=== PATIENT | male | born 1980 | race Caucasian/White ===

== ENCOUNTER 2021-02-04 10:00 | Outpatient (RCR) | payer MEDICAID, SELFPAY | END 2021-02-22 12:21 | disposition home or self-care (01) | LOC: HO.PT 10:00 | PROVIDERS: PCP Family Medicine; Visit Provider Internal Medicine | DX: M54.9 Dorsalgia, unspecified (principal) | CPT/HCPCS: 97110; 97112; 97150; 97162 ==

== ENCOUNTER → 2021-05-16 08:58 | Outpatient (BNVA) | payer MEDICAID, SELFPAY | PROVIDERS: PCP Family Medicine; Visit Provider Anesthesiology | DX: M47.816 Spondylosis without myelopathy or radiculopathy, lumbar region (principal); M46.1 Sacroiliitis, not elsewhere classified; F11.21 Opioid dependence, in remission; G89.4 Chronic pain syndrome | CPT/HCPCS: 99202 ==

== ENCOUNTER 2021-06-18 06:06 | Outpatient (REF) | payer MEDICAID, SELFPAY ==
--- NOTE | ~2021-06-18 | FL_ITS ---
EXAMINATION: XR FLUOROSCOPY WITH IMAGES CLINICAL INFORMATION: M46.1 - Sacroiliitis, not elsewhere classified COMPARISON: Radiographs lumbar spine 10/11/2018 TECHNIQUE: Fluoroscopy performed by Dr. Vince Trammell. Fluoroscopy time: 0.3 minutes DAP: 0.213 mGycm2 Images: 2 FINDINGS: Spinal needles overlie the bilateral lower SI joints. There is contrast in the periarticular soft tissues with probable early intra-articular contrast. No vasculature communication appreciated. FL/FL guidance in treatment room IMPRESSION: Fluoroscopy for pain management procedure.
== END 2021-06-18 06:07 | disposition home or self-care (01) ==
LOC: HO.RADIR 06:06
PROVIDERS: Visit Provider Anesthesiology
DX: M47.816 Spondylosis without myelopathy or radiculopathy, lumbar region (principal); M46.1 Sacroiliitis, not elsewhere classified; F11.21 Opioid dependence, in remission; G89.4 Chronic pain syndrome
CPT/HCPCS: 27096; J3300; Q9967

== ENCOUNTER → 2021-06-19 09:02 | Outpatient (BNVA) | payer MEDICAID, SELFPAY | PROVIDERS: PCP Internal Medicine; Referring Provider Internal Medicine; Visit Provider Physician Assistant | DX: K59.09 Other constipation (principal); G89.4 Chronic pain syndrome; Z79.891 Long term (current) use of opiate analgesic | CPT/HCPCS: 99202 ==

== ENCOUNTER → 2021-08-01 10:35 | Outpatient (BNVA) | payer MEDICAID, SELFPAY | PROVIDERS: PCP Internal Medicine; Referring Provider Internal Medicine; Visit Provider Physician Assistant | DX: K59.09 Other constipation (principal) | CPT/HCPCS: 99212 ==

== ENCOUNTER → 2021-08-26 08:54 | Outpatient (BNVA) | payer MEDICAID, SELFPAY | PROVIDERS: PCP Internal Medicine; Visit Provider Anesthesiology | DX: M47.816 Spondylosis without myelopathy or radiculopathy, lumbar region (principal); M46.1 Sacroiliitis, not elsewhere classified; G89.4 Chronic pain syndrome; Z79.891 Long term (current) use of opiate analgesic | CPT/HCPCS: 99212 ==

== ENCOUNTER 2021-09-17 05:55 | Outpatient (REF) | payer MEDICAID, SELFPAY ==
--- NOTE | ~2021-09-17 | FL_ITS ---
EXAMINATION: XR FLUOROSCOPY WITH IMAGES CLINICAL INFORMATION: M46.1 - Sacroiliitis, not elsewhere classified COMPARISON: Lumbar spine 10/11/2018 TECHNIQUE: Fluoroscopy performed by Dr. Vince Trammell. Fluoroscopy time: 0.3 minutes. DAP: 4.90 Gycm2. Images: 2. FINDINGS: There are spinal needles overlying the bilateral mid SI joints. There is contrast in the periarticular soft tissues with probable early intra-articular contrast. No vasculature communication appreciated. FL/FL guidance in treatment room IMPRESSION: Fluoroscopy for pain management procedures.
== END 2021-09-17 05:56 | disposition home or self-care (01) ==
LOC: HO.RADIR 05:55
PROVIDERS: Visit Provider Anesthesiology
DX: M46.1 Sacroiliitis, not elsewhere classified (principal); M47.816 Spondylosis without myelopathy or radiculopathy, lumbar region; G89.4 Chronic pain syndrome; F11.21 Opioid dependence, in remission
CPT/HCPCS: 27096; J2795

== ENCOUNTER 2021-11-21 09:07 | Day surgery (SDC) | payer MEDICAID, SELFPAY ==
[2021-11-15 13:03] VITALS: BMI 42.2
--- NOTE | 2021-11-20 09:14 | HO.ANESPROP2 ---
Documented by User: Evelin Willis NP 11/20/21 09:16 HPI - Anesthesia Eval Consult details Narrative: 41yo M for Right S.I. Joint Fusion Suboxone daily PMFSH Active Problems Active Problems: All Active Problems (Updated 08/01/21 @ 11:12 by Harmony Nieves PA-C) Chronic constipation (Acute) Chronic pain syndrome (Acute) Sacroiliitis (Acute) Opioid dependence, in remission (Acute) Spondylosis of lumbar spine (Acute) Past Medical History Medical History Chronic back pain Chronic pain syndrome Mood disorder Opioid dependence, in remission Sacroiliitis Spondylosis of lumbar spine Family History Family History Father HTN (hypertension) Mother Lung cancer Brother Heart disease Surgical History Surgical History History of neck surgery Social History Social History Household Members: Family Alcohol intake: never Patient Tobacco Use Status: Former Tobacco user Substance Use Type: Heroin Advance Directives: No Advance Directives Information Provided: Yes Meds Allergies Allergy/AdvReac Type Severity Reaction Status Date / Time No Known Allergies Allergy Verified 09/19/21 08:39 Home Medications Medication Instructions Recorded Confirmed Last Taken Type buprenorphine 12 mg-naloxone 3 mg 1 film buccal Q24H 05/16/21 Unknown History sublingual film (Suboxone) bupropion HCl 150 mg 24 hr tablet, 150 mg PO QAM 05/16/21 Unknown History extended release olanzapine 2.5 mg tablet 2.5 mg PO BEDTIME 05/16/21 Unknown History polyethylene glycol 3350 17 17 g PO DAILY 06/19/21 06/19/21 Unknown History gram/dose oral powder (Miralax) Exam Exam Date and Time: November 20, 202114 Height,Weight and Vital Signs: Height 5 ft 2 in Weight 104.78 kg Assessment and Plan Assessment Anesthesia Assessment: Chart Reviewed Documented by User: Price Horan MD 11/21/21 10:26 [facility] Past Medical History Medical History Chronic back pain Chronic pain syndrome Mood disorder Opioid dependence, in remission Sacroiliitis Spondylosis of lumbar spine Family History Family History Father HTN (hypertension) Mother Lung cancer Brother Heart disease Family history of problems with anesthesia: No Surgical History Surgical History History of neck surgery History of Problems with Anesthesia: No Social History Social History Household Members: Family Alcohol intake: never Patient Tobacco Use Status: Former Tobacco user Substance Use Type: Heroin Advance Directives: No Advance Directives Information Provided: Yes Meds Allergies Allergy/AdvReac Type Severity Reaction Status Date / Time No Known Allergies Allergy Verified 09/19/21 08:39 Home Medications Medication Instructions Recorded Confirmed Last Taken Type buprenorphine 12 mg-naloxone 3 mg 1 film buccal Q24H 05/16/21 Unknown History sublingual film (Suboxone) bupropion HCl 150 mg 24 hr tablet, 150 mg PO QAM 05/16/21 Unknown History extended release olanzapine 2.5 mg tablet 2.5 mg PO BEDTIME 05/16/21 Unknown History polyethylene glycol 3350 17 17 g PO DAILY 06/19/21 06/19/21 Unknown History gram/dose oral powder (Miralax) Exam Airway Mallampati Class: III TM Dist: >3cm Neck ROM: Full Loose/Missing/Broken Teeth: No Assessment and Plan Assessment Anesthesia Assessment: Anesthesia Plan Discussed Final Anesthetic Review Family History of Problems with Anesthesia: No History of Problems with Anesthesia: No NPO: Yes ASA Class: III Final Preanesthetic Review: No Changes in Pt Med Stat, Meds/Allgs Chart Reviewed, Consent Obtained/Reviewed and Anes Risks/Benef Reviewed Patient Risk: Intermediate Procedure Risk: Low Anesthetic Plan Anesthetic Plan: GA Disposition: Standard PACU
[2021-11-21] VITALS (7 sets, daily range): BP systolic 115–125; BP diastolic 69–84; PULSE 87–97; RESP 14–16; TEMP 36.6–37.1; O2SAT 94–99
--- NOTE | ~2021-11-21 | FL_ITS ---
EXAMINATION: XR FLUOROSCOPY WITH IMAGES CLINICAL INFORMATION: SI pain. Fluoroscopy for pain management procedure/joint fusion. COMPARISON: Fluoroscopic spot views 09/17/2021 TECHNIQUE: Fluoroscopy performed by Dr. Vince Trammell. Fluoroscopy time: 0.6 minutes. Cumulative Dose: 17.1 mGy. DAP: 4.53 Gy-cm2. Images: 8. FINDINGS: Fluoroscopic spot views initially show needle directed into the mid left SI joint. Subsequent images show metallic ring overlying the mid left SI joint joint and finally thin device in this area. No visible fracture or diastases. FL/FL guidance in OR IMPRESSION: Fluoroscopy for pain management procedure.
[2021-11-21] MEDS: Lactated Ringers 1,000 ML 100 ML IVCONT (09:55)
[2021-11-21 09:57] LABS: Amphetamine Screen Urine Not Detected (Not Detect); Barbiturates, Urine Not Detected (Not Detect); Benzodiazepines Screen Urine Not Detected (Not Detect); Cannabinoid Screen Urine Not Detected (Not Detect); Cocaine Screen Urine Not Detected (Not Detect); Fentanyl, urine Not Detected (Not Detect); Opiate Screen Urine Not Detected (Not Detect); Phencyclidine Screen Urine Not Detected (Not Detect)
--- NOTE | 2021-11-21 12:00 | P.HPSUR_ITS ---
Pre-Procedural Eval Section A Date of Service: 11/21/21 The patient is an INPATIENT: No Changes since office visit: Yes Patient answered all questions The History & Physical has been completed within 30 days and I have reviewed it.: No Section B Chief Complaint: Sacroiliitis, Details of Present Illness: as above Relevant Family History (Specify if Yes): No Relevant Social History: None Present Medications: see Short Stay Collaborative assessment Medical History: No relevant PMH History of Previous Operations: No relevant previous surgery Allergies: Allergies Allergy/AdvReac Type Severity Reaction Status Date / Time No Known Allergies Allergy Verified 09/19/21 08:39 Review of Systems Sugical H&P ROS: Negative: Constitution, Cardiovascular, Respiratory, N eurological, Psychiatric, Hem-Onc, Allergic/Immunologic, Gastrointestinal, Genitourinary, Musculoskeletal, Integumentary, Endocrine and Eyes/Ears/Nose/Throat Exam Surgical H&P Exam: Normal: HEENT, Normal: Heart, Normal: Lungs, Normal: Extremities, Normal: Abdomen, Normal: Skin and Normal: Neurological Plan Diagnosis/Plan: Unchanged I have reviewed the history and physical and performed a pertinent physical examination on my patient. No changes have occurred unless specified.
--- NOTE | 2021-11-21 13:29 | PM.OP ---
Brief Operative Note Date of Service: 11/21/21 Pre-op diagnosis: Sacroiliac joint pain, sacroiliitis Post-op diagnosis: same Procedure: right sacroiliac joint stabilization Implants: cadaver bone wedge with biological activator. Surgeon: Vince Trammell MD Anesthesia: GETA Was an Yarn Preparation Supervisor used for this Procedure?: No Estimated blood loss (mL): 16 Pathology: none sent Condition: stable Disposition: PACU
--- NOTE | 2021-11-21 13:38 | W.PM.OPN ---
Operative Note Operative Note Date of Service: 11/21/21 Narrative: Sacroiliac joint stabilisation procedure. posterior sacroiliac joint fusion on the right? using [employer] SI joint stabilization system with C-arm fluoroscopy for guidance.? Hal is a oleasant 41 y.o male who is suffering from the right?sacroiliitis.??He failed conservative management of sacroiliitis.?He came today to receive the procedures as above.??The risks and benefits including bleeding, infection, peripheral nerve damage, failure to reduce the pain were explained to the patient.?The patient came to the operating room, he was positioned on the stretcher supine, [employer] monitors were applied and patient was administered with general endotracheal anesthesia.??After that the patient was transferred on operating table and positioned prone with all pressure points protected. The patient was administered 2 grams cefazolin IV approximately 25 minutes before the start of the procedure.? Time-out was performed delineating correct site, side, and nature of the procedure, name and date of of the patient, risk of fire, need for DVT prophylaxis, need for antibiotics.? The patient was transferred?on?radiolucent table. All pressure points were protected again. Lower back and bilateral buttocks were prepped with ChloraPrep and draped with full body drape. 3. 5 cm posterior midline incision over the projection of the right? S1 foramina was performed.? Soft tissue dissection done to sacroiliac joint and thorough blind dissection was made in the direction of the?sacroiliac joint.? K-wire pin was inserted into the sacroiliac joint and guiding instrument was inserted into the joint using the pin as a guide and advanced into the joint on the intermittent anterior posterior and lateral views.??? After that pin was removed and rasping device was inserted to broach and rasp sacroiliac joint.? Once joint was prepared and inserted the structural allograft implant was hammered into the joint . It was packed with ortho biologics in and around the implant to provide better opportunity? for bones fusion.? The position of the allograft was confirmed radiographically.? The wound was irrigated, hemostasis was achieved,? wound was closed in 2 layers.? Surgery was concluded by performing standard suture closing technique:? 0 Polysorb suture was used to close the wound and polisorb 2-0? were used to approximate the level of the skin and jimmie were applied.? ? ? Sterile?dressing was applied with bacitracin ointment .? The patient tolerated procedure well he was awaken, extubated? and taken outside of the operating room to PACU where he recovered uneventfully. He went home without immediate complications. she will be wearing an SI joint fixation belt for the 10? weeks after the procedure.
== END 2021-11-21 15:05 ==
LOC: HO.SSS 09:07
PROVIDERS: Nurse Practitioner; PCP Internal Medicine; Visit Provider Anesthesiology
PROC: (CPT 27279; principal; 2021-11-21 11:30)
DX: M46.1 Sacroiliitis, not elsewhere classified (principal); M47.816 Spondylosis without myelopathy or radiculopathy, lumbar region; G89.4 Chronic pain syndrome; F11.21 Opioid dependence, in remission; F39 Unspecified mood [affective] disorder; Z79.899 Other long term (current) drug therapy; Z87.891 Personal history of nicotine dependence
CPT/HCPCS: 27279; 80307; C1713; J0131; J0690; J1100; J2370; J2405; J2795; J3010; J3370

== ENCOUNTER → 2021-11-27 10:54 | Outpatient (BNVA) | payer MEDICAID, SELFPAY | PROVIDERS: PCP Internal Medicine; Visit Provider Anesthesiology | DX: M47.816 Spondylosis without myelopathy or radiculopathy, lumbar region (principal); M46.1 Sacroiliitis, not elsewhere classified; G89.4 Chronic pain syndrome; F11.21 Opioid dependence, in remission | CPT/HCPCS: 99212 ==

== ENCOUNTER → 2021-12-04 10:29 | Outpatient (BNVA) | payer MEDICAID, SELFPAY | PROVIDERS: PCP Internal Medicine; Visit Provider Anesthesiology | DX: G89.4 Chronic pain syndrome (principal); M47.816 Spondylosis without myelopathy or radiculopathy, lumbar region; M46.1 Sacroiliitis, not elsewhere classified; F11.20 Opioid dependence, uncomplicated | CPT/HCPCS: 99212 ==

== ENCOUNTER 2022-09-17 11:07 | Outpatient (AMB) | payer MEDICAID, SELFPAY ==
--- NOTE | 2022-09-17 11:36 | MHC.OFFVIS ---
Intake Vital Signs 09/17/22 11:40 Height 5 ft 2 in Weight 217 lb BMI 39.7 BP 126/78 Blood Pressure Location Rt brachial Position Sitting Respiration 18 Pulse 94 Pulse Source Pulse Oximeter Pulse Oximetry (%) 97 Oxygen Delivery Method Room Air Intake Visit Reasons: Increasing Low Back Pain Intake Note: patient comes in for increasing low back pain. Allergies No Known Allergies Allergy (Verified 09/17/22 11:39) HPI HPI Comments History of Present Illness Details Harris is very pleasant 42 years old gentleman with under my observation since 2021. She was diagnosed with sacroiliitis and he had right sacroiliac joint fusion with [employer] technology in November of 2021. Today he presented in my office with complains on pain returned in the projection of the right sacroiliac joint. The area of the scar is very tender on palpation, however there is no redness, there is no swelling and no pathological discharge. The patient was sent for evaluation by x-ray department and the image of the fusion element was obtained. It appears to be that the fusion element is slightly dis dislodged from its original position but only may be 5-7 mm. It appears to be still in the sacroiliac joint. The patient was smoking cigarettes before the procedure however he claims that he stop smoking 3 months before the onset of the surgery. Maybe this is explanation why fusion did not occur. The fact that the element is still in sacroiliac joint is encouraging however the fact that it was dislodged demonstrates no bone bridge formation. He is scheduled for an appointment in 1 week, currently I can offer him: 1. Revision of the fusion. If he restarted smoking this is a poor option. 2. Psychological evaluation and a trial of SI joint innervation stimulation. 3. Conservative measures including NSAIDs, muscle relaxants, starting over with SI joint belt 247 for next 8-10 weeks. In a week I will discuss all this options with the patient. [facility] Medical History Chronic back pain Chronic pain syndrome Mood disorder Opioid dependence, in remission Sacroiliitis Spondylosis of lumbar spine Surgical History History of neck surgery Family History Father HTN (hypertension) Mother Lung cancer Brother Heart disease Social History Household Members: Family Alcohol intake: never Patient Tobacco Use Status: Former Tobacco user Substance Use Type: Heroin Review of Systems Const All systems reviewed & are unremarkable except as noted in HPI and below ENT Reports Normal hearing present Neuro Reports Normal hearing present, Denies Abnormal speech present and Denies Sensory deficit (Neuro) Physical Exam Vital Signs: Last Vital Signs Pulse 94 09/17/22 11:40 Resp 18 09/17/22 11:40 BP 126/78 09/17/22 11:40 Pulse Ox 97 09/17/22 11:40 Oxygen Delivery Method Room Air 09/17/22 11:40 BMI result Body Mass Index 39.7 Const General: no acute distress and well developed Nutritional Appearance: obese Orientation/consciousness: patient oriented x3 Chest Chest palpation & inspection: normal inspection of the chest Resp Effort & Inspection: normal respiratory effort, able to speak in complete sentences, abnormal respiratory pattern, no audible wheezes and no cough Cardio Jugular venous distension: no JVD Back/Spine/Pelvis Other: Bilateral positive Stinchfield test, Romeo test, Gaenslen test. Tenderness on palpation in bilateral sacroiliac joints. Neuro General: patient oriented x3 Cranial nerves: Yes Normal hearing present Speech: No Abnormal speech present Sensory Exam: No Sensory deficit (Neuro) Assessment & Plan Assessment & Plan (1) Sacroiliitis: Code(s): M46.1 - Sacroiliitis, not elsewhere classified (2) Chronic pain syndrome: Code(s): G89.4 - Chronic pain syndrome (3) Spondylosis of lumbar spine: Code(s): M47.816 - Spondylosis without myelopathy or radiculopathy, lumbar region (4) Opioid dependence, in remission: Code(s): F11.21 - Opioid dependence, in remission Plan Diagnostic sacroiliac joint injection resulted in: 38 hours of pain relief. I had offered this patient option between the fusion of sacroiliac joint tried 1st and left 2nd and sacroiliac joint innervation stimulation. This is young gentleman 41 years old and he was smoking few cigarettes a day before that. He stop smoking and I performed right sacroiliac joint fusion. He presented today with a renewed pain in the projection of the sacroiliac joint, x-ray demonstrated 5-7 mm dislodgement of the element. It is still in the joint however obviously no formation of the bony bridge occurred. The treatment options are: 1. Revision of the fusion. If he restarted smoking this is a poor option. 2. Psychological evaluation and a trial of SI joint innervation stimulation. 3. Conservative measures including NSAIDs, muscle relaxants, starting over with SI joint belt 29/09 for next 8-10 weeks. He is on Suboxone to prevent addictive behavior. He is a poor candidate for opioid therapy. Orders: Orders XR pelvis min 3V 09/17/22 G89.4 - Chronic pain syndrome, M46.1 - Sacroiliitis, not elsewhere classified Coding Level of Care Code Est Pt Level 4 (16964) Diagnoses Sacroiliitis M46.1 Chronic pain syndrome G89.4 Spondylosis of lumbar spine M47.816 Opioid dependence, in remission F11.21
[2022-09-17 11:40] VITALS: BP 126/78; PULSE 94; RESP 18; O2SAT 97; BMI 39.7
== END 2022-09-17 12:13 | disposition home or self-care (01) ==
PROVIDERS: PCP Internal Medicine; Visit Provider Anesthesiology
DX: G89.4 Chronic pain syndrome (principal); M46.1 Sacroiliitis, not elsewhere classified; M47.816 Spondylosis without myelopathy or radiculopathy, lumbar region; Z79.891 Long term (current) use of opiate analgesic
CPT/HCPCS: 99214

== ENCOUNTER 2022-09-17 11:07 | Outpatient (REF) | payer MEDICAID, SELFPAY ==
--- NOTE | ~2022-09-17 | XR_ITS ---
EXAMINATION: XR PELVIS CLINICAL INFORMATION: Sacroiliitis COMPARISON: 10/11/2018 TECHNIQUE: 3 views of the pelvis FINDINGS: Limited imaging but there is subtle sacroiliitis which appears relatively asymmetric right greater than left with slight widening of the sacroiliac joints inferior half as well as subchondral sclerosis. In retrospect, some processes was likely present on the baseline study. XR/XR pelvis min 3V IMPRESSION: Subtle sacroiliitis right greater than left.
== END 2022-09-17 11:08 | disposition home or self-care (01) ==
LOC: HO.XRAY 11:07
PROVIDERS: PCP Internal Medicine; Visit Provider Anesthesiology
DX: M46.1 Sacroiliitis, not elsewhere classified (principal); G89.4 Chronic pain syndrome; M47.816 Spondylosis without myelopathy or radiculopathy, lumbar region; F11.21 Opioid dependence, in remission
CPT/HCPCS: 72190; 99212

== ENCOUNTER 2022-09-24 10:10 | Outpatient (AMB) | payer MEDICAID, SELFPAY ==
--- NOTE | 2022-09-24 10:41 | MHC.OFFVIS ---
Intake Vital Signs 09/24/22 10:48 Height 5 ft 2 in Weight 214 lb 2 oz BMI 39.2 BP 132/89 Blood Pressure Location Rt brachial Position Sitting Pulse 87 Pulse Source Pulse Oximeter Pulse Oximetry (%) 99 Oxygen Delivery Method Room Air Intake Visit Reasons: 1 WEEK FOLLOW UP Intake Note: pt here f/u xray of SIJ fusion Allergies No Known Allergies Allergy (Verified 09/24/22 10:47) Medication List - Last Reconciled 09/24/22 by Zunilda Shin RN buprenorphine-naloxone 12-3 mg (Suboxone) 1 film buccal Q24H bupropion HCl 150 mg PO QAM docusate sodium (Colace) 200 mg (2 x 100 mg) PO BEDTIME gabapentin 600 mg PO TID PRN 30 days metformin 1,000 mg PO DAILY methylcellulose (laxative) (Citrucel) 500 mg PO TID olanzapine 2.5 mg PO BEDTIME polyethylene glycol 3350 (Miralax) 17 grams PO DAILY tizanidine 4 mg PO Q8H PRN 30 days HPI HPI Comments History of Present Illness Details Harris is very pleasant 42 years old gentleman with under my observation since 2021. She was diagnosed with sacroiliitis and he had right sacroiliac joint fusion with [employer] technology in November of 2021. One week ago he presented in my office with complains on pain returned in the projection of the right sacroiliac joint. The area of the scar is very tender on palpation, however there were no redness, - no swelling and no pathological discharge. The patient was sent for evaluation by x-ray department and the image of the fusion element was obtained. It appears to be that the fusion element is slightly -dislodged from its original position but only may be 5-7 mm. It appears to be still in the sacroiliac joint. The patient was smoking cigarettes before the procedure however he claims that he stop smoking 3 months before the onset of the surgery. Maybe this is explanation why fusion did not occur. The fact that the element is still in sacroiliac joint is encouraging however the fact that it was dislodged demonstrates no bone bridge formation. I recommended him to continue to wear the SI joint belt again. His options at this time are: 1. Revision of the fusion. If he restarted smoking this is a poor option. 2. Psychological evaluation and a trial of SI joint innervation stimulation. He reported that his psychologist might be able to prepare for us psychological evaluation instead of [employer]. It might be also quicker. 3. Conservative measures and sacroiliac joint belt smoking avoidance. [facility] Medical History Chronic back pain Chronic pain syndrome Mood disorder Opioid dependence, in remission Sacroiliitis Spondylosis of lumbar spine Surgical History History of neck surgery Family History Father HTN (hypertension) Mother Lung cancer Brother Heart disease Social History Household Members: Family Alcohol intake: never Patient Tobacco Use Status: Former Tobacco user Substance Use Type: Heroin Review of Systems Const All systems reviewed & are unremarkable except as noted in HPI and below ENT Reports Normal hearing present Neuro Reports Normal hearing present, Denies Abnormal speech present and Denies Sensory deficit (Neuro) Physical Exam Vital Signs: Last Vital Signs Pulse 87 09/24/22 10:48 BP 132/89 09/24/22 10:48 Pulse Ox 99 09/24/22 10:48 Oxygen Delivery Method Room Air 09/24/22 10:48 BMI result Body Mass Index 39.2 Const General: no acute distress and well developed Nutritional Appearance: obese Orientation/consciousness: patient oriented x3 Chest Chest palpation & inspection: normal inspection of the chest Resp Effort & Inspection: normal respiratory effort, able to speak in complete sentences, abnormal respiratory pattern, no audible wheezes and no cough Cardio Jugular venous distension: no JVD Back/Spine/Pelvis Other: Bilateral positive Stinchfield test, Romeo test, Gaenslen test. Tenderness on palpation in bilateral sacroiliac joints. Neuro General: patient oriented x3 Cranial nerves: Yes Normal hearing present Speech: No Abnormal speech present Sensory Exam: No Sensory deficit (Neuro) Assessment & Plan Assessment & Plan (1) Sacroiliitis: Code(s): M46.1 - Sacroiliitis, not elsewhere classified (2) Chronic pain syndrome: Code(s): G89.4 - Chronic pain syndrome (3) Spondylosis of lumbar spine: Code(s): M47.816 - Spondylosis without myelopathy or radiculopathy, lumbar region (4) Opioid dependence, in remission: Code(s): F11.21 - Opioid dependence, in remission Plan Diagnostic sacroiliac joint injection resulted in: 38 hours of pain relief. I had offered this patient option between the fusion of sacroiliac joint tried 1st and left 2nd and sacroiliac joint innervation stimulation. This is young gentleman 41 years old and he was smoking few cigarettes a day before that. He stop smoking and I performed right sacroiliac joint fusion. He presented today with a renewed pain in the projection of the sacroiliac joint, x-ray demonstrated 5-7 mm dislodgement of the element. It is still in the joint however obviously no formation of the bony bridge occurred. The treatment options are: 1. Revision of the fusion. If he restarted smoking this is a poor option. 2. Psychological evaluation and a trial of SI joint innervation stimulation. 3. Conservative measures including NSAIDs, muscle relaxants, starting over with SI joint belt 29/09 for next 8-10 weeks. He is on Suboxone to prevent addictive behavior. He is a poor candidate for opioid therapy. Coding Level of Care Code Est Pt Level 4 (55148) Diagnoses Sacroiliitis M46.1 Chronic pain syndrome G89.4 Spondylosis of lumbar spine M47.816 Opioid dependence, in remission F11.21
[2022-09-24 10:48] VITALS: BP 132/89; PULSE 87; O2SAT 99; BMI 39.2
== END 2022-09-24 11:17 | disposition home or self-care (01) ==
PROVIDERS: PCP Internal Medicine; Visit Provider Anesthesiology
DX: M46.1 Sacroiliitis, not elsewhere classified (principal); G89.4 Chronic pain syndrome; M47.816 Spondylosis without myelopathy or radiculopathy, lumbar region; Z79.891 Long term (current) use of opiate analgesic
CPT/HCPCS: 99214

== ENCOUNTER → 2022-09-24 10:10 | Outpatient (BNVA) | payer MEDICAID, SELFPAY | PROVIDERS: PCP Internal Medicine; Visit Provider Anesthesiology | DX: M46.1 Sacroiliitis, not elsewhere classified (principal); S33.2XXA Dislocation of sacroiliac and sacrococcygeal joint, initial encounter; X58.XXXA Exposure to other specified factors, initial encounter; Y93.9 Activity, unspecified; Y92.9 Unspecified place or not applicable; Y99.8 Other external cause status; M47.816 Spondylosis without myelopathy or radiculopathy, lumbar region; G89.4 Chronic pain syndrome; F11.21 Opioid dependence, in remission; F17.210 Nicotine dependence, cigarettes, uncomplicated | CPT/HCPCS: 99212 ==

== ENCOUNTER 2022-11-20 13:34 | Outpatient (REF) | payer MEDICAID, SELFPAY ==
[2022-11-20 14:17] LABS: MANUAL DIFF FLAG NO
[2022-11-20 14:22] LABS: Basophils Percent Auto 0.4 % (0-2); Eosinophils Absolute Auto 0.4 X10*3/uL (0.0-0.4); Hematocrit 44.6 % (42.0-52.0); Hemoglobin 14.6 g/dl (14.0-18.0); Imm Gran Abs Auto 0.02 X10*3/uL (0.00-0.03); Imm Gran Pct Auto 0.2 % (0.0-0.4); Lymphocytes Absolute Auto 2.4 X10*3/uL (1.2-4.9); Lymphocytes Percent Auto 26.4 % (20-40); Mean Corpuscular HGB Conc 32.7 g/dl (31.0-36.0); Mean Corpuscular Hemoglobin 30.7 pg (27.0-33.0); Mean Corpuscular Volume 93.7 fL (80.0-98.0); Mean Platelet Volume 12.3 fL (9.4-12.4); Monocytes Absolute Auto 0.6 X10*3/uL (0.1-1.2); Monocytes Percent Auto 6.8 % (2-11); Neutrophils Absolute Auto 5.6 x10*3/uL (2.0-8.3); Neutrophils Percent Auto 62.2 % (45-73); Platelet Count 176 X10*3/uL (160-400); Red Blood Count 4.76 X10*6/uL (4.60-5.80); Red Cell Distribution Width 12.5 % (11.0-16.0); White Blood Count 9.1 X10*3/uL (4.8-10.8)
[2022-11-20 15:16] LABS: Alanine Aminotransferase 14 U/L (0-40); Albumin Level 4.4 g/dL (3.5-5.0); Alkaline Phosphatase 70 U/L (39-117); Anion Gap 11 (12-20); Aspartate Amino Transferase 17 U/L (5-37); Bilirubin Total 0.3 mg/dL (0.0-1.0); Blood Urea Nitrogen 11 mg/dL (9-16); Calcium 9.6 mg/dL (8.4-10.2); Carbon Dioxide 30 mmol/L (22-29); Chloride 106 mmol/L (96-108); Cholesterol 132 mg/dL (<200); Estimated Glomerular Filt Rate > 60; Glucose Fasting 123 mg/dL (60-99); HDL Cholesterol 45 mg/dL (>40); LDL Cholesterol Calculated 67 mg/dL (<100); Potassium 4.3 mmol/L (3.3-5.1); Sodium 143 mmol/L (135-145); Total Protein 7.7 g/dL (6.5-8.0); Triglycerides 100 mg/dL (<150)
[2022-11-20 15:32] LABS: TSH reflex Free T4 1.98 uIU/mL (0.32-4.0)
[2022-11-20 18:22] LABS: Creatinine Urine 147.85 mg/dL; Microalbum/Creatinine Ratio Ur 6.7 ug/mg cr (<30)
== END 2022-11-20 13:35 | disposition home or self-care (01) ==
LOC: HO.CHCLDS 13:34
PROVIDERS: Visit Provider Internal Medicine
DX: E11.9 Type 2 diabetes mellitus without complications (principal)
CPT/HCPCS: 36415; 80053; 80061; 82043; 82570; 84443; 85025

== ENCOUNTER 2023-01-28 01:22 | Emergency (ER) | payer MEDICAID, SELFPAY ==
--- NOTE | ~2023-01-28 | US_ITS ---
EXAMINATION: US SCROTUM CLINICAL INFORMATION: Left testicular pain. COMPARISON: None available. TECHNIQUE: A sonogram of the scrotum was performed assessing moses-scale appearance and color Doppler flow. Spectral Doppler analysis of the arterial and venous flow were performed in the testes bilaterally. FINDINGS: RIGHT: Right testicle measures 3.9 x 1.7 x 2.2 cm, volume 7.7 mL. There is a 0.2 cm hyperechoic focus in the mid lateral right testicle. Spectral Doppler analysis of the arterial and venous flow is normal in the right testis. Right epididymal head is normal in size. Right epididymal head cyst measures 0.3 cm. Trace right hydrocele. No right varicocele is seen. Right epididymal Doppler flow is normal. LEFT: Left testicle measures 3.6 x 2.0 x 2.5 cm, volume 19.2 mL. No focal testicular parenchymal lesions are visualized. Spectral Doppler analysis of the arterial and venous flow is normal in the left testis. Left epididymal head is normal in size. Left epididymal head cyst measures 0.3 cm. No left hydrocele or varicocele is seen. Left epididymal Doppler flow is increased at the tail. US/US scrotum IMPRESSION: 1. Increased flow at the left epididymal tail, raising the possibility of epididymitis. 2. Hyperechoic 0.2 cm focus in the mid lateral right testicle, suggestive of an intratesticular lipoma. Sonographic follow-up in 6 months is advised to assess stability. 3. Trace right hydrocele. 4. Tiny bilateral epididymal head cysts.
--- NOTE | ~2023-01-28 | CT_ITS ---
EXAMINATION: CT ABDOMEN AND PELVIS WITHOUT CONTRAST CLINICAL INFORMATION: Left lower quadrant pain radiating to flank/testis COMPARISON: 08/19/2021 TECHNIQUE: Multidetector volumetric imaging was performed from the superior aspect of the liver through the pubic symphysis. Sagittal and coronal reformatted images were obtained on the technologist's workstation. This CT examination was performed using dose optimization techniques as appropriate, variously including the following: *Automated exposure control *Adjustment of mA and/or kV according to patient size (this includes techniques or standardized protocols for targeted exams where dose is matched to indication/reason for exam; i.e. extremities or head) *Use of iterative reconstruction technique DLP: 754 mGy-cm FINDINGS: LUNG BASES: The visualized lung bases are unremarkable. LIVER, GALLBLADDER, AND BILIARY TREE: The liver is normal in size, shape, and attenuation. No focal hepatic lesion or biliary ductal dilatation is identified on this noncontrast exam. The gallbladder is unremarkable with no evidence of radiopaque gallstones, gallbladder wall thickening, or obvious pericholecystic inflammatory changes. PANCREAS: Unremarkable. SPLEEN: Unremarkable. ADRENAL GLANDS: Unremarkable. KIDNEYS AND URETERS: There is a 7 mm calculus in the proximal left ureter near the ureteropelvic junction with mild hydronephrosis. Multiple scattered bilateral renal calculi are present measuring up to approximately 5 mm. No right hydronephrosis or ureteral calculus. BLADDER: Unremarkable. GASTROINTESTINAL TRACT: No evidence of bowel obstruction or significant wall thickening. The appendix is unremarkable. No free fluid or free air is seen. ABDOMINAL WALL: Small fat-containing umbilical hernia. LYMPH NODES: Normal. VASCULAR: Unremarkable. PELVIC VISCERA: Unremarkable. OSSEOUS STRUCTURES: Scattered degenerative changes in the spine. CT/CT abdomen pelvis wo IV con IMPRESSION: 1. Proximal left ureteral calculus measuring 7 mm with mild hydronephrosis. 2. Multiple scattered bilateral renal calculi.
--- NOTE | ~2023-01-28 | US_ITS ---
EXAMINATION: US SCROTUM CLINICAL INFORMATION: Left testicular pain. COMPARISON: None available. TECHNIQUE: A sonogram of the scrotum was performed assessing moses-scale appearance and color Doppler flow. Spectral Doppler analysis of the arterial and venous flow were performed in the testes bilaterally. FINDINGS: RIGHT: Right testicle measures 3.9 x 1.7 x 2.2 cm, volume 7.7 mL. There is a 0.2 cm hyperechoic focus in the mid lateral right testicle. Spectral Doppler analysis of the arterial and venous flow is normal in the right testis. Right epididymal head is normal in size. Right epididymal head cyst measures 0.3 cm. Trace right hydrocele. No right varicocele is seen. Right epididymal Doppler flow is normal. LEFT: Left testicle measures 3.6 x 2.0 x 2.5 cm, volume 19.2 mL. No focal testicular parenchymal lesions are visualized. Spectral Doppler analysis of the arterial and venous flow is normal in the left testis. Left epididymal head is normal in size. Left epididymal head cyst measures 0.3 cm. No left hydrocele or varicocele is seen. Left epididymal Doppler flow is increased at the tail. US/US scrotum doppler IMPRESSION: 1. Increased flow at the left epididymal tail, raising the possibility of epididymitis. 2. Hyperechoic 0.2 cm focus in the mid lateral right testicle, suggestive of an intratesticular lipoma. Sonographic follow-up in 6 months is advised to assess stability. 3. Trace right hydrocele. 4. Tiny bilateral epididymal head cysts.
[2023-01-28 01:37] VITALS: BP 157/95; PULSE 86; RESP 18; TEMP 37; O2SAT 99; BMI 35.4
[2023-01-28 01:54] LABS: MANUAL DIFF FLAG NO
[2023-01-28 01:55] LABS: Basophils Absolute Auto 0.1 X10*3/uL (0.0-0.2); Basophils Percent Auto 0.5 % (0-2); Eosinophils Absolute Auto 0.3 X10*3/uL (0.0-0.4); Eosinophils Percent Auto 2.6 % (0-4); Hematocrit 43.7 % (42.0-52.0); Hemoglobin 14.6 g/dl (14.0-18.0); Imm Gran Abs Auto 0.04 X10*3/uL (0.00-0.03); Imm Gran Pct Auto 0.3 % (0.0-0.4); Lymphocytes Percent Auto 16.7 % (20-40); Mean Corpuscular HGB Conc 33.4 g/dl (31.0-36.0); Mean Corpuscular Hemoglobin 30.5 pg (27.0-33.0); Mean Corpuscular Volume 91.4 fL (80.0-98.0); Mean Platelet Volume 12.3 fL (9.4-12.4); Monocytes Absolute Auto 0.6 X10*3/uL (0.1-1.2); Monocytes Percent Auto 5.1 % (2-11); Neutrophils Absolute Auto 8.9 x10*3/uL (2.0-8.3); Neutrophils Percent Auto 74.8 % (45-73); Platelet Count 171 X10*3/uL (160-400); Red Blood Count 4.78 X10*6/uL (4.60-5.80); Red Cell Distribution Width 12.5 % (11.0-16.0); White Blood Count 11.9 X10*3/uL (4.8-10.8)
--- NOTE | 2023-01-28 01:58 | PC.NURSE ---
pt brought to back to [facility], labs collected and sent, Iv placed, Notified Dr. Echeverria, of patient increase abd pain and testicular swelling.
--- NOTE | 2023-01-28 02:00 | ED_ITS ---
HPI - Abdominal Pain General Chief Complaint: Abdominal Pain Stated Complaint: Hernia pain Time Seen by Provider: 01/28/23 01:51 History of Present Illness HPI narrative: Patient is 42-year-old male with a history of opiate dependence. Presents today with having left testicular pain that is very a sudden abrupt in onset radiating to the left flank area. Never had a kidney stone before. No fever no chills. No chest pain or diaphoresis. Symptoms not made worse with movement. Related Data Home Medications Medication Instructions Recorded Confirmed buprenorphine 12 mg-naloxone 3 mg 1 film buccal Q24H 05/16/21 09/24/22 sublingual film (Suboxone) bupropion HCl 150 mg 24 hr tablet, 150 mg PO QAM 05/16/21 09/24/22 extended release olanzapine 2.5 mg tablet 2.5 mg PO BEDTIME 05/16/21 09/24/22 polyethylene glycol 3350 17 17 g PO DAILY 06/19/21 09/24/22 gram/dose oral powder (Miralax) metformin 1,000 mg tablet 1,000 mg PO DAILY 09/24/22 09/24/22 Previous Rx's Medication Instructions Recorded docusate sodium 100 mg capsule 200 mg (2 x 100 mg) PO BEDTIME #60 06/19/21 (Colace) caps methylcellulose (laxative) 500 mg 500 mg PO TID #90 tabs 06/19/21 tablet (Citrucel) gabapentin 600 mg tablet 600 mg PO TID PRN postoperative 11/21/21 pain 30 days #90 tabs tizanidine 4 mg capsule 4 mg PO Q8H PRN muscle spasticity 11/21/21 30 days #90 caps ibuprofen 400 mg tablet 400 mg PO Q6H PRN pain #20 tabs 01/28/23 levofloxacin 500 mg tablet 500 mg PO DAILY 10 days #10 tabs 01/28/23 ondansetron 4 mg disintegrating 4 mg PO Q6-8H PRN nausea #10 tabs 01/28/23 tablet oxycodone 5 mg tablet 5 mg PO Q8H PRN pain #7 tabs 01/28/23 tamsulosin 0.4 mg capsule (Flomax) 0.4 mg PO DAILY #7 caps 01/28/23 Allergies Allergy/AdvReac Type Severity Reaction Status Date / Time No Known Allergies Allergy Verified 09/24/22 10:47 Review of Systems Review of Systems Positive pain to the left flank area Yes all other systems are reviewed and are negative [facility] Past Medical History Attestation statement: The following information was validated with the patient. Medical History Chronic pain syndrome Sacroiliitis Spondylosis of lumbar spine Opioid dependence, in remission Chronic back pain Mood disorder Surgical History History of neck surgery Family History Family History Father HTN (hypertension) Mother Lung cancer Brother Heart disease Social History Household Members: Family Alcohol intake: never Patient Tobacco Use Status: Former Tobacco user Smoked in Last 30 Days: No Substance Use Type: Former Substance User Advance Directives: No Advance Directives Information Provided: No Physical Exam ED Vital Signs: Vital Signs - 24 hr 01/28/23 01:37 01/28/23 02:58 01/28/23 04:00 Temperature 98.6 F 97.8 F Pulse Rate 86 94 85 Respiratory Rate 18 18 18 Blood Pressure 157/95 H 119/76 124/76 Pulse Oximetry 99 98 98 Oxygen Delivery Method Room Air Room Air Room Air BMI result Body Mass Index 35.4 Appearance: Alert. Oriented X3. No acute distress. Eyes: Pupils equal, round and reactive to light. ENT: Pharynx normal. Neck: Normal inspection. Neck supple. No lymph nodes noted. No crepitus CVS: Normal heart rate and rhythm. Pulses normal. Normal S1 and S2 Respiratory: No respiratory distress. Breath sounds normal. No Wheezing. No rales Abdomen: Soft and nontender. No rigidity. No distention. good BS x4 Skin: Skin warm and dry. Normal skin color. Normal skin turgor. Extremities: No lower extremity edema. Neurovascular intact to all extremities. No Lacerations. No Rash Neuro: Oriented X 3. No motor deficit. No sensory deficit. Moving all extermities. No slurred speech Medical Decision Making Medical Decision Making MDM Narrative: Patient presented today with testicular pain also pain in the flank area radiating down to the testicle. CT scan of the abdomen pelvis showed a proximal 7 mm ureteral stone. Patient's urine showed no gross evidence of infection. However patient has takes singular pain. An ultrasound of the testicle was done. A review patient's radiology reading of this ultrasound. Showed possible epididymitis. Patient's GC and chlamydia actually came back negative. Question epididymitis caused by E coli. Will start patient on antibiotics. Patient to receive Motrin, Flomax, Zofran, narcotics for the treatment of the kidney stone. Follow-up with urology on an outpatient basis. No fever no chills pain is controlled. Patient to be discharged home. Differential Diagnosis Differential Diagnoses: The differential diagnosis associated with the presentation includes Hernia, epididymitis, urinary tract infection, pyelonephritis, gonorrhea chlamydia, diverticulitis Admission/Observation Consideration of admission/observation: Escalation of care including admission/observation considered Not necessary as patient's pain is now controlled Lab Data MDM Lab Attestation statement: I reviewed the patient's lab results. 01/28/23 01:50 01/28/23 01:51 Labs: Lab Results 01/28/23 01/28/23 01/28/23 Range/Units 01:50 01:51 03:05 WBC 11.9 H (4.8-10.8) X10*3/uL RBC 4.78 (4.60-5.80) X10*6/uL Hgb 14.6 (14.0-18.0) g/dl Hct 43.7 (42.0-52.0) % MCV 91.4 (80.0-98.0) fL MCH 30.5 (27.0-33.0) pg MCHC 33.4 (31.0-36.0) g/dl RDW 12.5 (11.0-16.0) % Plt Count 171 (160-400) X10*3/uL MPV 12.3 (9.4-12.4) fL Immature Gran % (Auto) 0.3 (0.0-0.4) % Neut % (Auto) 74.8 H (45-73) % Lymph % (Auto) 16.7 L (20-40) % [place] % (Auto) 5.1 (2-11) % Eos % (Auto) 2.6 (0-4) % Baso % (Auto) 0.5 (0-2) % Lymph # (Auto) 2.0 (1.2-4.9) X10*3/uL [place] # (Auto) 0.6 (0.1-1.2) X10*3/uL Eos # (Auto) 0.3 (0.0-0.4) X10*3/uL Baso # (Auto) 0.1 (0.0-0.2) X10*3/uL Abs Immat Gran (auto) 0.04 H (0.00-0.03) X10*3/uL Absolute Neuts (auto) 8.9 H (2.0-8.3) x10*3/uL Absolute Nucleated RBC 0.000 (0.0-0.012) X10*3/uL Nucleated RBC % (auto) 0.0 (0.0-0.2) /100WBC Sodium 141 (135-145) mmol/L Potassium 3.9 (3.3-5.1) mmol/L Chloride 105 (96-108) mmol/L Carbon Dioxide 29 (22-29) mmol/L Anion Gap 11 L (12-20) BUN 13 (9-16) mg/dL Creatinine 0.97 (0.5-1.4) mg/dL Estim Creat Clear Calc 107.0 Estimated GFR > 60 Random Glucose 156 H (60-115) mg/dL Calcium 9.7 (8.4-10.2) mg/dL Total Bilirubin 0.4 (0.0-1.0) mg/dL AST 16 (5-37) U/L ALT 12 (0-40) U/L Alkaline Phosphatase 65 (39-117) U/L Total Protein 7.7 (6.5-8.0) g/dL Albumin 4.4 (3.5-5.0) g/dL Lipase 14 (8-78) U/L Urine Color Urine Appearance Urine pH (5.0-9.0) Ur Specific [place] (1.005-1.025) Urine Protein (Neg-Trace) mg/dL Urine Glucose (UA) (Negative) mg/dL Urine Ketones (Negative) mg/dL Urine Blood (Negative) Urine Nitrite (Negative) Ur Leukocyte Esterase (Negative) Urine RBC (0-2) /HPF Urine WBC (0-5) /HPF Ur Squamous Epith Cells (0-2) /HPF Urine Bacteria (None Seen) Hyaline Casts (0-2) /LPF Chlam trachomat DNA PCR NOT DETECTED (Not Detect.) N.gonorrhoeae DNA (PCR) NOT DETECTED (Not Detect.) 01/28/23 Range/Units 04:53 WBC (4.8-10.8) X10*3/uL RBC (4.60-5.80) X10*6/uL Hgb (14.0-18.0) g/dl Hct (42.0-52.0) % MCV (80.0-98.0) fL MCH (27.0-33.0) pg MCHC (31.0-36.0) g/dl RDW (11.0-16.0) % Plt Count (160-400) X10*3/uL MPV (9.4-12.4) fL Immature Gran % (Auto) (0.0-0.4) % Neut % (Auto) (45-73) % Lymph % (Auto) (20-40) % [place] % (Auto) (2-11) % Eos % (Auto) (0-4) % Baso % (Auto) (0-2) % Lymph # (Auto) (1.2-4.9) X10*3/uL [place] # (Auto) (0.1-1.2) X10*3/uL Eos # (Auto) (0.0-0.4) X10*3/uL Baso # (Auto) (0.0-0.2) X10*3/uL Abs Immat Gran (auto) (0.00-0.03) X10*3/uL Absolute Neuts (auto) (2.0-8.3) x10*3/uL Absolute Nucleated RBC (0.0-0.012) X10*3/uL Nucleated RBC % (auto) (0.0-0.2) /100WBC Sodium (135-145) mmol/L Potassium (3.3-5.1) mmol/L Chloride (96-108) mmol/L Carbon Dioxide (22-29) mmol/L Anion Gap (12-20) BUN (9-16) mg/dL Creatinine (0.5-1.4) mg/dL Estim Creat Clear Calc Estimated GFR Random Glucose (60-115) mg/dL Calcium (8.4-10.2) mg/dL Total Bilirubin (0.0-1.0) mg/dL AST (5-37) U/L ALT (0-40) U/L Alkaline Phosphatase (39-117) U/L Total Protein (6.5-8.0) g/dL Albumin (3.5-5.0) g/dL Lipase (8-78) U/L Urine Color Yellow Urine Appearance Clear Urine pH 8.0 (5.0-9.0) Ur Specific [place] 1.015 (1.005-1.025) Urine Protein Negative (Neg-Trace) mg/dL Urine Glucose (UA) Negative (Negative) mg/dL Urine Ketones Negative (Negative) mg/dL Urine Blood Trace H (Negative) Urine Nitrite Negative (Negative) Ur Leukocyte Esterase Negative (Negative) Urine RBC 6-10 H (0-2) /HPF Urine WBC 0-5 (0-5) /HPF Ur Squamous Epith Cells 0-2 (0-2) /HPF Urine Bacteria None Seen (None Seen) Hyaline Casts 0-2 (0-2) /LPF Chlam trachomat DNA PCR (Not Detect.) N.gonorrhoeae DNA (PCR) (Not Detect.) Independent Interpretation I performed an independent interpretation of an: CT Scan (Positive 7 mm proximal ureteral stone) Radiology Impression Discussion of test interpretation with radiology: I have reviewed the radiologist's reading. Radiologist Impression: Ultrasound showed possible epididymitis. CT scan showed 7 mm proximal ureteral stone Independent Historian Clinical information obtained from an independent historian. History obtained from or confirmed by: Spouse External Record Review External record reviewed: Office record Previous GI report reviewed Medications Administered Generic Name Dose Route Start Last Admin Trade Name Freq PRN Reason Stop Dose Admin Sodium Chloride 1,000 mls @ 999 mls/hr 01/28/23 04:45 01/28/23 04:46 Ns IV 01/28/23 05:45 999 mls/hr .Q1H1M GISELLE Administration Discontinued Medications Generic Name Dose Route Start Last Admin Trade Name Freq PRN Reason Stop Dose Admin Hydromorphone HCl 0.5 mg 01/28/23 04:32 01/28/23 04:47 Hydromorphone Hcl 0.5 Mg/0.5 Ml Syringe IVPUSH 01/28/23 04:33 0.5 mg ONCE ONE Administration Protocol Sodium Chloride 1,000 mls @ 999 mls/hr 01/28/23 02:00 01/28/23 02:39 Ns IV 01/28/23 03:00 999 mls/hr .Q1H1M GISELLE Administration Ketorolac Tromethamine 30 mg 01/28/23 01:58 01/28/23 02:37 Ketorolac Tromethamine 30 Mg/Ml Vial IVPUSH 01/28/23 01:59 30 mg ONCE ONE Administration Ondansetron HCl 4 mg 01/28/23 01:58 01/28/23 02:37 Ondansetron Hcl 4 Mg/2 Ml Vial IVPUSH 01/28/23 01:59 4 mg ONCE ONE Administration Discharge Plan Discharge Clinical Impression: Renal colic, Epididymitis Patient Disposition: Home, Self-Care Instructions: Epididymitis (ED), Renal Colic (ED) Prescriptions: New tamsulosin [Flomax] 0.4 mg capsule 0.4 mg PO DAILY Qty: 7 0RF ibuprofen 400 mg tablet 400 mg PO Q6H PRN (Reason: pain) Qty: 20 0RF oxycodone 5 mg tablet 5 mg PO Q8H PRN (Reason: pain) Qty: 7 0RF Rx Instructions: Partial Fill upon patient request. levofloxacin 500 mg tablet 500 mg PO DAILY 10 Days Qty: 10 0RF ondansetron 4 mg tablet,disintegrating 4 mg PO Q6-8H PRN (Reason: nausea) Qty: 10 0RF No Action tizanidine 4 mg capsule 4 mg PO Q8H PRN (Reason: muscle spasticity) 30 Days Qty: 90 8RF gabapentin 600 mg tablet 600 mg PO TID PRN (Reason: postoperative pain) 30 Days Qty: 90 0RF polyethylene glycol 3350 [Miralax] 17 gram/dose powder 17 g PO DAILY docusate sodium [Colace] 100 mg capsule 200 mg PO BEDTIME Qty: 60 5RF Citrucel 500 mg tablet 500 mg PO TID Qty: 90 5RF olanzapine 2.5 mg tablet 2.5 mg PO BEDTIME bupropion HCl 150 mg tablet extended release 24 hr 150 mg PO QAM buprenorphine-naloxone [Suboxone] 12-3 mg film 1 film buccal Q24H metformin 1,000 mg tablet 1,000 mg PO DAILY Referrals: Silvano Hinojosa MD [Primary Care Provider] - Jose D Gee MD [Physician] - 01/30/23
[2023-01-28 02:07] LABS: Alanine Aminotransferase 12 U/L (0-40); Albumin Level 4.4 g/dL (3.5-5.0); Alkaline Phosphatase 65 U/L (39-117); Anion Gap 11 (12-20); Aspartate Amino Transferase 16 U/L (5-37); Bilirubin Total 0.4 mg/dL (0.0-1.0); Blood Urea Nitrogen 13 mg/dL (9-16); Calcium 9.7 mg/dL (8.4-10.2); Carbon Dioxide 29 mmol/L (22-29); Chloride 105 mmol/L (96-108); Estimated Glomerular Filt Rate > 60; Glucose Random 156 mg/dL (60-115); Lipase 14 U/L (8-78); Potassium 3.9 mmol/L (3.3-5.1); Sodium 141 mmol/L (135-145); Total Protein 7.7 g/dL (6.5-8.0)
--- OUTSIDE RECORDS SUMMARY | 2023-01-28 02:10 | XMS_ITS | Continuity of Care Document ---
Author Name Unknown Organization [facility] Address [address], [address] Floor, [address] [place] [address]- Care Team Providers Care Health And Wellness Director Name Role Phone Haydee Dhaliwal MD Primary Care Physician [place] [facility] [place](s): 02/09/19 - 02/19/19 [facility] [address], [address]rd Floor, [address] [place] [address]- [facility] Attending Physician: Admgarrett, Oxana Admitting Physician: Admtr, Ar8 Referring Physician: Admtr, Ar8 Allergies, Adverse Reactions, Alerts Substance Reaction Severity Status NKA Active Medications ibuprofen 600 mg oral tablet 1 tablet = 600 mg, By Mouth, 4 times a day, PRN Pain, # 30 tablet, 0 Refills Start Date: 10/26/08 Stop Date: 11/09/08 Status: Ordered Vicodin 5/500 Tablet 1, tablet, By Mouth, Every 4 hours, 12, tablet, 0, 0, 01/21/07 1:26:37, Print ANN-MARIE Number, ADS OPPTHS, 51, Constant Indicator Start Date: 01/21/07 Status: Ordered
--- OUTSIDE RECORDS SUMMARY | 2023-01-28 02:10 | XMS_ITS | Continuity of Care Document ---
Author Name Unknown Organization [facility] Address [address] [place] [id number]- Care Team Providers Care Brick Veneer Maker Name Role Phone Madhuri MAYNARD, Haydee Portillo Primary Care Physician Encounter [facility] Date(s): 02/14/19 - 04/20/[address] [address] [facility] Attending Physician: Delia Hernández MD Admitting Physician: Delia Hernández MD Referring Physician: Delia Hernández MD Allergies, Adverse Reactions, Alerts Substance Reaction Severity [...]
--- OUTSIDE RECORDS SUMMARY | 2023-01-28 02:11 | XMS_ITS | Continuity of Care Document ---
Author Name Unknown Organization [facility] Address [address] [place] [address]- Care Team Providers Care Collar Setter Overlock Name Role Phone Philip Jmaes MD, Silvano [facility] [id number] Date(s): 12/07/20 - 03/09/[address] [address]- Attending Physician: Waldemar Fiore MD Admitting Physician: Waldemar Fiore MD Allergies, Adverse Reactions, Alerts Substance Reaction Severity Status NKA Active Medications buPROPion 150 mg/24 hours (XL) oral tablet, extended release 1 tablet = 150 mg, By Mouth, Every 24 hours, # 30 tablet, 0 Refills, Maintenance, 12/04/20 9:28:00 EDT, ER Tablet, Partial fill upon patient request if the prescription is for a schedule II opioid drug. Start Date: 12/04/20 Status: Ordered doxepin 10 mg oral capsule 1 capsule = 10 mg, By Mouth, 3 times a day, # 90 capsule, 0 Refills, Maintenance, 12/04/20 9:28:00 EDT, Capsule, Partial fill upon patient request if the prescription is for a schedule II opioid drug. Start Date: 12/04/20 Status: Ordered hydrOXYzine hydrochloride 50 mg oral tablet 1 tablet = 50 mg, By Mouth, 4 times a day, PRN for anxiety, # 40 tablet, 0 Refills, Maintenance, 12/04/20 9:28:00 EDT, Tablet, Partial fill upon patient request if the prescription is for a schedule II opioid drug. Start Date: 12/04/20 Status: Ordered ibuprofen 600 mg oral tablet 1 tablet = 600 mg, By Mouth, 4 times a day, PRN Pain, # 30 tablet, 0 Refills Start Date: 10/26/08 Stop Date: 11/09/08 Status: Ordered PARoxetine 40 mg oral tablet 40 mg, 1, tablet, By Mouth, Daily, # 30 tablet, Refills 0, Maintenance, 12/04/20 9:28:00 EDT, Partial fill upon patient request if the prescription is for a schedule II opioid drug. Start Date: 12/04/20 Status: Ordered Suboxone 8 mg-2 mg Sublingual Film 2 film, Sublingual, Daily, dissolve under the tongue, 0 Refills, Maintenance, 12/04/20 9:26:00 EDT,Film, Partial fill upon patient request if the prescription is for a schedule II opioid drug. Start Date: 12/04/20 Status: Ordered Vicodin 5/500 Tablet 1, tablet, By Mouth, Every 4 hours, 12, tablet, 0, 0, 01/21/07 1:26:37, Print ANN-MARIE Number, ADS OPPTHS, 51, Constant Indicator Start Date: 01/21/07 Status: Ordered Social History Social History Type Response Smoking Status 5-9 cigarettes (betw een 1/4 to 1/2 pack)/day in last 30 days; Other: patient states 1 pack per week; entered on: 12/04/20 Sex
--- OUTSIDE RECORDS SUMMARY | 2023-01-28 02:11 | XMS_ITS | Continuity of Care Document ---
Author Name Unknown Organization [facility] Address [address] [facility], [address] Floor, [address] [place] [address]- Care Team Providers Care Electrophonic Engineer Name Role Phone Madhuri MAYNARD, Haydee Portillo Primary Care Physician Encounter [facility] [place] Date(s): 05/26/19 - 06/05/19 [facility] [address] [facility], [address] Floor, [address] [place] [address]- [facility] Attending Physician: Oxana Gomes Admitting Physician: AdmOxana tucker Referring Physician: AdmtrOxana Allergies, Adverse Reactions, Alerts Substance Reaction Severity [...]
--- OUTSIDE RECORDS SUMMARY | 2023-01-28 02:11 | XMS_ITS | Continuity of Care Document ---
Author Name Unknown Organization [facility] Address [address] [place] [address] [address] [place] [address]- Care Team Providers Care Unclaimed Property Officer Name Role Phone Philip James MD, Silvano Primary Care Phys ician En[facility] [place] [facility] Date(s): 02/19/21 - 03/21/21 [facility] [address] [place] [address]- Attending Physician: Oxana Gomes Admitting Physician: Admtr, Oxana Referring Physician: Admtr, Ar8 Allergies, Adverse Reactions, Alerts No Known Allergies Medications buPROPion 150 mg/24 hours (XL) oral [...]
--- OUTSIDE RECORDS SUMMARY | 2023-01-28 02:11 | XMS_ITS | Continuity of Care Document ---
Author Name Unknown Organization [facility] Address [address] [place] [address] [address] [place] [address]- Care Team Providers Care Still Pump Operator Name Role Phone Silvano Hinojosa MD Primary Care Phys ician [place] [facility] [place] 12[place]23/20 [facility] [address] [place] [address] Drive [address] [place], [place] [address] Attending Physician: Waldemar Fiore MD Referring Physician: Silvano Hinojosa MD Allergies, Adverse Reactions, Alerts Substance Reaction [...]
--- OUTSIDE RECORDS SUMMARY | 2023-01-28 02:11 | XMS_ITS | Continuity of Care Document ---
Author Name Unknown Organization [facility] Address [address] [place] [address] [address] [place] [address]- Care Team Providers Care Underwriting Clerk Name Role Phone Philip James MD, Silvano Primary Care Phys ician Encounter [facility] [place] Date(s): 12/04/20 - 12/11/20 [facility] [address] [place], [place] [address] Attending Physician: Waldemar Fiore MD Referring Physician: Not on Staff, Referring MD Allergies, Adverse Reactions, Alerts Substance Reaction [...] Constant Indicator Start Date: 01/21/07 Status: Ordered Vital Signs Most recent to oldest [Reference Range]: 1 Height 163 cm (12/04/20 9:23 AM) Weight 108 kg (12/04/20 9:23 AM) Pulse Rate [55-90 bpm] 90 bpm (12/04/20 9:23 AM) Body Mass Index [18.5-24.99] 40.65 *>HHI* (12/04/20 9:23 AM) Blood Pressure [90-138/55-84 mm Hg] 132/ 78mm Hg (12/04/20 9:23 AM) Temperature [96.8-100.4 DegF] 96.9 DegF (12/04/20 9:23 AM) Blood pressure sites Arm, left (12/04/20 9:23 AM) Temperature Route Temporal (12/04/20 9:23 AM) Dry Weight 108 kg (12/04/20 9:23 AM) Dry Weight Obtained Via Patient/family s tated (12/04/20 9:23 AM) Social History Social History Type Response Smoking Status 5-9 cigarettes (betw een 1/4 to 1/2 pack)/day in last 30 days; Other: patient states 1 pack per week; entered on: 12/04/20 Sex
--- OUTSIDE RECORDS SUMMARY | 2023-01-28 02:11 | XMS_ITS | Continuity of Care Document ---
Author Name Unknown Organization [facility] Address [address] [place] [address]- Care Team Providers Care Otr Flatbed Driver Name Role Phone Philip James MD, Silvano Primary Care Phys ician Encounter [facility] [place] Date(s): 02/14/20 - 03/15/20 [facility] [address] [address] Attending Physician: Oxana Gomes Admitting Physician: AdmtrOxana Referring Physician: Admtr, Ar8 Allergies, Adverse Reactions, [...]
--- OUTSIDE RECORDS SUMMARY | 2023-01-28 02:11 | XMS_ITS | Continuity of Care Document ---
Author Name Unknown Organization [facility] Address [address] [place] [address] [address] [place] [address]- Care Team Providers Care Monogram Operator Name Role Phone Silvano Hinojosa MD Primary Care Phys ician [place] [facility] [place]): 12[place]11/20 - 03/21/21 [facility] [address] [place] [address] Drive [address] [place] [address]- Attending Physician: Vane GUERRERO, Shalonda Casas Referring Physician: Silvano Hinojosa MD Allergies, Adverse Reactions, Alerts No Known Allergies [...]
--- OUTSIDE RECORDS SUMMARY | 2023-01-28 02:11 | XMS_ITS | Continuity of Care Document ---
Author Name Unknown Organization [facility] Address [address] [facility], [address] Floor, [address] [place] [address]- Care Team Providers Care Wastewater Supervisor Name Role Phone Haydee Dhaliwal MD Primary Care Physician Encounter [facility] [place] Date(s): 02/09/19 - 02/16/19 [facility] [address] [facility], 3rd Floor, [address] [place] [address]- [facility] Attending Physician: Delia Hernández MD Allergies, Adverse Reactions, [...]
[2023-01-28] MEDS: Ketorolac Tromethamine 30 MG/ML VIAL IVPUSH (02:37)
[2023-01-28] MEDS: ondansetron HCL 4 MG/2 ML VIAL IVPUSH (02:37)
[2023-01-28] MEDS: 0.9 % Sodium Chloride 1,000 ML 999 ML IV ×2 (02:39→04:46)
--- NOTE | 2023-01-28 02:43 | PC.NURSE ---
pt taken to imaging, medicated per Mar. Pt resting in bed at this time.
[2023-01-28 02:58] VITALS: BP 119/76; PULSE 94; RESP 18; TEMP 36.6; O2SAT 98
[2023-01-28 04:00] VITALS: BP 124/76; PULSE 85; RESP 18; O2SAT 98
[2023-01-28 04:38] LABS: CT PCR NOT DETECTED (Not Detect.); NG PCR NOT DETECTED (Not Detect.)
[2023-01-28] MEDS: HYDROmorphone HCl 0.5 MG/0.5 ML SYRINGE IVPUSH (04:47)
--- NOTE | 2023-01-28 04:49 | PC.NURSE ---
pt medicated per May. pt resting with at the bedside.
[2023-01-28 05:00] LABS: Appearance Urine Clear; Color Urine Yellow; Glucose Urine UA Negative (Negative); Leukocyte Esterase Urine Negative (Negative); Nitrite Urine Negative (Negative); Specific Gravity - Urine 1.015 (1.005-1.025); UMIC TRIGGER UACC YES; Urine Blood Trace (Negative); Urine Ketones Negative (Negative); Urine Protein Negative (Neg-Trace)
[2023-01-28 05:04] LABS: Bacteria Urine None Seen (None Seen); Hyaline Casts Urine 0-2 /LPF (0-2); Squamous Epithelial Cell Urine 0-2 /HPF (0-2); WBC Urine 0-5 /HPF (0-5)
== END 2023-01-28 05:48 | disposition home or self-care (01) ==
PROVIDERS: Emergency Provider Emergency Medicine Emergency Medical Services; PCP Internal Medicine
DX: N50.812 Left testicular pain (principal); N45.1 Epididymitis; N23 Unspecified renal colic; Z72.89 Other problems related to lifestyle
CPT/HCPCS: 0353U; 36415; 74176; 76870; 80053; 81001; 83690; 85025; 93975; 96374; 96375; 99284; 99285; J1170; J1885; J2405

== ENCOUNTER 2023-01-31 09:58 | Emergency (ER) | payer MEDICAID, SELFPAY ==
--- NOTE | ~2023-01-31 | US_ITS ---
EXAMINATION: US SCROTUM CLINICAL INFORMATION: Left scrotal pain. Epididymitis.. COMPARISON: None available. TECHNIQUE: A sonogram of the scrotum was performed assessing moses-scale appearance and color Doppler flow. Spectral Doppler analysis of the arterial and venous flow were performed in the testes bilaterally. FINDINGS: RIGHT: Right testicle measures 4.0 x 1.7 x 2.1 cm, volume 7.3 mL. There is a hyperechoic area in the lower testes measuring 0.3 x 0.2 x 0.3 cm. Spectral Doppler analysis of the arterial and venous flow is normal in the right testis. Right epididymal head is normal in size. The small right epididymal cyst measuring 0.5-0 0.3 x 0.4 cm. Small right hydrocele is noted as well. There is no varicocele. Right epididymal Doppler flow is increased. LEFT: Left testicle measures 3.8 x 1.7 x 2.5 cm, volume 8.6 mL. No focal testicular parenchymal lesions are visualized. Spectral Doppler analysis of the arterial and venous flow is normal in the left testis. Left epididymal head is normal in size. There is a small epidural head cyst. There is a small left hydrocele. No varicocele is seen. Left epididymal Doppler flow is increased. US/US scrotum doppler IMPRESSION: 1. Bilateral small hydroceles. 2. Small bilateral epididymal cyst. 3. Small hyperechoic area in the right testes, question calcification. 4. Normal vascular flow seen to both testes and increased flow to bilateral epididymides.
--- NOTE | ~2023-01-31 | US_ITS ---
EXAMINATION: US RETROPERITONEAL LIMITED (RENAL ONLY) CLINICAL INFORMATION: Left flank pain. 7 mm proximal ureteral stone. COMPARISON: CT 01/28/2023. TECHNIQUE: Retroperitoneal imaging of the kidneys was performed. FINDINGS: RIGHT KIDNEY: 11.5 x 5.7 x 5.8 cm (SAG x AP x TRV). The kidney is normal in size, contour, and echogenicity. Renal cortical thickness is normal. There is an echogenic stone lower pole measuring 0.3 x 0.2 x 0.3 cm. There is no caliectasis or hydronephrosis. Several radiopaque calculi were seen in upper mid and lower pole left kidney on recent CT abdomen exam. LEFT KIDNEY: 12.2 x 6.8 x 5.4 cm (SAG x AP x TRV). The kidney is normal in size, contour, and echogenicity. Renal cortical thickness is normal. There is an echogenic stone lower pole measuring 0.4 x 0.3 x 0.3 cm. There is an echogenic stone in left proximal ureter measuring 0.5 x 0.4 cm. There is mild hydronephrosis. BLADDER: Bilateral ureteral jets are not seen. US/US renal BI IMPRESSION: Bilateral echogenic calculi with mild hydronephrosis left kidney.
--- NOTE | ~2023-01-31 | US_ITS ---
EXAMINATION: US SCROTUM CLINICAL INFORMATION: Left scrotal pain. Epididymitis.. COMPARISON: None available. TECHNIQUE: A sonogram of the scrotum was performed assessing moses-scale appearance and color Doppler flow. Spectral Doppler analysis of the arterial and venous flow were performed in the testes bilaterally. FINDINGS: RIGHT: Right testicle measures 4.0 x 1.7 x 2.1 cm, volume 7.3 mL. There is a hyperechoic area in the lower testes measuring 0.3 x 0.2 x 0.3 cm. Spectral Doppler analysis of the arterial and venous flow is normal in the right testis. Right epididymal head is normal in size. The small right epididymal cyst measuring 0.5-0 0.3 x 0.4 cm. Small right hydrocele is noted as well. There is no varicocele. Right epididymal Doppler flow is increased. LEFT: Left testicle measures 3.8 x 1.7 x 2.5 cm, volume 8.6 mL. No focal testicular parenchymal lesions are visualized. Spectral Doppler analysis of the arterial and venous flow is normal in the left testis. Left epididymal head is normal in size. There is a small epidural head cyst. There is a small left hydrocele. No varicocele is seen. Left epididymal Doppler flow is increased. US/US scrotum IMPRESSION: 1. Bilateral small hydroceles. 2. Small bilateral epididymal cyst. 3. Small hyperechoic area in the right testes, question calcification. 4. Normal vascular flow seen to both testes and increased flow to bilateral epididymides.
[2023-01-31 10:01] VITALS: BP 126/87; PULSE 123; RESP 16; TEMP 37; O2SAT 99; BMI 36.1
--- NOTE | 2023-01-31 10:14 | ED.MALEGU ---
HPI - Male Genitourinary General Chief complaint: Urogenital-Male Stated complaint: testicle pain Time Seen by Provider: 01/31/23 10:11 Source: patient, RN notes reviewed and old records reviewed Mode of arrival: ambulatory History of Present Illness HPI Narrative: 42-year-old male with a past medical history of opiate dependence, recently seen and treated in our ED on 01/28/23 diagnosed with 7mm proximal ureter stone and epididymitis discharged on Levaquin, Flomax and Oxycodone presenting to the ED complaining continued/worsening left lower quadrant pain radiating to left testicle. Reports associated nausea. Admits to compliance with prescribed medications. Denies fever/chills, vomiting, difficulty or inability to urinate, dysuria, hematuria, penile discharge or lesions. Denies currently being sexually active or new sexual partners/concern for STI Related Data Home Medications Medication Instructions Recorded Confirmed buprenorphine 12 mg-naloxone 3 mg 1 film buccal Q24H 05/16/21 09/24/22 sublingual film (Suboxone) bupropion HCl 150 mg 24 hr tablet, 150 mg PO QAM 05/16/21 09/24/22 extended release olanzapine 2.5 mg tablet 2.5 mg PO BEDTIME 05/16/21 09/24/22 polyethylene glycol 3350 17 17 g PO DAILY 06/19/21 09/24/22 gram/dose oral powder (Miralax) metformin 1,000 mg tablet 1,000 mg PO DAILY 09/24/22 09/24/22 Previous Rx's Medication Instructions Recorded docusate sodium 100 mg capsule 200 mg (2 x 100 mg) PO BEDTIME #60 06/19/21 (Colace) caps methylcellulose (laxative) 500 mg 500 mg PO TID #90 tabs 06/19/21 tablet (Citrucel) gabapentin 600 mg tablet 600 mg PO TID PRN postoperative 11/21/21 pain 30 days #90 tabs tizanidine 4 mg capsule 4 mg PO Q8H PRN muscle spasticity 11/21/21 30 days #90 caps ibuprofen 400 mg tablet 400 mg PO Q6H PRN pain #20 tabs 01/28/23 levofloxacin 500 mg tablet 500 mg PO DAILY 10 days #10 tabs 01/28/23 ondansetron 4 mg disintegrating 4 mg PO Q6-8H PRN nausea #10 tabs 01/28/23 tablet oxycodone 5 mg tablet 5 mg PO Q8H PRN pain #7 tabs 01/28/23 tamsulosin 0.4 mg capsule (Flomax) 0.4 mg PO DAILY #7 caps 01/28/23 hydrocodone 5 mg-acetaminophen 325 1 tab PO Q8H PRN pain, severe 3 01/31/23 mg tablet days #7 tabs Allergies Allergy/AdvReac Type Severity Reaction Status Date / Time No Known Allergies Allergy Verified 09/24/22 10:47 Review of Systems Review of Systems: Constitutional: No Fever, No Chills, No Fatigue, No Malaise ENT/Mouth: No Hearing loss, No Ear Pain, No Nasal Congestion, No sore throat, No Rhinorrhea, No Swallowing Difficulty Eyes: No Eye Pain, No Swelling, No Redness Cardiovascular: No Chest Pain, No SOB, No Edema, No Palpitations Respiratory: No Cough, No Sputum, No Dyspnea Gastrointestinal: + Nausea, No Vomiting, No Diarrhea, No Constipation, + Abdominal pain Genitourinary: +scrotal pain, No irregular bleeding, No Dysuria, No Urinary Frequency, No Hematuria, No Urinary Incontinence/retention, No Flank Pain Musculoskeletal: No joint pain, No Myalgias, No Joint Swelling Skin: No Skin Lesions, No rash Neuro: No Weakness, No Headache Yes all other systems are reviewed and are negative Constitutional: Constitutional: Reports as per [facility] Past Medical History Attestation statement: The following information was validated with the patient. Source: old records reviewed Medical History Chronic pain syndrome Sacroiliitis Spondylosis of lumbar spine Opioid dependence, in remission Chronic back pain Mood disorder Surgical History History of neck surgery Family History Family History Father HTN (hypertension) Mother Lung cancer Brother Heart disease Social History Household Members: Family Alcohol intake: never Patient Tobacco Use Status: Former Tobacco user Substance Use Type: Former Substance User Advance Directives: No Advance Directives Information Provided: No Physical Exam Vital Signs: Vital Signs: Last Vital Signs Temp 98.4 F 11/25/23 12:13 Pulse 110 H 01/31/23 12:13 Resp 16 01/31/23 12:13 BP 125/86 01/31/23 12:13 Pulse Ox 99 01/31/23 12:13 O2 Del Method Room Air 01/31/23 12:13 BMI result Body Mass Index 36.1 Const: General: cooperative, healthy appearing and no acute distress Orientation/consciousness: patient oriented x3 Limitations: no limitations HEENT: Head: Yes normal to inspection and Yes atraumatic Ears: hearing grossly normal bilaterally General nose exam: Normal external nose present Face and sinus: Yes normal facial exam Eyes: General: appearance normal, both eyes and all related structures EOM: EOMs intact bilaterally Neck: Neck: Yes normal visual inspection and Yes no meningeal signs Resp: Effort & Inspection: normal respiratory effort and no respiratory distress Cardio: Rate: regular rate GI: Inspection: Yes normal to inspection Palpation (GI): Soft to palpation, Tenderness to palpation present (GI) in the LLQ; with no rebound tenderness, no guarding and not rigid : General: Yes CVA tenderness on the left Penis: normal penis and uncircumcised Scrotum: no ecchymosis and no ulcerations Testes: epididymal tenderness on the left, no testicular swelling and testicular tenderness on the left Back/Spine/Pelvis: Back: CVA tenderness Skin: Rashes: no rashes Wounds: no wounds Neuro: General: patient oriented x3, tone normal and no meningeal signs Cranial nerves: Yes CN's II-XII intact bilaterally Gait exam (Neuro): Normal gait present Extrem: General: Yes normal to inspection Course Course Course Narrative: -1207--WBC 13.1 (up from 11.9). SUZIE with creatinine of 1.65 also increased from 01/28/2023. UA with blood and rbc's, not infected US scrotum dopplerIMPRESSION: 1. Bilateral small hydroceles. 2. Small bilateral epididymal cyst. 3. Small hyperechoic area in the right testes, question calcification. 4. Normal vascular flow seen to both testes and increased flow to bilateral epididymides. US renal BI IMPRESSION: Bilateral echogenic calculi with mild hydronephrosis left kidney. > will consult Urology, Dr. Jacobsen > who recommended rehydration, pain control. Patient will need procedure at some point, if pain controlled can be outpatient -1519--repeat creatinine improved to 1.4 after 2 L IVF. Patient reports mild symptomatic improvement. Recommended continuation of previously prescribed medications and close Urology follow-up. Patient states he finished previously prescribed prescription for oxycodone. Will send Isidro to the pharmacy Results discussed with patient including worrisome signs and symptoms and strict return precautions, and when to return to the emergency department. They verbalized understanding and feel safe for discharge at this time. Medications Administered Discontinued Medications Generic Name Dose Route Start Last Admin Trade Name Freq PRN Reason Stop Dose Admin Levofloxacin 500 mg in 100 mls @ 100 mls/hr 01/31/23 11:02 01/31/23 13:47 Levaquin IV 01/31/23 12:01 Infused ONCE ONE Infusion Sodium Chloride 1,000 mls @ 999 mls/hr 01/31/23 11:15 01/31/23 13:47 Ns IV 01/31/23 12:15 Infused .Q1H1M GISELLE Infusion Sodium Chloride 1,000 mls @ 999 mls/hr 01/31/23 12:15 01/31/23 15:02 Ns IV 01/31/23 13:15 Infused .Q1H1M GISELLE Infusion Ketorolac Tromethamine 15 mg 01/31/23 11:03 01/31/23 11:29 Ketorolac Tromethamine 15 Mg/Ml Vial IVPUSH 01/31/23 11:04 15 mg ONCE ONE Administration Morphine Sulfate 2 mg 01/31/23 12:09 01/31/23 13:47 Morphine Sulfate 2 Mg/Ml Cartridge IVPUSH 01/31/23 12:10 2 mg ONCE ONE Administration Protocol Medical Decision Making Medical Decision Making MDM Narrative: 42-year-old male with a past medical history of opiate dependence, recently seen and treated in our ED on 01/28/23 diagnosed with 7mm proximal ureter stone and epididymitis discharged on Levaquin, Flomax and Oxycodone presenting to the ED complaining continued/worsening left lower quadrant pain radiating to left testicle. On exam tachycardic likely from pain, NAD, nontoxic appearing, abdomen soft with LLQ ttp & +L CVAT, + left scrotal tenderness to palpation. No swelling/erythema. Concern for persistent ureter stone/obstruction vs epididymitis/orchitis vs testicular torsion. Rule out SUZIE. Rule out UTI. Low suspicion for severe sepsis at this time. Plan: Labs, UA, CT NG, renal and scrotal ultrasound Please refer to course for remaining clinical decision making, interpretation of labs/imaging results, and discussions with consultants and/or family members. Differential Diagnosis Differential Diagnoses: The differential diagnosis associated with the presentation includes As above Admission/Observation Consideration of admission/observation: Escalation of care including admission/observation considered Consult Healthcare Provider Management of the patient was discussed with: Process Development Chemist Lab Data MDM Lab Attestation statement: I reviewed the patient's lab results. 01/31/23 10:37 01/31/23 14:46 Labs: Lab Results 01/31/23 01/31/23 01/31/23 Range/Units 10:37 10:40 11:29 WBC 13.1 H (4.8-10.8) X10*3/uL RBC 4.90 (4.60-5.80) X10*6/uL Hgb 15.0 (14.0-18.0) g/dl Hct 44.9 (42.0-52.0) % MCV 91.6 (80.0-98.0) fL MCH 30.6 (27.0-33.0) pg MCHC 33.4 (31.0-36.0) g/dl RDW 12.7 (11.0-16.0) % Plt Count 173 (160-400) X10*3/uL MPV 12.4 (9.4-12.4) fL Immature Gran % (Auto) 0.4 (0.0-0.4) % Neut % (Auto) 75.8 H (45-73) % Lymph % (Auto) 15.0 L (20-40) % [place] % (Auto) 7.5 (2-11) % Eos % (Auto) 0.9 (0-4) % Baso % (Auto) 0.4 (0-2) % Lymph # (Auto) 2.0 (1.2-4.9) X10*3/uL [place] # (Auto) 1.0 (0.1-1.2) X10*3/uL Eos # (Auto) 0.1 (0.0-0.4) X10*3/uL Baso # (Auto) 0.1 (0.0-0.2) X10*3/uL Abs Immat Gran (auto) 0.05 H (0.00-0.03) X10*3/uL Absolute Neuts (auto) 9.9 H (2.0-8.3) x10*3/uL Absolute Nucleated RBC 0.000 (0.0-0.012) X10*3/uL Nucleated RBC % (auto) 0.0 (0.0-0.2) /100WBC Sodium 140 (135-145) mmol/L Potassium 4.6 (3.3-5.1) mmol/L Chloride 104 (96-108) mmol/L Carbon Dioxide 27 (22-29) mmol/L Anion Gap 14 (12-20) BUN 14 (9-16) mg/dL Creatinine 1.65 H (0.5-1.4) mg/dL Estim Creat Clear Calc 61.3 Estimated GFR 46 Random Glucose 148 H (60-115) mg/dL Lactic Acid 1.1 (0.5-2.0) mmol/L Calcium 10.1 (8.4-10.2) mg/dL Total Bilirubin 0.8 (0.0-1.0) mg/dL Direct Bilirubin 0.3 (0.0-0.5) mg/dL AST 13 (5-37) U/L ALT 10 (0-40) U/L Alkaline Phosphatase 71 (39-117) U/L Total Protein 8.4 H (6.5-8.0) g/dL Albumin 4.5 (3.5-5.0) g/dL Lipase 8 (8-78) U/L Urine Color Yellow Urine Appearance Clear Urine pH 5.5 (5.0-9.0) Ur Specific [place] 1.025 (1.005-1.025) Urine Protein Trace (Neg-Trace) mg/dL Urine Glucose (UA) Negative (Negative) mg/dL Urine Ketones Trace (Negative) mg/dL Urine Blood Moderate (2+) H (Negative) Urine Nitrite Negative (Negative) Ur Leukocyte Esterase Negative (Negative) Urine RBC 3-5 H (0-2) /HPF Urine WBC 0-5 (0-5) /HPF Ur Squamous Epith Cells 0-2 (0-2) /HPF Urine Bacteria None Seen (None Seen) Hyaline Casts 0-2 (0-2) /LPF Chlam trachomat DNA PCR NOT DETECTED (Not Detect.) N.gonorrhoeae DNA (PCR) NOT DETECTED (Not Detect.) 01/31/23 Range/Units 14:46 WBC (4.8-10.8) X10*3/uL RBC (4.60-5.80) X10*6/uL Hgb (14.0-18.0) g/dl Hct (42.0-52.0) % MCV (80.0-98.0) fL MCH (27.0-33.0) pg MCHC (31.0-36.0) g/dl RDW (11.0-16.0) % Plt Count (160-400) X10*3/uL MPV (9.4-12.4) fL Immature Gran % (Auto) (0.0-0.4) % Neut % (Auto) (45-73) % Lymph % (Auto) (20-40) % [place] % (Auto) (2-11) % Eos % (Auto) (0-4) % Baso % (Auto) (0-2) % Lymph # (Auto) (1.2-4.9) X10*3/uL [place] # (Auto) (0.1-1.2) X10*3/uL Eos # (Auto) (0.0-0.4) X10*3/uL Baso # (Auto) (0.0-0.2) X10*3/uL Abs Immat Gran (auto) (0.00-0.03) X10*3/uL Absolute Neuts (auto) (2.0-8.3) x10*3/uL Absolute Nucleated RBC (0.0-0.012) X10*3/uL Nucleated RBC % (auto) (0.0-0.2) /100WBC Sodium 141 (135-145) mmol/L Potassium 3.9 (3.3-5.1) mmol/L Chloride 109 H (96-108) mmol/L Carbon Dioxide 25 (22-29) mmol/L Anion Gap 11 L (12-20) BUN 12 (9-16) mg/dL Creatinine 1.40 (0.5-1.4) mg/dL Estim Creat Clear Calc 72.3 Estimated GFR 56 Random Glucose 107 (60-115) mg/dL Lactic Acid (0.5-2.0) mmol/L Calcium 8.5 D (8.4-10.2) mg/dL Total Bilirubin (0.0-1.0) mg/dL Direct Bilirubin (0.0-0.5) mg/dL AST (5-37) U/L ALT (0-40) U/L Alkaline Phosphatase (39-117) U/L Total Protein (6.5-8.0) g/dL Albumin (3.5-5.0) g/dL Lipase (8-78) U/L Urine Color Urine Appearance Urine pH (5.0-9.0) Ur Specific [place] (1.005-1.025) Urine Protein (Neg-Trace) mg/dL Urine Glucose (UA) (Negative) mg/dL Urine Ketones (Negative) mg/dL Urine Blood (Negative) Urine Nitrite (Negative) Ur Leukocyte Esterase (Negative) Urine RBC (0-2) /HPF Urine WBC (0-5) /HPF Ur Squamous Epith Cells (0-2) /HPF Urine Bacteria (None Seen) Hyaline Casts (0-2) /LPF Chlam trachomat DNA PCR (Not Detect.) N.gonorrhoeae DNA (PCR) (Not Detect.) Radiology Impression Discussion of test interpretation with radiology: I have reviewed the radiologist's reading. External Record Review External record reviewed: Inpatient record, Office record, Outpatient record, Prior outpatient labs, Prior outpatient radiology, Primary care record and Outside ED record Tests considered The following testing was considered but not selected: As above Prescription Management I considered prescription management with: Pain Medication Discharge Plan Discharge Clinical Impression: Left ureteral stone, Hydronephrosis Patient Disposition: Home, Self-Care Instructions: Hydronephrosis (ED), Ureteral Stones (ED) Additional Instructions: Please continue taking previously prescribed medications including Zofran, Levaquin, ibuprofen, Flomax, and oxycodone. [place] is an opiate pain medication, take only when pain is severe for the next [address], drink alcohol or operate machinery while taking You need to call Urology for close follow-up. Call 1st thing Thursday morning If symptoms persist or worsen, pain is unbearable, your persistent nausea/vomiting, fever, your unable to urinate return to the ED Prescriptions: New hydrocodone-acetaminophen 5-325 mg tablet 1 tab PO Q8H PRN (Reason: pain, severe) 3 Days Qty: 7 0RF Rx Instructions: Partial Fill upon patient request. No Action tizanidine 4 mg capsule 4 mg PO Q8H PRN (Reason: muscle spasticity) 30 Days Qty: 90 8RF gabapentin 600 mg tablet 600 mg PO TID PRN (Reason: postoperative pain) 30 Days Qty: 90 0RF tamsulosin [Flomax] 0.4 mg capsule 0.4 mg PO DAILY Qty: 7 0RF ibuprofen 400 mg tablet 400 mg PO Q6H PRN (Reason: pain) Qty: 20 0RF oxycodone 5 mg tablet 5 mg PO Q8H PRN (Reason: pain) Qty: 7 0RF Rx Instructions: Partial Fill upon patient request. levofloxacin 500 mg tablet 500 mg PO DAILY 10 Days Qty: 10 0RF ondansetron 4 mg tablet,disintegrating 4 mg PO Q6-8H PRN (Reason: nausea) Qty: 10 0RF polyethylene glycol 3350 [Miralax] 17 gram/dose powder 17 g PO DAILY docusate sodium [Colace] 100 mg capsule 200 mg PO BEDTIME Qty: 60 5RF Citrucel 500 mg tablet 500 mg PO TID Qty: 90 5RF olanzapine 2.5 mg tablet 2.5 mg PO BEDTIME bupropion HCl 150 mg tablet extended release 24 hr 150 mg PO QAM buprenorphine-naloxone [Suboxone] 12-3 mg film 1 film buccal Q24H metformin 1,000 mg tablet 1,000 mg PO DAILY Referrals: [facility] [Provider Group] - 2 days
[2023-01-31 10:47] LABS: MANUAL DIFF FLAG NO
[2023-01-31 10:49] LABS: Basophils Absolute Auto 0.1 X10*3/uL (0.0-0.2); Basophils Percent Auto 0.4 % (0-2); Eosinophils Absolute Auto 0.1 X10*3/uL (0.0-0.4); Eosinophils Percent Auto 0.9 % (0-4); Hematocrit 44.9 % (42.0-52.0); Imm Gran Abs Auto 0.05 X10*3/uL (0.00-0.03); Imm Gran Pct Auto 0.4 % (0.0-0.4); Mean Corpuscular HGB Conc 33.4 g/dl (31.0-36.0); Mean Corpuscular Hemoglobin 30.6 pg (27.0-33.0); Mean Corpuscular Volume 91.6 fL (80.0-98.0); Mean Platelet Volume 12.4 fL (9.4-12.4); Monocytes Percent Auto 7.5 % (2-11); Neutrophils Absolute Auto 9.9 x10*3/uL (2.0-8.3); Neutrophils Percent Auto 75.8 % (45-73); Platelet Count 173 X10*3/uL (160-400); Red Cell Distribution Width 12.7 % (11.0-16.0); White Blood Count 13.1 X10*3/uL (4.8-10.8)
--- NOTE | 2023-01-31 10:51 | PC.NURSE ---
labs/ct-ng obtained. aware he needs to provide a clean catch sample. ultrasound at bedside
[2023-01-31 11:09] LABS: Alanine Aminotransferase 10 U/L (0-40); Albumin Level 4.5 g/dL (3.5-5.0); Alkaline Phosphatase 71 U/L (39-117); Anion Gap 14 (12-20); Aspartate Amino Transferase 13 U/L (5-37); Bilirubin Direct 0.3 mg/dL (0.0-0.5); Bilirubin Total 0.8 mg/dL (0.0-1.0); Blood Urea Nitrogen 14 mg/dL (9-16); Calcium 10.1 mg/dL (8.4-10.2); Carbon Dioxide 27 mmol/L (22-29); Chloride 104 mmol/L (96-108); Creatinine Clr Calc Pharmacy 61.3; Estimated Glomerular Filt Rate 46; Glucose Random 148 mg/dL (60-115); Lipase 8 U/L (8-78); Potassium 4.6 mmol/L (3.3-5.1); Sodium 140 mmol/L (135-145); Total Protein 8.4 g/dL (6.5-8.0)
[2023-01-31] MEDS: Ketorolac Tromethamine 15 MG/ML VIAL IVPUSH (11:29)
--- NOTE | 2023-01-31 11:36 | PC.NURSE ---
IV established, first set of cultures and lactic acid obtained and sent.
[2023-01-31 11:39] LABS: Appearance Urine Clear; Color Urine Yellow; Glucose Urine UA Negative (Negative); Leukocyte Esterase Urine Negative (Negative); Nitrite Urine Negative (Negative); PH 5.5 (5.0-9.0); Specific Gravity - Urine 1.025 (1.005-1.025); UMIC TRIGGER UACC YES; Urine Blood Moderate (2+) (Negative); Urine Ketones Trace mg/dL (Negative); Urine Protein Trace mg/dL (Neg-Trace)
[2023-01-31 11:47] LABS: Lactic Acid 1.1 mmol/L (0.5-2.0)
[2023-01-31 11:48] LABS: Bacteria Urine None Seen (None Seen); Hyaline Casts Urine 0-2 /LPF (0-2); Squamous Epithelial Cell Urine 0-2 /HPF (0-2); WBC Urine 0-5 /HPF (0-5)
[2023-01-31] MEDS: levoFLOXacin/D5W 500 MG/100 ML PIGGYBACK 100 MG IV (12:07)
[2023-01-31] MEDS: 0.9 % Sodium Chloride 1,000 ML 999 ML IV ×2 (12:08→13:47)
[2023-01-31 12:13] VITALS: BP 125/86; PULSE 110; RESP 16; TEMP 36.9; O2SAT 99
[2023-01-31 12:35] LABS: CT PCR NOT DETECTED (Not Detect.); NG PCR NOT DETECTED (Not Detect.)
[2023-01-31] MEDS: Morphine Sulfate 2 MG/ML CARTRIDGE IVPUSH (13:47)
--- NOTE | 2023-01-31 13:50 | PC.NURSE ---
medicated per the MAR with second liter of fluids infusing. plan for repeat labs after second liter has infused
[2023-01-31 15:08] LABS: Anion Gap 11 (12-20); Blood Urea Nitrogen 12 mg/dL (9-16); Calcium 8.5 mg/dL (8.4-10.2); Carbon Dioxide 25 mmol/L (22-29); Chloride 109 mmol/L (96-108); Creatinine Clr Calc Pharmacy 72.3; Estimated Glomerular Filt Rate 56; Glucose Random 107 mg/dL (60-115); Potassium 3.9 mmol/L (3.3-5.1); Sodium 141 mmol/L (135-145)
[2023-01-31 15:43] VITALS: BP 142/93; PULSE 95; RESP 16; O2SAT 98
== END 2023-01-31 15:46 | disposition home or self-care (01) ==
PROVIDERS: Physician Assistant; Emergency Provider Emergency Medicine; PCP Internal Medicine
DX: N13.2 Hydronephrosis with renal and ureteral calculous obstruction (principal); N43.3 Hydrocele, unspecified; N50.3 Cyst of epididymis; R00.0 Tachycardia, unspecified; E11.9 Type 2 diabetes mellitus without complications; G89.4 Chronic pain syndrome; F11.21 Opioid dependence, in remission; Z87.891 Personal history of nicotine dependence; Z79.84 Long term (current) use of oral hypoglycemic drugs; Z79.899 Other long term (current) drug therapy
CPT/HCPCS: 0353U; 36415; 76775; 76870; 80048; 80076; 81001; 83605; 83690; 85025; 87040; 93975; 96361; 96365; 96375; 99284; 99285; J1885; J1956; J2270

== ENCOUNTER 2023-02-02 06:34 | Day surgery (SDC) | payer MEDICAID, SELFPAY ==
[2023-02-02] VITALS (9 sets, daily range): BP systolic 124–158; BP diastolic 77–95; PULSE 83–105; RESP 14–20; TEMP 36.5–37.2; O2SAT 96–100; BMI 36.0
--- NOTE | ~2023-02-02 | CT_ITS ---
EXAMINATION: CT ABDOMEN AND PELVIS WITHOUT CONTRAST CLINICAL INFORMATION: Left flank pain COMPARISON: Previous renal ultrasound and CT of the abdomen and pelvis from earlier this month TECHNIQUE: Multidetector volumetric imaging was performed from the superior aspect of the liver through the pubic symphysis. Sagittal and coronal reformatted images were obtained on the technologist's workstation. This CT examination was performed using dose optimization techniques as appropriate, variously including the following: *Automated exposure control *Adjustment of mA and/or kV according to patient size (this includes techniques or standardized protocols for targeted exams where dose is matched to indication/reason for exam; i.e. extremities or head) *Use of iterative reconstruction technique DLP: 723 mGy-cm FINDINGS: LUNG BASES: The visualized lung bases are unremarkable. LIVER, GALLBLADDER, AND BILIARY TREE: The liver is normal in size, shape, and attenuation. No focal hepatic lesion or biliary ductal dilatation is present. The gallbladder is unremarkable with no evidence of radiopaque gallstones, gallbladder wall thickening, or obvious pericholecystic inflammatory changes. PANCREAS: Unremarkable. SPLEEN: Unremarkable. ADRENAL GLANDS: Unremarkable. KIDNEYS AND URETERS: There is mild to moderate left hydronephrosis from a 4 x 5 mm left proximal ureteral or UPJ stone. Stone is similar in position to 01/28/2023 exam and left hydronephrosis is slightly increased.. There are multiple small bilateral renal stones. Largest measures 3 x 4 mm in the upper pole of the right kidney. BLADDER: Bladder is empty. GASTROINTESTINAL TRACT: The small and large bowel are unremarkable. The appendix is unremarkable. ABDOMINAL WALL: Small umbilical hernia containing fat. LYMPH NODES: Normal. VASCULAR: Unremarkable. PELVIC VISCERA: Unremarkable. OSSEOUS STRUCTURES: Mild degenerative changes of the spine. CT/CT abdomen pelvis wo IV con IMPRESSION: Mild to moderate left hydronephrosis from a 4 x 5 mm left proximal ureteral or UPJ stone. Hydronephrosis is slightly increased from exam from earlier this month and stone does not appear appreciably changed in location. Small bilateral renal stones. Fleischner guidelines were followed.
--- NOTE | ~2023-02-02 | FL_ITS ---
EXAMINATION: XR FLUOROSCOPY WITH IMAGES CLINICAL INFORMATION: Cystoscopy and stent placement, left. COMPARISON: None available. TECHNIQUE: Fluoroscopy Supervised By: Dr. Minh Jacobsen. Fluoroscopy Time: 42.3 seconds. Cumulative Dose: 17.99 mGy. DAP: Not available on C-arm Images: 1. FINDINGS: Single image demonstrates proximal end of a left internal stent. There is contrast seen in the left renal collecting system which is minimally dilated. There is question of contrast extravasation medial to the left kidney. There is a stone adjacent to the stent in the left proximal ureter. FL/FL guidance in OR IMPRESSION: Fluoroscopy guidance for left retrograde exam and stent placement.
--- NOTE | 2023-02-02 06:46 | ED_ITS ---
HPI - General Adult General Chief complaint: Back Pain/Injury Stated complaint: KIDNEY STONES Time Seen by Provider: 02/02/23 06:46 Source: patient Mode of arrival: ambulatory Limitations: no limitations History of Present Illness HPI narrative: Patient is a 42 year old assigned male at with a history of chronic pain and opioid dependence presenting to the emergency department today with left sided flank pain. Patient states that he has been seen here on 01/28/2023 and 01/31/2023 for this left sided flank pain. Patient states that he was told he had a kidney stone and was sent home with medication but the pain is significantly worse and the medication is not helping. Patient denies any dizziness, lightheadedness, nausea, vomiting, fever, chills, blurry vision, double vision, loss of vision, chest pain, difficulty breathing, shortness of breath, back pain, night sweats, pain with urination, increased urinary frequency, increased urinary urgency, blood in his urine or stool, syncope or a near syncopal episode, recent trauma or falls, bowel incontinence, bladder incontinence, bowel retention, bladder retention, or any other complaints at this time. Onset (ago): day(s) (5) Location: left (flank) Severity: moderate Severity scale (1-10): 6 Quality: aching and dull Pain Consistency: constant Relieving factors: none Exacerbating factors: none Associated symptoms: denies other symptoms Related Data Home Medications Medication Instructions Recorded Confirmed buprenorphine 12 mg-naloxone 3 mg 1 film buccal Q24H 05/16/21 09/24/22 sublingual film (Suboxone) bupropion HCl 150 mg 24 hr tablet, 150 mg PO QAM 05/16/21 09/24/22 extended release olanzapine 2.5 mg tablet 2.5 mg PO BEDTIME 05/16/21 09/24/22 polyethylene glycol 3350 17 17 g PO DAILY 06/19/21 09/24/22 gram/dose oral powder (Miralax) metformin 1,000 mg tablet 1,000 mg PO DAILY 09/24/22 09/24/22 Previous Rx's Medication Instructions Recorded docusate sodium 100 mg capsule 200 mg (2 x 100 mg) PO BEDTIME #60 06/19/21 (Colace) caps methylcellulose (laxative) 500 mg 500 mg PO TID #90 tabs 06/19/21 tablet (Citrucel) gabapentin 600 mg tablet 600 mg PO TID PRN postoperative 11/21/21 pain 30 days #90 tabs tizanidine 4 mg capsule 4 mg PO Q8H PRN muscle spasticity 11/21/21 30 days #90 caps ibuprofen 400 mg tablet 400 mg PO Q6H PRN pain #20 tabs 01/28/23 levofloxacin 500 mg tablet 500 mg PO DAILY 10 days #10 tabs 01/28/23 ondansetron 4 mg disintegrating 4 mg PO Q6-8H PRN nausea #10 tabs 01/28/23 tablet oxycodone 5 mg tablet 5 mg PO Q8H PRN pain #7 tabs 01/28/23 tamsulosin 0.4 mg capsule (Flomax) 0.4 mg PO DAILY #7 caps 01/28/23 hydrocodone 5 mg-acetaminophen 325 1 tab PO Q8H PRN pain, severe 3 01/31/23 mg tablet days #7 tabs Allergies Allergy/AdvReac Type Severity Reaction Status Date / Time No Known Allergies Allergy Verified 02/02/23 06:47 Review of Systems 2 Constitutional: Constitutional: Reports no additional constitutional complaints, Denies chills, Denies fever(s) and Denies night sweats Eyes: Eyes: Reports no additional eye complaints, Denies blurry vision, Denies change in vision, Denies diplopia, Denies eye discharge, Denies loss of vision and Denies eye pain ENT: Denies dizziness Cardiovascular: Cardiovascular: Reports no additional cardiovascular complaints, Denies chest pain, Denies lightheadedness, Denies Loss of Consciousness and Denies dyspnea Respiratory: Respiratory: Reports no additional respiratory complaints and Denies dyspnea Gastrointestinal: Gastrointestinal: Reports no additional gastrointestinal complaints, Denies abdominal pain, Denies melena, Denies hematochezia, Denies change in bowel habits and Denies change in stool character Genitourinary: Genitourinary: Reports no additional male genitourinary complaints, Denies hematuria, Denies oliguria, Denies difficulty urinating, Denies dysuria, Reports flank pain (left), Denies urinary frequency, Denies urinary hesitancy, Denies urinary incontinence and Denies urinary urgency Musculoskeletal: Musculoskeletal: Reports no additional musculoskeletal complaints, Denies numbness and Denies tingling Neurologic: Denies dizziness, Denies loss of vision, Denies numbness and Denies tingling Psychiatric: Psychiatric: Reports no additional psychiatric complaints Endocrine: Endocrine: Reports no additional endocrine complaints Hematologic/Lymphatic: Hematologic/Lymphatic: Reports no additional hematologic/lymphatic complaints Allergic/Immunologic: Allergic/Immunologic: Reports no additional allergic/immunologic complaints PMFSH Past Medical History Attestation statement: The following information was validated with the patient. Source: old records reviewed and nursing notes reviewed Medical History Chronic pain syndrome Sacroiliitis Spondylosis of lumbar spine Opioid dependence, in remission Chronic back pain Mood disorder Surgical History History of neck surgery Family History Family History Father HTN (hypertension) Mother Lung cancer Brother Heart disease Social History Household Members: Family Alcohol intake: never Patient Tobacco Use Status: Former Tobacco user Substance Use Type: Former Substance User Physical Exam ED Vital Signs: Vital Signs - 24 hr 02/02/23 06:44 02/02/23 09:03 Temperature 98.8 F 98.1 F Pulse Rate 105 H 91 Respiratory Rate 20 16 Blood Pressure 158/93 H 124/77 Pulse Oximetry 96 97 Oxygen Delivery Method Room Air Room Air BMI result Body Mass Index 36.0 Const General: cooperative, no acute distress, alert and awake Nutritional Appearance: well nourished Orientation/consciousness: patient oriented x3 Limitations: no limitations [facility] Head: Yes normal to inspection and Yes atraumatic Ears: hearing grossly normal bilaterally and external ears normal General nose exam: Normal external nose present, no nasal discharge noted and no epistaxis Face and sinus: Yes normal facial exam, No abrasion and No laceration Mouth: Normal oral and palatal mucosa present, no drooling and no muffled voice Eyes General: appearance normal, both eyes and all related structures Periorbital: periorbital findings normal Eyelids: Yes eyelids normal Conjunctivae: conjunctivae normal Pupils: Equal, round and reactive pupils present EOM: EOMs intact bilaterally Neck Neck: Yes normal visual inspection, Yes full ROM and Yes no lymphadenopathy Chest Chest palpation & inspection: normal inspection of the chest Resp Effort & Inspection: normal respiratory effort and able to speak in complete sentences GI Inspection: Yes normal to inspection Palpation (GI): Soft to palpation, not firm, nontender, no guarding and not rigid General: Yes CVA tenderness on the left Back/Spine/Pelvis Back: CVA tenderness Neuro General: patient oriented x3 and moves all extremities Cranial nerves: Yes Equal, round and reactive pupils present Cognition (Neuro): normal cognition Motor exam (neuro): 5/5 motor strength present throughout Sensory Exam: Normal double simultaneous stimulation for sensation Coordination: [id number] test normal Extrem General: Yes normal to inspection, Yes full ROM and Yes capillary refill normal Psych Appearance: grossly normal Mental Status: mental status grossly normal Affect: normal affect Attitude: cooperative Thought process: Normal thought process present Thought content: Normal thought content present Insight: Good insight present (Psych) Medications Administered Discontinued Medications Generic Name Dose Route Start Last Admin Trade Name Margarette PRN Reason Stop Dose Admin Hydromorphone HCl 1 mg 02/02/23 06:50 02/02/23 07:17 Hydromorphone Hcl 1 Mg/Ml Syringe IVPUSH 02/02/23 06:51 1 mg ONCE ONE Administration Protocol Sodium Chloride 1,000 mls @ 999 mls/hr 02/02/23 07:00 02/02/23 08:25 Ns IV 02/02/23 08:00 Infused .Q1H1M GISELLE Infusion Ketorolac Tromethamine 15 mg 02/02/23 06:50 02/02/23 07:15 Ketorolac Tromethamine 15 Mg/Ml Vial IVPUSH 02/02/23 06:51 15 mg ONCE ONE Administration Medical Decision Making Medical Decision Making [facility] Narrative: Patient is a 42 year old assigned male at with a history of chronic pain syndrome, opioid dependence, and a left sided kidney stone presenting to the emergency department today with worsening left sided flank pain. Patient's physical exam was as noted in the physical exam portion of this note. Patient's blood work was unremarkable. Patient's urine showed no acute process. Patient's abdomen/pelvis CT showed worsening left sided hydronephrosis with a 4x5mm stone that has not moved from previous exam. I spoke with Dr. Jacobsen who recommended the patient be kept NPO and will be added on to his procedure schedule this afternoon. I explained my physical exam findings as well as all test results to the patient. I answered all questions asked by the patient. Patient verbalized agreement and understanding with this treatment plan and a procedure performed by Dr. Jacobsen later this afternoon. Differential Diagnosis Differential Diagnoses: The differential diagnosis associated with the presentation includes Hydronephrosis Kidney obstruction secondary to calculi Flank pain Admission/Observation Consideration of admission/observation: Escalation of care including admission/observation considered Patient will not be admitted but will going to the OR with Dr. Jacobsen for a procedure. Consult Healthcare Provider Management of the patient was discussed with: Stone Engraver (spoke with the urologist as noted in the MDM Rationale portion of this note.) Lab Data [facility] Lab Attestation statement: I reviewed the patient's lab results. My interpretation of these studies and their corresponding values is that they are grossly normal. 02/02/23 07:06 02/02/23 07:06 Labs: Lab Results 02/02/23 02/02/23 Range/Units 07:06 07:44 WBC 11.1 H (4.8-10.8) X10*3/uL RBC 4.59 L (4.60-5.80) X10*6/uL Hgb 14.4 (14.0-18.0) g/dl Hct 42.6 (42.0-52.0) % MCV 92.8 (80.0-98.0) fL MCH 31.4 (27.0-33.0) pg MCHC 33.8 (31.0-36.0) g/dl RDW 12.8 (11.0-16.0) % Plt Count 169 (160-400) X10*3/uL MPV 12.2 (9.4-12.4) fL Immature Gran % (Auto) 0.3 (0.0-0.4) % Neut % (Auto) 75.9 H (45-73) % Lymph % (Auto) 14.9 L (20-40) % Petroleum % (Auto) 5.8 (2-11) % Eos % (Auto) 2.6 (0-4) % Baso % (Auto) 0.5 (0-2) % Lymph # (Auto) 1.7 (1.2-4.9) X10*3/uL Petroleum # (Auto) 0.6 (0.1-1.2) X10*3/uL Eos # (Auto) 0.3 (0.0-0.4) X10*3/uL Baso # (Auto) 0.1 (0.0-0.2) X10*3/uL Abs Immat Gran (auto) 0.03 (0.00-0.03) X10*3/uL Absolute Neuts (auto) 8.5 H (2.0-8.3) x10*3/uL Absolute Nucleated RBC 0.000 (0.0-0.012) X10*3/uL Nucleated RBC % (auto) 0.0 (0.0-0.2) /100WBC Sodium 138 (135-145) mmol/L Potassium 3.8 (3.3-5.1) mmol/L Chloride 104 (96-108) mmol/L Carbon Dioxide 24 (22-29) mmol/L Anion Gap 14 (12-20) BUN 14 (9-16) mg/dL Creatinine 1.43 H (0.5-1.4) mg/dL Estim Creat Clear Calc 70.7 Estimated GFR 54 Random Glucose 153 H (60-115) mg/dL Lactic Acid 1.6 (0.5-2.0) mmol/L Calcium 9.9 D (8.4-10.2) mg/dL Total Bilirubin 0.8 (0.0-1.0) mg/dL Direct Bilirubin 0.3 (0.0-0.5) mg/dL AST 13 (5-37) U/L ALT 11 (0-40) U/L Alkaline Phosphatase 67 (39-117) U/L Total Protein 7.9 (6.5-8.0) g/dL Albumin 4.3 (3.5-5.0) g/dL Lipase 8 (8-78) U/L Urine Color Yellow Urine Appearance Clear Urine pH 7.5 (5.0-9.0) Ur Specific [place] 1.020 (1.005-1.025) Urine Protein Negative (Neg-Trace) mg/dL Urine Glucose (UA) Negative (Negative) mg/dL Urine Ketones Negative (Negative) mg/dL Urine Blood Negative (Negative) Urine Nitrite Negative (Negative) Ur Leukocyte Esterase Negative (Negative) Independent Interpretation I performed an independent interpretation of an: CT Scan Interpretation: My interpretation is in agreement with the radiologist's impression of this imaging study. - EXAMINATION: CT ABDOMEN AND PELVIS WITHOUT CONTRAST CLINICAL INFORMATION: Left flank pain COMPARISON: Previous renal ultrasound and CT of the abdomen and pelvis from earlier this month TECHNIQUE: Multidetector volumetric imaging was performed from the superior aspect of the liver through the pubic symphysis. Sagittal and coronal reformatted images were obtained on the technologist's workstation. This CT examination was performed using dose optimization techniques as appropriate, variously including the following: *Automated exposure control *Adjustment of mA and/or kV according to patient size (this includes techniques or standardized protocols for targeted exams where dose is matched to indication/reason for exam; i.e. extremities or head) *Use of iterative reconstruction technique DLP: 723 mGy-cm FINDINGS: LUNG BASES: The visualized lung bases are unremarkable. LIVER, GALLBLADDER, AND BILIARY TREE: The liver is normal in size, shape, and attenuation. No focal hepatic lesion or biliary ductal dilatation is present. The gallbladder is unremarkable with no evidence of radiopaque gallstones, gallbladder wall thickening, or obvious pericholecystic inflammatory changes. PANCREAS: Unremarkable. SPLEEN: Unremarkable. ADRENAL GLANDS: Unremarkable. KIDNEYS AND URETERS: There is mild to moderate left hydronephrosis from a 4 x 5 mm left proximal ureteral or UPJ stone. Stone is similar in position to 01/28/2023 exam and left hydronephrosis is slightly increased.. There are multiple small bilateral renal stones. Largest measures 3 x 4 mm in the upper pole of the right kidney. BLADDER: Bladder is empty. GASTROINTESTINAL TRACT: The small and large bowel are unremarkable. The appendix is unremarkable. ABDOMINAL WALL: Small umbilical hernia containing fat. LYMPH NODES: Normal. VASCULAR: Unremarkable. PELVIC VISCERA: Unremarkable. OSSEOUS STRUCTURES: Mild degenerative changes of the spine. CT/CT abdomen pelvis wo IV con IMPRESSION: Mild to moderate left hydronephrosis from a 4 x 5 mm left proximal ureteral or UPJ stone. Hydronephrosis is slightly increased from exam from earlier this month and stone does not appear appreciably changed in location. Small bilateral renal stones. Fleischner guidelines were followed. Dictated By: Zunilda Elam MD Signed By: Electronically signed by Zunilda Elam MD 02/02/23 3402 Radiology Impression Discussion of test interpretation with radiology: I have reviewed the radiologist's reading. Critical Care Time Critical Care Time Critical Care Time: Yes Total Critical Care Time: 45 Attestation: I spent 45 minutes of Critical Care Time with this patient. This does not include time spent on separately reported billable procedures. Discharge Plan Discharge Clinical Impression: Hydronephrosis with renal calculous obstruction Patient Disposition: Xfer Other Transfer Details: To OR with Dr. Jacobsen Prescriptions: No Action tizanidine 4 mg capsule 4 mg PO Q8H PRN (Reason: muscle spasticity) 30 Days Qty: 90 8RF gabapentin 600 mg tablet 600 mg PO TID PRN (Reason: postoperative pain) 30 Days Qty: 90 0RF tamsulosin [Flomax] 0.4 mg capsule 0.4 mg PO DAILY Qty: 7 0RF ibuprofen 400 mg tablet 400 mg PO Q6H PRN (Reason: pain) Qty: 20 0RF oxycodone 5 mg tablet 5 mg PO Q8H PRN (Reason: pain) Qty: 7 0RF Rx Instructions: Partial Fill upon patient request. levofloxacin 500 mg tablet 500 mg PO DAILY 10 Days Qty: 10 0RF ondansetron 4 mg tablet,disintegrating 4 mg PO Q6-8H PRN (Reason: nausea) Qty: 10 0RF hydrocodone-acetaminophen 5-325 mg tablet 1 tab PO Q8H PRN (Reason: pain, severe) 3 Days Qty: 7 0RF Rx Instructions: Partial Fill upon patient request. polyethylene glycol 3350 [Miralax] 17 gram/dose powder 17 g PO DAILY docusate sodium [Colace] 100 mg capsule 200 mg PO BEDTIME Qty: 60 5RF Citrucel 500 mg tablet 500 mg PO TID Qty: 90 5RF olanzapine 2.5 mg tablet 2.5 mg PO BEDTIME bupropion HCl 150 mg tablet extended release 24 hr 150 mg PO QAM buprenorphine-naloxone [Suboxone] 12-3 mg film 1 film buccal Q24H metformin 1,000 mg tablet 1,000 mg PO DAILY
[2023-02-02 07:11] LABS: MANUAL DIFF FLAG NO
[2023-02-02] MEDS: Ketorolac Tromethamine 15 MG/ML VIAL IVPUSH ×2 (07:15→14:15)
[2023-02-02] MEDS: HYDROmorphone HCl 1 MG/ML SYRINGE IVPUSH ×2 (07:17→14:15)
[2023-02-02 07:22] LABS: Lactic Acid 1.6 mmol/L (0.5-2.0)
[2023-02-02] MEDS: 0.9 % Sodium Chloride 1,000 ML 999 ML IV (07:22)
[2023-02-02 07:25] LABS: Basophils Absolute Auto 0.1 X10*3/uL (0.0-0.2); Basophils Percent Auto 0.5 % (0-2); Eosinophils Absolute Auto 0.3 X10*3/uL (0.0-0.4); Eosinophils Percent Auto 2.6 % (0-4); Hematocrit 42.6 % (42.0-52.0); Hemoglobin 14.4 g/dl (14.0-18.0); Imm Gran Abs Auto 0.03 X10*3/uL (0.00-0.03); Imm Gran Pct Auto 0.3 % (0.0-0.4); Lymphocytes Absolute Auto 1.7 X10*3/uL (1.2-4.9); Lymphocytes Percent Auto 14.9 % (20-40); Mean Corpuscular HGB Conc 33.8 g/dl (31.0-36.0); Mean Corpuscular Hemoglobin 31.4 pg (27.0-33.0); Mean Corpuscular Volume 92.8 fL (80.0-98.0); Mean Platelet Volume 12.2 fL (9.4-12.4); Monocytes Absolute Auto 0.6 X10*3/uL (0.1-1.2); Monocytes Percent Auto 5.8 % (2-11); Neutrophils Absolute Auto 8.5 x10*3/uL (2.0-8.3); Neutrophils Percent Auto 75.9 % (45-73); Platelet Count 169 X10*3/uL (160-400); Red Blood Count 4.59 X10*6/uL (4.60-5.80); Red Cell Distribution Width 12.8 % (11.0-16.0); White Blood Count 11.1 X10*3/uL (4.8-10.8)
[2023-02-02 07:27] LABS: Alanine Aminotransferase 11 U/L (0-40); Albumin Level 4.3 g/dL (3.5-5.0); Alkaline Phosphatase 67 U/L (39-117); Anion Gap 14 (12-20); Aspartate Amino Transferase 13 U/L (5-37); Bilirubin Direct 0.3 mg/dL (0.0-0.5); Bilirubin Total 0.8 mg/dL (0.0-1.0); Blood Urea Nitrogen 14 mg/dL (9-16); Calcium 9.9 mg/dL (8.4-10.2); Carbon Dioxide 24 mmol/L (22-29); Chloride 104 mmol/L (96-108); Creatinine Clr Calc Pharmacy 70.7; Estimated Glomerular Filt Rate 54; Glucose Random 153 mg/dL (60-115); Lipase 8 U/L (8-78); Potassium 3.8 mmol/L (3.3-5.1); Sodium 138 mmol/L (135-145); Total Protein 7.9 g/dL (6.5-8.0)
--- NOTE | 2023-02-02 07:29 | PC.NURSE ---
assumed care of pt at 0700. pt a&o x4, moaning and visibly in pain to the left flank. pt was here yesterday for kidney stone, but left due to not wanting to leave his alone at home. stated he wanted to get through it on his own without hospitalization. 20G IV placed to the RAC. labs drawn and sent. pt medicated per mar with almost immediate pain relief. pt appears much more comfortable ottoniel. at bedside. awaiting UA. rr even/unlabored. call skaggs within reach. plan of care ongoing.
[2023-02-02 07:52] LABS: Appearance Urine Clear; Color Urine Yellow; Glucose Urine UA Negative (Negative); Leukocyte Esterase Urine Negative (Negative); Nitrite Urine Negative (Negative); PH 7.5 (5.0-9.0); Urine Blood Negative (Negative); Urine Ketones Negative (Negative); Urine Protein Negative (Neg-Trace)
--- NOTE | 2023-02-02 08:01 | PC.NURSE ---
pt ambulated to bathroom on own. slow steady gait. ua obtained and sent to lab.
--- NOTE | 2023-02-02 10:04 | PC.NURSE ---
pt resting quietly on stretcher. comfortable from pain medication. rating 3/10 pain. rr even/unlabored. at bedside. plan of care ongoing.
--- NOTE | 2023-02-02 14:20 | PC.NURSE ---
pt reporting 10/10 flank pain. medicated per mar. at bedside. rr even/unlabored. waiting to go to surgery.
--- NOTE | 2023-02-02 16:55 | PC.NURSE ---
report given to [facility] nurse. pt ready to be transferred to OR.
--- NOTE | 2023-02-02 17:09 | P.CNUR_ITS ---
History of Present Illness Consult details Consult date: 02/02/23 Narrative: CC: Left ureteric stone 42-year-old male 3rd presentation to emergency room Left flank pain Max 10/10, associated with nausea, minimal vomiting Suppressed appetite Known stone from prior imaging Has had intermittent pain that will resolve and then reoccurred us approximately 12-18 hours later Denies prior history of renal stones Creatinine 1.4, WBC 11.1 Imaging - CT - There is mild to moderate left hydronephrosis from a 4 x 5 mm left proximal ureteral or UPJ stone. Stone is similar in position to 01/28/2023 exam and left hydronephrosis is slightly increased.. There are multiple small bilateral renal stones. Largest measures 3 x 4 mm in the upper pole of the right kidney. Plan cystoscopy, left retrograde, stent placement Review of Systems 2 Constitutional: Constitutional: Reports as per HPI and Reports no additional constitutional complaints Cardiovascular: Cardiovascular: Reports as per HPI and Reports no additional cardiovascular complaints Respiratory: Respiratory: Reports as per HPI and Reports no additional respiratory complaints Gastrointestinal: Gastrointestinal: Reports as per HPI and Reports no additional gastrointestinal complaints Genitourinary: Genitourinary: Reports as per HPI Musculoskeletal: Musculoskeletal: Reports no additional musculoskeletal complaints and Reports as per HPI Neurologic: Reports system reviewed and no additional complaints, except as documented and Reports as per HPI [facility] Past Medical History Medical History Chronic pain syndrome Sacroiliitis Spondylosis of lumbar spine Opioid dependence, in remission Chronic back pain Mood disorder Family History Family History Father HTN (hypertension) Mother Lung cancer Brother Heart disease Surgical History Surgical History History of neck surgery Social History Household Members: Family Alcohol intake: never Patient Tobacco Use Status: Former Tobacco user Substance Use Type: Former Substance User Meds Allergies Allergy/AdvReac Type Severity Reaction Status Date / Time No Known Allergies Allergy Verified 02/02/23 06:47 Active Medications: Current Medications Levofloxacin (Levaquin) 500 mg in 100 mls @ 100 mls/hr IV PREOP ONE Stop: 02/02/23 17:58 Acetaminophen (Ofirmev) 1,000 mg in 100 mls @ 400 mls/hr IV PREOP ONE Stop: 02/02/23 17:14 Home Medications Medication Instructions Recorded Confirmed Last Taken Type buprenorphine 12 mg-naloxone 3 mg 1 film buccal Q24H 05/16/21 09/24/22 Unknown History sublingual film (Suboxone) bupropion HCl 150 mg 24 hr tablet, 150 mg PO QAM 05/16/21 09/24/22 Unknown History extended release olanzapine 2.5 mg tablet 2.5 mg PO BEDTIME 05/16/21 09/24/22 Unknown History polyethylene glycol 3350 17 17 g PO DAILY 06/19/21 09/24/22 Unknown History gram/dose oral powder (Miralax) metformin 1,000 mg tablet 1,000 mg PO DAILY 09/24/22 09/24/22 Unknown History Physical Exam 2 Vital Signs: Vital Signs: Last Vital Signs Temp 98.1 F 02/02/23 09:03 Pulse 91 02/02/23 09:03 Resp 14 02/02/23 16:00 BP 124/77 02/02/23 09:03 Pulse Ox 97 02/02/23 09:03 O2 Del Method Room Air 02/02/23 09:03 BMI result Body Mass Index 36.0 Const: General: cooperative, healthy appearing, comfortable and no acute distress Orientation/consciousness: patient oriented x3 HEENT: Face and sinus: Yes normal facial exam Mouth: moist mucous membranes Neck: Neck: Yes normal visual inspection, Yes full ROM and Yes trachea midline Chest: Chest palpation & inspection: normal inspection of the chest Resp: Effort & Inspection: normal respiratory effort, able to speak in complete sentences and no respiratory distress GI: Inspection: Yes normal to inspection Back/Spine/Pelvis: Cervical Spine: normal cervical lordosis Thoracic/Lumbar Spine: thoracic and lumbar spine normal to inspection Skin: General skin exam: no rashes or lesions noted Neuro: General: patient oriented x3, tone normal and moves all extremities Extrem: General: Yes normal to inspection and Yes capillary refill normal Results Labs 02/02/23 07:06 02/02/23 07:06 Labs: Abnormal lab results 02/02/23 Range/Units 07:06 WBC 11.1 H (4.8-10.8) X10*3/uL RBC 4.59 L (4.60-5.80) X10*6/uL Neut % (Auto) 75.9 H (45-73) % Lymph % (Auto) 14.9 L (20-40) % Absolute Neuts (auto) 8.5 H (2.0-8.3) x10*3/uL Creatinine 1.43 H (0.5-1.4) mg/dL Random Glucose 153 H (60-115) mg/dL Short CBC 02/02/23 Range/Units 07:06 WBC 11.1 H (4.8-10.8) X10*3/uL Hgb 14.4 (14.0-18.0) g/dl Hct 42.6 (42.0-52.0) % Plt Count 169 (160-400) X10*3/uL BMP 02/02/23 07:06 Sodium 138 Potassium 3.8 Chloride 104 Carbon Dioxide 24 BUN 14 Creatinine 1.43 H Calcium 9.9 D Liver Function 02/02/23 Range/Units 07:06 Total Bilirubin 0.8 (0.0-1.0) mg/dL Direct Bilirubin 0.3 (0.0-0.5) mg/dL AST 13 (5-37) U/L ALT 11 (0-40) U/L Alkaline Phosphatase 67 (39-117) U/L Albumin 4.3 (3.5-5.0) g/dL Urine 02/02/23 Range/Units 07:44 Urine Color Yellow Urine Appearance Clear Urine pH 7.5 (5.0-9.0) Ur Specific [place] 1.020 (1.005-1.025) Urine Protein Negative (Neg-Trace) mg/dL Urine Glucose (UA) Negative (Negative) mg/dL All other labs normal. Assessment and Plan (1) Hydronephrosis with renal calculous obstruction: Status: Acute Plan Risks, benefits and alternatives to therapy were discussed. These include but are not limited to infection, bleeding, damage to local organs and tissues, need for further interventions. Anesthetic risks regarding cardiac arrhythmia, blood clots, and potential mortality were discussed. The patient understands the typical recovery time and the outpatient nature of the procedure. After consideration of these risks the patient gives full informed consent and they wish to move ahead with the procedure. Cystoscopy, left retrograde, left stent placement - will need definitive stone procedure following Procedures Date of Service Date of Service: 02/02/23
--- NOTE | 2023-02-02 18:18 | HO.ANESPROP2 ---
[facility], [facility] Active Problems Active Problems: All Active Problems (Updated 02/02/23 @ 12:23 by MICHELLE Hicks) Hydronephrosis with renal calculous obstruction (Acute) Chronic constipation (Acute) Chronic pain syndrome (Acute) Sacroiliitis (Acute) Opioid dependence, in remission (Acute) Spondylosis of lumbar spine (Acute) Past Medical History Medical History Chronic pain syndrome Sacroiliitis Spondylosis of lumbar spine Opioid dependence, in remission Chronic back pain Mood disorder Family History Family History Father HTN (hypertension) Mother Lung cancer Brother Heart disease Family history of problems with anesthesia: No Surgical History Surgical History History of neck surgery History of Problems with Anesthesia: No Social History Household Members: Family Alcohol intake: never Patient Tobacco Use Status: Former Tobacco user Substance Use Type: Former Substance User Meds Allergies Allergy/AdvReac Type Severity Reaction Status Date / Time No Known Allergies Allergy Verified 02/02/23 06:47 Home Medications Medication Instructions Recorded Confirmed Last Taken Type buprenorphine 12 mg-naloxone 3 mg 1 film buccal Q24H 05/16/21 09/24/22 Unknown History sublingual film (Suboxone) bupropion HCl 150 mg 24 hr tablet, 150 mg PO QAM 05/16/21 09/24/22 Unknown History extended release olanzapine 2.5 mg tablet 2.5 mg PO BEDTIME 05/16/21 09/24/22 Unknown History polyethylene glycol 3350 17 17 g PO DAILY 06/19/21 09/24/22 Unknown History gram/dose oral powder (Miralax) metformin 1,000 mg tablet 1,000 mg PO DAILY 09/24/22 09/24/22 Unknown History Exam Height,Weight and Vital Signs: Height 5 ft 4 in Weight 95.254 kg Last Vital Signs Temp 98.5 F 02/02/23 17:23 Pulse 101 H 02/02/23 17:23 Resp 16 02/02/23 17:23 BP 142/91 H 02/02/23 17:23 Pulse Ox 96 02/02/23 17:23 O2 Del Method Room Air 02/02/23 17:23 Pertinent Lab Results Pertinent Lab Results: Laboratory Tests 02/02/23 02/02/23 07:06 07:44 WBC 11.1 H RBC 4.59 L Hgb 14.4 Hct 42.6 MCV 92.8 MCH 31.4 MCHC 33.8 RDW 12.8 Plt Count 169 MPV 12.2 Immature Gran % (Auto) 0.3 Neut % (Auto) 75.9 H Lymph % (Auto) 14.9 L [place] % (Auto) 5.8 Eos % (Auto) 2.6 Baso % (Auto) 0.5 Lymph # (Auto) 1.7 [place] # (Auto) 0.6 Eos # (Auto) 0.3 Baso # (Auto) 0.1 Abs Immat Gran (auto) 0.03 Absolute Neuts (auto) 8.5 H Absolute Nucleated RBC 0.000 Nucleated RBC % (auto) 0.0 Sodium 138 Potassium 3.8 Chloride 104 Carbon Dioxide 24 Anion Gap 14 BUN 14 Creatinine 1.43 H Estim Creat Clear Calc 70.7 Estimated GFR 54 Random Glucose 153 H Lactic Acid 1.6 Calcium 9.9 D Total Bilirubin 0.8 Direct Bilirubin 0.3 AST 13 ALT 11 Alkaline Phosphatase 67 Total Protein 7.9 Albumin 4.3 Lipase 8 Urine Color Yellow Urine Appearance Clear Urine pH 7.5 Ur Specific Plush 1.020 Urine Protein Negative Urine Glucose (UA) Negative Urine Ketones Negative Urine Blood Negative Urine Nitrite Negative Ur Leukocyte Esterase Negative Airway Mallampati Class: II TM Dist: >3cm Neck ROM: Full Assessment and Plan Assessment Anesthesia Assessment: Anesthesia Plan Discussed and Chart Reviewed Final Anesthetic Review Family History of Problems with Anesthesia: No History of Problems with Anesthesia: No NPO: Yes ASA Class: III Final Preanesthetic Review: No Changes in Pt Med Stat, Meds/Allgs Chart Reviewed, Consent Obtained/Reviewed and Anes Risks/Benef Reviewed Patient Risk: Low Procedure Risk: Low Anesthetic Plan Anesthetic Plan: GA Disposition: Standard PACU
--- NOTE | 2023-02-02 19:09 | W.PM.OPN ---
Operative Note Operative Note Date of Service: 02/02/23 Narrative: PreOperative Diagnosis: Left UPJ stone Post Operative Diagnosis: Left UPJ stone Procedure: Cystoscopy, left retrograde, left stent placement Surgeon: Dr Minh Jacobsen Anesthesia: LMA Indications for procedure: Recurrence ER presentation. Imaging shows stone proximal ureter. Procedure: After informed consent was verified the patient was brought to the operating room and placed in a supine position. Anesthesia was administered per protocol. The patient was placed in modified dorsal lithotomy position and prepped and draped in a sterile fashion. A safety pause time-out was performed. Laterality of procedure and antibiotics were confirmed, appropriate imaging was available A 22 [place] cystoscope was introduced per urethra. No abnormality was noted of urethra or bladder. Both ureteric orifices were seen in a normal position. The left ureter was cannulated with an open ended catheter and a retrograde examination was performed. Filling defect at proximal ureter into dilated renal pelvis . A Sensor guidewire was placed under fluoroscopy and a good coil was seen within the renal pelvis. A 6 [place] by 28 cm double J stent was advanced over the wire and up to the level of the renal pelvis under fluoroscopic and direct visualization. The stent was seen with appropriate coil within the renal pelvis and in the bladder after deployment. Debris suggestive of obstruction was released into the bladder following stent placement. The patient tolerated the procedure well and was transferred in a stable condition to the recovery area. Pathology: Drains: Stent is above
[2023-02-02] MEDS: Phenazopyridine HCL 100 MG TABLET PO (19:25)
== END 2023-02-02 19:30 | disposition home or self-care (01) ==
LOC: HO.ED 12:23 → HO.SSS 13:40
PROVIDERS: Physician Assistant Medical; Emergency Provider Emergency Medicine; PCP Internal Medicine; Visit Provider Urology
PROC: (CPT 52332; principal; 2023-02-02 18:00)
DX: N13.2 Hydronephrosis with renal and ureteral calculous obstruction (principal); K42.9 Umbilical hernia without obstruction or gangrene; G89.4 Chronic pain syndrome; M47.896 Other spondylosis, lumbar region; M46.1 Sacroiliitis, not elsewhere classified; M54.9 Dorsalgia, unspecified; F39 Unspecified mood [affective] disorder; F11.21 Opioid dependence, in remission; Z79.1 Long term (current) use of non-steroidal anti-inflammatories (NSAID); Z79.84 Long term (current) use of oral hypoglycemic drugs; Z79.899 Other long term (current) drug therapy; Z98.890 Other specified postprocedural states; Z87.891 Personal history of nicotine dependence
CPT/HCPCS: 52332; 36415; 74176; 80048; 80076; 81003; 83605; 83690; 85025; 87040; 96361; 96374; 96375; 99284; 99285; C1758; C1769; C2617; J0131; J1100; J1170; J1885; J1956; J2250; J2405; J2704; J3010; Q9967

== ENCOUNTER → 2023-02-02 13:38 | Outpatient (BNV) | payer MEDICAID, SELFPAY | PROVIDERS: Emergency Provider Emergency Medicine; PCP Internal Medicine; Visit Provider Urology | DX: N13.2 Hydronephrosis with renal and ureteral calculous obstruction (principal) | CPT/HCPCS: 52332; 74420; 99284 ==

== ENCOUNTER 2023-02-11 05:55 | Day surgery (SDC) | payer MEDICAID, SELFPAY ==
[2023-02-09 13:34] VITALS: BMI 39.1
--- NOTE | 2023-02-10 09:40 | HO.ANESPROP2 ---
HPI - Anesthesia Eval Consult details Narrative: 42yo M for Left ESWL with stent removal s/p cysto,stent 02/02/23 with GA-LMA 5 Suboxone daily PMFSH Active Problems Active Problems: All Active Problems (Updated 02/09/23 @ 13:37 by Melina Saxena RN) Chronic constipation (Acute) Chronic pain syndrome (Acute) Sacroiliitis (Acute) Opioid dependence, in remission (Acute) Spondylosis of lumbar spine (Acute) Past Medical History Medical History (Updated 02/19/23 @ 00:01 by Sharron Yan) Fatty liver Thyroid disease Diabetes Chronic pain syndrome Sacroiliitis Spondylosis of lumbar spine Opioid dependence, in remission Chronic back pain Mood disorder Family History Family History Father HTN (hypertension) Mother Lung cancer Brother Heart disease Family history of problems with anesthesia: No Surgical History Surgical History (Updated 02/18/23 @ 11:36 by Melina Saxean RN) Hx of lithotripsy History of cystoscopy History of surgery History of neck surgery History of Problems with Anesthesia: No Social History Social History Household Members: Family Alcohol intake: never Patient Tobacco Use Status: Former Tobacco user Quit Date: 1yr ago Substance Use Type: Former Substance User Advance Directives: No Advance Directives Information Provided: No Meds Allergies Allergy/AdvReac Type Severity Reaction Status Date / Time No Known Allergies Allergy Verified 02/11/23 06:57 Home Medications Medication Instructions Recorded Confirmed Last Taken Type buprenorphine 12 mg-naloxone 3 mg 1 film buccal Q24H 05/16/21 02/11/23 Unknown History sublingual film (Suboxone) bupropion HCl 150 mg 24 hr tablet, 150 mg PO QAM 05/16/21 02/11/23 Unknown History extended release olanzapine 2.5 mg tablet 2.5 mg PO BEDTIME 05/16/21 02/11/23 Unknown History metformin 1,000 mg tablet 1,000 mg PO DAILY 09/24/22 02/11/23 Unknown History atorvastatin 20 mg tablet 20 mg PO QPM 02/11/23 02/11/23 Unknown History levothyroxine 50 mcg tablet 50 mcg PO QAM 02/11/23 02/11/23 Unknown History Exam Height,Weight and Vital Signs: Height 5 ft 2 in Weight 97.069 kg Pertinent Lab Results Pertinent Lab Results: Laboratory Tests 02/02/23 07:06 WBC 11.1 H Hgb 14.4 Hct 42.6 Plt Count 169 Sodium 138 Potassium 3.8 Chloride 104 Carbon Dioxide 24 BUN 14 Creatinine 1.43 H Assessment and Plan Assessment Anesthesia Assessment: Chart Reviewed Final Anesthetic Review Family History of Problems with Anesthesia: No History of Problems with Anesthesia: No
--- NOTE | ~2023-02-11 | XR_ITS ---
EXAMINATION: XR ABDOMEN KUB CLINICAL INDICATION: Stones COMPARISON: CT abdomen from 03/04/2023 TECHNIQUE: AP view of the abdomen. FINDINGS: Interval placement of left-sided double-J nephroureteral stent appropriately positioned. A 3 mm and 2 mm calculus are noted in the region of the left renal upper pole shadow. A 4 mm calculus is noted along the proximal aspect of the left ureter. Pelvic phleboliths are noted. 3 mm calculus overlying the right renal upper pole shadow. No radiopaque calcifications overlying the right ureteral paths. Bowel gas is nonobstructive. Osseous structures are intact. Soft tissues are unremarkable. XR/XR KUB IMPRESSION: 1. Interval placement of left-sided double-J nephroureteral stent appropriately positioned. 2. A 3 mm and 2 mm calculus are noted in the region of the left renal upper pole. 3. 4 mm calculus is noted along the proximal aspect of the left ureter. 4. 3 mm calculus overlying the right renal upper pole shadow. 5. No radiopaque calcifications overlying the right ureteral paths.
[2023-02-11 06:30] VITALS: BMI 35.6
[2023-02-11 06:35] VITALS: BP 111/73; PULSE 82; RESP 15; TEMP 36.8; O2SAT 96
[2023-02-11 06:47] LABS: Glucose, Whole Blood 116 mg/dL (60-115)
[2023-02-11] MEDS: levoFLOXacin 500 MG TABLET PO (06:48)
[2023-02-11] MEDS: Lactated Ringers 1,000 ML 999 ML IV (06:56)
--- NOTE | 2023-02-11 07:26 | P.CONAN_ITS ---
[facility] Active Problems Active Problems: All Active Problems (Updated 02/11/23 @ 07:00 by Anne Denny RN) Chronic constipation (Acute) Chronic pain syndrome (Acute) Sacroiliitis (Acute) Opioid dependence, in remission (Acute) Spondylosis of lumbar spine (Acute) Past Medical History Medical History Fatty liver Thyroid disease Diabetes Chronic pain syndrome Sacroiliitis Spondylosis of lumbar spine Opioid dependence, in remission Chronic back pain Mood disorder Functional capacity: independent ambulation Family History Family History Father HTN (hypertension) Mother Lung cancer Brother Heart disease Family history of problems with anesthesia: No Surgical History Surgical History History of cystoscopy History of surgery History of neck surgery History of Problems with Anesthesia: No Social History Social History Household Members: Family Alcohol intake: never Patient Tobacco Use Status: Former Tobacco user Use of substances other than those prescribed or required for medical reasons: No Substance Use Type: Former Substance User Are you DNR?: No Advance Directives: No Advance Directives Information Provided: Yes Meds Allergies Allergy/AdvReac Type Severity Reaction Status Date / Time No Known Allergies Allergy Verified 02/11/23 06:57 Active Medications: Current Medications Lactated Ringer's (Lr) 1,000 mls @ 100 mls/hr IVCONT .Q10H [facility] Home Medications Medication Instructions Recorded Confirmed Last Taken Type buprenorphine 12 mg-naloxone 3 mg 1 film buccal Q24H 05/16/21 02/11/23 Unknown History sublingual film (Suboxone) bupropion HCl 150 mg 24 hr tablet, 150 mg PO QAM 05/16/21 02/11/23 Unknown History extended release olanzapine 2.5 mg tablet 2.5 mg PO BEDTIME 05/16/21 02/11/23 Unknown History metformin 1,000 mg tablet 1,000 mg PO DAILY 09/24/22 02/11/23 Unknown History atorvastatin 20 mg tablet 20 mg PO QPM 02/11/23 02/11/23 Unknown History levothyroxine 50 mcg tablet 50 mcg PO QAM 02/11/23 02/11/23 Unknown History Exam Height,Weight and Vital Signs: Height 5 ft 4 in Weight 93.984 kg Last Vital Signs Temp 98.3 F 02/11/23 06:35 Pulse 82 02/11/23 06:35 Resp 15 02/11/23 06:35 BP 111/73 02/11/23 06:35 Pulse Ox 96 02/11/23 06:35 O2 Del Method Room Air 02/11/23 06:35 Pertinent Lab Results Pertinent Lab Results: Laboratory Tests 02/11/23 06:43 POC Glucose 116 H Airway Mallampati Class: III TM Dist: >3cm Neck ROM: Full Heart: RRR Lungs: CTA Assessment and Plan Final Anesthetic Review Family History of Problems with Anesthesia: No History of Problems with Anesthesia: No ASA Class: III Final Preanesthetic Review: Meds/Allgs Chart Reviewed, Consent Obtained/Reviewed and Anes Risks/Benef Reviewed Patient Risk: Low Procedure Risk: Low Anesthetic Plan Anesthetic Plan: MAC: Disposition: Standard PACU
--- NOTE | 2023-02-11 07:49 | MHC.SHP ---
Pre-Procedural Eval Section A Date of Service: 02/11/23 The patient is an INPATIENT: No Changes since office visit: No Cold of Flu in the past 2 weeks, No New Medical Problems, No Changes in Medication and No Patient answered all questions The History & Physical has been completed within 30 days and I have reviewed it.: Yes Section B Chief Complaint: Hydronephrosis with renal and ureteral calculous o Details of Present Illness: Left ESWL with cysto stent removal Relevant Social History: None Present Medications: None Medical History: No relevant PMH History of Previous Operations: Relevant previous surgery/procedure and date(s) Allergies: Allergies Allergy/AdvReac Type Severity Reaction Status Date / Time No Known Allergies Allergy Verified 02/11/23 06:57 Review of Systems Sugical H&P ROS: Negative: Constitution, Cardiovascular, Respiratory, Neurological, Psychiatric, Hem-Onc, Allergic/Immunologic, Gastrointestinal, Genitourinary, Musculoskeletal, Integumentary, Endocrine and Eyes/Ears/Nose/Throat Exam Surgical H&P Exam: Normal: HEENT, Normal: Heart, Normal: Lungs, Normal: Extremities, Normal: Abdomen, Normal: Skin and Normal: Neurological Plan Diagnosis/Plan: Unchanged (Left ESWL and stent removal) I have reviewed the history and physical and performed a pertinent physical examination on my patient. No changes have occurred unless specified. Time Spent With Patient Time: Total time managing care of this patient today ____ minutes.
--- NOTE | 2023-02-11 07:59 | W.PM.OPN ---
Operative Note Operative Note Date of Service: 02/11/23 Narrative: PreOperative Diagnosis: left Renal stones Post Operative Diagnosis: left Renal stones Procedure: left ESWL - cystoscopy with left stent removal Surgeon: Dr Minh Jacobsen Anesthesia: mac/sedation Indications for procedure: The patient understands ESWL may be a staged procedure and subsequent intervention may be required based on imaging after ESWL. Quoted stone clearance rates for a solitary procedure are in the 70-80% range based primarily on stone location. They also understand there is a risk of bleeding to the kidney, infection, damage to adjacent organs, and stone migration following the procedure. - Imaging left renal mid pole stone Procedure: After informed consent was verified the patient was brought to the operating room and placed in a supine position. Anesthesia was performed per protocol. Safety pause time-out was performed. Imaging was displayed in the room and laterality confirmed. ESWL was performed. The 1st 500 shocks were performed at 60 hertz. These were performed with increasing power. Once maximum power was reached the rate was increased to 180 hertz. A total of 2500 shocks were given. Targeted imaging with ultrasound/fluoroscopy showed stone smudging suggestive of disintegration. At end of procedure cystoscopy performed with removal of left stent. The patient tolerated the procedure well and was transferred to the recovery area upon completion. Post procedure imaging will be organized. There was no evidence for flank discoloration.
[2023-02-11 08:29] VITALS: BP 104/68; PULSE 77; RESP 18; TEMP 36.2; O2SAT 96
[2023-02-11 08:34] VITALS: BP 106/61; PULSE 76; RESP 17; O2SAT 96
[2023-02-11 08:39] VITALS: BP 105/67; PULSE 83; RESP 18; O2SAT 97
[2023-02-11 08:44] VITALS: BP 109/72; PULSE 80; RESP 18; O2SAT 97
[2023-02-11] MEDS: Phenazopyridine HCL 100 MG TABLET PO (08:48)
--- NOTE | 2023-02-11 08:51 | HO.POSTANES ---
Post Anesthesia Evaluation Post Anesthesia Evaluation Date of Service: 02/11/23 Vital Signs: Vital Signs Temp Pulse Resp BP Pulse Ox O2 Del Method 02/11/23 08:39 83 18 105/67 97 Room Air 02/11/23 08:34 76 17 106/61 96 Room Air 02/11/23 08:29 97.2 F 77 18 104/68 96 Room Air 02/11/23 06:35 98.3 F 82 15 111/73 96 Room Air Anesthesia: Monitored Mental Status: Awake Pain Control: Satisfactory Nausea/Vomiting: None Hydration: Adequate Anesthesia-Related Issues: No Anes. Related Issues
[2023-02-11 08:59] VITALS: BP 127/65; PULSE 81; RESP 18; TEMP 36.4; O2SAT 97
== END 2023-02-11 10:00 | disposition home or self-care (01) ==
PROVIDERS: PCP Internal Medicine; Visit Provider Urology
PROC: (CPT 50590; principal; 2023-02-11 07:30)
DX: N13.2 Hydronephrosis with renal and ureteral calculous obstruction (principal); E11.9 Type 2 diabetes mellitus without complications; K76.0 Fatty (change of) liver, not elsewhere classified; K59.09 Other constipation; G89.4 Chronic pain syndrome; M46.1 Sacroiliitis, not elsewhere classified; F11.21 Opioid dependence, in remission; Z87.891 Personal history of nicotine dependence; Z96.0 Presence of urogenital implants; Z79.84 Long term (current) use of oral hypoglycemic drugs; Z79.899 Other long term (current) drug therapy
CPT/HCPCS: 50590; 52310; 74018; 82947; J0131; J1885; J2371; J2704

== ENCOUNTER → 2023-02-11 05:55 | Outpatient (BNV) | payer MEDICAID, SELFPAY | PROVIDERS: PCP Internal Medicine; Visit Provider Urology | DX: N13.2 Hydronephrosis with renal and ureteral calculous obstruction (principal) | CPT/HCPCS: 50590 ==

== ENCOUNTER 2023-02-17 23:36 | Emergency (ER) | payer MEDICAID, SELFPAY ==
--- NOTE | ~2023-02-17 | CT_ITS ---
EXAMINATION: CT ABDOMEN AND PELVIS WITHOUT CONTRAST CLINICAL INFORMATION: Left flank pain COMPARISON: 02/02/2023 TECHNIQUE: Multidetector volumetric imaging was performed from the superior aspect of the liver through the pubic symphysis. Sagittal and coronal reformatted images were obtained on the technologist's workstation. This CT examination was performed using dose optimization techniques as appropriate, variously including the following: *Automated exposure control *Adjustment of mA and/or kV according to patient size (this includes techniques or standardized protocols for targeted exams where dose is matched to indication/reason for exam; i.e. extremities or head) *Use of iterative reconstruction technique DLP: 692 mGy-cm FINDINGS: LUNG BASES: The visualized lung bases are unremarkable. LIVER, GALLBLADDER, AND BILIARY TREE: The liver is normal in size, shape, and attenuation. No focal hepatic lesion or biliary ductal dilatation is present. The gallbladder is unremarkable with no evidence of radiopaque gallstones, gallbladder wall thickening, or obvious pericholecystic inflammatory changes. PANCREAS: Unremarkable. SPLEEN: Unremarkable. ADRENAL GLANDS: Unremarkable. KIDNEYS AND URETERS: There is [id number] left hydronephrosis and hydroureter upstream from a 5 mm calculus in the distal left ureter approximately 3 cm proximal to the ureterovesical junction. This likely represents distal migration of the same stone which was previously located at the ureteropelvic junction. Multiple nonobstructive intrarenal calculi present bilaterally numbering at least 6 within the left kidney and 3 within the right kidney. BLADDER: Unremarkable. GASTROINTESTINAL TRACT: The small and large bowel are unremarkable. The appendix is unremarkable. ABDOMINAL WALL: Small fat-containing umbilical hernia without inflammation. LYMPH NODES: Normal. VASCULAR: Unremarkable. PELVIC VISCERA: Unremarkable. OSSEOUS STRUCTURES: Unremarkable. CT/CT abdomen pelvis wo IV con IMPRESSION: * There is a 5 mm calculus within the distal left ureter approximately 3 cm proximal to the ureterovesical junction. This likely represents distal migration of the same stone which was previously located at the ureteropelvic junction on 02/02/2023. * [id number] left hydronephrosis and hydroureter upstream from the calculus, slightly worse from the prior exam. * Bilateral nonobstructive intrarenal calculi.
[2023-02-17 23:38] VITALS: BP 123/87; PULSE 102; RESP 18; TEMP 37.1; O2SAT 97; BMI 35.0
[2023-02-18 02:05] LABS: MANUAL DIFF FLAG NO
[2023-02-18 02:06] LABS: Basophils Absolute Auto 0.1 X10*3/uL (0.0-0.2); Basophils Percent Auto 0.5 % (0-2); Eosinophils Absolute Auto 0.4 X10*3/uL (0.0-0.4); Eosinophils Percent Auto 2.6 % (0-4); Hematocrit 40.5 % (42.0-52.0); Hemoglobin 13.3 g/dl (14.0-18.0); Imm Gran Abs Auto 0.06 X10*3/uL (0.00-0.03); Imm Gran Pct Auto 0.4 % (0.0-0.4); Lymphocytes Percent Auto 19.8 % (20-40); Mean Corpuscular HGB Conc 32.8 g/dl (31.0-36.0); Mean Corpuscular Volume 94.4 fL (80.0-98.0); Mean Platelet Volume 12.3 fL (9.4-12.4); Monocytes Absolute Auto 0.9 X10*3/uL (0.1-1.2); Monocytes Percent Auto 5.8 % (2-11); Neutrophils Absolute Auto 10.8 x10*3/uL (2.0-8.3); Neutrophils Percent Auto 70.9 % (45-73); Platelet Count 221 X10*3/uL (160-400); Red Blood Count 4.29 X10*6/uL (4.60-5.80); Red Cell Distribution Width 12.7 % (11.0-16.0); White Blood Count 15.3 X10*3/uL (4.8-10.8)
[2023-02-18 02:07] LABS: Appearance Urine Clear; Color Urine Orange; Glucose Urine UA Negative (Negative); Leukocyte Esterase Urine Moderate (2+) (Negative); Nitrite Urine Positive (Negative); UMIC TRIGGER UACC YES; Urine Blood Negative (Negative); Urine Ketones Negative (Negative); Urine Protein 30 (1+) mg/dL (Neg-Trace)
[2023-02-18 02:15] LABS: Bacteria Urine None Seen (None Seen); Hyaline Casts Urine 0-2 /LPF (0-2); RBC Urine 0-2 /HPF (0-2); Squamous Epithelial Cell Urine 0-2 /HPF (0-2); UACC Culture Trigger YES; WBC Urine 0-5 /HPF (0-5)
[2023-02-18 02:18] LABS: Alanine Aminotransferase 8 U/L (0-40); Albumin Level 4.3 g/dL (3.5-5.0); Alkaline Phosphatase 74 U/L (39-117); Anion Gap 11 (12-20); Aspartate Amino Transferase 13 U/L (5-37); Bilirubin Total 0.6 mg/dL (0.0-1.0); Blood Urea Nitrogen 14 mg/dL (9-16); Calcium 9.9 mg/dL (8.4-10.2); Carbon Dioxide 29 mmol/L (22-29); Chloride 102 mmol/L (96-108); Estimated Glomerular Filt Rate > 60; Glucose Random 111 mg/dL (60-115); Potassium 4.4 mmol/L (3.3-5.1); Sodium 138 mmol/L (135-145)
[2023-02-18 02:57] VITALS: BP 125/83; PULSE 83; RESP 18; TEMP 37.1
[2023-02-18] MEDS: ondansetron HCL 4 MG/2 ML VIAL IVPUSH (03:20)
[2023-02-18] MEDS: 0.9 % Sodium Chloride 1,000 ML 999 ML IV ×3 (03:20→06:12)
[2023-02-18] MEDS: Ketorolac Tromethamine 15 MG/ML VIAL IVPUSH (03:20)
[2023-02-18] MEDS: Morphine Sulfate 4 MG/ML CARTRIDGE IVPUSH (03:21)
--- NOTE | 2023-02-18 03:32 | ED.MALEGU ---
HPI - Male Genitourinary General Chief complaint: Urogenital-Male Stated complaint: blood in urine Time Seen by Provider: 02/18/23 03:32 History of Present Illness HPI Narrative: The patient is a 42-year-old male who has been having problems with a left proximal kidney stone recently. On February 02, 2 weeks ago, he had a ureteral stent placed. One week ago on February 11 he then had the stent removed and had extracorporeal shockwave lithotripsy (ESWL). He says that he has been taking Vicodin for pain since the procedure. He has not been on antibiotics recently. Tonight he felt that he had worsening left flank pain and he also felt that his urine looked 1st more yellow than it had been and then the urine looked bloody. He came to the emergency room. Related Data Home Medications Medication Instructions Recorded Confirmed buprenorphine 12 mg-naloxone 3 mg 1 film buccal Q24H 05/16/21 02/11/23 sublingual film (Suboxone) bupropion HCl 150 mg 24 hr tablet, 150 mg PO QAM 05/16/21 02/11/23 extended release olanzapine 2.5 mg tablet 2.5 mg PO BEDTIME 05/16/21 02/11/23 metformin 1,000 mg tablet 1,000 mg PO DAILY 09/24/22 02/11/23 atorvastatin 20 mg tablet 20 mg PO QPM 02/11/23 02/11/23 levothyroxine 50 mcg tablet 50 mcg PO QAM 02/11/23 02/11/23 Previous Rx's Medication Instructions Recorded docusate sodium 100 mg capsule 200 mg (2 x 100 mg) PO BEDTIME #60 06/19/21 (Colace) caps methylcellulose (laxative) 500 mg 500 mg PO TID #90 tabs 06/19/21 tablet (Citrucel) gabapentin 600 mg tablet 600 mg PO TID PRN postoperative 11/21/21 pain 30 days #90 tabs ibuprofen 400 mg tablet 400 mg PO Q6H PRN pain #20 tabs 01/28/23 levofloxacin 500 mg tablet 500 mg PO DAILY 10 days #10 tabs 01/28/23 ondansetron 4 mg disintegrating 4 mg PO Q6-8H PRN nausea #10 tabs 01/28/23 tablet naproxen 500 mg tablet 500 mg PO BID PRN pain 7 days #14 02/02/23 tabs phenazopyridine 100 mg tablet 100 mg PO TID PRN Spasm 4 days #12 02/02/23 (Pyridium) tabs tamsulosin 0.4 mg capsule 0.4 mg PO BEDTIME 14 days #14 caps 02/02/23 naproxen 500 mg tablet 500 mg PO BID PRN pain 7 days #14 02/11/23 tabs oxycodone 5 mg tablet 5 mg PO Q8H PRN pain (scale score 02/11/23 4-6) #8 tabs tamsulosin 0.4 mg capsule 0.4 mg PO BEDTIME 30 days #30 caps 02/11/23 cefuroxime axetil 500 mg tablet 500 mg PO BID #16 tabs 02/18/23 hydrocodone 5 mg-acetaminophen 300 1 tab PO Q4-6H PRN pain #14 tabs 02/18/23 mg tablet ibuprofen 600 mg tablet 600 mg PO Q6H PRN pain #14 tabs 02/18/23 tamsulosin 0.4 mg capsule 0.4 mg PO BEDTIME #7 caps 02/18/23 Allergies Allergy/AdvReac Type Severity Reaction Status Date / Time No Known Allergies Allergy Verified 02/11/23 06:57 Review of Systems Review of Systems: Yes all other systems are reviewed and are negative PMFSH Past Medical History Medical History Fatty liver Thyroid disease Diabetes Chronic pain syndrome Sacroiliitis Spondylosis of lumbar spine Opioid dependence, in remission Chronic back pain Mood disorder Surgical History History of cystoscopy History of surgery History of neck surgery Family History Family History Father HTN (hypertension) Mother Lung cancer Brother Heart disease Social History Social History Household Members: Family Alcohol intake: never Patient Tobacco Use Status: Former Tobacco user Quit Date: 1yr ago Substance Use Type: Former Substance User Advance Directives: No Advance Directives Information Provided: No Physical Exam Vital Signs: Vital Signs: Last Vital Signs Temp 98.2 F 02/18/23 06:37 Pulse 79 02/18/23 06:37 Resp 16 02/18/23 06:37 BP 106/54 L 02/18/23 06:37 Pulse Ox 95 02/18/23 06:37 O2 Del Method Room Air 02/18/23 06:37 O2 Flow Rate 96 02/18/23 02:57 BMI result Body Mass Index 35.0 Const: Other: Patient is a 42-year-old male who is 1 week status post shockwave lithotripsy for left-sided left proximal ureteral stone who presents tonight with a 5 mm stone in the distal ureter about 3 cm proximal to the UVJ. The patient has run out of his Vicodin. The patient's urinalysis shows an abnormal leukocyte esterase and nitrates but microscopy is unremarkable. Whether this represents a true UTI or not is not clear. I spoke [address]st [address] Dr. Gonzalez of Urology and later to Dr. Jacobsen. They both felt that if the patient's symptoms were manageable that the patient could be discharged on antibiotics and follow up as an outpatient. The patient was given 2 g of ceftriaxone IV in the emergency department as well as IV fluids. He will be discharged with an additional prescription for Vicodin. He will also be given a prescription for ibuprofen and cefuroxime and tamsulosin. Patient felt considerably better at the time of discharge. Medications Administered Discontinued Medications Generic Name Dose Route Start Last Admin Trade Name Margarette PRN Reason Stop Dose Admin Hydrocodone Bitart/Acetaminophen 1 tab 02/18/23 06:39 02/18/23 06:44 Hydrocodone Bit/Acetam 5/325 Tablet PO 02/18/23 06:40 1 tab ONCE ONE Administration Hydromorphone HCl 0.5 mg 02/18/23 05:37 02/18/23 06:10 Hydromorphone Hcl 0.5 Mg/0.5 Ml Syringe IVPUSH 02/18/23 05:38 0.5 mg ONCE ONE Administration Protocol Sodium Chloride 1,000 mls @ 999 mls/hr 02/18/23 03:00 02/18/23 03:57 Ns IV 02/18/23 04:00 Infused .Q1H1M GISELLE Infusion Sodium Chloride 1,000 mls @ 999 mls/hr 02/18/23 03:45 02/18/23 05:01 Ns IV 02/18/23 04:45 Infused .Q1H1M GISELLE Infusion Ceftriaxone Sodium 2 gm/ 50 mls @ 100 mls/hr 02/18/23 05:36 02/18/23 06:38 Sodium Chloride IV 02/18/23 06:05 Infused ONCE ONE Infusion Sodium Chloride 1,000 mls @ 999 mls/hr 02/18/23 05:45 02/18/23 07:19 Ns IV 02/18/23 06:45 Infused .Q1H1M GISELLE Infusion Ketorolac Tromethamine 15 mg 02/18/23 02:55 02/18/23 03:20 Ketorolac Tromethamine 15 Mg/Ml Vial IVPUSH 02/18/23 02:56 15 mg ONCE ONE Administration Morphine Sulfate 4 mg 02/18/23 02:55 02/18/23 03:21 Morphine Sulfate 4 Mg/Ml Cartridge IVPUSH 02/18/23 02:56 4 mg ONCE ONE Administration Protocol Ondansetron HCl 4 mg 02/18/23 02:55 02/18/23 03:20 Ondansetron Hcl 4 Mg/2 Ml Vial IVPUSH 02/18/23 02:56 4 mg ONCE ONE Administration Prednisone 20 mg 02/18/23 07:25 02/18/23 07:51 Prednisone 20 Mg Tablet PO 02/18/23 07:26 20 mg ONCE ONE Administration Tamsulosin HCl 0.4 mg 02/18/23 06:39 02/18/23 06:44 Tamsulosin Hcl 0.4 Mg Capsule PO 02/18/23 06:40 0.4 mg ONCE ONE Administration Medical Decision Making Lab Data 02/18/23 01:58 02/18/23 01:58 Labs: Lab Results 02/18/23 Range/Units 01:58 WBC 15.3 H (4.8-10.8) X10*3/uL RBC 4.29 L (4.60-5.80) X10*6/uL Hgb 13.3 L (14.0-18.0) g/dl Hct 40.5 L (42.0-52.0) % MCV 94.4 (80.0-98.0) fL MCH 31.0 (27.0-33.0) pg MCHC 32.8 (31.0-36.0) g/dl RDW 12.7 (11.0-16.0) % Plt Count 221 D (160-400) X10*3/uL MPV 12.3 (9.4-12.4) fL Immature Gran % (Auto) 0.4 (0.0-0.4) % Neut % (Auto) 70.9 (45-73) % Lymph % (Auto) 19.8 L (20-40) % [place] % (Auto) 5.8 (2-11) % Eos % (Auto) 2.6 (0-4) % Baso % (Auto) 0.5 (0-2) % Lymph # (Auto) 3.0 (1.2-4.9) X10*3/uL [place] # (Auto) 0.9 (0.1-1.2) X10*3/uL Eos # (Auto) 0.4 (0.0-0.4) X10*3/uL Baso # (Auto) 0.1 (0.0-0.2) X10*3/uL Abs Immat Gran (auto) 0.06 H (0.00-0.03) X10*3/uL Absolute Neuts (auto) 10.8 H (2.0-8.3) x10*3/uL Absolute Nucleated RBC 0.000 (0.0-0.012) X10*3/uL Nucleated RBC % (auto) 0.0 (0.0-0.2) /100WBC Sodium 138 (135-145) mmol/L Potassium 4.4 (3.3-5.1) mmol/L Chloride 102 (96-108) mmol/L Carbon Dioxide 29 (22-29) mmol/L Anion Gap 11 L (12-20) BUN 14 (9-16) mg/dL Creatinine 1.23 (0.5-1.4) mg/dL Estim Creat Clear Calc 81.0 Estimated GFR > 60 Random Glucose 111 (60-115) mg/dL Calcium 9.9 (8.4-10.2) mg/dL Total Bilirubin 0.6 (0.0-1.0) mg/dL AST 13 (5-37) U/L ALT 8 (0-40) U/L Alkaline Phosphatase 74 (39-117) U/L Total Protein 8.0 (6.5-8.0) g/dL Albumin 4.3 (3.5-5.0) g/dL Urine Color [place] A Urine Appearance Clear Urine pH 5.0 (5.0-9.0) Ur Specific [place] 1.020 (1.005-1.025) Urine Protein 30 (1+) H (Neg-Trace) mg/dL Urine Glucose (UA) Negative (Negative) mg/dL Urine Ketones Negative (Negative) mg/dL Urine Blood Negative (Negative) Urine Nitrite Positive H (Negative) Ur Leukocyte Esterase Moderate (2+) H (Negative) Urine RBC 0-2 (0-2) /HPF Urine WBC 0-5 (0-5) /HPF Ur Squamous Epith Cells 0-2 (0-2) /HPF Urine Bacteria None Seen (None Seen) Hyaline Casts 0-2 (0-2) /LPF Discharge Plan Discharge Clinical Impression: Ureteral colic, Kidney stone on left side Patient Disposition: Home, Self-Care Instructions: Kidney Stones (ED) Additional Instructions: Have sent a prescription for an antibiotic, cefuroxime, which you should take 2 times a day. Take your 1st dose this evening. I have also sent a prescription for ibuprofen and for Vicodin which you may use as needed for pain. Also please try to see if the tamsulosin prescription is available at this pharmacy for you. Most importantly please try to reach Dr. Jacobsen later today to discuss how you are doing and get his additional recommendations. Return to the emergency room if you feel significantly worse, especially if you feel you have developed a fever. Prescriptions: New ibuprofen 600 mg tablet 600 mg PO Q6H PRN (Reason: pain) Qty: 14 0RF hydrocodone-acetaminophen 5-300 mg tablet 1 tab PO Q4-6H PRN (Reason: pain) Qty: 14 0RF Rx Instructions: Partial Fill upon patient request. cefuroxime axetil 500 mg tablet 500 mg PO BID Qty: 16 0RF tamsulosin 0.4 mg capsule 0.4 mg PO BEDTIME Qty: 7 0RF No Action gabapentin 600 mg tablet 600 mg PO TID PRN (Reason: postoperative pain) 30 Days Qty: 90 0RF atorvastatin 20 mg tablet 20 mg PO QPM levothyroxine 50 mcg tablet 50 mcg PO QAM tamsulosin 0.4 mg capsule 0.4 mg PO BEDTIME 30 Days Qty: 30 1RF naproxen 500 mg tablet 500 mg PO BID PRN (Reason: pain) 7 Days Qty: 14 0RF oxycodone 5 mg tablet 5 mg PO Q8H PRN (Reason: pain (scale score 4-6)) Qty: 8 0RF Rx Instructions: Partial Fill upon patient request. ibuprofen 400 mg tablet 400 mg PO Q6H PRN (Reason: pain) Qty: 20 0RF levofloxacin 500 mg tablet 500 mg PO DAILY 10 Days Qty: 10 0RF ondansetron 4 mg tablet,disintegrating 4 mg PO Q6-8H PRN (Reason: nausea) Qty: 10 0RF tamsulosin 0.4 mg capsule 0.4 mg PO BEDTIME 14 Days Qty: 14 0RF phenazopyridine [Pyridium] 100 mg tablet 100 mg PO TID PRN (Reason: Spasm) 4 Days Qty: 12 0RF naproxen 500 mg tablet 500 mg PO BID PRN (Reason: pain) 7 Days Qty: 14 0RF docusate sodium [Colace] 100 mg capsule 200 mg PO BEDTIME Qty: 60 5RF Citrucel 500 mg tablet 500 mg PO TID Qty: 90 5RF olanzapine 2.5 mg tablet 2.5 mg PO BEDTIME bupropion HCl 150 mg tablet extended release 24 hr 150 mg PO QAM buprenorphine-naloxone [Suboxone] 12-3 mg film 1 film buccal Q24H metformin 1,000 mg tablet 1,000 mg PO DAILY Referrals: Minh Jacobsen MD [Physician] - (left distal ureteral stone) Interventions: ED Discharge Assessment Last Done: 02/18/23 07:55 Discharge Date/Time: 02/18/23 07:55
[2023-02-18 04:40] VITALS: BP 145/87; PULSE 77; RESP 16; TEMP 37.1; O2SAT 97
[2023-02-18] MEDS: HYDROmorphone HCl 0.5 MG/0.5 ML SYRINGE IVPUSH (06:10)
[2023-02-18] MEDS: cefTRIAXone sodium 2 GM in 0.9 % Sodium Chloride 50 ML IV (06:11)
[2023-02-18 06:33] VITALS: BP 114/72; PULSE 80; RESP 18; O2SAT 95
[2023-02-18 06:37] VITALS: BP 106/54; PULSE 79; RESP 16; TEMP 36.8; O2SAT 95
[2023-02-18] MEDS: HYDROcodone Bit/Acetam 5/325 TABLET 1 TAB PO (06:44)
[2023-02-18] MEDS: Tamsulosin HCL 0.4 MG CAPSULE PO (06:44)
[2023-02-18] MEDS: predniSONE 20 MG TABLET PO (07:51)
== END 2023-02-18 07:55 | disposition home or self-care (01) ==
PROVIDERS: Emergency Provider Emergency Medicine; PCP Internal Medicine
DX: N13.2 Hydronephrosis with renal and ureteral calculous obstruction (principal); E11.9 Type 2 diabetes mellitus without complications; F11.20 Opioid dependence, uncomplicated; Z79.899 Other long term (current) drug therapy
CPT/HCPCS: 36415; 74176; 80053; 81001; 85025; 87086; 96361; 96365; 96375; 99285; J0696; J1170; J1885; J2270; J2405

== ENCOUNTER 2023-04-03 09:26 | Outpatient (AMB) | payer MEDICAID, SELFPAY ==
--- NOTE | 2023-04-03 10:04 | MHC.OFFVIS ---
Intake Intake Visit Reasons: 6wks S/P ESWL/Ultrasound Intake Note: Patient presents today for a follow-up on: After Procedure and kidney stone Meds- None Allergies to Antibiotic- No Known Allergies Blood Thinner- None Investment Recovery Technician Required: No Accompanied by: Self / Same As Patient Allergies No Known Allergies Allergy (Verified 04/03/23 10:34) Medication List - Last Reconciled 04/03/23 by JUVENTINO Mayen atorvastatin 20 mg PO QPM buprenorphine-naloxone 12-3 mg (Suboxone) 1 film buccal Q24H bupropion HCl 150 mg PO QAM gabapentin 600 mg PO TID PRN 30 days levothyroxine 50 mcg PO QAM metformin 1,000 mg PO DAILY naproxen 500 mg PO BID PRN 7 days olanzapine 2.5 mg PO BEDTIME HPI HPI Comments History of Present Illness Details Olya is a very pleasant 42-year old male patient of Dr. Philip James. He has a past medical history of fatty liver, thyroid disease, diabetes, chronic pain syndrome, opioid dependence in remission, and mood disorder. He presents to the office today for follow-up. Of note, patient underwent left-sided ESWL with Dr. Jacobsen on 02/11/23 for nephrolithiasis. He presents to the office today with a kidney stone that he has since urinated postprocedure. It appears a renal ultrasound was ordered however in discussion with the patient today reports he was not able to make this appointment. He reports since surgical procedure he has been doing and feeling well. He denies having had any urinary issues or concerns. He denies urinary urgency, urinary frequency, incontinence, nocturia, hematuria, dysuria, foul smelling urine, changes to urinary stream, flank pain, fever, and or chills. He is happy with his current voiding parameters. Discussed sending stone for stone analysis. In office urinalysis results reviewed with the patient today discussed pH 5.5 and importance of drinking plenty of water daily given nephrolithiasis. Discussed further metabolic workup with 24 hour urine collection, labs, and imaging. Prior to surgical procedure he denies any history of nephrolithiasis and or previous surgical history for nephrolithiasis. Discussed at length potential causes of nephrolithiasis. [facility] Medical History Fatty liver Thyroid disease Diabetes Chronic pain syndrome Sacroiliitis Spondylosis of lumbar spine Opioid dependence, in remission Chronic back pain Mood disorder Surgical History (Updated 02/18/23 @ 11:36 by Melina Saxena RN) Hx of lithotripsy History of cystoscopy History of surgery History of neck surgery Family History Father HTN (hypertension) Mother Lung cancer Brother Heart disease Social History Household Members: Family Alcohol intake: never Patient Tobacco Use Status: Former Tobacco user Quit Date: 1yr ago Substance Use Type: Former Substance User Review of Systems Const Reports no additional complaints Eyes Reports no additional complaints ENT Reports no additional complaints Card Reports as per HPI Resp Reports no additional complaints GI Reports no additional complaints Reports as per HPI Musc Reports as per HPI Neuro Reports no additional complaints Psych Reports as per HPI Endo Reports as per HPI Frandy/Lymph Reports no additional complaints Aller/Immun Reports no additional complaints Physical Exam Const General: cooperative, healthy appearing, comfortable, no acute distress, well developed, alert and awake Orientation/consciousness: patient oriented x3 HEENT Head: Yes normal to inspection, Yes normocephalic and Yes atraumatic Ears: hearing grossly normal bilaterally Eyes General: appearance normal, both eyes and all related structures Neck Neck: Yes normal visual inspection and Yes trachea midline Chest Chest palpation & inspection: normal inspection of the chest Resp Effort & Inspection: normal respiratory effort and able to speak in complete sentences Cardio Rate: regular rate GI Inspection: Yes normal to inspection General: Yes no CVA tenderness Back/Spine/Pelvis Back: no CVA tenderness Skin General skin exam: no rashes or lesions noted Neuro General: patient oriented x3 Extrem General: Yes normal to inspection Psych Appearance: grossly normal and well kempt Mental Status: mental status grossly normal Speech and movement: Normal speech and movement present and Clear speech present Affect: normal affect Attitude: cooperative Thought process: Normal thought process present Thought content: Normal thought content present Insight: Fair insight present (Psych) Judgement: Fair judgement present (Psych) Results AMB Urinalysis, Automated UA Leukoctes 0 Janice/uL Last Edit by Lorna Morris CMA on 04/03/23 10:23 UA Nitrite Negative Last Edit by Lorna Morris Morris, [facility] on 04/03/23 10:23 UA Urobilinogen 0.2 mg/dL [facility] on 04/03/23 10:23 UA Protein 0 mg/dL Last Edit [facility], [facility] on 04/03/23 10:23 UA pH 5.5 Last Edit by [facility], [facility] on 04/03/23 10:23 UA Blood 0 Te/uL Last Edit by [facility], [facility] on 04/03/23 10:23 UA Specific [place] 1.030 Last Edit by [facility], [facility] on 04/03/23 10:23 UA Ketone Negative Last Edit by [facility], [facility] on 04/03/23 10:23 UA Bilirubin 0 mg/dL Last Edit by [facility], [facility] on 04/03/23 10:23 UA Glucose 0 mg/dL Last Edit by [facility] on 04/03/23 10:23 Results Reviewed Results Reviewed: Laboratory Last Values Urine pH (Auto) 5.5 04/03/23 10:05 Specific [place] (Auto) 1.030 04/03/23 10:05 Urine Protein (Auto) 0 mg/dL 04/03/23 10:05 Glucose (UA)(Auto) 0 mg/dL 04/03/23 10:05 Urine Ketones (Auto) Negative 04/03/23 10:05 Urine Blood (Auto) 0 Te/uL 04/03/23 10:05 Urine Nitrite (Auto) Negative 04/03/23 10:05 Urine Bilirubin (Auto) 0 mg/dL 04/03/23 10:05 Urine Urobilinogen (Auto) 0.2 mg/dL 04/03/23 10:05 Leukocyte Esterase (Auto) 0 Janice/uL 04/03/23 10:05 Assessment & Plan Assessment & Plan (1) Nephrolithiasis: Code(s): N20.0 - Calculus of kidney Plan In office urinalysis results reviewed with the patient today; as noted above. Will send stone for stone analysis. Discussed, educated, and stressed the importance of drinking plenty of water daily. Discussed at length potential causes for nephrolithiasis. Discussed further workup with imaging, 24 hour urine collection, and labs. Will obtain renal ultrasound. Patient currently denies any bothersome urinary issues or concerns. Follow-up in 1-3 months with imaging to be completed prior; or sooner with any issues, concerns, and or questions. Orders: Orders AMB Urinalysis Automated 04/03/23 Z13.9 - Encounter for screening, unspecified Surgical 04/03/23 N13.30 - Unspecified hydronephrosis, N20.0 - Calculus of kidney US renal BI 04/03/23 N13.30 - Unspecified hydronephrosis, N20.1 - Calculus of ureter Patient Instructions: The patient had an opportunity to ask questions regarding the treatment plan. All questions were answered. Physical exam, labs, and imaging were discussed and reviewed in detail. As well as risks, benefits, and discussion of treatment choices. No major barriers to understanding were identified. The patient expressed understanding and agreement with the above treatment plan. The patient was made aware they should contact our office by phone for worsening of their current condition, the appearance of new symptoms, or with any questions or concerns. Compliance is encouraged with any medications and follow up testing that is ordered. It is a privilege to be allowed the opportunity to participate in? your urological care.? Again, if you have any questions or concerns If you have any questions or concerns please do not hesitate to contact me. The office is [phone]. This note is constructed using voice recognition software. While every effort has been made to ensure accuracy academic success coordinator errors may have been included. Yours sincerely, JUVENTINO Mayen Coding Level of Care Code Est Pt Level 3 (15261) Diagnoses Nephrolithiasis N20.0
== END 2023-04-03 10:41 | disposition home or self-care (01) ==
PROVIDERS: PCP Internal Medicine; Visit Provider Nurse Practitioner Family
DX: N20.0 Calculus of kidney (principal)
CPT/HCPCS: 99024

== ENCOUNTER 2023-04-03 09:26 | Outpatient (REF) | payer MEDICAID, SELFPAY ==
[2023-04-14 20:33] LABS: Stone Source KIDNEY STONE
== END 2023-04-03 09:27 | disposition home or self-care (01) ==
LOC: HO.LNP 09:26
PROVIDERS: PCP Internal Medicine; Visit Provider Nurse Practitioner Family
DX: N20.0 Calculus of kidney (principal); N13.30 Unspecified hydronephrosis
CPT/HCPCS: 81003; 82365; 88300; 99212

== ENCOUNTER 2023-04-24 06:32 | Day surgery (SDC) | payer MEDICAID, SELFPAY ==
[2023-04-22 08:46] VITALS: BMI 39.1
--- NOTE | 2023-04-23 11:56 | HO.ANESPROP2 ---
Documented by User: Evelin Willis NP 04/23/23 11:58 HPI - Anesthesia Eval Consult details Narrative: 43yo M for Right SACROILIAC JOINT [employer] STIM TRIAL s/p ESWL 02/2023 with MAC [facility] Active Problems Active Problems: All Active Problems (Updated 04/04/23 @ 20:18 by Shelia Moreau [facility]) Nephrolithiasis (Acute) Chronic constipation (Acute) Chronic pain syndrome (Acute) Sacroiliitis (Acute) Opioid dependence, in remission (Acute) Spondylosis of lumbar spine (Acute) Past Medical History Medical History Fatty liver Thyroid disease Diabetes Chronic pain syndrome Sacroiliitis Spondylosis of lumbar spine Opioid dependence, in remission Chronic back pain Mood disorder Family History Family History Father HTN (hypertension) Mother Lung cancer Brother Heart disease Family history of problems with anesthesia: No Surgical History Surgical History Hx of lithotripsy History of cystoscopy History of surgery History of neck surgery History of Problems with Anesthesia: No Social History Social History Household Members: Family Alcohol intake: never Patient Tobacco Use Status: Former Tobacco user Quit Date: 1yr ago Use of substances other than those prescribed or required for medical reasons: No Substance Use Type: Former Substance User Are you DNR?: No Advance Directives: No Advance Directives Information Provided: Yes Meds Allergies Allergy/AdvReac Type Severity Reaction Status Date / Time No Known Allergies Allergy Verified 04/03/23 10:34 Home Medications Medication Instructions Recorded Confirmed Last Taken Type buprenorphine 12 mg-naloxone 3 mg 1 film buccal Q24H 05/16/21 02/11/23 Unknown History sublingual film (Suboxone) bupropion HCl 150 mg 24 hr tablet, 150 mg PO QAM 05/16/21 02/11/23 Unknown History extended release olanzapine 2.5 mg tablet 2.5 mg PO BEDTIME 05/16/21 02/11/23 Unknown History metformin 1,000 mg tablet 1,000 mg PO DAILY 09/24/22 02/11/23 Unknown History atorvastatin 20 mg tablet 20 mg PO QPM 02/11/23 02/11/23 Unknown History levothyroxine 50 mcg tablet 50 mcg PO QAM 02/11/23 02/11/23 Unknown History Exam Height,Weight and Vital Signs: Height 5 ft 2 in Weight 97.069 kg Pertinent Lab Results Pertinent Lab Results: Laboratory Tests 02/18/23 01:58 WBC 15.3 H Hgb 13.3 L Hct 40.5 L Plt Count 221 D Sodium 138 Potassium 4.4 Chloride 102 Carbon Dioxide 29 Creatinine 1.23 Assessment and Plan Assessment Anesthesia Assessment: Chart Reviewed Final Anesthetic Review Family History of Problems with Anesthesia: No History of Problems with Anesthesia: No Documented by User: Zunilda Gilbert MD 04/24/23 08:25 [facility] Past Medical History Medical History Fatty liver Thyroid disease Diabetes Chronic pain syndrome Sacroiliitis Spondylosis of lumbar spine Opioid dependence, in remission Chronic back pain Mood disorder Family History Family History Father HTN (hypertension) Mother Lung cancer Brother Heart disease Surgical History Surgical History Hx of lithotripsy History of cystoscopy History of surgery History of neck surgery Social History Social History Household Members: Family Alcohol intake: never Patient Tobacco Use Status: Former Tobacco user Quit Date: 1yr ago Use of substances other than those prescribed or required for medical reasons: No Substance Use Type: Former Substance User Are you DNR?: No Advance Directives: No Advance Directives Information Provided: Yes Meds Allergies Allergy/AdvReac Type Severity Reaction Status Date / Time No Known Allergies Allergy Verified 04/03/23 10:34 Home Medications Medication Instructions Recorded Confirmed Last Taken Type buprenorphine 12 mg-naloxone 3 mg 1 film buccal Q24H 05/16/21 02/11/23 Unknown History sublingual film (Suboxone) bupropion HCl 150 mg 24 hr tablet, 150 mg PO QAM 05/16/21 02/11/23 Unknown History extended release olanzapine 2.5 mg tablet 2.5 mg PO BEDTIME 05/16/21 02/11/23 Unknown History metformin 1,000 mg tablet 1,000 mg PO DAILY 09/24/22 02/11/23 Unknown History atorvastatin 20 mg tablet 20 mg PO QPM 02/11/23 02/11/23 Unknown History levothyroxine 50 mcg tablet 50 mcg PO QAM 02/11/23 02/11/23 Unknown History Exam Pertinent Lab Results Pertinent Lab Results: ;;; ;n;;;;n Laboratory Tests 02/18/23 01:58 WBC 15.3 H Hgb 13.3 L Hct 40.5 L Plt Count 221 D Sodium 138 Potassium 4.4 Chloride 102 Carbon Dioxide 29 Creatinine 1.23 Airway Mallampati Class: II TM Dist: >3cm Neck ROM: Full Loose/Missing/Broken Teeth: No Heart: RRR Lungs: CTA Assessment and Plan Assessment Anesthesia Assessment: Anesthesia Plan Discussed Final Anesthetic Review NPO: Yes ASA Class: II Final Preanesthetic Review: Meds/Allgs Chart Reviewed, Consent Obtained/Reviewed and Anes Risks/Benef Reviewed Patient Risk: Low Procedure Risk: Low Anesthetic Plan Anesthetic Plan: MAC: Disposition: Standard PACU
--- NOTE | ~2023-04-24 | FL_ITS ---
EXAMINATION: XR FLUOROSCOPY WITH IMAGES CLINICAL INFORMATION: Stimulator trial SI joint. COMPARISON: None available. TECHNIQUE: Fluoroscopy Supervised By: Dr. Vince Trammell. Fluoroscopy Time: 0.20, 0.3 minutes. Cumulative Dose: 10.4, 0.9 mGy. DAP: 3.8041 Gycm2. Images: 2. FINDINGS: There are 2 digital images revealing electrode adjacent to right SI joint. No gross bony abnormality seen. SI joints are symmetrical and normal. FL/FL guidance in OR IMPRESSION: Fluoroscopy guidance was provided to referring physician for pain management.
[2023-04-24 07:38] VITALS: BMI 36.1
[2023-04-24 07:58] VITALS: BP 107/69; PULSE 78; RESP 16; TEMP 36.5; O2SAT 96
[2023-04-24] MEDS: Lactated Ringers 1,000 ML 100 ML IVCONT (08:06)
--- NOTE | 2023-04-24 08:09 | P.HPSUR_ITS ---
Pre-Procedural Eval Section A - 24 Hr Update-Section A only Date of Service: 04/24/23 The patient is an INPATIENT: No Changes since office visit: Yes Patient answered all questions The patient has been examined within 24 hours of the surgical procedure. The History & Physical has been completed within 30 days and I have reviewed it.: No Section B - Complete if H&P > 30 days Chief Complaint: Sacrococcygeal disorders,Sacroiliitis, Details of Present Illness: as above Relevant Family History (Specify if Yes): No Relevant Social History: None Present Medications: None Medical History: No relevant PMH History of Previous Operations: No relevant previous surgery Allergies: Allergies Allergy/AdvReac Type Severity Reaction Status Date / Time No Known Allergies Allergy Verified 04/03/23 10:34 Review of Systems Sugical H&P ROS: Negative: Constitution, Cardiovascular, Respiratory, Neurological, Psychiatric, Hem-Onc, Allergic/Immunologic, Gastrointestinal, [place]ley tourinary, Musculoskeletal, Integumentary, Endocrine and Eyes/Ears/Nose/Throat Exam Surgical H&P Exam: Normal: HEENT, Normal: Heart, Normal: Lungs, Normal: Extremities, Normal: Abdomen, Normal: Skin and Normal: Neurological Plan Diagnosis/Plan: Unchanged I have reviewed the history and physical and performed a pertinent physical examination on my patient. No changes have occurred unless specified. Time Spent With Patient Time: Total time managing care of this patient today ____ minutes.
[2023-04-24 08:21] LABS: Glucose, Whole Blood 111 mg/dL (60-115)
--- NOTE | 2023-04-24 08:37 | P.CONAN_ITS ---
[facility] Active Problems Active Problems: All Active Problems (Updated 04/04/23 @ 20:18 by Shelia Moreau [facility]) Nephrolithiasis (Acute) Chronic constipation (Acute) Chronic pain syndrome (Acute) Sacroiliitis (Acute) Opioid dependence, in remission (Acute) Spondylosis of lumbar spine (Acute) Past Medical History Medical History Fatty liver Thyroid disease Diabetes Chronic pain syndrome Sacroiliitis Spondylosis of lumbar spine Opioid dependence, in remission Chronic back pain Mood disorder Family History Family History Father HTN (hypertension) Mother Lung cancer Brother Heart disease Family history of problems with anesthesia: No Surgical History Surgical History Hx of lithotripsy History of cystoscopy History of surgery History of neck surgery History of Problems with Anesthesia: No Social History Social History Household Members: Family Alcohol intake: never Patient Tobacco Use Status: Former Tobacco user Quit Date: 1yr ago Use of substances other than those prescribed or required for medical reasons: No Substance Use Type: Former Substance User Are you DNR?: No Advance Directives: No Advance Directives Information Provided: Yes Meds Allergies Allergy/AdvReac Type Severity Reaction Status Date / Time No Known Allergies Allergy Verified 04/03/23 10:34 Active Medications: Current Medications Lactated Ringer's (Lr) 1,000 mls @ 100 mls/hr IVCONT .Q10H GISELLE Last Admin: 04/24/23 08:06 Dose: 100 mls/hr Home Medications Medication Instructions Recorded Confirmed Last Taken Type buprenorphine 12 mg-naloxone 3 mg 1 film buccal Q24H 05/16/21 02/11/23 Unknown History sublingual film (Suboxone) bupropion HCl 150 mg 24 hr tablet, 150 mg PO QAM 05/16/21 02/11/23 Unknown History extended release olanzapine 2.5 mg tablet 2.5 mg PO BEDTIME 05/16/21 02/11/23 Unknown History metformin 1,000 mg tablet 1,000 mg PO DAILY 09/24/22 02/11/23 Unknown History atorvastatin 20 mg tablet 20 mg PO QPM 02/11/23 02/11/23 Unknown History levothyroxine 50 mcg tablet 50 mcg PO QAM 02/11/23 02/11/23 Unknown History Exam Height,Weight and Vital Signs: Height 5 ft 4 in Weight 95.481 kg Last Vital Signs Temp 97.7 F 04/24/23 07:58 Pulse 78 04/24/23 07:58 Resp 16 04/24/23 07:58 BP 107/69 04/24/23 07:58 Pulse Ox 96 04/24/23 07:58 O2 Del Method Room Air 04/24/23 07:58 Pertinent Lab Results Pertinent Lab Results: Laboratory Tests 04/24/23 08:17 POC Glucose 111 Assessment and Plan Assessment Anesthesia Assessment: Anesthesia Plan Discussed and Chart Reviewed Final Anesthetic Review Family History of Problems with Anesthesia: No History of Problems with Anesthesia: No NPO: Yes ASA Class: II
[2023-04-24 09:38] LABS: MRSA Nasal PCR NEGATIVE (Negative); SA Nasal PCR POSITIVE (Negative)
[2023-04-24 10:03] VITALS: BP 100/64; PULSE 76; RESP 12; TEMP 36.3; O2SAT 99
--- NOTE | 2023-04-24 10:07 | PM.OP ---
Brief Operative Note Date of Service: 04/24/23 Pre-op diagnosis: sacroiliitis, sacroiliac joint dysfunction right Post-op diagnosis: same Procedure: Trial of stimulation of the right sacroiliac joint innervatin. Implants: none permanent Surgeon: Vince Trammell MD Anesthesia: MAC Was an [employer] used for this Procedure?: No Estimated blood loss (mL): 2 Condition: stable Disposition: PACU
--- NOTE | 2023-04-24 10:11 | P.OP_ITS ---
Operative Note Operative Note Date of Service: 04/24/23 Narrative: Trial Curonix stimulation of the innervation of the sacroiliac joint on the right Informed consent was carefully explained to the patient. Benefits as well as risks including bleeding, infection, peripheral nerve damage , spinal cord damage, post-dural puncture headache were explained to the patient. The patient was brought to the operating room, ASA monitors were applied and he was positioned prone on the Operating table. The patient received preoperative antibiotics cefasolin 2 g 25 minutes before the procedure.Time out was performed, all operating room personnel participated in the time out procedure. `The patient remained minimally sedated and was able to answer our questions throughout of the procedure. The entire back if the patient was prepped with chloroprep and draped with sterile fenestrated laparoscopy full body drape. Sterilely draped C-arm was brought over the OR field right side of the pelvis was demonstrated on the screen. The initial needle target was chosen as the confluence of the superior articular process of the S1 on the right with right sacral ala. The entrance needle was chosen as 3 cm above of the point of interest projection to the skin. Skin at this point was infiltrated with local anesthetic mix 1-1 ropivacaine 0.5% and lidocaine 2%. . A 15 cm malleable needle was inserted through the skin wheal and advanced to the point of interest under intermittent AP and lateral views. When the needle gently contacted the bone the direction of the needle was changed to the more parallel to the sacral bone posterior surface and directed toward the projection of the lowest point of the sacroiliac joint. A 8-electrode lead array stimulator was passed into the needle The needle and driving stylet were removed. The copper wire stimulating electrode was inserted into the lead array catheter. The stimulating lead was tied on itself above the level of the last energy receiving contact and they were trimmed appropriately with scissors. They were taped to the skin using exofin skin glue and the steri-strips.. The electrodes themselves were also taped to the skin using skin glue and Steri-Strips, Sterile dressing was applied. The stimulating paddle was applied and taped to the skin. After that the patient was transferred to the stretcher supine and brought to the PACU for recovery. He tolerated procedure fairly well
[2023-04-24 10:18] VITALS: BP 103/74; PULSE 77; RESP 20; TEMP 36.2; O2SAT 99
== END 2023-04-24 10:36 | disposition home or self-care (01) ==
PROVIDERS: Registered Nurse Emergency; PCP Internal Medicine; Visit Provider Anesthesiology
PROC: (CPT 64555; principal; 2023-04-24 09:00)
DX: M53.3 Sacrococcygeal disorders, not elsewhere classified (principal); M46.1 Sacroiliitis, not elsewhere classified; G89.4 Chronic pain syndrome; M47.816 Spondylosis without myelopathy or radiculopathy, lumbar region; Z98.1 Arthrodesis status; E11.9 Type 2 diabetes mellitus without complications; F39 Unspecified mood [affective] disorder; Z79.84 Long term (current) use of oral hypoglycemic drugs; Z79.899 Other long term (current) drug therapy; F11.21 Opioid dependence, in remission; Z98.890 Other specified postprocedural states; Z87.891 Personal history of nicotine dependence
CPT/HCPCS: 64555; 82947; 87640; 87641; C1897; J0690; J2250; J2704; J2795; J3370

== ENCOUNTER → 2023-04-24 06:32 | Outpatient (BNV) | payer MEDICAID, SELFPAY | PROVIDERS: PCP Internal Medicine; Visit Provider Anesthesiology | DX: M53.3 Sacrococcygeal disorders, not elsewhere classified (principal); M46.1 Sacroiliitis, not elsewhere classified | CPT/HCPCS: 64555 ==

== ENCOUNTER 2023-04-29 09:26 | Outpatient (AMB) | payer MEDICAID, SELFPAY ==
--- NOTE | 2023-04-29 09:31 | A.OFFVIS_ITS ---
Intake Vital Signs 04/29/23 10:09 Height 5 ft 4 in Weight 210 lb BMI 36.0 BP 140/80 H Blood Pressure Location Lt brachial Position Sitting Respiration 17 Pulse 72 Pulse Source Pulse Oximeter Pulse Oximetry (%) 98 Oxygen Delivery Method Room Air Intake Visit Reasons: S/p Curonix SIJ Stim TRIAL 04/24/23 Intake Note: Patient came in for post-op appointment, curonix SIJ stim trial 04/24/23. Reports pain 0/10. Allergies No Known Allergies Allergy (Verified 04/29/23 10:08) HPI HPI Comments History of Present Illness Details Harris mccoy is back in my office after the trial of right-sided Curonics PNS of right sacroiliac joint innervation. He reports excellent pain relief absence of pain with stimulation. He is very eager to go for right-sided PNS. I will schedule him for the procedure bia. The wire was removed and sterile dressing was applied. No redness no swelling no pathological discharge is noted. Prior: He was diagnosed with sacroiliitis and he had right sacroiliac joint fusion with [employer] technology in November of 2021. One week ago he presented in my office with complains on pain returned in the projection of the right sacroiliac joint. The area of the scar is very tender on palpation, however there were no redness, - no swelling and no pathological discharge. The patient was sent for evaluation by x-ray department and the image of the fusion element was obtained. It appears to be that the fusion element is slightly - dislodged from its original position but only may be 5-7 mm. It appears to be still in the sacroiliac joint. The patient was smoking cigarettes before the procedure however he claims that he stop smoking 3 months before the onset of the surgery. Maybe this is explanation why fusion did not occur. The fact that the element is still in sacroiliac joint is encouraging however the fact that it was dislodged demonstrates no bone bridge formation. [facility] Medical History Fatty liver Thyroid disease Diabetes Chronic pain syndrome Sacroiliitis Spondylosis of lumbar spine Opioid dependence, in remission Chronic back pain Mood disorder Surgical History Hx of lithotripsy History of cystoscopy History of surgery History of neck surgery Family History Father HTN (hypertension) Mother Lung cancer Brother Heart disease Social History Household Members: Family Alcohol intake: never Patient Tobacco Use Status: Former Tobacco user Quit Date: 1yr ago Substance Use Type: Former Substance User Review of Systems Const All systems reviewed & are unremarkable except as noted in HPI and below ENT Reports Normal hearing present Neuro Reports Normal hearing present, Denies Abnormal speech present and Denies Sensory deficit (Neuro) Physical Exam Vital Signs: Last Vital Signs Pulse 72 04/29/23 10:09 Resp 17 04/29/23 10:09 BP 140/80 H 04/29/23 10:09 Pulse Ox 98 04/29/23 10:09 Oxygen Delivery Method Room Air 04/29/23 10:09 BMI result Body Mass Index 36.0 Const General: no acute distress and well developed Nutritional Appearance: obese Orientation/consciousness: patient oriented x3 Chest Chest palpation & inspection: normal inspection of the chest Resp Effort & Inspection: normal respiratory effort, able to speak in complete sentences, abnormal respiratory pattern, no audible wheezes and no cough Cardio Jugular venous distension: no JVD Back/Spine/Pelvis Other: Bilateral positive Stinchfield test, Romeo test, Gaenslen test. Tenderness on palpation in bilateral sacroiliac joints. Neuro General: patient oriented x3 Cranial nerves: Yes Normal hearing present Speech: No Abnormal speech present Sensory Exam: No Sensory deficit (Neuro) Assessment & Plan Assessment & Plan (1) Sacroiliitis: Code(s): M46.1 - Sacroiliitis, not elsewhere classified (2) Chronic pain syndrome: Code(s): G89.4 - Chronic pain syndrome (3) Spondylosis of lumbar spine: Code(s): M47.816 - Spondylosis without myelopathy or radiculopathy, lumbar region (4) Opioid dependence, in remission: Code(s): F11.21 - Opioid dependence, in remission Plan Diagnostic sacroiliac joint injection resulted in: 38 hours of pain relief. The patient is smoking and SI joint fusion resulted in poor joint fusion of the SI joint stabilization. Trial of Curonix PNS of the right sacroiliac joint innervation resulted in excellent pain relief, absence of pain. I will schedule him for the implant as soon as possible. He is on Suboxone to prevent addictive behavior. He is a poor candidate for opioid therapy. Coding Level of Care Code Est Pt Level 4 (78894) Diagnoses Sacroiliitis M46.1 Chronic pain syndrome G89.4 Spondylosis of lumbar spine M47.816 Opioid dependence, in remission F11.21
[2023-04-29 10:09] VITALS: BP 140/80; PULSE 72; RESP 17; O2SAT 98; BMI 36.0
== END 2023-04-29 09:50 | disposition home or self-care (01) ==
PROVIDERS: PCP Internal Medicine; Visit Provider Anesthesiology
DX: G89.4 Chronic pain syndrome (principal); M46.1 Sacroiliitis, not elsewhere classified; M47.816 Spondylosis without myelopathy or radiculopathy, lumbar region; Z79.891 Long term (current) use of opiate analgesic
CPT/HCPCS: 99024

== ENCOUNTER → 2023-04-29 09:26 | Outpatient (BNVA) | payer MEDICAID, SELFPAY | PROVIDERS: PCP Internal Medicine; Visit Provider Anesthesiology | DX: M46.1 Sacroiliitis, not elsewhere classified (principal); M47.816 Spondylosis without myelopathy or radiculopathy, lumbar region; F11.21 Opioid dependence, in remission; G89.4 Chronic pain syndrome | CPT/HCPCS: 99212 ==

== ENCOUNTER 2023-04-29 10:13 | Emergency (ER) | payer MEDICAID, SELFPAY ==
--- NOTE | ~2023-04-29 | CT_ITS ---
EXAMINATION: CT ABDOMEN AND PELVIS WITH CONTRAST CLINICAL INFORMATION: Right-sided pain COMPARISON: Previous CT of the abdomen and pelvis most recent February 2023 TECHNIQUE: Multidetector volumetric images were obtained from the superior aspect of the liver through the pubic symphysis following administration 85 mL of Omnipaque 350 intravenous contrast. Sagittal and coronal reformatted images were obtained on the technologist's workstation. Oral contrast: Yes This CT examination was performed using dose optimization techniques as appropriate, variously including the following: *Automated exposure control *Adjustment of mA and/or kV according to patient size (this includes techniques or standardized protocols for targeted exams where dose is matched to indication/reason for exam; i.e. extremities or head) *Use of iterative reconstruction technique DLP: 748 mGy-cm FINDINGS: LUNG BASES: The visualized lung bases are unremarkable. LIVER, GALLBLADDER, AND BILIARY TREE: The liver is normal in size, shape, and attenuation. No focal hepatic lesion or biliary ductal dilatation is present. The gallbladder is unremarkable with no evidence of radiopaque gallstones, gallbladder wall thickening, or obvious pericholecystic inflammatory changes. PANCREAS: Unremarkable. SPLEEN: Unremarkable. ADRENAL GLANDS: Unremarkable. KIDNEYS AND URETERS: The kidneys are normal in size, shape, and attenuation. Mild right hydronephrosis from a 3 mm right proximal ureteral stone. 2 small stones in the upper pole the right kidney measuring 1 and 2 mm. There is a delayed right nephrogram. 2 small stones in the left kidney measuring 2 mm in the lower pole and 3 mm in the upper pole. Small 1 cm cyst in the upper pole of the left kidney. No imaging follow-up recommended. BLADDER: Unremarkable. GASTROINTESTINAL TRACT: The small and large bowel are unremarkable. The appendix is unremarkable. ABDOMINAL WALL: No significant hernia is appreciated. LYMPH NODES: Normal. VASCULAR: Unremarkable. PELVIC VISCERA: Unremarkable. OSSEOUS STRUCTURES: Degenerative changes of the spine. CT/CT abdomen pelvis w IV con IMPRESSION: Mild right hydronephrosis from a 3 mm right proximal ureteral stone. Small bilateral renal stones. Fleischner guidelines were followed.
--- NOTE | ~2023-04-29 | US_ITS ---
EXAMINATION: US SCROTUM CLINICAL INFORMATION: Right testicular pain. COMPARISON: CT abdomen/pelvis 02/18/2023. TECHNIQUE: A sonogram of the scrotum was performed assessing moses-scale appearance and color Doppler flow. FINDINGS: Incomplete nondiagnostic examination due to patient's pain. A few images of a partially seen right testis were obtained with overall homogeneous echotexture and normal spectral Doppler analysis. No individual images of the left testicle. Epididymis were not evaluated. Varicoceles were not evaluated. No discrete large hydroceles. Limited visualization of the extratesticular soft tissues. US/US scrotum doppler IMPRESSION: Very limited, essentially nondiagnostic examination due to patient's pain. Further evaluation as clinically indicated.
[2023-04-29 10:23] VITALS: BP 161/100; PULSE 79; RESP 17; TEMP 36.7; O2SAT 97; BMI 36.3
[2023-04-29 10:46] LABS: MANUAL DIFF FLAG NO
[2023-04-29 10:57] LABS: Basophils Absolute Auto 0.1 X10*3/uL (0.0-0.2); Basophils Percent Auto 0.6 % (0-2); Eosinophils Absolute Auto 0.4 X10*3/uL (0.0-0.4); Eosinophils Percent Auto 4.2 % (0-4); Hematocrit 42.3 % (42.0-52.0); Hemoglobin 13.9 g/dl (14.0-18.0); Imm Gran Abs Auto 0.03 X10*3/uL (0.00-0.03); Imm Gran Pct Auto 0.3 % (0.0-0.4); Lymphocytes Absolute Auto 2.2 X10*3/uL (1.2-4.9); Lymphocytes Percent Auto 25.2 % (20-40); Mean Corpuscular HGB Conc 32.9 g/dl (31.0-36.0); Mean Corpuscular Hemoglobin 30.4 pg (27.0-33.0); Mean Corpuscular Volume 92.6 fL (80.0-98.0); Mean Platelet Volume 12.3 fL (9.4-12.4); Monocytes Absolute Auto 0.6 X10*3/uL (0.1-1.2); Monocytes Percent Auto 6.7 % (2-11); Neutrophils Absolute Auto 5.6 x10*3/uL (2.0-8.3); Platelet Count 179 X10*3/uL (160-400); Red Blood Count 4.57 X10*6/uL (4.60-5.80); White Blood Count 8.9 X10*3/uL (4.8-10.8)
[2023-04-29 11:07] LABS: IDNOW Serial# 152EDE1D; Influenza A Negative (Negative); Influenza B2 Negative (Negative)
[2023-04-29 11:08] LABS: Alanine Aminotransferase 12 U/L (0-40); Albumin Level 4.4 g/dL (3.5-5.0); Alkaline Phosphatase 69 U/L (39-117); Anion Gap 11 (12-20); Aspartate Amino Transferase 15 U/L (5-37); Bilirubin Direct 0.2 mg/dL (0.0-0.5); Bilirubin Total 0.6 mg/dL (0.0-1.0); Blood Urea Nitrogen 13 mg/dL (9-16); Calcium 9.7 mg/dL (8.4-10.2); Carbon Dioxide 27 mmol/L (22-29); Chloride 108 mmol/L (96-108); Creatinine Clr Calc Pharmacy 118.3; Estimated Glomerular Filt Rate > 60; Glucose Random 127 mg/dL (60-115); Lipase 11 U/L (8-78); Potassium 4.2 mmol/L (3.3-5.1); Sodium 142 mmol/L (135-145); Total Protein 7.7 g/dL (6.5-8.0)
--- NOTE | 2023-04-29 12:50 | ED.ABDPAIN ---
HPI - Abdominal Pain General Chief Complaint: Abdominal Pain Stated Complaint: r side pain Time Seen by Provider: 04/29/23 13:35 Source: patient Mode of arrival: ambulatory Limitations: no limitations History of Present Illness HPI narrative: 43-year-old male with a history of fatty liver, thyroid disease, diabetes, chronic pain syndrome, sacroiliitis, anemia spondylosis of lumbar spine, opiate dependence-in remission on Suboxone, chronic back pain, mood disorder, kidney stones who presents emergency department for evaluation of right sided abdominal pain. Patient states that he developed right-sided abdominal pain 2 days prior, the pain came on gradually but got progressively worse. He is currently pointing to his right lower quadrant when asked to localize the pain. States the pain is greater than 10/10. Associated with nausea, vomiting and loss of appetite. This is 1st episode of this type of pain. He states this pain feels different than his kidney stone pain. Provider at triage did order a testicular ultrasound however the patient is having no testicular pain. While the patient was at ultrasound the pain became severe and the patient had a brief syncopal and the study was not complete he was brought back to the emergency department for evaluation. Related Data Home Medications Medication Instructions Recorded Confirmed buprenorphine 12 mg-naloxone 3 mg 1 film buccal Q24H 05/16/21 02/11/23 sublingual film (Suboxone) bupropion HCl 150 mg 24 hr tablet, 150 mg PO QAM 05/16/21 02/11/23 extended release olanzapine 2.5 mg tablet 2.5 mg PO BEDTIME 05/16/21 02/11/23 metformin 1,000 mg tablet 1,000 mg PO DAILY 09/24/22 02/11/23 atorvastatin 20 mg tablet 20 mg PO QPM 02/11/23 02/11/23 levothyroxine 50 mcg tablet 50 mcg PO QAM 02/11/23 02/11/23 Previous Rx's Medication Instructions Recorded gabapentin 600 mg tablet 600 mg PO TID PRN postoperative 11/21/21 pain 30 days #90 tabs naproxen 500 mg tablet 500 mg PO BID PRN pain 7 days #14 02/11/23 tabs cephalexin 500 mg tablet 1,000 mg (2 x 500 mg) PO Q8H 7 04/24/23 days #42 tabs acetaminophen 500 mg tablet 500 mg PO Q6H PRN fever or pain 04/29/23 (Tylenol Extra Strength) #30 tabs hydromorphone 4 mg tablet 4 mg PO Q6H PRN Kidney stone pain 04/29/23 (Dilaudid) #10 tabs ibuprofen 400 mg tablet 400 mg PO TID PRN fever or pain 04/29/23 #30 tabs tamsulosin 0.4 mg capsule (Flomax) 0.4 mg PO DAILY #30 caps 04/29/23 Allergies Allergy/AdvReac Type Severity Reaction Status Date / Time No Known Allergies Allergy Verified 04/29/23 10:22 Review of Systems Review of Systems Yes all other systems are reviewed and are negative [facility] Past Medical History Attestation statement: The following information was validated with the patient. Medical History Fatty liver Thyroid disease Diabetes Chronic pain syndrome Sacroiliitis Spondylosis of lumbar spine Opioid dependence, in remission Chronic back pain Mood disorder Surgical History Hx of lithotripsy History of cystoscopy History of surgery History of neck surgery Family History Family History Father HTN (hypertension) Mother Lung cancer Brother Heart disease Social History Social History Household Members: Family Alcohol intake: never Patient Tobacco Use Status: Former Tobacco user Quit Date: 1yr ago Substance Use Type: Former Substance User Advance Directives: No Physical Exam ED Vital Signs: Vital Signs - 24 hr 04/29/23 10:23 04/29/23 12:51 04/29/23 14:03 Temperature 98.1 F Pulse Rate 79 78 Respiratory Rate 17 20 15 Blood Pressure 161/100 H 162/116 H Pulse Oximetry 97 97 Oxygen Delivery Method Room Air Room Air 04/29/23 14:04 04/29/23 16:33 Temperature 97.8 F 98.5 F Pulse Rate 70 71 Respiratory Rate 15 12 Blood Pressure 151/84 H 151/87 H Pulse Oximetry 100 97 Oxygen Delivery Method Room Air Room Air BMI result Body Mass Index 36.3 Vital signs revealed an elevated blood pressure of 161/100-most likely caused by the patient's pain Exam General: Awake, alert, appears to be in distress secondary to his pain, patient is moaning on stretcher and holding his right lower quadrant area Head: Normocephalic, atraumatic EENT: PERRL, Lids normal, sclera normal, conjunctiva normal, nose normal , ears normal, throat without erythema or exudates Neck: Supple, no adenopathy Lung: breath sounds symmetric, no wheezing, rales or rhonchi Chest: symmetric movement, nontender Heart: regular rate and rhythm, normal S1, S2 no murmurs or rubs Abdomen: soft, moderate diffuse tenderness, moderate to severe right lower quadrant tenderness, voluntary guarding, normal bowel sounds, nondistended Back: no vertebral tenderness, no CVAT Extremities: no deformities, moves all extremities symmetrically Course Course Course Narrative: RME: 43 year-old M w/renal stone, PMHx presenting to the ED c/o RLQ abd pain radiating to right testicle x yesterday w/N/V. Also admits to 1 episode of brbpr yesterday. Writhing in pain. +RLQ ttp on exam Labs, UA, CTAP, Scrotal US ordered PO Motrin & Zofran given in triage Full HPI, ROS and PE to be performed by primary ED provider. Medical Decision Making Medical Decision Making MDM Narrative: 43-year-old male with a history of fatty liver, thyroid disease, diabetes, chronic pain syndrome, sacroiliitis, anemia spondylosis of lumbar spine, opiate dependence-in remission on Suboxone, chronic back pain, mood disorder, kidney stones who presents emergency department for evaluation of right sided abdominal pain which started gradually yesterday and has become severe today. Patient points to his right lower quadrant when asked to localize the pain, does not have any scrotal or testicular pain or back pain associated with his abdominal pain. He does have nausea and vomiting over with decreased appetite. Patient did have an elevated blood pressure but this is most likely caused by his pain. Patient does appear to be in significant distress secondary to his pain and was moaning on stretcher. Patient has moderate diffuse tenderness with significant right lower quadrant tenderness but he has voluntary guarding which makes his exam difficult. Differential diagnosis: Includes but is not limited to appendicitis, biliary colic, renal colic, ureteral colic, pancreatitis, diverticulitis, testicular torsion, anemia, electrolyte abnormalities Following evaluation was ordered: CBC, BMP, liver panel, lipase, urinalysis, influenza, CT scan abdomen pelvis with IV contrast ultrasound/Doppler scrotum Patient was initially treated with the following: Dilaudid 1 mg IV, Zofran 4 mg IV and normal saline x1 L 16:44 My independent interpretation patient's laboratory evaluation is as follows: CBC was normal. CMP revealed an elevated glucose of 127 otherwise unremarkable. Lipase was normal. Influenza was negative. CT scan of the abdomen pelvis with IV contrast revealed a 3 mm right proximal ureteral stone with mild right hydronephrosis with other stones in both the right and left kidneys. The patient's pain was difficult to control, the patient required Dilaudid 1 mg IV x2 more doses, Toradol 15 mg IV. He was also given Flomax 0.4 mg orally. Patient will be described Dilaudid 4 mg, 1 pill every 6 hours as needed for pain, he was also advised to take Tylenol and ibuprofen. He was prescribed Flomax 0.4 mg daily until he passes the stone Patient has to follow up with his urologist, Dr. Jacobsen for further evaluation and to return if his symptoms get worse. Admission/Observation Consideration of admission/observation: Escalation of care including admission/observation considered Lab Data MDM Lab Attestation statement: I reviewed the patient's lab results. 04/29/23 10:42 04/29/23 10:42 Labs: Lab Results 04/29/23 04/29/23 Range/Units 10:42 16:38 WBC 8.9 (4.8-10.8) X10*3/uL RBC 4.57 L (4.60-5.80) X10*6/uL Hgb 13.9 L (14.0-18.0) g/dl Hct 42.3 (42.0-52.0) % MCV 92.6 (80.0-98.0) fL MCH 30.4 (27.0-33.0) pg MCHC 32.9 (31.0-36.0) g/dl RDW 13.0 (11.0-16.0) % Plt Count 179 (160-400) X10*3/uL MPV 12.3 (9.4-12.4) fL Immature Gran % (Auto) 0.3 (0.0-0.4) % Neut % (Auto) 63.0 (45-73) % Lymph % (Auto) 25.2 (20-40) % Atkinson % (Auto) 6.7 (2-11) % Eos % (Auto) 4.2 H (0-4) % Baso % (Auto) 0.6 (0-2) % Lymph # (Auto) 2.2 (1.2-4.9) X10*3/uL Atkinson # (Auto) 0.6 (0.1-1.2) X10*3/uL Eos # (Auto) 0.4 (0.0-0.4) X10*3/uL Baso # (Auto) 0.1 (0.0-0.2) X10*3/uL Abs Immat Gran (auto) 0.03 (0.00-0.03) X10*3/uL Absolute Neuts (auto) 5.6 (2.0-8.3) x10*3/uL Absolute Nucleated RBC 0.000 (0.0-0.012) X10*3/uL Nucleated RBC % (auto) 0.0 (0.0-0.2) /100WBC Sodium 142 (135-145) mmol/L Potassium 4.2 (3.3-5.1) mmol/L Chloride 108 (96-108) mmol/L Carbon Dioxide 27 (22-29) mmol/L Anion Gap 11 L (12-20) BUN 13 (9-16) mg/dL Creatinine 0.85 (0.5-1.4) mg/dL Estim Creat Clear Calc 118.3 Estimated GFR > 60 Random Glucose 127 H (60-115) mg/dL Calcium 9.7 (8.4-10.2) mg/dL Total Bilirubin 0.6 (0.0-1.0) mg/dL Direct Bilirubin 0.2 (0.0-0.5) mg/dL AST 15 (5-37) U/L ALT 12 (0-40) U/L Alkaline Phosphatase 69 (39-117) U/L Total Protein 7.7 (6.5-8.0) g/dL Albumin 4.4 (3.5-5.0) g/dL Lipase 11 (8-78) U/L Urine Color Yellow Urine Appearance Clear Urine pH 8.5 (5.0-9.0) Ur Specific [place] >= 1.030 H (1.005-1.025) Urine Protein Negative (Neg-Trace) mg/dL Urine Glucose (UA) Negative (Negative) mg/dL Urine Ketones Negative (Negative) mg/dL Urine Blood Negative (Negative) Urine Nitrite Negative (Negative) Ur Leukocyte Esterase Negative (Negative) Influenza Type A (CHANELLE) Negative (Negative) Influenza Type B (CHANELLE) Negative (Negative) Influenza A & B Note See Note Radiology Impression Discussion of test interpretation with radiology: I have reviewed the radiologist's reading. Radiologist Impression: CT abdomen pelvis w IV con IMPRESSION: Mild right hydronephrosis from a 3 mm right proximal ureteral stone. Small bilateral renal stones. Fleischner guidelines were followed. Dictated By: Zunilda Elam MD Prescription Management I considered prescription management with: Pain Medication (Dilaudid) Chronic Conditions Patient?s care impacted by: Other (Opiate use disorder) Medications Administered Discontinued Medications Generic Name Dose Route Start Last Admin Trade Name Freq PRN Reason Stop Dose Admin Hydromorphone HCl 1 mg 04/29/23 13:48 04/29/23 14:03 Hydromorphone Hcl 1 Mg/Ml Syringe IVPUSH 04/29/23 13:49 1 mg ONCE STA Administration Protocol Hydromorphone HCl 1 mg 04/29/23 15:07 04/29/23 15:15 Hydromorphone Hcl 1 Mg/Ml Syringe IVPUSH 04/29/23 15:08 1 mg ONCE STA Administration Protocol Hydromorphone HCl 1 mg 04/29/23 16:09 04/29/23 16:26 Hydromorphone Hcl 1 Mg/Ml Syringe IVPUSH 04/29/23 16:10 1 mg ONCE STA Administration Protocol Sodium Chloride 1,000 mls @ 999 mls/hr 04/29/23 13:48 04/29/23 15:06 Ns IV 04/29/23 14:48 Infused .Q1H1M STA Infusion Ibuprofen 600 mg 04/29/23 12:53 04/29/23 12:57 Ibuprofen 600 Mg Tablet PO 04/29/23 12:54 600 mg ONCE ONE Administration Iohexol 100 ml 04/29/23 14:26 04/29/23 14:26 Iohexol 350 Mg/Ml 100 Ml Infus..Btl IV 04/29/23 14:27 85 ml ONCE ONE Administration Iohexol 100 ml 04/29/23 14:46 04/29/23 14:48 Iohexol 350 Mg/Ml 100 Ml Infus..Btl IV 04/29/23 14:47 85 ml ONCE ONE Administration Ketorolac Tromethamine 15 mg 04/29/23 16:09 04/29/23 16:26 Ketorolac Tromethamine 15 Mg/Ml Vial IVPUSH 04/29/23 16:10 15 mg ONCE STA Administration Ondansetron HCl 4 mg 04/29/23 12:53 04/29/23 12:57 Ondansetron Odt 4 Mg Tab.Rapdis TRANSLINGU 04/29/23 12:54 4 mg ONCE ONE Administration Ondansetron HCl 4 mg 04/29/23 13:48 04/29/23 14:02 Ondansetron Hcl 4 Mg/2 Ml Vial IVPUSH 04/29/23 13:49 4 mg ONCE ONE Administration Tamsulosin HCl 0.4 mg 04/29/23 16:09 04/29/23 16:26 Tamsulosin Hcl 0.4 Mg Capsule PO 04/29/23 16:10 0.4 mg ONCE ONE Administration Critical Care Time Critical Care Time Critical Care Time: Yes Total Critical Care Time: 45 Attestation: Critical Care: The patient was critically ill with a high probability of imminent or life threatening deterioration. I spent greater than 30 minutes of discontinuous time evaluating the patient,delivering critical care at the bedside, discussing and evaluating pertinent data with consultants. Critical care time does not include time spent performing separately billable procedures or teaching. Total time spent performing critical care was 45 minutes. Discharge Plan Discharge Clinical Impression: Calculus of proximal right ureter, Hydronephrosis of right kidney, Renal colic on right side, Bilateral renal stones Patient Disposition: Home, Self-Care Instructions: How to Strain Your Urine (ED), Ureteral Stones (ED) Additional Instructions: Your blood work was unremarkable. Your pain is caused by a 3 mm stone in the right ureter (the tube that connects the kidney to the bladder). Take ibuprofen 400 mg pills, 1 pills every 6 hours as needed for pain. Take Tylenol (acetaminophen) 2 pills every 6 hours as needed for pain. For pain not relieved by ibuprofen or Tylenol take Dilaudid 4 mg pills, 1 pill every 6 hours as needed for pain. This medication will make you sleepy, do not drive or work while taking this medication. Dilaudid is a narcotic medication and can be addicting. If you are concerned about addiction you can ask the pharmacist for less pills or do not get this prescription filled. Take Flomax (tamsulosin) 0.4 mg once a day for the next 2 weeks or until you pass the stone. ?This medication helps relax the ureter and may help you pass the stone sooner. Follow-up with your urologist, Dr. Jacobsen in 7 days. Please return to the emergency department if your symptoms get worse or if you develop any symptoms that are concerning to you. Your CT scan also showed that you have 2 small stones in your right kidney measuring 1 and 2 mm and 2 small stones in the left kidney measuring 2 and 3 mm as well. Prescriptions: New hydromorphone [Dilaudid] 4 mg tablet 4 mg PO Q6H PRN (Reason: Kidney stone pain) Qty: 10 0RF Rx Instructions: Partial Fill upon patient request. acetaminophen [Tylenol Extra Strength] 500 mg tablet 500 mg PO Q6H PRN (Reason: fever or pain) Qty: 30 0RF tamsulosin [Flomax] 0.4 mg capsule 0.4 mg PO DAILY Qty: 30 0RF ibuprofen 400 mg tablet 400 mg PO TID PRN (Reason: fever or pain) Qty: 30 0RF No Action gabapentin 600 mg tablet 600 mg PO TID PRN (Reason: postoperative pain) 30 Days Qty: 90 0RF atorvastatin 20 mg tablet 20 mg PO QPM levothyroxine 50 mcg tablet 50 mcg PO QAM naproxen 500 mg tablet 500 mg PO BID PRN (Reason: pain) 7 Days Qty: 14 0RF cephalexin 500 mg tablet 1,000 mg PO Q8H 7 Days Qty: 42 0RF olanzapine 2.5 mg tablet 2.5 mg PO BEDTIME bupropion HCl 150 mg tablet extended release 24 hr 150 mg PO QAM buprenorphine-naloxone [Suboxone] 12-3 mg film 1 film buccal Q24H metformin 1,000 mg tablet 1,000 mg PO DAILY Referrals: Minh Jacobsen MD [Physician] - 1 week (3 mm right proxy ureteral stone with mild hydronephrosis) Discharge Date/Time: 04/29/23 17:53
[2023-04-29 12:51] VITALS: BP 162/116; PULSE 78; RESP 20; O2SAT 97
[2023-04-29] MEDS: Ibuprofen 600 MG TABLET PO (12:57)
[2023-04-29] MEDS: Ondansetron ODT 4 MG TAB.RAPDIS TRANSLINGU (12:57)
--- NOTE | 2023-04-29 13:42 | PC.NURSE ---
pt was brought directly from waiting room to ultrasound by us staff- called us- verified they are on the way with patient
[2023-04-29] MEDS: ondansetron HCL 4 MG/2 ML VIAL IVPUSH (14:02)
[2023-04-29 14:03] VITALS: RESP 15
[2023-04-29] MEDS: HYDROmorphone HCl 1 MG/ML SYRINGE IVPUSH ×3 (14:03→16:26)
[2023-04-29] MEDS: 0.9 % Sodium Chloride 1,000 ML 999 ML IV (14:03)
[2023-04-29 14:04] VITALS: BP 151/84; PULSE 70; RESP 15; TEMP 36.6; O2SAT 100
[2023-04-29] MEDS: iohexoL 350 MG/ML 100 ML INFUS..BTL IV ×2 (14:26→14:48)
--- NOTE | 2023-04-29 15:21 | PC.NURSE ---
PT REPORTS STABBING 20/10 LOWER ABD PAIN, IV PAIN MED GIVEN DOCUMENTED. WILL REASSESS.
[2023-04-29] MEDS: Ketorolac Tromethamine 15 MG/ML VIAL IVPUSH (16:26)
[2023-04-29] MEDS: Tamsulosin HCL 0.4 MG CAPSULE PO (16:26)
[2023-04-29 16:33] VITALS: BP 151/87; PULSE 71; RESP 12; TEMP 36.9; O2SAT 97
--- NOTE | 2023-04-29 16:36 | PC.NURSE ---
MEDS GIVEN DOCUMENTED. VSS. WILL REASSESS EFFECTIVENESS
[2023-04-29 16:46] LABS: Appearance Urine Clear; Color Urine Yellow; Glucose Urine UA Negative (Negative); Leukocyte Esterase Urine Negative (Negative); Nitrite Urine Negative (Negative); PH 8.5 (5.0-9.0); Specific Gravity - Urine >= 1.030 (1.005-1.025); Urine Blood Negative (Negative); Urine Ketones Negative (Negative); Urine Protein Negative (Neg-Trace)
== END 2023-04-29 17:53 | disposition home or self-care (01) ==
PROVIDERS: Emergency Provider Emergency Medicine Emergency Medical Services; PCP Internal Medicine
DX: N13.2 Hydronephrosis with renal and ureteral calculous obstruction (principal); R10.31 Right lower quadrant pain; Z11.52 Encounter for screening for COVID-19; G89.4 Chronic pain syndrome; F11.21 Opioid dependence, in remission; E11.9 Type 2 diabetes mellitus without complications; Z79.02 Long term (current) use of antithrombotics/antiplatelets; Z79.84 Long term (current) use of oral hypoglycemic drugs; Z79.899 Other long term (current) drug therapy
CPT/HCPCS: 36415; 74177; 80048; 80076; 81003; 83690; 85025; 87502; 93975; 96361; 96374; 96375; 96376; 99284; J1170; J1885; J2405; Q9967

== ENCOUNTER 2023-05-15 13:31 | Outpatient (REF) | payer MEDICAID, SELFPAY ==
--- NOTE | ~2023-05-15 | US_ITS ---
EXAMINATION: US RETROPERITONEAL LIMITED (RENAL ONLY) CLINICAL INFORMATION: Calculus of ureter. COMPARISON: CT abdomen and pelvis 04/29/2023. X-ray abdomen KUB 02/11/2023. Renal ultrasound 01/31/2023. MRI abdomen 08/19/2021. Ultrasound abdomen complete 06/20/2021. TECHNIQUE: Real-time imaging of the kidneys. FINDINGS: RIGHT KIDNEY: 11.8 x 6.8 x 6.4 cm (SAG x AP x TRV). The kidney is normal in size, contour, and echogenicity. Renal cortical thickness is normal. No focal parenchymal lesions. There is mild hydronephrosis. There are several nonobstructing calculi including 0.2 cm upper pole, 0.3 cm mid renal and 0.4 cm lower pole. The ureter is dilated measuring 0.8 cm in diameter. There is an echogenic focus in the proximal ureter. LEFT KIDNEY: 12.3 x 6.3 x 5.3 cm (SAG x AP x TRV). The kidney is normal in size, contour, and echogenicity. Renal cortical thickness is normal. No hydronephrosis. 1.0 x 0.6 x 1.1 cm simple cyst is seen. No imaging follow-up is recommended. 0.3 cm nonobstructing calculus is seen in the lower pole. US/US renal BI IMPRESSION: 1. Mild right hydronephrosis with dilated right ureter with echogenic focus seen in the proximal right ureter. 2. Bilateral nonobstructing renal calculi.
== END 2023-05-15 13:32 | disposition home or self-care (01) ==
LOC: HO.US 13:31
PROVIDERS: PCP Internal Medicine; Visit Provider Nurse Practitioner Family
DX: N20.1 Calculus of ureter (principal); N13.30 Unspecified hydronephrosis
CPT/HCPCS: 76775

== ENCOUNTER 2023-05-25 08:56 | Outpatient (AMB) | payer MEDICAID, SELFPAY ==
--- NOTE | 2023-05-25 09:29 | MHC.OFFVIS ---
Intake Intake Visit Reasons: 2m/US(set) Intake Note: Patient presents today for a follow-up on kidney stone Urology Medications: None Allergies to Antibiotic: No Known Allergies Blood Thinner: None Potato Spotter Required: No Accompanied by: Self / Same As Patient Allergies No Known Allergies Allergy (Verified 05/25/23 10:05) Medication List - Last Reconciled 05/25/23 by REINA Mayen-HARLAN acetaminophen (Tylenol Extra Strength) 500 mg PO Q6H PRN atorvastatin 20 mg PO QPM buprenorphine-naloxone 12-3 mg (Suboxone) 1 film buccal Q24H bupropion HCl 150 mg PO QAM gabapentin 600 mg PO TID PRN 30 days ibuprofen 400 mg PO TID PRN levothyroxine 50 mcg PO QAM lurasidone 40 mg PO DAILY metformin 1,000 mg PO DAILY naproxen 500 mg PO BID PRN 7 days olanzapine 2.5 mg PO BEDTIME tamsulosin 0.4 mg PO BEDTIME 30 days HPI HPI Comments History of Present Illness Details Olya is a very pleasant 43-year old male patient of Dr. Philip James. He has a past medical history of fatty liver, thyroid disease, diabetes, chronic pain syndrome, opioid dependence in remission, and mood disorder. He presents to the office today for follow-up. In discussion with the patient today he reports having seeked emergency room care approximately 1 month ago at which time a CT of the abdomen was ordered and performed and patient was noted to have mild right hydronephrosis from a 3 mm right proximal ureteral stone. Small bilateral renal stones present. He was given prednisone, Flomax and educated to increase water intake however patient came to the office 2 weeks ago reporting pain continued at which time a renal ultrasound was ordered and performed. These results were reviewed with the patient today. There is mild right-sided hydronephrosis. The ureter is dilated measuring approximately 0.8 cm in diameter with an echogenic focus in the proximal ureter. There are several nonobstructing right renal calculi measuring up to 4 mm. Left kidney with 3 mm nonobstructing calculus in the lower pole. In discussion with the patient today he continues to report intermittent episodes of right-sided lower abdominal pain. No CVA tenderness noted bilaterally on exam today. Of note, patient underwent left-sided ESWL with Dr. Jacobsen on 02/11/23 for nephrolithiasis. In office urinalysis results reviewed with the patient today. He otherwise denies urinary urgency, urinary frequency, incontinence, nocturia, hematuria, dysuria, foul smelling urine, changes to urinary stream, fever, and or chills. He is happy with his current voiding parameters. Discussed at length further intervention of nephrolithiasis and hydronephrosis. Discussed risks and benefits of ureteroscopy. When asked he reports to be drinking approximately 16 oz of water daily. Discussed and stressed at length the importance of drinking plenty of water daily. He otherwise offers no other issues or concerns at this time. [facility] Medical History Fatty liver Thyroid disease Diabetes Chronic pain syndrome Sacroiliitis Spondylosis of lumbar spine Opioid dependence, in remission Chronic back pain Mood disorder Surgical History Hx of lithotripsy History of cystoscopy History of surgery History of neck surgery Family History Father HTN (hypertension) Mother Lung cancer Brother Heart disease Social History Household Members: Family Alcohol intake: never Patient Tobacco Use Status: Former Tobacco user Quit Date: 1yr ago Substance Use Type: Former Substance User Review of Systems Const Reports no additional complaints Eyes Reports no additional complaints ENT Reports no additional complaints Card Reports as per HPI Resp Reports no additional complaints GI Reports no additional complaints Reports as per HPI Musc Reports as per HPI Neuro Reports no additional complaints Psych Reports as per HPI Endo Reports as per HPI Frandy/Lymph Reports no additional complaints Aller/Immun Reports no additional complaints Physical Exam Const General: cooperative, healthy appearing, comfortable, no acute distress, well developed, alert and awake Orientation/consciousness: patient oriented x3 HEENT Head: Yes normal to inspection, Yes normocephalic and Yes atraumatic Ears: hearing grossly normal bilaterally Eyes General: appearance normal, both eyes and all related structures Neck Neck: Yes normal visual inspection and Yes trachea midline Chest Chest palpation & inspection: normal inspection of the chest Resp Effort & Inspection: normal respiratory effort and able to speak in complete sentences Cardio Rate: regular rate GI Inspection: Yes normal to inspection General: Yes no CVA tenderness Back/Spine/Pelvis Back: no CVA tenderness Skin General skin exam: no rashes or lesions noted Neuro General: patient oriented x3 Extrem General: Yes normal to inspection Psych Appearance: grossly normal and well kempt Mental Status: mental status grossly normal Speech and movement: Normal speech and movement present and Clear speech present Affect: normal affect Attitude: cooperative Thought process: Normal thought process present Thought content: Normal thought content present Insight: Fair insight present (Psych) Judgement: Fair judgement present (Psych) Results AMB Urinalysis, Automated UA Leukoctes 0 Janice/uL Last Edit by [employer] on 05/25/23 09:38 UA Nitrite Negative Last Edit by [employer] on 05/25/23 09:38 UA Urobilinogen 0.2 mg/dL Last Edit by [employer] on 05/25/23 09:38 UA Protein 15 mg/dL Last Edit by [employer] on 05/25/23 09:38 UA pH 6.0 Last Edit by [employer] on 05/25/23 09:38 UA Blood 0 Te/uL Last Edit by [employer] on 05/25/23 09:38 UA Specific [place] 1.020 Last Edit by [employer] on 05/25/23 09:38 UA Ketone Negative Last Edit by [employer] on 05/25/23 09:38 UA Bilirubin 0 mg/dL Last Edit by [employer] on 05/25/23 09:38 UA Glucose 0 mg/dL Last Edit by [employer] on 05/25/23 09:38 Results Reviewed Results Reviewed: Laboratory Last Values Urine pH (Auto) 6.0 05/25/23 09:33 Specific [place] (Auto) 1.020 05/25/23 09:33 Urine Protein (Auto) 15 mg/dL 05/25/23 09:33 Glucose (UA)(Auto) 0 mg/dL 05/25/23 09:33 Urine Ketones (Auto) Negative 05/25/23 09:33 Urine Blood (Auto) 0 Te/uL 05/25/23 09:33 Urine Nitrite (Auto) Negative 05/25/23 09:33 Urine Bilirubin (Auto) 0 mg/dL 05/25/23 09:33 Urine Urobilinogen (Auto) 0.2 mg/dL 05/25/23 09:33 Leukocyte Esterase (Auto) 0 Janice/uL 05/25/23 09:33 Date of Service: 05/15/23 EXAMINATION: US RETROPERITONEAL LIMITED (RENAL ONLY) FINDINGS: RIGHT KIDNEY: 11.8 x 6.8 x 6.4 cm (SAG x AP x TRV). The kidney is normal in size, contour, and echogenicity. Renal cortical thickness is normal. No focal parenchymal lesions. There is mild hydronephrosis. There are several nonobstructing calculi including 0.2 cm upper pole, 0.3 cm mid renal and 0.4 cm lower pole. The ureter is dilated measuring 0.8 cm in diameter. There is an echogenic focus in the proximal ureter. LEFT KIDNEY: 12.3 x 6.3 x 5.3 cm (SAG x AP x TRV). The kidney is normal in size, contour, and echogenicity. Renal cortical thickness is normal. No hydronephrosis. 1.0 x 0.6 x 1.1 cm simple cyst is seen. No imaging follow-up is recommended. 0.3 cm nonobstructing calculus is seen in the lower pole. IMPRESSION: 1. Mild right hydronephrosis with dilated right ureter with echogenic focus seen in the proximal right ureter. 2. Bilateral nonobstructing renal calculi. Assessment & Plan Assessment & Plan (1) Nephrolithiasis: Code(s): N20.0 - Calculus of kidney (2) Hydronephrosis with renal calculous obstruction: Code(s): N13.2 - Hydronephrosis with renal and ureteral calculous obstruction (3) Renal colic on right side: Code(s): N23 - Unspecified renal colic Plan: Ureteroscopy We discussed the nature of the decision and reasonable alternatives for performing ureteroscopy. Options such as medical therapy were discussed. Interventions include chemical dissolution, ESWL, ureteroscopy with laser lithotripsy and stent placement, PCNL. The relative uncertainties and benefits related to each alternate procedure were adequately discussed. General surgical risks including, but not limited to - pain, bleeding, infection, myocardial infarction, pulmonary embolus, deep vein thrombosis and cerebrovascular accident which may result in further hospitalization were discussed.? Full disclosure of the procedure as well as all major risks, benefits and complications were discussed including but not limited to damage to the urethra, bladder and kidney infection, damage to the ureter, stent migration or malposition, scarring to the renal pelvis, remnant stone fragments, subsequent stone passage with need for secondary procedures. The overall secondary procedure rate is approximately 10-15%.? The overall clearance rate is approximately 90-95%. Success of the procedure in the short-term does not necessarily guarantee that long-term success will be maintained. Suitable follow up will need to be maintained. The patient showed understanding of discussion and wishes to proceed with - cystoscopy, retrograde, ureteroscopy, possible lithotripsy/stone basketing and stent on the right side Plan In office urinalysis results reviewed with the patient today; as noted above. Recent retroperitoneal ultrasound results reviewed with the patient today; as noted above. Discussed at length ureteroscopy given mild right-sided hydronephrosis with obstructing stone. Discussed risks and benefits of surgical procedure versus surveillance monitoring. Discussed and stressed the importance of drinking more than 16 oz of water a day. Patient otherwise denies any bothersome urinary issues. Continue Flomax; refill provided. Discussed at length importance of avoiding blood thinners to weeks prior to surgical procedure; discussed medications within this class. Will schedule for right-sided cystoscopy, ureteroscopy, retrograde, laser lithotripsy, stone basketing, and right-sided ureteral stent placement. Follow-up postprocedure; or sooner with any issues, concerns, and or questions. Orders: Orders AMB Urinalysis Automated Today Z13.9 - Encounter for screening, unspecified Medications: New tamsulosin 0.4 mg PO BEDTIME 30 days 30 caps 1RF N40.1 - Benign prostatic hyperplasia with lower urinary tract symptoms, R35.1 - Nocturia On Hold naproxen Hold Comment: Doctor's Order 500 mg PO BID 7 days PRN 14 tabs 0RF pain ibuprofen Hold Comment: Doctor's Order 400 mg PO TID PRN 30 tabs 0RF fever or pain Patient Instructions: The patient had an opportunity to ask questions regarding the treatment plan. All questions were answered. Physical exam, labs, and imaging were discussed and reviewed in detail. As well as risks, benefits, and discussion of treatment choices. No major barriers to understanding were identified. The patient expressed understanding and agreement with the above treatment plan. The patient was made aware they should contact our office by phone for worsening of their current condition, the appearance of new symptoms, or with any questions or concerns. Compliance is encouraged with any medications and follow up testing that is ordered. It is a privilege to be allowed the opportunity to participate in? your urological care.? Again, if you have any questions or concerns If you have any questions or concerns please do not hesitate to contact me. The office is [phone]. This note is constructed using voice recognition software. While every effort has been made to ensure accuracy wheel cleaner errors may have been included. Yours sincerely, JUVENTINO Mayen Coding Level of Care Code Est Pt Level 4 (51170) Diagnoses Nephrolithiasis N20.0 Hydronephrosis with renal calculous obstruction N13.2 Renal colic on right side N23
== END 2023-05-25 09:50 | disposition home or self-care (01) ==
PROVIDERS: PCP Internal Medicine; Visit Provider Nurse Practitioner Family
DX: N13.2 Hydronephrosis with renal and ureteral calculous obstruction (principal); N23 Unspecified renal colic; Z13.9 Encounter for screening, unspecified
CPT/HCPCS: 99214

== ENCOUNTER → 2023-05-25 08:56 | Outpatient (BNVA) | payer MEDICAID, SELFPAY | PROVIDERS: PCP Internal Medicine; Visit Provider Nurse Practitioner Family | DX: N20.0 Calculus of kidney (principal); N13.2 Hydronephrosis with renal and ureteral calculous obstruction; N23 Unspecified renal colic | CPT/HCPCS: 81003; 99212 ==

== ENCOUNTER 2023-05-25 13:53 | Outpatient (REF) | payer MEDICAID, SELFPAY ==
[2023-05-26 08:52] LABS: HBS Num1 1.72 mIU/mL (0-7.99); HBc Num1 0.13 S/CO (0.00-0.79); HBsAGNum1 0.51 S/CO (0.00-0.99); HIV AB/AG Nonreactive (Nonreactive); HIV Num 1 0.06 S/CO (0.00-0.99); Hepatitis B Core Antibody Nonreactive (Nonreactive); Hepatitis B Surface Antigen Negative (Negative); ~HepC Num1 0.13 S/CO (0.00-0.79); ~Hepatitis B Surface Antibody NONREACTIVE (Nonreactive); ~Hepatitis C Antibody Nonreactive (Nonreactive)
[2023-05-26 08:53] LABS: Syphilis Screen Nonreactive (Nonreactive)
[2023-05-26 08:54] LABS: Hepatitis A Antibody IgG REACTIVE (Nonreactive); ~Hepatitis A Antibody IgG 7.02 S/CO (0.00-0.99)
[2023-05-27 22:19] LABS: TS Negative Control Passed; TS Panel A 0; TS Panel B 0; TS Positive Control Passed; TSpotTB Negative (Negative)
== END 2023-05-25 13:54 | disposition home or self-care (01) ==
LOC: HO.HHCL 13:53
PROVIDERS: Visit Provider Emergency Medicine
DX: F11.20 Opioid dependence, uncomplicated (principal)
CPT/HCPCS: 36415; 86481; 86704; 86706; 86708; 86780; 86803; 87340; 87389

== ENCOUNTER 2023-06-03 14:48 | Outpatient (REF) | payer MEDICAID, SELFPAY ==
[2023-06-17 22:44] LABS: Stone Source KIDNEY STONE
== END 2023-06-03 14:49 | disposition home or self-care (01) ==
LOC: HO.LNP 14:48
PROVIDERS: Visit Provider Nurse Practitioner Family
DX: N20.0 Calculus of kidney (principal)
CPT/HCPCS: 82365; 88300

== ENCOUNTER 2023-08-18 09:42 | Outpatient (REF) | payer MEDICAID, SELFPAY ==
--- NOTE | ~2023-08-18 | US_ITS ---
EXAMINATION: US RETROPERITONEAL LIMITED (RENAL ONLY) CLINICAL INFORMATION: Calculus of kidney. COMPARISON: Ultrasound renal 05/15/2023 and 01/31/2023. CT abdomen and pelvis 04/29/2023. TECHNIQUE: Real-time imaging of the kidneys. FINDINGS: RIGHT KIDNEY: 11.0 x 4.7 x 6.0 cm (SAG x AP x TRV). The kidney is normal in size, contour, and echogenicity. Renal cortical thickness is normal. No focal parenchymal lesions or hydronephrosis. 4 mm nonobstructing calculus in the mid to upper kidney. LEFT KIDNEY: 11.7 x 4.8 x 5.0 cm (SAG x AP x TRV). The kidney is normal in size, contour, and echogenicity. Renal cortical thickness is normal. No hydronephrosis. There are two 4 mm nonobstructing calculi in the lower pole. The previously seen simple cyst in the mid kidney is not well visualized currently but does not appear significantly changed in size. No specific imaging follow-up is needed. US/US renal BI IMPRESSION: Nonobstructing bilateral renal calculi. No hydronephrosis.
== END 2023-08-18 09:43 | disposition home or self-care (01) ==
LOC: HO.US 09:42
PROVIDERS: PCP Internal Medicine; Visit Provider Nurse Practitioner Family
DX: N20.0 Calculus of kidney (principal)
CPT/HCPCS: 76775

== ENCOUNTER 2023-08-25 10:31 | Outpatient (AMB) | payer MEDICAID, SELFPAY ==
--- NOTE | 2023-08-25 10:40 | A.OFFVIS_ITS ---
Intake Visit Reasons: Kidney stone 3m follow up/US(set) Intake Note: Patient presents today for a follow-up on:kidney stone and ultrasound results Urology Medications: None Allergies to Antibiotic: No Known Allergies Blood Thinner: None Site Reliability Engineer Required: No Accompanied by: Self / Same As Patient Allergies No Known Allergies Allergy (Verified 08/25/23 18:20) Medication List - Last Reconciled 08/25/23 by JUVENTINO Mayen acetaminophen (Tylenol Extra Strength) 500 mg PO Q6H PRN atorvastatin 20 mg PO QPM buprenorphine-naloxone 12-3 mg (Suboxone) 1 film buccal Q24H bupropion HCl XL 150 mg PO QAM gabapentin 600 mg PO TID PRN 30 days levothyroxine 50 mcg PO QAM lurasidone 40 mg PO DAILY metformin 1,000 mg PO DAILY olanzapine 2.5 mg PO BEDTIME HPI Comments Details: Olya is a very pleasant 43-year old male patient of Dr. Philip James. He has a past medical history of fatty liver, thyroid disease, diabetes, chronic pain syndrome, opioid dependence in remission, and mood disorder. He presents to the office today for follow-up of his nephrolithiasis. Recent renal imaging results reviewed with the patient today. Bilateral kidneys with no lesions or hydronephrosis. Right kidney with 4 mm nonobstructing calculus in the mid to upper kidney. Left kidney with 2 4 mm nonobstructing calculi in the lower pole. Previous left-sided simple cyst in the mid kidney is not well visualized. Of note, patient was previously scheduled for a ureteroscopy with Dr. Gee however upon admission to the hospital he was able to urinate his stone. This was collected and sent for further assessment and evaluation. 80% calcium oxalate monohydrate and 20% calcium oxalate dihydrate. He currently denies any bothersome urinary issues or concerns. He discusses his increase in water intake. Of note, patient underwent left-sided ESWL with Dr. Jacobsen on 02/11/23 for nephrolithiasis. In office urinalysis results reviewed with the patient today. He otherwise denies urinary urgency, urinary frequency, incontinence, nocturia, hematuria, dysuria, foul smelling urine, changes to urinary stream, fever, and or chills. He is happy with his current voiding parameters. He otherwise offers no other issues or concerns at this time. [facility] Medical History Fatty liver Thyroid disease Diabetes Chronic pain syndrome Sacroiliitis Spondylosis of lumbar spine Opioid dependence, in remission Chronic back pain Mood disorder Surgical History Hx of lithotripsy History of cystoscopy History of surgery History of neck surgery Family History Father HTN (hypertension) Mother Lung cancer Brother Heart disease Social History Household Members: Family Alcohol intake: never Patient Tobacco Use Status: Former Tobacco user Substance Use Type: Former Substance User Review of Systems Const Reports no additional complaints Eyes Reports no additional complaints ENT Reports no additional complaints Card Reports as per HPI Resp Reports no additional complaints GI Reports no additional complaints Reports as per HPI Musc Reports as per HPI Neuro Reports no additional complaints Psych Reports as per HPI Endo Reports as per HPI Frandy/Lymph Reports no additional complaints Aller/Immun Reports no additional complaints Physical Exam Const General: cooperative, healthy appearing, comfortable, no acute distress, well developed, alert and awake Orientation/consciousness: patient oriented x3 Limitations: no limitations HEENT Head: Yes normal to inspection, Yes normocephalic and Yes atraumatic Ears: hearing grossly normal bilaterally Eyes General: appearance normal, both eyes and all related structures Neck Neck: Yes normal visual inspection and Yes trachea midline Chest Chest palpation & inspection: normal inspection of the chest Resp Effort & Inspection: normal respiratory effort and able to speak in complete sentences Cardio Rate: regular rate GI Inspection: Yes normal to inspection General: Yes no CVA tenderness Back/Spine/Pelvis Back: no CVA tenderness Skin General skin exam: no rashes or lesions noted Neuro General: patient oriented x3 Extrem General: Yes normal to inspection Psych Appearance: grossly normal and well kempt Mental Status: mental status grossly normal Speech and movement: Normal speech and movement present and Clear speech present Affect: normal affect Attitude: cooperative Thought process: Normal thought process present Thought content: Normal thought content present Insight: Fair insight present (Psych) Judgement: Fair judgement present (Psych) Results AMB Urinalysis, Automated UA Leukoctes 0 Janice/uL Last Edit by Sandy [employer] on 08/25/23 10:57 UA Nitrite Negative Last Edit by Sandy Ayoub on 08/25/23 10:57 UA Urobilinogen 0.2 mg/dL Last Edit by Sandy Ayoub on 08/25/23 10:57 UA Protein 15 mg/dL Last Edit by Sandy Ayoub on 08/25/23 10:57 UA pH 6.0 Last Edit by Sandy Ayoub on 08/25/23 10:57 UA Blood 0 Te/uL Last Edit by Sandy Ayoub on 08/25/23 10:57 UA Specific [place] 1.025 Last Edit by Sandy Ayoub on 08/25/23 10:57 UA Ketone Negative Last Edit by Sandy Ayoub on 08/25/23 10:57 UA Bilirubin 0 mg/dL Last Edit by Sandy Ayoub on 08/25/23 10:57 UA Glucose 0 mg/dL Last Edit by Sandy Ayoub on 08/25/23 10:57 AMB Urinalysis, Automated UA Leukoctes 0 Janice/uL Last Edit by Sandy Ayoub on 08/25/23 11:02 UA Nitrite Negative Last Edit by Sandy Ashleytahir on 08/25/23 11:02 UA Urobilinogen 0.2 mg/dL Last Edit by Sandy Ayoub on 08/25/23 11:02 UA Protein 15 mg/dL Last Edit by Sandy Ayoub on 08/25/23 11:02 UA pH 6.0 Last Edit by Sandy Ayoub on 08/25/23 11:02 UA Blood 0 Te/uL Last Edit by Sandy Ayoub on 08/25/23 11:02 UA Specific [place] 1.025 Last Edit by Sandy Ayoub on 08/25/23 11:02 UA Ketone Negative Last Edit by Sandy Ayoub on 08/25/23 11:02 UA Bilirubin 0 mg/dL Last Edit by Sandy Ayoub on 08/25/23 11:02 UA Glucose 0 mg/dL Last Edit by Sandy Ayoub on 08/25/23 11:02 Results Reviewed Results Reviewed: Laboratory Last Values Urine pH (Auto) 6.0 08/25/23 10:43 Urine pH (Auto) 6.0 08/25/23 10:43 Specific [place] (Auto) 1.025 08/25/23 10:43 Specific [place] (Auto) 1.025 08/25/23 10:43 Urine Protein (Auto) 15 mg/dL 08/25/23 10:43 Urine Protein (Auto) 15 mg/dL 08/25/23 10:43 Glucose (UA)(Auto) 0 mg/dL 08/25/23 10:43 Glucose (UA)(Auto) 0 mg/dL 08/25/23 10:43 Urine Ketones (Auto) Negative 08/25/23 10:43 Urine Ketones (Auto) Negative 08/25/23 10:43 Urine Blood (Auto) 0 Te/uL 08/25/23 10:43 Urine Blood (Auto) 0 Te/uL 08/25/23 10:43 Urine Nitrite (Auto) Negative 08/25/23 10:43 Urine Nitrite (Auto) Negative 08/25/23 10:43 Urine Bilirubin (Auto) 0 mg/dL 08/25/23 10:43 Urine Bilirubin (Auto) 0 mg/dL 08/25/23 10:43 Urine Urobilinogen (Auto) 0.2 mg/dL 08/25/23 10:43 Urine Urobilinogen (Auto) 0.2 mg/dL 08/25/23 10:43 Leukocyte Esterase (Auto) 0 Janice/uL 08/25/23 10:43 Leukocyte Esterase (Auto) 0 Janice/uL 08/25/23 10:43 Date of Service: 08/18/23 EXAMINATION: US RETROPERITONEAL LIMITED (RENAL ONLY) RIGHT KIDNEY: 11.0 x 4.7 x 6.0 cm (SAG x AP x TRV). The kidney is normal in size, contour, and echogenicity. Renal cortical thickness is normal. No focal parenchymal lesions or hydronephrosis. 4 mm nonobstructing calculus in the mid to upper kidney. LEFT KIDNEY: 11.7 x 4.8 x 5.0 cm (SAG x AP x TRV). The kidney is normal in size, contour, and echogenicity. Renal cortical thickness is normal. No hydronephrosis. There are two 4 mm nonobstructing calculi in the lower pole. The previously seen simple cyst in the mid kidney is not well visualized currently but does not appear significantly changed in size. No specific imaging follow-up is needed. IMPRESSION: Nonobstructing bilateral renal calculi. No hydronephrosis. Assessment & Plan Assessment & Plan (1) Nephrolithiasis: Code(s): N20.0 - Calculus of kidney Category: Medical Plan In office urinalysis results reviewed with the patient today; as noted above. Recent renal imaging results reviewed with the patient today; as noted above. Patient currently denies any bothersome urinary issues or concerns. Continue drinking plenty of water daily. Continue adding 1 oz of lemon juice to water daily. Discussed further metabolic workup to include 24 hour urine collection and labs; however patient declines at this time. Discussed composition of stone. Discussed at length potential causes for nephrolithiasis. Will obtain renal ultrasound in 6 months for continuation of surveillance monitoring. Follow-up in 6 months with imaging to be completed prior; or sooner with any issues, concerns, and or questions. Orders: Orders AMB Urinalysis Automated 08/25/23 Z13.9 - Encounter for screening, unspecified AMB Urinalysis Automated 08/25/23 Z13.9 - Encounter for screening, unspecified US renal BI 6 Months N20.0 - Calculus of kidney Patient Instructions: The patient had an opportunity to ask questions regarding the treatment plan. All questions were answered. Physical exam, labs, and imaging were discussed and reviewed in detail. As well as risks, benefits, and discussion of treatment choices. No major barriers to understanding were identified. The patient expressed understanding and agreement with the above treatment plan. The patient was made aware they should contact our office by phone for worsening of their current condition, the appearance of new symptoms, or with any questions or concerns. Compliance is encouraged with any medications and follow up testing that is ordered. It is a privilege to be allowed the opportunity to participate in? your urological care.? Again, if you have any questions or concerns If you have any questions or concerns please do not hesitate to contact me. The office is [phone]. This note is constructed using voice recognition software. While every effort has been made to ensure accuracy vascular technician errors may have been included. Yours sincerely, JUVENTINO Mayen Coding Level of Care Code Est Pt Level 3 (41380) Diagnoses Nephrolithiasis N20.0
== END 2023-08-25 11:20 | disposition home or self-care (01) ==
PROVIDERS: PCP Internal Medicine; Visit Provider Nurse Practitioner Family
DX: N20.0 Calculus of kidney (principal)
CPT/HCPCS: 99213

== ENCOUNTER → 2023-08-25 10:31 | Outpatient (BNVA) | payer MEDICAID, SELFPAY | PROVIDERS: PCP Internal Medicine; Visit Provider Nurse Practitioner Family | DX: N20.0 Calculus of kidney (principal) | CPT/HCPCS: 81003; 99212 ==

== ENCOUNTER 2023-10-16 09:07 | Outpatient (REF) | payer MEDICAID, SELFPAY ==
[2023-10-16 14:24] LABS: Cholesterol 130 mg/dL (<200); HDL Cholesterol 48 mg/dL (>40); LDL Cholesterol Calculated 62 mg/dL (<100); Triglycerides 102 mg/dL (<150)
[2023-10-16 14:41] LABS: TSH reflex Free T4 3.94 uIU/mL (0.32-4.0)
== END 2023-10-16 09:08 | disposition home or self-care (01) ==
LOC: HO.CHCLDS 09:07
PROVIDERS: Visit Provider Internal Medicine
DX: E11.9 Type 2 diabetes mellitus without complications (principal); E03.9 Hypothyroidism, unspecified
CPT/HCPCS: 36415; 80061; 84443

== ENCOUNTER 2023-12-28 10:58 | Emergency (ER) | payer MEDICAID, SELFPAY ==
--- NOTE | ~2023-12-28 | US_ITS ---
EXAMINATION: US SCROTUM CLINICAL INFORMATION: Unilateral swelling, pain. COMPARISON: Multiple scrotal US, last on 12/31/22 TECHNIQUE: A sonogram of the scrotum was performed assessing moses-scale appearance and color Doppler flow. Spectral Doppler analysis of the arterial and venous flow were performed in the testes bilaterally. FINDINGS: RIGHT: Right testicle measures 3.9 x 2.0 x 2.1 cm, volume 8.5 mL. There is a 0.3cm hyperechoic well defined lesion in the testes. Spectral Doppler analysis of the arterial and venous flow is normal in the right testis. Right epididymal head is normal in size. No right hydrocele or varicocele is seen. Right epididymal Doppler flow is normal. Right epididymal cyst 0.4cm. LEFT: Left testicle measures 3.6 x 1.9 x2.5 cm, volume 8.6 mL. No focal testicular parenchymal lesions are visualized. Spectral Doppler analysis of the arterial and venous flow is normal in the left testis. Left epididymal head is normal in size. No left varicocele is seen. Small hydrocele. Left epididymal Doppler flow is normal. US/US scrotum IMPRESSION: 1. 0.3 cm hyperechoic well defined lesion in the right testes. Stable from prior exams. 2. Small left hydrocele. Electronically signed by: Carolee Gambino MD 12/28/2023 05:58 PM EDT RP
--- NOTE | ~2023-12-28 | CT_ITS ---
EXAMINATION: CT ABDOMEN AND PELVIS WITH CONTRAST CLINICAL INFORMATION: Left flank pain COMPARISON: CT abdomen/pelvis April 29, 2023 TECHNIQUE: Multidetector volumetric images were obtained from the superior aspect of the liver through the pubic symphysis following administration 85 mL of Omnipaque 350 intravenous contrast. Sagittal and coronal reformatted images were obtained on the technologist's workstation. Oral contrast: No This CT examination was performed using dose optimization techniques as appropriate, variously including the following: *Automated exposure control *Adjustment of mA and/or kV according to patient size (this includes techniques or standardized protocols for targeted exams where dose is matched to indication/reason for exam; i.e. extremities or head) *Use of iterative reconstruction technique DLP: 647 mGy-cm FINDINGS: LUNG BASES: The visualized lung bases are unremarkable. LIVER, GALLBLADDER, AND BILIARY TREE: The liver is normal in size, shape, and attenuation. No focal hepatic lesion or biliary ductal dilatation is present. The gallbladder is unremarkable with no evidence of radiopaque gallstones, gallbladder wall thickening, or obvious pericholecystic inflammatory changes. PANCREAS: Unremarkable. SPLEEN: Unremarkable. ADRENAL GLANDS: Unremarkable. KIDNEYS AND URETERS: Obstructive left mid ureteral calculus measuring 4 mm resulting in ipsilateral upstream mild hydronephrosis. Left interpolar 2 mm calculus. Mild left perinephric stranding. No solid renal masses. No perinephric fluid collection. No right renal calculus or hydronephrosis. BLADDER: Collapsed. GASTROINTESTINAL TRACT: No evidence of obstruction. Appendix is noninflamed. ABDOMINAL WALL: No significant hernia is appreciated. LYMPH NODES: Normal. VASCULAR: Unremarkable. PELVIC VISCERA: Unremarkable. OSSEOUS STRUCTURES: Right L5-S1 facet arthropathy. No acute fractures or focal osseous lesions. CT/CT abdomen pelvis w IV con IMPRESSION: 4 mm left mid ureteral obstructing renal calculus resulting in mild hydronephrosis. Fleischner guidelines were followed. Electronically signed by: Jair Ontiveros DO 12/28/2023 05:03 PM EDT
[2023-12-28 11:04] VITALS: BP 155/96; PULSE 85; RESP 16; TEMP 36.5; O2SAT 100; BMI 36.1
[2023-12-28 11:38] LABS: MANUAL DIFF FLAG NO
[2023-12-28 11:41] LABS: Appearance Urine Clear; Color Urine Yellow; Glucose Urine UA Negative (Negative); Leukocyte Esterase Urine Negative (Negative); Nitrite Urine Negative (Negative); PH >= 9.0 (5.0-9.0); Specific Gravity - Urine 1.015 (1.005-1.025); UMIC TRIGGER UACC YES; Urine Blood Large (3+) (Negative); Urine Ketones Negative (Negative); Urine Protein Negative (Neg-Trace)
[2023-12-28 11:43] LABS: Bacteria Urine None Seen (None Seen); Hyaline Casts Urine 0-2 /LPF (0-2); RBC Urine >20 /HPF (0-2); Squamous Epithelial Cell Urine 0-2 /HPF (0-2); WBC Urine 0-5 /HPF (0-5)
[2023-12-28 11:46] LABS: Basophils Percent Auto 0.3 % (0-2); Eosinophils Percent Auto 0.3 % (0-4); Hematocrit 42.8 % (42.0-52.0); Hemoglobin 14.6 g/dl (14.0-18.0); Imm Gran Abs Auto 0.05 X10*3/uL (0.00-0.03); Imm Gran Pct Auto 0.4 % (0.0-0.4); Lymphocytes Absolute Auto 1.2 X10*3/uL (1.2-4.9); Lymphocytes Percent Auto 9.8 % (20-40); Mean Corpuscular HGB Conc 34.1 g/dl (31.0-36.0); Mean Corpuscular Hemoglobin 31.1 pg (27.0-33.0); Mean Corpuscular Volume 91.3 fL (80.0-98.0); Mean Platelet Volume 12.2 fL (9.4-12.4); Monocytes Absolute Auto 0.4 X10*3/uL (0.1-1.2); Monocytes Percent Auto 3.4 % (2-11); Neutrophils Absolute Auto 10.6 x10*3/uL (2.0-8.3); Neutrophils Percent Auto 85.8 % (45-73); Platelet Count 148 X10*3/uL (160-400); Red Blood Count 4.69 X10*6/uL (4.60-5.80); Red Cell Distribution Width 12.7 % (11.0-16.0); White Blood Count 12.3 X10*3/uL (4.8-10.8)
[2023-12-28 12:06] LABS: Alanine Aminotransferase 19 U/L (0-40); Albumin Level 4.5 g/dL (3.5-5.0); Alkaline Phosphatase 77 U/L (39-117); Anion Gap 12 (12-20); Aspartate Amino Transferase 25 U/L (5-37); Blood Urea Nitrogen 11 mg/dL (9-16); C Reactive Protein 0.26 mg/dL (< or = 0.50); Calcium 9.6 mg/dL (8.4-10.2); Carbon Dioxide 25 mmol/L (22-29); Chloride 105 mmol/L (96-108); Creatinine Clr Calc Pharmacy 95.5; Estimated Glomerular Filt Rate > 60; Glucose Random 144 mg/dL (60-115); Magnesium 1.8 mg/dL (1.6-2.6); Potassium 3.9 mmol/L (3.3-5.1); Sodium 138 mmol/L (135-145); Total Protein 7.7 g/dL (6.5-8.0)
[2023-12-28 12:39] LABS: Erythrocyte Sedimentation Rate 11 MM/HR (0-15)
--- NOTE | 2023-12-28 13:00 | ED_ITS ---
HPI - Male Genitourinary General Chief complaint: Urogenital-Male Stated complaint: Swelling groin area Time Seen by Provider: 12/28/23 13:00 Source: patient and RN notes reviewed Mode of arrival: ambulatory Limitations: no limitations History of Present Illness ED Provider: Dasia Byrne PA-C HPI Narrative: This is a 43-year-old male, with a history of opioid use disorder, and kidney stones, who presents emergency department with complaints of left flank pain since yesterday. Patient states that while he was watching television yesterday he suddenly developed pain in his left side of his back which felt similar to his kidney stones he has had in the past. He states that the pain starts in his back and radiates into his left testicle. He states that he has had testicular swelling he reports that the pain worsens with palpation. Denies any rashes. He is not sexually active. He states that he took 2 Vicodin at home which provided him without any relief. He denies any fevers, chills, chest pain, shortness on breath, vomiting. He endorses nausea. He also endorses urinary frequency and urgency. No dysuria or hematuria. No other complaints or concerns at this time. MD Complaint: testicle pain Onset (ago): day(s) Duration: constant Location: left testicle Severity: moderate Quality: aching Relieving factors: none Exacerbating factors: none Associated symptoms: Reports denies other symptoms Related Data Sexually active: No Home Medications ?Medication ?Instructions ?Recorded ?Confirmed buprenorphine 12 mg-naloxone 3 mg 1 film buccal Q24H 05/16/21 08/25/23 sublingual film (Suboxone) bupropion HCl 150 mg 24 hr tablet, 150 mg PO QAM 05/16/21 08/25/23 extended release olanzapine 2.5 mg tablet 2.5 mg PO BEDTIME 05/16/21 08/25/23 metformin 1,000 mg tablet 1,000 mg PO DAILY 09/24/22 08/25/23 atorvastatin 20 mg tablet 20 mg PO QPM 02/11/23 08/25/23 levothyroxine 50 mcg tablet 50 mcg PO QAM 02/11/23 08/25/23 lurasidone 40 mg tablet 40 mg PO DAILY 05/25/23 08/25/23 Previous Rx's ?Medication ?Instructions ?Recorded gabapentin 600 mg tablet 600 mg PO TID PRN postoperative 11/21/21 pain 30 days #90 tabs acetaminophen 500 mg tablet 500 mg PO Q6H PRN fever or pain 04/29/23 (Tylenol Extra Strength) #30 tabs naproxen 500 mg tablet 500 mg PO BID PRN pain #10 tabs 12/28/23 prednisone 20 mg tablet 20 mg PO DAILY #5 tabs 12/28/23 tamsulosin 0.4 mg capsule 0.4 mg PO BEDTIME #10 caps 12/28/23 Allergies Allergy/AdvReac Type Severity Reaction Status Date / Time No Known Allergies Allergy Verified 12/28/23 11:07 Review of Systems 2 Review of Systems: Yes all other systems are reviewed and are negative Constitutional: Constitutional: Reports as per [facility] Past Medical History Attestation statement: The following information was validated with the patient. Medical History Fatty liver Thyroid disease Diabetes Chronic pain syndrome Sacroiliitis Spondylosis of lumbar spine Opioid dependence, in remission Chronic back pain Mood disorder Surgical History Hx of lithotripsy History of cystoscopy History of surgery History of neck surgery Family History Family History Father HTN (hypertension) Mother Lung cancer Brother Heart disease Social History Social History Household Members: Family Alcohol intake: never Patient Tobacco Use Status: Former Tobacco user Substance Use Type: Former Substance User Advance Directives: No Advance Directives Information Provided: Yes Do you have a plan to hurt others: No Plan Physical Exam 2 Vital Signs: Vital Signs: Last Vital Signs Temp 98.4 F 12/28/23 20:41 Pulse 100 12/28/23 20:41 Resp 16 12/28/23 20:41 BP 132/82 12/28/23 20:41 Pulse Ox 98 12/28/23 20:41 O2 Del Method Room Air 12/28/23 20:41 BMI result Body Mass Index 36.1 Const: General: cooperative, comfortable and no acute distress O rientation/consciousness: patient oriented x3 Limitations: no limitations HEENT: Head: Yes normal to inspection, Yes normocephalic and Yes atraumatic Ears: hearing grossly normal bilaterally General nose exam: Normal external nose present Face and sinus: Yes normal facial exam Mouth: Normal oral and palatal mucosa present, oropharynx normal and moist mucous membranes Throat: Yes posterior oropharynx normal Eyes: General: appearance normal, both eyes and all related structures E yelids: Yes eyelids normal Conjunctivae: conjunctivae normal Sclerae: s clerae normal Pupils: Equal, round and reactive pupils present EOM: EOMs intact bilaterally Neck: Neck: Yes normal visual inspection, Yes full ROM and Yes no lymphadenopathy Lymphatic: no lymphadenopathy noted Chest: Chest palpation & inspection: normal inspection of the chest Resp: Effort & Inspection: normal respiratory effort and able to speak in complete sentences Auscultation: clear to auscultation bilaterally, no crackles, no rales, no rhonchi and no wheezes Cardio: Rate: regular rate Rhythm: regular rhythm Heart sounds: S1 normal heart sound present and S2 normal heart sound present GI: Other: Abdomen is soft, with mild tenderness to palpation extending into the left flank. Abdomen is soft, nontender otherwise. No rebound or guarding. Normoactive bowel sounds present in all 4 quadrants. Inspection: Yes normal to inspection : Other: Left CVA tenderness on examination. examination performed with Frida [place] present. No scrotal erythema or edema. Nontender Skin: General skin exam: no rashes or lesions noted Trauma: no lacerations or abrasions Wounds: no wounds Neuro: General: patient oriented x3 and moves all extremities Cranial nerves: Yes Equal, round and reactive pupils present Extrem: General: Yes normal to inspection Right upper extremity: normal to inspection Left upper extremity: normal to inspection Right lower extremity: normal to inspection Left lower extremity: normal to inspection Course Reevaluation(s) Reevaluation #1: Patient feeling much better after receiving Toradol, CT scan and US still pending. We will continue to closely monitor. Time: 13:00 Reevaluation #2: CT scan and ultrasound still pending. Patient reporting pain again, will treat with morphine, and IV fluids. Sign-out given to my colleague, Mariano Henderson DNP pending US and CT and disposition. Time: 16:29 Reevaluation #3: CT/CT abdomen pelvis w IV con IMPRESSION: 4 mm left mid ureteral obstructing renal calculus resulting in mild hydronephrosis. Fleischner guidelines were followed. Required additional pain management after morphine as pain is minimally only related, received a single dose of Dilaudid and was requesting discharge home. He is already established care with Urology, discussed strict return precautions, sent prescriptions for prednisone and tamsulosin to pharmacy. All questions answered. Medications Administered Discontinued Medications Generic Name Dose Route Start Last Admin Trade Name Margarette PRN Reason Stop Dose Admin Hydromorphone HCl 0.5 mg 12/28/23 18:10 12/28/23 19:24 Hydromorphone Hcl 0.5 Mg/0.5 Ml Syringe IVPUSH 12/28/23 18:11 0.5 mg ONCE ONE Administration Protocol Sodium Chloride 1,000 mls @ 999 mls/hr 12/28/23 16:35 12/28/23 17:51 Ns IV 12/28/23 17:35 Infused .Q1H1M ONE Infusion Ketorolac Tromethamine 30 mg 12/28/23 13:31 12/28/23 13:54 Ketorolac Tromethamine 30 Mg/Ml Vial IVPUSH 12/28/23 13:32 30 mg ONCE ONE Administration Morphine Sulfate 4 mg 12/28/23 16:35 12/28/23 16:47 Morphine Sulfate 4 Mg/Ml Cartridge IVPUSH 12/28/23 16:36 4 mg ONCE ONE Administration Protocol Medical Decision Making Medical Decision Making [facility] Narrative: This is a 43-year-old male, with a history of kidney stones, who presents emergency department with complaints of left flank pain since yesterday. Patient has a history of kidney stones in symptoms feel similar. On arrival, patient mildly hypertensive at 155/96, all other vital signs within normal limits. Afebrile however appears to be uncomfortable secondary to left-sided flank pain. History of present illness is suspicious for nephrolithiasis. Other differential including obstructive uropathy, acute cystitis. Testicular torsion also considered however on physical exam he has no scrotal tenderness, swelling. This is likely referred pain due to possible kidney stone He also reports testicular pain and swelling. He is not sexually active. Denies any overlying skin changes. Plan: Labs, UA, CT abdomen and pelvis, scrotal ultrasound was ordered prior to my assessment. Differential Diagnosis Differential Diagnoses: The differential diagnosis associated with the presentation includes Lab Data [facility] Lab Attestation statement: I reviewed the patient's lab results. Slight leukocytosis at 12.3, chemistry revealing slight hyperglycemia at 1:44 a.m., urine with large blood, and rbc's. Urine otherwise does not appear to be infected. 12/28/23 11:30 12/28/23 11:30 Labs: Lab Results 12/28/23 12/28/23 Range/Units 11:28 11:30 WBC 12.3 H (4.8-10.8) X10*3/uL RBC 4.69 (4.60-5.80) X10*6/uL Hgb 14.6 (14.0-18.0) g/dl Hct 42.8 (42.0-52.0) % MCV 91.3 (80.0-98.0) fL MCH 31.1 (27.0-33.0) pg MCHC 34.1 (31.0-36.0) g/dl RDW 12.7 (11.0-16.0) % Plt Count 148 L (160-400) X10*3/uL MPV 12.2 (9.4-12.4) fL Immature Gran % (Auto) 0.4 (0.0-0.4) % Neut % (Auto) 85.8 H (45-73) % Lymph % (Auto) 9.8 L (20-40) % Martin % (Auto) 3.4 (2-11) % Eos % (Auto) 0.3 (0-4) % Baso % (Auto) 0.3 (0-2) % Lymph # (Auto) 1.2 (1.2-4.9) X10*3/uL Martin # (Auto) 0.4 (0.1-1.2) X10*3/uL Eos # (Auto) 0.0 (0.0-0.4) X10*3/uL Baso # (Auto) 0.0 (0.0-0.2) X10*3/uL Abs Immat Gran (auto) 0.05 H (0.00-0.03) X10*3/uL Absolute Neuts (auto) 10.6 H (2.0-8.3) x10*3/uL Absolute Nucleated RBC 0.000 (0.0-0.012) X10*3/uL Nucleated RBC % (auto) 0.0 (0.0-0.2) /100WBC ESR 11 (0-15) MM/HR Sodium 138 (135-145) mmol/L Potassium 3.9 (3.3-5.1) mmol/L Chloride 105 (96-108) mmol/L Carbon Dioxide 25 (22-29) mmol/L Anion Gap 12 (12-20) BUN 11 (9-16) mg/dL Creatinine 1.05 (0.5-1.4) mg/dL Estim Creat Clear Calc 95.5 Estimated GFR > 60 Random Glucose 144 H (60-115) mg/dL Calcium 9.6 (8.4-10.2) mg/dL Magnesium 1.8 (1.6-2.6) mg/dL Total Bilirubin 1.0 (0.0-1.0) mg/dL AST 25 (5-37) U/L ALT 19 (0-40) U/L Alkaline Phosphatase 77 (39-117) U/L C-Reactive Protein 0.26 (< or = 0.50) mg/dL Total Protein 7.7 (6.5-8.0) g/dL Albumin 4.5 (3.5-5.0) g/dL Urine Color Yellow Urine Appearance Clear Urine pH >= 9.0 (5.0-9.0) Ur Specific [place] 1.015 (1.005-1.025) Urine Protein Negative (Neg-Trace) mg/dL Urine Glucose (UA) Negative (Negative) mg/dL Urine Ketones Negative (Negative) mg/dL Urine Blood Large (3+) H (Negative) Urine Nitrite Negative (Negative) Ur Leukocyte Esterase Negative (Negative) Urine RBC >20 H (0-2) /HPF Urine WBC 0-5 (0-5) /HPF Ur Squamous Epith Cells 0-2 (0-2) /HPF Urine Bacteria None Seen (None Seen) Hyaline Casts 0-2 (0-2) /LPF Chlam trachomat DNA PCR NOT DETECTED (Not Detect.) N.gonorrhoeae DNA (PCR) NOT DETECTED (Not Detect.) Radiology Impression Discussion of test interpretation with radiology: I have reviewed the radiologist's reading. External Record Review External record reviewed: Inpatient record, Office record, Outpatient record, Prior outpatient labs, Prior outpatient radiology, Primary care record and Outside ED record Discharge Plan Discharge Clinical Impression: Nephrolithiasis Patient Disposition: Home, Self-Care Additional Instructions: You were seen in the emergency department due to left-sided flank pain. Your workup today she was that you have a kidney stone. Please drink plenty of fluids get plenty of rest. Take prescribed medications as directed. Follow-up with urologist. If any new or worsening symptoms occur including but not limited to worsening pain, fevers, chills, chest pain, shortness of breath, please seek emergent care. Prescriptions: New tamsulosin 0.4 mg capsule 0.4 mg PO BEDTIME Qty: 10 0RF prednisone 20 mg tablet 20 mg PO DAILY Qty: 5 0RF naproxen 500 mg tablet 500 mg PO BID PRN (Reason: pain) Qty: 10 0RF No Action gabapentin 600 mg tablet 600 mg PO TID PRN (Reason: postoperative pain) 30 Days Qty: 90 0RF atorvastatin 20 mg tablet 20 mg PO QPM levothyroxine 50 mcg tablet 50 mcg PO QAM acetaminophen [Tylenol Extra Strength] 500 mg tablet 500 mg PO Q6H PRN (Reason: fever or pain) Qty: 30 0RF olanzapine 2.5 mg tablet 2.5 mg PO BEDTIME bupropion HCl 150 mg tablet extended release 24 hr 150 mg PO QAM buprenorphine-naloxone [Suboxone] 12-3 mg film 1 film buccal Q24H metformin 1,000 mg tablet 1,000 mg PO DAILY lurasidone 40 mg tablet 40 mg PO DAILY Interventions: ED Discharge Assessment Last Done: 12/28/23 20:41 Discharge Date/Time: 12/28/23 20:45 Print Language: Ukrainian
[2023-12-28 13:43] LABS: CT PCR NOT DETECTED (Not Detect.); NG PCR NOT DETECTED (Not Detect.)
[2023-12-28] MEDS: Ketorolac Tromethamine 30 MG/ML VIAL IVPUSH (13:54)
[2023-12-28 14:00] VITALS: BP 122/84; PULSE 92; RESP 18; TEMP 36.9; O2SAT 96
[2023-12-28 16:47] VITALS: RESP 18
[2023-12-28] MEDS: Morphine Sulfate 4 MG/ML CARTRIDGE IVPUSH (16:47)
[2023-12-28] MEDS: 0.9 % Sodium Chloride 1,000 ML 999 ML IV (16:47)
[2023-12-28 17:23] VITALS: BP 123/81; PULSE 87; RESP 16; TEMP 36.7; O2SAT 100
[2023-12-28] MEDS: HYDROmorphone HCl 0.5 MG/0.5 ML SYRINGE IVPUSH (19:24)
[2023-12-28 20:21] VITALS: BP 132/82; PULSE 105; RESP 16; TEMP 36.9; O2SAT 98
[2023-12-28 20:41] VITALS: BP 132/82; PULSE 100; RESP 16; TEMP 36.9; O2SAT 98
== END 2023-12-28 20:45 | disposition home or self-care (01) ==
PROVIDERS: Physician Assistant Medical; Emergency Provider Emergency Medicine; PCP Internal Medicine
DX: N20.0 Calculus of kidney (principal); R10.9 Unspecified abdominal pain; M54.9 Dorsalgia, unspecified; E11.9 Type 2 diabetes mellitus without complications
CPT/HCPCS: 36415; 74177; 76870; 80053; 81001; 83735; 85025; 85652; 86140; 87491; 87591; 96361; 96374; 96375; 99284; J1171; J1885; J2270

== ENCOUNTER 2024-03-22 13:17 | Outpatient (REF) | payer MEDICAID, SELFPAY ==
[2024-03-22 14:42] LABS: Microalbum/Creatinine Ratio Ur 11.6 ug/mg cr (<30)
[2024-03-22 14:51] LABS: Alanine Aminotransferase 17 U/L (0-40); Albumin Level 4.2 g/dL (3.5-5.0); Alkaline Phosphatase 81 U/L (39-117); Anion Gap 5 (12-20); Aspartate Amino Transferase 23 U/L (5-37); Bilirubin Total 0.3 mg/dL (0.0-1.0); Blood Urea Nitrogen 11 mg/dL (9-16); Calcium 8.8 mg/dL (8.4-10.2); Carbon Dioxide 30 mmol/L (22-29); Chloride 110 mmol/L (96-108); Cholesterol 147 mg/dL (<200); Estimated Glomerular Filt Rate > 60; Glucose Random 106 mg/dL (60-115); HDL Cholesterol 49 mg/dL (>40); LDL Cholesterol Calculated 77 mg/dL (<100); Potassium 4.3 mmol/L (3.3-5.1); Sodium 141 mmol/L (135-145); Total Protein 7.5 g/dL (6.5-8.0); Triglycerides 108 mg/dL (<150)
[2024-03-22 15:36] LABS: Free T4 (Free Thyroxine) 0.91 ng/dL (0.71-1.85)
== END 2024-03-22 13:18 | disposition home or self-care (01) ==
LOC: HO.CHCLDS 13:17
PROVIDERS: Visit Provider Internal Medicine
DX: E11.9 Type 2 diabetes mellitus without complications (principal)
CPT/HCPCS: 36415; 80053; 80061; 82043; 82570; 84439; 84443

== ENCOUNTER → 2024-04-14 14:55 | Outpatient (REF) | payer MEDICAID, SELFPAY ==
--- OUTSIDE RECORDS SUMMARY | 2024-04-14 14:58 | XMS_ITS | Encounter Summary ---
Author Organization [employer] Address [address] [place] [address] Care Team Providers Care Proofer Name Role Phone Silvano Hinojosa MD Primary Care Prov ider Encounter Details Date Type Department Care Team (Latest Contact Info) Description 03/22/2024 Travel Social History Tobacco Use Types Packs/Day Years Used Date Smoking Tobacco: Former Cigarettes Smokeless Tobacco: Never Alcohol Use Standard Drinks/Week Comments Defer 0 (1 standard drink = 0.6 oz pur e alcohol) Depression Answer Date Recorded Patient Health Questionnaire-9 Score 0 09/01/2022 Housing Stability Answer Date Recorded What is your housing situation today? I have neha lewis 12/25/[address] you li ve. Do you have problems with any of the following? None of the above 12/25/2022 Food Insecurity Answer Date Recorded Within the past 12 months, y ou worried that your food would run out before you got money to buy more: Never True 12/25/2022 Within the past 12 months,th e food you bought just didn't last and you didn't have enough money to get more: Never True Transportation Answer Date Recorded In the past 12 months, has l ack of transportation kept you from medical appts, meetings, work or from getting things needed for daily living? No 12/25/2022 Utilities Answer Date Recorded In the past 12 months, has t he electric, gas, oil or water company threatened to shut off services in your home? No 12/25/2022 Depression Answer Date Recorded Patient Health Questionnaire-2 Score 0 09/01/2022 Internet Access Answer Date Recorded Internet Access Q1 Yes 03/15/2024 Internet Access Q2 Not on file 03/15/2024 Sex and Gender Information Value Date Recorded Sex Assigned at Male 01/06/2022 10:26 AM EDT Legal Sex Male 10:26 AM EDT Gender Identity Choose not to disclose 10:26 AM EDT Sexual Orientation Choose not to disclose 2021 10:26 AM EDT documented as of this encounter Plan of Treatment Upcoming Encounters Date Type Department Care Team (Late st Contact Info) Description 05/23/2024 1:15 PM EDT Clinical Support [address] [id number] Emelia Lincoln RN documented as of this encounter Goals Goal Patient Goal Type Associated Problems Recent Progress Patient-Stated? Author Patient will adhere to medication regimen General On track( 023 10:24 AM EDT) No Filemon Israel, PharmD Hemoglobin A1c < 7 Result Component 6(03/22/2024 1:51 PM EST) No Filemon Israel, PharmD documented as of this encounter Visit Diagnoses Not on filedocumented in this encounter Additional Health Concerns Assessment Noted Time PHQ-9 Depression Total Score: 0 09/02/19 23 11:31 AM EDT documented as of this encounter Care Teams Proofer Relationship Specialty Start Date End Date Silvano Hinojosa MD [address] [place] [phone] PCP - General Internal Medicine 08/02/19 documented as of this encounter
--- OUTSIDE RECORDS SUMMARY | 2024-04-14 14:58 | XMS_ITS | Encounter Summary ---
Author Organization [employer] Address [address] [place] [address] Care Team Providers Care Legal Clerk Name Role Phone Silvano Hinojosa MD Primary Care Prov ider Reason for Visit * Reason Onset Date Comments Med Refill 03/03/2024 Encounter Details Date Type Department Care Team (Late st Contact Info) Description 03/03/2024 Refill [facility] [address] [place] [address] Emelia Lincoln, RN Type 2 diabetes mellitus without complication, without long-term current use of insulin ([facility]); Uncomplicated opioid dependence ([facility]) Social History Tobacco Use Types Packs/Day Years Used Date Smoking Tobacco: Former Cigarettes Smokeless Tobacco: Never Alcohol Use Standard Drinks/Week Comments Defer 0 (1 standard drink = 0.6 oz pur e alcohol) Depression Answer Date Recorded Patient Health Questionnaire-9 Score 0 09/01/2022 Housing Stability Answer Date Recorded What is your housing situation today? I have neha lweis 12/25/[address] you li [...] Description 05/23/2024 1:15 PM EDT Clinical Support [address] [phone] Emelia Lincoln RN documented as of this encounter Goals Goal Patient Goal Type Associated Problems Recent Progress Patient-Stated? Author Patient will adhere to medication regimen General On track( 023 10:24 AM EDT) No Dellogono, Filemon, PharmD Hemoglobin A1c < 7 Result Component 6(03/22/2024 1:51 PM EST) No Dellogono, Filemon, PharmD documented as of this encounter Visit Diagnoses Diagnosis Type 2 diabetes mellitus without complication, without long-term current use of insulin ([facility]) Uncomplicated opioid dependence ([facility]) documented in this encounter Additional Health Concerns Assessment Noted Time PHQ-9 Depression Total Score: 0 09/02/19 23 11:31 AM EDT documented as of this encounter Care Teams Legal Clerk Relationship Specialty Start Date End Date Silvano Hinojosa MD [address] [place] [phone] PCP - General Internal Medicine 08/02/19 documented as of this encounter
--- OUTSIDE RECORDS SUMMARY | 2024-04-14 14:58 | XMS_ITS | Encounter Summary ---
Author Organization [employer] Address [address] [place] [address] Care Team Providers Care Mine Car Repairer Name Role Phone Silvano Hinojosa MD Primary Care Prov ider Encounter Details Date Type Department Care Team (Late st Contact Info) Description 03/22/2024 Orders Only [facility] [address] [place], [place] [phone] Silvano Hinojosa MD [address] [place] [address] Social History Tobacco Use Types Packs/Day Years [...] Description 05/23/2024 1:15 PM EDT Clinical Support [facility] [address] [place] [phone] Emelia Lincoln RN documented as of this encounter Goals Goal Patient Goal Type Associated Problems Recent Progress Patient-Stated? Author Patient will adhere to medication regimen General On track( 023 10:24 AM EDT) No Filemon Israel, PharmD Hemoglobin A1c < 7 Result Component 6(03/22/2024 1:51 PM EST) No Filemon Israel, PharmD documented as of this encounter Procedures Procedure Name Priority Date/Time Associated Diagnosis Comments T4, FREE Routine 03/22/2024 1:19 PM EST documented in this encounter Results * T4, Free (03/22/2024 1:19 PM EST) Free T4 (Free Thyroxine) 0.91 0.71 - 1.85 ng/dL [facility] 03/22/2024 1:19 PM EST 03/22/2024 1:57 PM EST us Silvano James MD LAB BLOOD ORDERABL ES Final Result [facility] [address] [place] [phone] documented in this encounter Visit Diagnoses Not on filedocumented in this encounter Additional Health Concerns Assessment Noted Time PHQ-9 Depression Total Score: 0 09/02/19 23 11:31 AM EDT documented as of this encounter Care Teams Mine Car Repairer Relationship Specialty Start Date End Date Silvano Hinojosa MD [address] [place] [id number] PCP - General Internal Medicine 08/02/19 documented as of this encounter
--- OUTSIDE RECORDS SUMMARY | 2024-04-14 14:58 | XMS_ITS | Encounter Summary ---
Author Organization [employer] [facility] Address [address] [facility] [address] [place] [address] Care Team Providers Care Cloth Edge Singer Name Role Phone Silvano Hinojosa MD Primary Care Prov ider Encounter Details Date Type Department Care Team (Latest Contact Info) Description 03/29/2021 Abstract [facility] CONVERSIONS Dental, Provider, DDS Social History Tobacco Use Types Packs/Day Years Used Date Smoking Tobacco: Never Assessed Sex and Gender Information Value Date Recorded [...] Description 05/23/2024 1:15 PM EDT Clinical Support [facility] MEDICINE [address] [place] [phone] Emelia Lincoln, RN documented as of this encounter Visit Diagnoses Not on filedocumented in this encounter Care Teams Cloth Edge Singer Relationship Specialty Start Date End Date Silvano Hinojosa MD [address] [place] [phone] PCP - General Internal Medicine 08/02/19 Heather Chen Master Control OperatorBack Roll Lathe Operator 04/06/24 documented as of this encounter
--- OUTSIDE RECORDS SUMMARY | 2024-04-14 14:58 | XMS_ITS | Encounter Summary ---
Author Organization [employer] Address [address] [facility] [address] [place] [address] Care Team Providers Care Music Instructor Name Role Phone Silvano Hinojosa MD Primary Care Prov ider Reason for Visit * Reason Comments Pre-visit Planning SDOH negative, Tobac co screening negative. Encounter Details Date Type Department Care Team ([facility] st Contact Info) Description 03/15/2024 Patient Outreach [facility] [address] [place], [place] [phone] Silvano Hinojosa MD [address] [place] [address] Pre-visit Planning (SDOH negative, Tobacco screening negative. ) Social History Tobacco Use Types Packs/Day Years [...] AM EDT documented as of this encounter Progress Notes * Ruth Amaya - 03/15/2024 4:07 PM EST ESTEFANÍA Tsai placed successful outbound call to patient for pre-visit planning. Patient name and confirmed. Patient confirms appt date and time, and has transportation arrangements. Biggest concern for appointment at this time is no concerns. Appropriate screenings completed in anticipation ofappointment. documented in this encounter Plan of Treatment Upcoming Encounters Date Type Department Care Team (Late st Contact Info) Description 05/23/2024 1:15 PM EDT Clinical Support [facility] MEDICINE [address] [place] [phone] Emelia Lincoln RN documented as of this [...] documented as of this encounter Care Teams Music Instructor Relationship Specialty Start Date End Date Silvano Hinojosa MD [address] [place] [phone] PCP - General Internal Medicine 08/02/19 documented as of this encounter
--- OUTSIDE RECORDS SUMMARY | 2024-04-14 14:58 | XMS_ITS | Encounter Summary ---
Author Organization [employer] Address [address] [place] [address] Care Team Providers Care Learning And Development Administrator Name Role Phone Silvano Hinojosa MD Primary Care Prov ider Reason for Visit * Reason Comments Care Coordination [facility] care plan Encounter Details Date Type Department Care Team (Late st Contact Info) Description 04/06/2024 Telephone [facility] MEDICINE [address] [place], [place] [phone] Silvano Hinojosa MD [address] [place], [place] [phone] Care Coordination ([facility] care plan) Social History Tobacco Use Types Packs/Day Years [...] as of this encounter Progress Notes * Neva Bill - 04/06/2024 9:47 AM EST PCP Designee has received and reviewed Care Plan from [facility]: Proposal Coordinator: Heather Chen Contact Information: [phone] Care Plan scanned into patient's EHR and notification sent to PCP. documented in this encounter Plan of Treatment Upcoming Encounters Date Type Department Care Team (Late st Contact Info) Description 05/23/2024 1:15 PM EDT Clinical Support [address] [phone] Emelia Lincoln RN documented as of this [...] documented as of this encounter Care Teams Learning And Development Administrator Relationship Specialty Start Date End Date Silvano Hinojosa MD [address] [place] [phone] PCP - General Internal Medicine 08/02/19 Heather Chen Lumber Press OperatorHeating Operators Engineer 04/06/24 documented as of this encounter
--- OUTSIDE RECORDS SUMMARY | 2024-04-14 14:58 | XMS_ITS | Clinical Summary ---
Author Organization [employer] Address [address] [facility] 7[address] [place] [address] Care Team Providers Care Polymerization Helper Name Role Phone Silvano Hinojosa MD Primary Care Prov ider Allergies No known active allergies Medications buPROPion XL (Wellbutrin XL) 150 MG 24 hr tablet Take 150 mg by mouth in the morning. 023 Active doxepin (SINEquan) 10 MG capsule Take 10 mg by mouth if needed at bedtime. 023 Active lurasidone (Latuda) 20 MG tablet Take 20 mg by mouth with breakfast. Active nystatin (Mycostatin) 962399 UNIT/GM powder APPLY TO THE AFFECTED AREA(S) THREE TIMES DAILY 30 g 1 023 Active metFORMIN (Glucophage) 1000 MG tabletIndications :Type 2 diabetes mellitus without complication, without long-term current use of insulin (CMS/[facility]) TAKE ONE TABLET BY MOUTH IN THE MORNING AND EVENING WITH MEALS 60 tablet 11 024 Active FREESTYLE LITE test stripIndications: Type 2 diabetes mellitus without complication, without long-term current use of insulin (CMS/HCC) TEST BLOOD SUGAR THREE TIMES DAILY 100 strip 024 Active TRUEplus Lancets 33G miscIndications:T ype 2 diabetes mellitus without complication, without long-term current use of insulin (CMS/HCC) TEST BLOOD SUGAR THREE TIMES DAILY 100 each Active docusate sodium (Colace) 100 MG capsule TAKE ONE CAPSULE TWICE DAILY IN THE MORNING AND AT BEDTIME NEEDED FOR CONSTIPATION 60 capsule 3 024 Active atorvastatin (Lipitor) 20 MG tabletIndications :Mixed hyperlipidemia TAKE ONE TABLET EVERY EVENING 90 tablet 1 024 Active levothyroxine (Synthroid, Levoxyl) 50 MCG tabletIndications :Acquired hypothyroidism TAKE ONE TABLET EVERY MORNING BEFORE BREAKFAST 90 tablet 1 024 Active buprenorphine-nal oxone (Suboxone) 4-1 MG per sublingual filmIndications:T ype 2 diabetes mellitus without complication, without long-term current use of insulin (CMS/HCC),Uncompl icated opioid dependence (CMS/HCC) Place 1 Film under the tongue Once per day. 28 Film 1 025 2024 Active Blood Glucose Monitoring Suppl (FreeStyle Hendricks Lite) w/Device kitIndications:Ty pe 2 diabetes mellitus without complication, without long-term current use of insulin (CMS/HCC) TEST BLOOD SUGAR THREE TIMES DAILY 1 kit 025 Active Blood Glucose Monitoring Suppl (FreeStyle Hendricks) kitIndications:Ty pe 2 diabetes mellitus without complication, without long-term current use of insulin (CMS/HCC) 1 Units 3 times daily. 1 kit 023 2024 Discontinued buprenorphine-nal oxone (Suboxone) 4-1 MG per sublingual filmIndications:T ype 2 diabetes mellitus without complication, without long-term current use of insulin (CMS/HCC),Uncompl icated opioid dependence (CMS/HCC) Place 1 Film under the tongue Once per day for 25 days. 25 Film 024 2024 Discontinued(R eorder (will not trigger notification to Pharmacy)) Active Problems Problem Noted Date Diagnosed Date Kidney stone 08/17/2023 Mood disorder 05/19/2022 Opioid dependence in remission 05/19/2022 Chronic back pain greater than 3 months duration 05/19/2022 Type 2 diabetes mellitus wit h other specified complication, without long-term current use of insulin 04/15/2022 Assessment & Plan (03/22/2024 2:30 PM EST): On metformin 500mg, A1c 6.0%, encouraged low carb/no sugar diet, encouraged weight loss and exercise Assessment & Plan (10/16/2023 9:50 AM EDT): Controlled, A1c 5.6%, pending eye exam. Continue metformin, will consider in the future if patient keep improving his lifestyle discontinuing medication Assessment & Plan (06/15/2023 9:38 AM EDT): Controlled, on metformin, A1c today was 5.85, continue current diet/exercise, no changes will be made Pending eye exam Assessment & Plan (02/26/2023 2:01 PM EST): Controlled, no reported episode of hypoglycemia, A1c from 11/2022 was <7.0, continue lifestyle modifications and follow up in 3 months Assessment & Plan (11/20/2022 1:31 PM EDT): Controlled, his a1c is 6.0%, reinforced importance of diet/weight loss/exercise, continue same treatment He will schedule appointment for eye exam Foot exam remarkable for tinea, will order clotrimazole Assessment & Plan (09/01/2022 12:01 PM EDT): Blood work is pending, continue metformin 1000mg bid, reinforced low carb/no sugar diet, will follow up in 3 months Assessment & Plan (06/04/2022 3:31 PM EDT): Pm number in the 170's, reinforced importance of weight loss/diet and exercise, he refer has lost almost 10lbs in 1 month. Will increase metformin to 1000mg bid, follow up in 3 months Assessment & Plan (04/15/2022 10:54 PM EST): Patient oreinted of lab results, will start on metformin 500mg BID, diet and exercise reinforced, will follow up in 1month Acquired hypothyroidism 04/15/2022 Assessment & Plan (03/22/2024 2:29 PM EST): Labs done today, he has gaied >15lbs since last visit, Assessment & Plan (10/16/2023 9:47 AM EDT): New labs ordered for guidance of therapy, clinically euthyroid Assessment & Plan (06/15/2023 9:24 AM EDT): On levothyroxine, new labs ill be ordered for guidance of therapy, no clinical sign of hypothyroidism Assessment & Plan (02/26/2023 2:01 PM EST): Clinically and chemically euthyroid, will follow up in 3 months Assessment & Plan (11/20/2022 1:31 PM EDT): Clinically euthyroid, will order new labs Assessment & Plan (06/04/2022 3:31 PM EDT): Will place new tsh order for guidance of therapy Assessment & Plan (04/15/2022 10:54 PM EST): Labs reviewed, will start on levothyroxine 50mcg, repeat labs in 6 weeks Mixed hyperlipidemia 04/03/2022 Assessment & Plan (03/22/2024 2:31 PM EST): Pending new lab results on atorvastatin, no changes will be made Assessment & Plan (10/16/2023 9:50 AM EDT): New labs ordered for guidance of therapy Assessment & Plan (06/15/2023 9:38 AM EDT): New labs ordered for guidance of therapy Assessment & Plan (11/20/2022 1:32 PM EDT): On statin therapy, new labs will be ordered for guidance Assessment & Plan (09/01/2022 12:02 PM EDT): Labs ordered pending, will follow up for guidance of therapy Assessment & Plan (06/04/2022 3:31 PM EDT): On atorvastatin 20mg, refers taking it daily will follow up in 3 months Assessment & Plan (04/15/2022 10:55 PM EST): Due to Dm, ldl target <70, will start on atorvastatin 20mg, repeat labs in 2-3 months Assessment & Plan (04/03/2022 1:58 PM EST): Patient refers he is not taking atorvastatin daily as prescribed, reinforced importance of medication adherance, will order new labs and follow up in 3 months Chronic midline low back pain without sciatica 0 04/03/2022 Assessment & Plan (04/03/2022 1:59 PM EST): Patient underwent surgery on November, pain has continued, will order meloxicam, saw his surgeon. Encounters Date Type Department Care Team Description 04/06/2024 Telephone [facility] [address] [place] [address] Silvano Hinojosa MD Care Coordination ([facility] care plan) 03/25/2024 10:00 AM EST Telemedicine [facility] [address] [place] [phone] Emelia Lincoln RN Uncomplicated opioid dependence (CMS/HCC) 03/25/2024 Refill [facility] [address] [place] [address] Silvano Hinojosa MD Type 2 diabetes mellitus without complication, without long-term current use of insulin (CMS/HCC) 03/25/2024 Travel 03/25/2024 Refill [facility] [address] [place] [address] Emelia Lincoln RN Type 2 diabetes mellitus without complication, without long-term current use of insulin (CMS/HCC); Uncomplicated opioid dependence (CMS/HCC) 03/22/2024 1:30 PM EST Office Visit [facility] [address] [place] [address] Silvano Hinojosa MD Acquired hypothyroidism (Primary Dx); Type 2 diabetes mellitus without complication, without long-term current use of insulin (CMS/HCC); Dietary counseling; Exercise counseling; Uncomplicated opioid dependence (CMS/HCC); Type 2 diabetes mellitus with other specified complication, without long-term current use of insulin (CMS/HCC); Mixed hyperlipidemia 03/22/2024 Orders Only [facility] [address] [place] [address] Silvano Hinojosa MD 03/22/2024 Travel 03/15/2024 Patient Outreach [facility] [address] [place] [address] Silvano Hinojosa MD Pre-visit Planning (SDOH negative, Tobacco screening negative. ) 03/03/2024 Refill [facility] [address] [place] [address] Emelia Lincoln RN Type 2 diabetes mellitus without complication, without long-term current use of insulin (CMS/HCC); Uncomplicated opioid dependence (CMS/HCC) 03/03/2024 Refill [facility] [address] [place] [address] Emelia Lincoln RN Type 2 diabetes mellitus without complication, without long-term current use of insulin (CMS/HCC); Uncomplicated opioid dependence (CMS/HCC) 03/03/2024 Refill [facility] [address] [place] [phone] Emelia Lincoln RN Type 2 diabetes mellitus without complication, without long-term current use of insulin (CMS/HCC); Uncomplicated opioid dependence (CMS/HCC) 03/02/2024 Refill [facility] [address] [place] [address] Silvano Hinojosa MD Mixed hyperlipidemia; Acquired hypothyroidism 02/24/2024 Travel 02/15/2024 Refill [facility] [address] [place] [address] mEelia Lincoln RN Type 2 diabetes mellitus without complication, without long-term current use of insulin (CMS/HCC); Uncomplicated opioid dependence (CMS/HCC) 02/01/2024 Patient Outreach [facility] [address] [place] [address] Silvano Hinojosa MD Pre-visit Planning (SDOH unable to reach LVM) 02/01/2024 Patient Outreach [facility] [address] [place] [address] Mariza Campos 01/25/2024 Refill [facility] [address] [place] [address] Emelia Lincoln RN Type 2 diabetes mellitus without complication, without long-term current use of insulin (CMS/HCC); Uncomplicated opioid dependence ([facility]) 01/13/2024 Travel from Last 3 Months Immunizations Name Administration Dates Next Due Edwina Covid-19 Vaccine 12+ 09/13/2020,08/16/19 21 Tdap 07/09/2018 Social History Tobacco Use Types Packs/Day Years Used Date Smoking Tobacco: Former Cigarettes Smokeless Tobacco: Never Tobacco Cessation:Counseling Given: Not Answered Alcohol Use Standard Drinks/Week Comments Defer 0 [...] not to disclose 2021 10:26 AM EDT Last Filed Vital Signs Vital Sign Reading Time Taken Comments Blood Pressure 124/87 03/22/2024 1:45 PM EST Pulse 96 03/22/2024 1:45 PM EST Temperature 37.1 ??C (98.7 ??F) 03/22/2024 1:45 PM ES T Respiratory Rate 20 03/22/2024 1:45 PM EST Oxygen Saturation 98% 10/16/2023 9:21 AM EDT Inhaled Oxygen Concentration - - Weight 99.8 kg (220 lb) 03/22/2024 1:45 PM EST Height 162.6 cm (5' 4 ) 03/22/2024 1:45 PM EST Body Mass Index 37.76 03/22/2024 1:45 PM EST Plan of Treatment Upcoming Encounters Date Type Department Care Team (Late st Contact Info) Description 05/23/2024 1:15 PM EDT Clinical Support [address] [phone] Emelia Lincoln, YAQUELIN Health Maintenance Due Date Last Done Comments Eye Exam 1991 Alcohol/Substance Use Screening 1993 Family Planning (PISQ) 1996 Hepatitis B Vaccines (1 of 3 - 19+ 3-dose series) 2000 Pneumococcal Vaccine: Pediatrics (0 to 5 Years) and At-Risk Patients (6 to 49) Years) (1 of 2 - PCV) 2000 Depression Screening 09/02/2023 09/01/2022, 09/02/19 23 COVID-19 Vaccine (2023- season) 2023 09/13/2020, 08/15/2020 Influenza Vaccine (#1) 2023 Diabetes: Foot Exam 11/21/2023 11/20/2022, 11/20/2022, 11/20/2022, Additional history exists Diabetes: Hemoglobin A1C 09/19/202403/22/2 025, 10/16/2023, 06/15/2023, Additional history exists Tobacco Screening 12/06/2024 12/07/2023 SDOH Screening 03/15/2025 03/15/2024 Diabetes: Urine Protein Screening 03/22/2025 03/22/2024, 11/20/2022 Lipid Panel 03/22/2025 03/22/2024, 08/0 11/2023, 11/20/2022, Additional history exists DTaP/Tdap/Td Vaccines (2 - Td or Tdap) 07/09/2028 07/09/2018 Zoster Vaccines (1 of 2) 2031 RSV Patients and Patients Aged 60 years or older (1 - 1-dose 75+ series) 2056 HIV Screening Completed 05/25/2023, 03/2022, 06/11/2021 Hepatitis C Screening Completed 05/25/2023 , 2022, 06/11/2021 HIB Vaccines Aged Out No longer eligi ble based on patient's age to complete this topic HPV Vaccines Aged Out No longer eligi ble based on patient's age to complete this topic Hepatitis A Vaccines Aged Out No long er eligible based on patient's age to complete this topic IPV Vaccines Aged Out No longer eligi ble based on patient's age to complete this topic Meningococcal Vaccine Aged Out No terrence ruben eligible based on patient's age to complete this topic RSV under 20 months Aged Out No longe r eligible based on patient's age to complete this topic Rotavirus Vaccines Aged Out No longer eligible based on patient's age to complete this topic Goals Goal Patient Goal Type Associated Problems Recent Progress Patient-Stated? Author Patient will adhere to medication regimen General On track( 023 10:24 AM EDT) No Filemon Israel PharmD Hemoglobin A1c < 7 Result Component 6(03/22/2024 1:51 PM EST) No Filemon Israel PharmD Procedures Procedure Name Priority Date/Time Associated Diagnosis Comments POCT GLYCATED HEMOGLOBIN, TOTAL Routine 03/22/2024 1:51 PM EST Type 2 diabetes mellitus without complication, without long-term current use of insulin ([facility]) POCT GLUCOSE Routine 03/22/2024 1:50 PM EST Type 2 diabetes mellitus without complication, without long-term current use of insulin ([facility]) ALBUMIN, RANDOM URINE W/CREATININE Routine 03/22/2024 1:22 PM EST Type 2 diabetes mellitus without complication, without long-term current use of insulin ([facility]) T4, FREE Routine 03/22/2024 1:19 PM EST TSH W/REFLEX TO FT4 Routine 03/22/2024 1 :19 PM EST Type 2 diabetes mellitus without complication, without long-term current use of insulin (CMS/HCC) LIPID PANEL, STANDARD Routine 03/22/2024 1:19 PM EST Type 2 diabetes mellitus without complication, without long-term current use of insulin (CMS/HCC) COMPREHENSIVE METABOLIC PANEL Routine 03/22/2024 1:19 PM EST Type 2 diabetes mellitus without complication, without long-term current use of insulin (CMS/HCC) HEPATITIS C AB W/REFL TO HCV RNA, QN, PCR Routine 05/25/2023 1:54 PM EDT HIV 1/2 ANTIGEN/ANTIBODY, FOURTH GENERATION W/RFL Routine 05/25/2023 1:54 PM EDT from Last 3 Months or Most Recently Relevant to Health Maintenance Results * POCT HGB A1C (03/22/2024 1:51 PM EST) Hemoglobin A1C 6.0 4.0 - 6.0 % QC Media Lot # [id number] Lot# Expiration Date 8 Blood 03/22/2024 1:51 PM EST Silvano James MD POINT OF CARE TEST ENTER/EDIT ORDERABLES Final Result * POCT Glucose (03/22/2024 1:50 PM EST) Glucose Blood, POC 123 60 - 200 mg/dL QC Media Lot # [id number] Lot# Expiration Date 4,025 Blood Capillary blood specimen / Unknown 03/22/2024 1:50 PM EST Silvano James MD POINT OF CARE TEST ENTER/EDIT ORDERABLES Final Result * Albumin, Random Urine W/Creatinine (03/22/2024 1:22 PM EST) Creatinine, Urine 111.50 mg/dL [facility] Microalbumin Urine 13.0 mg/L [facility] Microalbum Creatinine Ratio Ur 11.6 <30 ug/mg cr [facility] Comment:Albumin/Creatinine R atio Reference Ranges: Normal: < 30 ug/mg creatinine Microalbuminuria: 30 - 300 ug/mg creatinineClinical Albuminuria: > 300 ug/mg creatinine Urine (Urine, Random) 03/22/2024 1:22 PM EST 03/22/2024 1:55 PM EST Silvano James MD LAB URINE ORDERABL ES Final Result Performing Organization Address [facility] de Phone Number [facility] [address] [place] [phone] * (ABNORMAL) TSH W/Reflex to FT4 (03/22/2024 1:19 PM EST) TSH reflex Free T4 5.10(H) 0.32 - 4.0 uIU/mL [facility] Blood Venous blood specimen / Unknown 03/22/2024 1:19 PM EST 03/22/2024 1:57 PM EST Silvano James MD LAB BLOOD ORDERABL ES Final Result Performing Organization Address [facility] Co de Phone Number [facility] [address] [place] [phone] * T4, Free (03/22/2024 1:19 PM EST) Free T4 (Free Thyroxine) 0.91 0.71 - 1.85 ng/dL [facility] 03/22/2024 1:19 PM EST 03/22/2024 1:57 PM EST Silvano James MD LAB BLOOD ORDERABL ES Final Result Performing Organization Address [facility] Co de Phone Number [facility] [address] [place] [address] [phone] * Lipid Panel, Standard (03/22/2024 1:19 PM EST) Triglycerides 108 <150 mg/dL [facility] Comment:Desirable Triglyceri de: less than 150 mg/dLBorderline High Triglyceride 150-199 mg/dLHigh Triglyceride: 200-499 mg/dLVery High Triglyceride: greater than or equal to 5OO mg/dL Cholesterol 147 <200 mg/dL [facility] Comment:Desirable Cholestero l: less than 200 mg/dLBorderline High Cholesterol: 200-239 mg/dLHigh Cholesterol: greater than 239 mg/dL LDL Cholesterol Calculated 77 <100 mg/dL [facility] Comment:Desirable LDL: less than 100 mg/dLNear Optimal/Above Optimal LDL: 110- 129 mg/dLBorderline High LDL: 130-159 mg/dLHigh LDL: 160-189 mg/dLVery High LDL: greater than or equal to 190 mg/dL HDL Cholesterol 49 >40 mg/dL [facility] Comment:Desirable HDL: great er than 40 mg/dL Note: This HDL assay may give artificially low results in patients with liver disease. Blood Venous blood specimen / Unknown 03/22/2024 1:19 PM EST 03/22/2024 1:57 PM EST us Silvano James MD LAB BLOOD ORDERABL ES Final Result [facility] [address] [place] [phone] * (ABNORMAL) Comprehensive Metabolic Panel (03/22/2024 1:19 PM EST) Sodium 141 135 - 145 mmol/L [facility] Potassium 4.3 3.3 - 5.1 mmol/L [facility] Chloride 110(H) 96 - 108 mmol/L [facility] Carbon Dioxide 30(H) 22 - 29 mmol/L [facility] Anion Gap 5(L) 12 - 20 [facility] Urea Nitrogen (BUN) 11 9 - 16 mg/dL [facility] Creatinine, Serum 0.95 0.5 - 1.4 mg/dL [facility] Estimated Glomerular Filt Rate >60 [facility] Comment:Chronic Kidney Disea se: Estimated GFR < 60 mL/min/[id number] Kidney Disease: Estimated GFR < 15 mL/min/1.73m2 Glucose 106 60 - 115 mg/dL [facility] Calcium 8.8 8.4 - 10.2 mg/dL [facility] Bilirubin, Total 0.3 0.0 - 1.0 mg/dL [facility] Aspartate Amino Transferase 23 5 - 37 U/L [facility] Alanine Aminotransferase 17 0 - 40 U/L [facility] Total Protein 7.5 6.5 - 8.0 g/dL [facility] Albumin Level 4.2 3.5 - 5.0 g/dL [facility] Alkaline Phosphatase 81 39 - 117 U/L [facility] Blood Venous blood specimen / Unknown 03/22/2024 1:19 PM EST 03/22/2024 1:57 PM EST us Silvano James MD LAB BLOOD ORDERABL ES Final Result Performing Organization Address [facility] Co de Phone Number [facility] [address] [place] [phone] * Hepatitis C Antibody with Reflex to HCV, RNA, Quantitative, Real-Time PCR (05/25/2023 1:54 PM EDT) Hepatitis C Antibody Nonreactive Nonreactive [facility] Comment:Antibodies to HCV no t detected; does not exclude early acuteHCV infection. 05/25/2023 1:54 PM EDT 05/25/2023 4:05 PM EDT us Trace Singh MD LAB BLOOD ORDERABLES Final Resul t Performing Organization Address City/[facility]/ZIP Co de Phone Number [facility] [address] [place] [phone] * HIV-1/2 Antigen and Antibodies, Fourth Generation, with Reflexes (05/25/2023 1:54 PM EDT) HIV AB/AG Nonreactive Nonreactive [facility] Comment:HIV-1 p24 Ag and/or HIV-1/HIV-2 Ab not detected.A test result that is nonreactive does not exclude thepossibility of exposure to or infection with HIV-1 and/orHIV-2. Nonreactive results in this assay for individualswith prior exposure to HIV-1 and/or HIV-2 may be due toantigen and antibody levels that are below the limit ofdetection of this assay.The Gen One Cig HIV Ag/Ab Combo assay result andsupplemental assay results should be interpreted inconjunction with the patient's clinical presentation,history and other laboratory results. If the results areinconsistent with clinical evidence, additional testing issuggested to confirm the result. 05/25/2023 1:54 PM EDT 05/25/2023 4:05 PM EDT us Trace Singh MD LAB BLOOD ORDERABLES Final Resul t [facility] [address] [place] [phone] from Last 3 Months or Most Recently Relevant to Health Maintenance Insurance [employer] Care Teams Polymerization Helper Relationship Specialty Start Date End Date PalaciosSilvano Francisco MD [address] [place] [address] GAIL Villanueva PCP - General Internal Medicine 08/02/19 Heather Chen Wrapping ClerkCoupon Redemption Clerk 04/06/24
--- OUTSIDE RECORDS SUMMARY | 2024-04-14 14:58 | XMS_ITS | Encounter Summary ---
Author Organization [employer] Address [address] [place] [address] Care Team Providers Care Director [facility] Name Role Phone Silvano Hinojosa MD Primary Care Prov ider Reason for Visit * Reason Onset Date Comments Med Refill 03/03/2024 Encounter Details Date Type Department Care Team (Late st Contact Info) Description 03/03/2024 Refill [facility] [address] [place] [address] Emelia Lincoln, RN Type 2 diabetes mellitus without complication, without long-term current use of insulin ([facility]); Uncomplicated opioid dependence ([facility]) Social History Tobacco Use Types Packs/Day [...] Description 05/23/2024 1:15 PM EDT Clinical Support [address] [address] Emelia Lincoln RN documented as of this [...] complication, without long-term current use of insulin (CMS/[facility]) Uncomplicated opioid dependence (CMS/[facility]) documented in this encounter Additional Health Concerns Assessment Noted Time PHQ-9 Depression Total Score: 0 09/02/19 23 11:31 AM EDT documented as of this encounter Care Teams Director Of [facility] Relationship Specialty Start Date End Date Silvano Hinojosa MD [address] [place] [phone] PCP - General Internal Medicine 08/02/19 documented as of this encounter
--- OUTSIDE RECORDS SUMMARY | 2024-04-14 14:58 | XMS_ITS | Encounter Summary ---
Author Organization [employer] Address [address] 7t [place] [address] Care Team Providers Care Science Faculty Member Name Role Phone Silvano Hinojsoa MD Primary Care Prov ider Reason for Visit * Reason Onset Date Comments Med Refill 03/25/2024 Encounter Details Date Type Department Care Team (Late st Contact Info) Description 03/25/2024 Refill [facility] MEDICINE [address] [place] [address] Emelia Lincoln, RN Type 2 diabetes mellitus without complication, without long-term current use of insulin ([facility]); Uncomplicated opioid dependence ([facility]) Social History Tobacco Use Types Packs/Day Years [...] Description 05/23/2024 1:15 PM EDT Clinical Support [address] [address] Emelia Lincoln RN documented as of this [...] complication, without long-term current use of insulin (CMS/[facility]) Uncomplicated opioid dependence (CMS/[facility]) documented in this encounter Additional Health Concerns Assessment Noted Time PHQ-9 Depression Total Score: 0 09/02/19 23 11:31 AM EDT documented as of this encounter Care Teams Science Faculty Member Relationship Specialty Start Date End Date Silvano Hinojosa MD [address] [place] [phone] PCP - General Internal Medicine 08/02/19 documented as of this encounter
--- OUTSIDE RECORDS SUMMARY | 2024-04-14 14:58 | XMS_ITS | Encounter Summary ---
Author Organization [employer] Address [address] [facility] 7t [place] [address] Care Team Providers Care County Administrator Name Role Phone Silvano Hinojosa MD Primary Care Prov ider Encounter Details Date Type Department Care Team (Latest Contact Info) Description 03/22/2024 1:30 PM EST Office Visit [facility] MED & PEDS [address] [place], [place] [phone] Silvano Hinojosa MD [address] [place] [address] Acquired hypothyroidism (Primary Dx); Type 2 diabetes mellitus without complication, without long-term current use of insulin (CMS/HCC); Dietary counseling; Exercise counseling; Uncomplicated opioid dependence (CMS/HCC); Type 2 diabetes mellitus with other specified complication, without long-term current use of insulin (CMS/HCC); Mixed hyperlipidemia Social History Tobacco Use Types Packs/Day Years [...] AM EDT documented as of this encounter Last Filed Vital Signs Vital Sign Reading Time Taken Comments Blood Pressure 124/87 03/22/2024 1:45 PM EST Pulse 96 03/22/2024 1:45 PM EST Temperature 37.1 ??C (98.7 ??F) 03/22/2024 1:45 PM ES T Respiratory Rate 20 03/22/2024 1:45 PM EST Oxygen Saturation - - Inhaled Oxygen Concentration - - Weight 99.8 kg (220 lb) 03/22/2024 1:45 PM EST Height 162.6 cm (5' 4 ) 03/22/2024 1:45 PM EST Body Mass Index 37.76 03/22/2024 1:45 PM EST documented in this encounter Progress Notes * Silvano James MD - 03/22/2024 1:30 PM EST Subjective Patient ID: Olya Chen is a 43 y.o. adult who presents for No chief complaint on file.. Diabetes Olya presents for Olya's follow-up diabetic visit. Olya has type 2 diabetes mellitus. Olya's disease course has been stable. Pertinent negatives for diabetes include no fatigue, no foot paresthesias, no foot ulcerations, no polydipsia, no polyphagia, no polyuria and no visual change. Thyroid Problem Presents for follow-up visit. Symptoms include weight gain. Patient reports no depressed mood, fatigue, hoarse voice, palpitations or visual change. Review of Systems Constitutional: Positive for weight gain. Negative for fatigue. HENT: Negative for hoarse voice. Cardiovascular: Negative for palpitations. Endocrine: Negative for polydipsia, polyphagia and polyuria. Objective Physical Exam Constitutional: Appearance: Normal appearance. Cardiovascular: Rate and Rhythm: Normal rate and regular rhythm. Heart sounds: No murmur heard. Pulmonary: Effort: Pulmonary effort is normal. No respiratory distress. Breath sounds: No stridor. No wheezing or rhonchi. Neurological: General: No focal deficit present. Mental Status: Yasmell is alert and oriented to person, place, and time. Psychiatric: Mood and Affect: Mood normal. Behavior: Behavior normal. Assessment/Plan Problem List Items Addressed This Visit Mixed hyperlipidemia Pending new lab results on atorvastatin, no changes will be made Type 2 diabetes mellitus with other specified complication, without long-term current use of insulin (CMS/HCC) On metformin 500mg, A1c 6.0%, encouraged low carb/no sugar diet, encouraged weight loss and exercise Acquired hypothyroidism - Primary Labs done today, he has gaied >15lbs since last visit, Other Visit Diagnoses Dietary counseling Exercise counseling Uncomplicated opioid dependence (CMS/HCC) documented in this encounter Miscellaneous Notes * Assessment & Plan Note - Silvano James MD - 03/22/2024 2:31 PM ESTAssociated Problem(s): Mixed hyperlipidemia Pending new lab results on atorvastatin, no changes will be made * Assessment & Plan Note - Silvano James MD - 03/22/2024 2:30 PM ESTAssociated Problem(s): Type 2 diabetes mellitus with other specified complication, without long-term current use of insulin (CMS/HCC) On metformin 500mg, A1c 6.0%, encouraged low carb/no sugar diet, encouraged weight loss and exercise * Assessment & Plan Note - Silvano James MD - 03/22/2024 2:29 PM ESTAssociated Problem(s): Acquired hypothyroidism Labs done today, he has gaied >15lbs since last visit, documented in this encounter Plan of Treatment Upcoming Encounters Date Type Department Care Team (Late st Contact Info) Description 05/23/2024 1:15 PM EDT Clinical Support [facility] MEDICINE [address] [place] [phone] Emelia Lincoln RN documented as of this encounter Goals Goal Patient Goal Type Associated Problems Recent Progress Patient-Stated? Author Patient will adhere to medication regimen General On track( 023 10:24 AM EDT) No Filemon Israel PharmD Hemoglobin A1c < 7 Result Component 6(03/22/2024 1:51 PM EST) No Filemon Israel PharmD documented as of this encounter Procedures Procedure Name Priority Date/Time Associated Diagnosis Comments POCT GLYCATED HEMOGLOBIN, TOTAL Routine 03/22/2024 1:51 PM EST Type 2 diabetes mellitus without complication, without long-term current use of insulin ([facility]) POCT GLUCOSE Routine 03/22/2024 1:50 PM EST Type 2 diabetes mellitus without complication, without long-term current use of insulin ([facility]) documented in this encounter Results * POCT HGB A1C (03/22/2024 1:51 PM EST) Hemoglobin A1C 6.0 4.0 - 6.0 % QC Media Lot # [id number] Lot# Expiration Date Blood 03/22/2024 1:51 PM EST us Silvano James MD POINT OF CARE TEST ENTER/EDIT ORDERABLES Final Result * POCT Glucose (03/22/2024 1:50 PM EST) Glucose Blood, POC 123 60 - 200 mg/dL QC Media Lot # [id number] Lot# Expiration Date Blood Capillary blood specimen / Unknown 03/22/2024 1:50 PM EST Silvano James MD POINT OF CARE TEST ENTER/EDIT ORDERABLES Final Result documented in this encounter Visit Diagnoses Diagnosis Acquired hypothyroidism- Primary Unspecified hypothyroidism Type 2 diabetes mellitus without complication, without long-term current use of insulin ([facility]) Dietary counseling Dietary surveillance and counseling Exercise counseling Uncomplicated opioid dependence ([facility]) Type 2 diabetes mellitus with other specified complication, without long-term current use of insulin ([facility]) Mixed hyperlipidemia documented in this encounter Additional Health Concerns Assessment Noted Time PHQ-9 Depression Total Score: 0 09/02/19 23 11:31 AM EDT documented as of this encounter Care Teams County Administrator Relationship Specialty Start Date End Date Silvano Hinojosa MD [address] [place] [id number] PCP - General Internal Medicine 08/02/19 documented as of this encounter
--- OUTSIDE RECORDS SUMMARY | 2024-04-14 14:58 | XMS_ITS | Encounter Summary ---
Author Organization [employer] Address [address] [facility] 7t [place] [address] Care Team Providers Care Cloth Cutting Inspector Name Role Phone Silvano Hinojosa MD Primary Care Prov ider Encounter Details Date Type Department Care Team ([facility] Contact Info) Description 06/13/2022 Orders Only [facility] CH[facility] MED & PEDS [address] [place], [place] [phone] Silvano Hinojosa MD [address] [place] [address] Social History Tobacco Use Types Packs/Day Years Used Date Smoking Tobacco: Every Day Cigarettes Smokeless Tobacco: Never Alcohol Use Standard Drinks/Week Comments Defer 0 (1 standard drink = 0.6 oz pur e alcohol) Sex and Gender Information Value Date Recorded Sex Assigned at Male 01/06/2022 10:26 AM EDT Legal Sex Male 10:26 AM EDT Gender Identity Choose not to disclose 10:26 AM EDT Sexual Orientation Choose not to disclose 2021 10:26 AM EDT COVID-19 Exposure Response Date Recorded In the last 10 days, have yo u been in contact with someone who was confirmed or suspected to have Coronavirus/COVID-19? No / Unsure 06/13/2022 10:46 AM EDT documented as of this encounter Plan of Treatment Upcoming Encounters Date Type Department Care Team ([facility] Contact Info) Description 05/23/2024 1:15 PM EDT Clinical Support [facility] MEDICINE [address] [place], [place] [phone] Emelia Lincoln, YAQUELIN documented as of this encounter Goals Goal Patient Goal Type Associated Problems Recent Progress Patient-Stated? Author Patient will adhere to medication regimen General On track( 023 10:24 AM EDT) No Dellogono, Filemon, PharmD Hemoglobin A1c < 7 Result Component 6(03/22/2024 1:51 PM EST) No Filemon Israel, PharmD documented as of this encounter Visit Diagnoses Not on filedocumented in this encounter Care Teams Cloth Cutting Inspector Relationship Specialty Start Date End Date Silvano Hinojosa MD [address] [place] [address] PCP - General Internal Medicine 08/02/19 Heather Chen Swim InstructorResearch Laboratory Manager 04/06/24 documented as of this encounter
--- OUTSIDE RECORDS SUMMARY | 2024-04-14 14:58 | XMS_ITS | Encounter Summary ---
Author Organization [employer] Address [address] [place] [address] Care Team Providers Care Paramedical Aide Name Role Phone Silvano Hinojosa MD Primary Care Prov ider Encounter Details Date Type Department Care Team (Latest Contact Info) Description 03/25/2024 Travel Social History Tobacco Use Types Packs/Day [...] Description 05/23/2024 1:15 PM EDT Clinical Support [address] [address] Emelia Lincoln RN documented as of this [...] documented as of this encounter Care Teams Paramedical Aide Relationship Specialty Start Date End Date Silvano Hinojosa MD [address] [place] [phone] PCP - General Internal Medicine 08/02/19 documented as of this encounter
--- OUTSIDE RECORDS SUMMARY | 2024-04-14 14:58 | XMS_ITS | Encounter Summary ---
Author Organization [employer] Address [address] 7[address] [place] [address] Care Team Providers Care Electrician Maintenance Name Role Phone Silvano Hinojosa MD Primary Care Prov ider Encounter Details Date Type Department Care Team (Late st Contact Info) Description 03/26/2023 Orders Only [facility] MEDICINE [address] [place] [address] Emelia Lincoln RN Uncomplicated opioid dependence (CMS/HCC) Social History Tobacco Use Types Packs/Day Years Used Date Smoking Tobacco: Former Cigarettes Smokeless Tobacco: Never Alcohol Use Standard Drinks/Week Comments Defer 0 (1 standard drink = 0.6 oz pur e alcohol) Depression Answer Date Recorded Patient Health Questionnaire-9 Score 0 09/01/2022 Housing Stability Answer Date Recorded What is your housing situation today? I have nehashaggy lewis 12/25/[address] you [...] Recorded Patient Health Questionnaire-2 Score 0 09/01/2022 Sex and Gender Information Value Date Recorded [...] Description 05/23/2024 1:15 PM EDT Clinical Support [address] [address] Emelia Lincoln RN Scheduled Orders Name Type Priority Associated Diagnoses Orde r Schedule Hepatitis C Antibody with Reflex to HCV, RNA, Quantitative, Real-Time PCR Lab Routine Uncomplicated opioid dependence (CMS/HCC) Expected: 03/26/2023 (Approximate), Expires: 03/26/2024 Hepatitis B Surface Antibody, Qualitative Lab Routine Uncomplicated opioid dependence (CMS/HCC) Expected: 03/26/2023 (Approximate), Expires: 03/26/2024 Hepatitis B surface antigen, EIA Lab Routine Uncomplicated opioid dependence (CMS/HCC) Expected: 03/26/2023 (Approximate), Expires: 03/26/2024 Hepatitis B Core Antibody, Total Lab Routine Uncomplicated opioid dependence (CMS/HCC) Expected: 03/26/2023 (Approximate), Expires: 03/26/2024 Hepatitis A Antibody, Total Lab Routine Uncomplicated opioid dependence (CMS/HCC) Expected: 03/26/2023 (Approximate), Expires: 03/26/2024 HIV-1/2 Antigen and Antibodies, Fourth Generation, with Reflexes Lab Routine Uncomplicated opioid dependence (CMS/HCC) Expected: 03/26/2023 (Approximate), Expires: 03/26/2024 Syphilis Screen Lab Routine Uncomplicated opioid dependence (CMS/HCC) Expected: 03/26/2023 (Approximate), Expires: 03/26/2024 T-SPOT??.TB Lab Routine Uncomplicated opioid dependence (CMS/HCC) Expected: 03/26/2023 (Approximate), Expires: 03/26/2024 documented as of this encounter Goals Goal Patient Goal Type Associated Problems Recent Progress Patient-Stated? Author Patient will adhere to medication regimen General On track( 023 10:24 AM EDT) No Filemon Israel, PharmD Hemoglobin A1c < 7 Result Component 6(03/22/2024 1:51 PM EST) No Filemon Israel, PharmD documented as of this encounter Visit Diagnoses Diagnosis Uncomplicated opioid dependence (CMS/HCC) documented in this encounter Additional Health Concerns Assessment Noted Time PHQ-9 Depression Total Score: 0 09/02/19 23 11:31 AM EDT documented as of this encounter Care Teams Electrician Maintenance Relationship Specialty Start Date End Date Silvano Hinojosa MD [address] [place] [phone] PCP - General Internal Medicine 08/02/19 Heather Chen Porcelain Enamel InstallerTransformer Maker 04/06/24 documented as of this encounter
--- OUTSIDE RECORDS SUMMARY | 2024-04-14 14:58 | XMS_ITS | Encounter Summary ---
Author Organization [employer] Address [address] [facility] 7t [place] [address] Care Team Providers Care Grounds Crew Supervisor Name Role Phone Silvano Hinojosa MD Primary Care Prov ider Reason for Visit * Reason Comments Med Refill Encounter Details Date Type Department Care Team (Late st Contact Info) Description 03/25/2024 Refill [facility] MED & PEDS [address] [place] [address] Silvano Hinojosa MD [address] [place] [address] Type 2 diabetes mellitus without complication, without long-term current use of insulin ([facility]) Social History Tobacco Use Types Packs/Day Years [...] Description 05/23/2024 1:15 PM EDT Clinical Support [facility] MEDICINE [address] [place] [address] Emelia Lincoln RN documented as of this encounter Goals Goal Patient Goal Type Associated Problems Recent Progress Patient-Stated? Author Patient will adhere to medication regimen General On track( 023 10:24 AM EDT) No DellogFilemon mandel, PharmD Hemoglobin A1c < 7 Result Component 6(03/22/2024 1:51 PM EST) No ColelogFilemon mandel, PharmD documented as of this encounter Visit Diagnoses Diagnosis Type 2 diabetes mellitus without complication, without long-term current use of insulin ([facility]) documented in this encounter Additional Health Concerns Assessment Noted Time PHQ-9 Depression Total Score: 0 09/02/19 23 11:31 AM EDT documented as of this encounter Care Teams Grounds Crew Supervisor Relationship Specialty Start Date End Date Silvano Hinojosa MD [address] [place] [phone] PCP - General Internal Medicine 08/02/19 documented as of this encounter
--- OUTSIDE RECORDS SUMMARY | 2024-04-14 14:58 | XMS_ITS | Encounter Summary ---
Author Organization [employer] Address [address] 7[address] [place] [address] Care Team Providers Care Pierogi Maker Name Role Phone Silvano Hinojosa MD Primary Care Prov ider Encounter Details Date Type Department Care Team (Late st Contact Info) Description 12/25/2022 Orders Only [facility] MEDICINE [address] [place] [address] Emelia Lincoln, YAQUELIN Social History Tobacco Use Types Packs/Day Years [...] Description 05/23/2024 1:15 PM EDT Clinical Support [address] [address] Emelia Lincoln RN documented as of this encounter Goals Goal Patient Goal Type Associated Problems Recent Progress Patient-Stated? Author Patient will adhere to medication regimen General On track( 023 10:24 AM EDT) No DelFilemon mckinley, PharmD Hemoglobin A1c < 7 Result Component 6(03/22/2024 1:51 PM EST) No ColelogFilemon mandel, PharmD documented as of this encounter Visit Diagnoses Not on filedocumented in this encounter Additional Health Concerns Assessment Noted Time PHQ-9 Depression Total Score: 0 09/02/19 23 11:31 AM EDT documented as of this encounter Care Teams Pierogi Maker Relationship Specialty Start Date End Date Silvano Hinojosa MD [address] [place] [address] PCP - General Internal Medicine 08/02/19 Heather Chen Bias Binding FolderOther Spatial Scientist 04/06/24 documented as of this encounter
--- OUTSIDE RECORDS SUMMARY | 2024-04-14 14:58 | XMS_ITS | Encounter Summary ---
Author Organization [employer] Address [address] [place] [address] Care Team Providers Care Commercial Or Institutional Cleaner Name Role Phone Silvano Hinojosa MD Primary Care Prov ider Reason for Visit * Reason Comments OBAT TEL Encounter Details Date Type Department Care Team (Latest Contact Info) Description 03/25/2024 10:00 AM EST Telemedicine [facility] MEDICINE [address] [place] [address] Emelia Lincoln RN Uncomplicated opioid dependence (CMS/HCC) [...] as of this encounter Progress Notes * Emelia Lincoln RN - 03/25/2024 10:00 AM EST Patient ID: Olya Chen is a 43 y.o. adult. HPI Patient here today for Opioid Dependence RV. Patient on current Suboxone dose of 4/1 mg On an 8- week schedule. Patient has been in the program for 11 months Induction date: 01/05/23 LFTs done: 05/25/23 [place] reviewed by provider. Last PCP appt 06/15/23 Smoking status: No longer smoking LAST VISIT: 12/07/23 [facility] reviewed UTOX: + bup Olya feels well. Has mild constipation from Suboxone that is relieved with Colace. [facility]; was on Suboxone 4/1 mg on 4 week schedule there. Last used nasal heroin 2020. Quit smoking. No EtOH. Lives with partner. Has 2 daughters, ages 17 and 26. 17 y.o. lives with her mother, 26 y.o. has 6 y.o. daughter (Olya's granddaughter). Not employed. Has counselor Yana Fields at [facility] in [facility] building Assessment/Plan Diagnoses and all orders for this visit: Uncomplicated opioid dependence (CMS/HCC) Recovery support, harm reduction (including Narcan) and behavioral health attendance reviewed. Continue Suboxone 4/1 mg on 4 week schedule. - POCT PERFECTO-14 Urine Drug Screen TODAY 03/25/24 TELEVISIT Olya was available for OBAT RN TELEVISIT today for Opioid Use Disorder. He sounds alert and oriented. Speech clear, coherent and goal directed. Easily engaged and initiates conversation. Continuesto do well on suboxone. Denies illicit substance use, cravings or side effects. Requested he flower buncher or picker his suboxone script today because we are closed on 03/28/24 due to holiday. Additionally, requested he flower buncher or picker his refill on 04/22/24 d/t 04/25/24 holiday. Plan: Suboxone dosing schedule of 4/1mg daily and management of side effects reviewed. Recovery support, harm reduction (including Narcan), and behavioral health attendance reviewed. Appointment for 4 weeks given. Patient expressed understanding and agreement with continuing plan of care. This information has been disclosed to you from records protected by federal confidentiality rules (42 CFR Part 2). The federal rules prohibit you from making any further disclosure of information inthis record that identifies a patient as having or having had a substance use disorder either directly, by reference to publicly available information, or through verification of such identification by another person unless further disclosure is expressly permitted by the written consent of the individual whose information is being disclosed or as otherwise permitted by (see2.3.1). The federal rules restrict any use of the information to investigate or prosecute with regard to a crime any patient with a substance use disorder, except as provided at 2.12??(5) and 2.65. documented in this encounter Plan of Treatment Upcoming Encounters Date Type Department Care Team (Late st Contact Info) Description 05/23/2024 1:15 PM EDT Clinical Support [facility] [address] [place] [address] Emelia Lincoln RN documented as of this encounter Goals Goal Patient Goal Type Associated Problems Recent Progress Patient-Stated? Author Patient will adhere to medication regimen General On track( 023 10:24 AM EDT) No DellogFilemon mandel, PharmD Hemoglobin A1c < 7 Result Component 6(03/22/2024 1:51 PM EST) No DellogFilemon mandel, PharmD documented as of this encounter Visit Diagnoses Diagnosis Uncomplicated opioid dependence (CMS/HCC) documented in this encounter Additional Health Concerns Assessment Noted Time PHQ-9 Depression Total Score: 0 09/02/19 23 11:31 AM EDT documented as of this encounter Care Teams Commercial Or Institutional Cleaner Relationship Specialty Start Date End Date Silvano Hinojosa MD [address] [place] [phone] PCP - General Internal Medicine 08/02/19 documented as of this encounter
== END | disposition home or self-care (01) ==
LOC: HO.US 14:55
PROVIDERS: PCP Internal Medicine; Visit Provider Nurse Practitioner Family
DX: N20.0 Calculus of kidney (principal)

== ENCOUNTER → 2024-04-14 14:57 | Outpatient (BNV) | payer MEDICAID, SELFPAY | PROVIDERS: PCP Internal Medicine; Visit Provider Radiology Diagnostic Radiology | DX: N20.0 Calculus of kidney (principal) | CPT/HCPCS: 76775 ==

== ENCOUNTER 2024-06-15 12:25 | Outpatient (AMB) | payer MEDICAID, SELFPAY ==
--- NOTE | 2024-06-15 12:26 | A.OFFVIS_ITS ---
Intake Visit Reasons: 6m/US(set) Intake Note: Patient is present for 6m/us Urology Medication:tamsulosin Antibiotic Allergy:none Blood Thinner:none Wheel Buffer Required: No Allergies No Known Allergies Allergy (Verified 06/15/24 12:38) Medication List - Last Reconciled 06/15/24 by JUVENTINO Mayen acetaminophen (Tylenol Extra Strength) 500 mg PO Q6H PRN atorvastatin 20 mg PO QPM buprenorphine-naloxone 12-3 mg (Suboxone) 1 film buccal Q24H bupropion HCl XL 150 mg PO QAM gabapentin 600 mg PO TID PRN 30 days levothyroxine 50 mcg PO QAM lurasidone 40 mg PO DAILY metformin 1,000 mg PO DAILY naproxen 500 mg PO BID PRN olanzapine 2.5 mg PO BEDTIME prednisone 20 mg PO DAILY tamsulosin 0.4 mg PO BEDTIME HPI Comments Details: Olya is a very pleasant 44-year old male patient of Dr. Philip James. He has a past medical history of fatty liver, thyroid disease, diabetes, chronic pain syndrome, opioid dependence in remission, and mood disorder. In discussion with the patient today reports to be doing and feeling well. He re ports since his last office visit here he had seeked emergency room care in December for left-sided flank pain he had been experiencing at which time CT noted obstructing left nephrolithiasis and recommendations were made for follow- up with Urology as patient is an established patient. He reports since December he has since passed to calculi while urinating. We discussed bringing them to office to send for stone analysis. He currently denies any bothersome urinary issues or concerns. He reports to be drinking plenty of water daily. Recent renal imaging results were reviewed 05/03 right kidney with several nonobstructing echogenic foci measuring up to 5 mm. Left kidney with 4 mm calculi. No hydronephrosis noted bilaterally. We discussed at length potential causes of nephrolithiasis as well as further workup to include 24 hour urine collection and labs. He discusses at length his longstanding history of nephrolithiasis despite increase in hydration of water. He currently denies any bothersome urinary issues. Patient with previous stone analysis noting 80% calcium oxalate monohydrate and 20% calcium oxalate dihydrate. Of note, patient underwent left-sided ESWL with Dr. Jacobsen on 02/11/23 for nephrolithiasis. He otherwise denies urinary urgency, urinary frequency, incontinence, nocturia, hematuria, dysuria, foul smelling urine, changes to urinary stream, fever, and or chills. He is happy with his current voiding parameters. He otherwise offers no other issues or concerns at this time. [facility] Medical History Fatty liver Thyroid disease Diabetes Chronic pain syndrome Sacroiliitis Spondylosis of lumbar spine Opioid dependence, in remission Chronic back pain Mood disorder Surgical History Hx of lithotripsy History of cystoscopy History of surgery History of neck surgery Family History Father HTN (hypertension) Mother Lung cancer Brother Heart disease Social History Household Members: Family Alcohol intake: never Patient Tobacco Use Status: Former Tobacco user Substance Use Type: Former Substance User Review of Systems Const All systems reviewed & are unremarkable except as noted in HPI and below Physical Exam Const General: cooperative Resp Effort & Inspection: able to speak in complete sentences Psych Attitude: cooperative Thought process: Normal thought process present Thought content: Normal thought content present Insight: Fair insight present (Psych) Judgement: Fair judgement present (Psych) Telehealth Telehealth Telehealth Platform: Telephone Location of provider rendering services: practice address Location of patient: address on file Patient Identification confirmed using: Name, : Yes Telehealth method: voice only Patient verbally consented to treatment: Yes Patient verbally consented to billing insurance company: Yes Patient informed of any privacy concerns related to visit: Yes Minutes spent on Phone/Video with Pt.: 15 Results Reviewed Results Reviewed: Date of Service: 04/14/24 Procedure(s): US renal BI Findings: Right kidney measures 10.2 x 5.5 x 5.8 cm in size. Several echogenic foci are seen within the right kidney measuring up to 5 mm in size. There are associated areas of posterior acoustic shadowing. No hydronephrosis identified. Left kidney measures 11.2 x 6.6 x 5.3 cm in size. Shadowing echogenic foci within the left kidney measure up to 4 mm in size. No hydronephrosis. Impression: Shadowing echogenic foci within both kidneys are likely related to bilateral renal calculi without hydronephrosis. Patient reportedly has prior CT imaging from December 28, 2023. Direct comparison with that study is suggested. Assessment & Plan Assessment & Plan (1) Nephrolithiasis: Code(s): N20.0 - Calculus of kidney Category: Medical Plan Recent renal imaging results reviewed with the patient today; as noted above. Patient currently denies any bothersome urinary issues or concerns. He reports be happy with current voiding parameters. Continue with adequate hydration We discussed adding 1 oz of lemon juice to water daily. Start vitamin B6 as discussed and prescribed. We discussed metabolic workup to include 24 hour urine collection and labs. Will obtain renal ultrasound in 6 months. Follow-up in 6 months with imaging or sooner with any issues, concerns, and or questions. Orders: Orders US renal BI 6 Months N20.0 - Calculus of kidney Medications: New pyridoxine (vitamin B6) 100 mg PO DAILY 90 tabs 1RF 90 days Discontinued tamsulosin Discontinued Reason: Patient Completed Course 0.4 mg PO BEDTIME 10 caps 0RF naproxen Discontinued Reason: Doctor's Order 500 mg PO BID PRN 10 tabs 0RF pain prednisone Discontinued Reason: Doctor's Order 20 mg PO DAILY 5 tabs 0RF Patient Instructions: The patient had an opportunity to ask questions regarding the treatment plan. All questions were answered. Physical exam, labs, and imaging were discussed and reviewed in detail. As well as risks, benefits, and discussion of treatment choices. No major barriers to understanding were identified. The patient expressed understanding and agreement with the above treatment plan. The patient was made aware they should contact our office by phone for worsening of their current condition, the appearance of new symptoms, or with any questions or concerns. Compliance is encouraged with any medications and follow up testing that is ordered. It is a privilege to be allowed the opportunity to participate in? your urological care.? Again, if you have any questions or concerns If you have any questions or concerns please do not hesitate to contact me. The office is [phone]. This note is constructed using voice recognition software. While every effort has been made to ensure accuracy investigative shopper errors may have been included. Yours sincerely, JUVENTINO Mayen Coding Level of Care Code Tele Est Pt Level 3 (14289) Diagnoses Nephrolithiasis N20.0
--- OUTSIDE RECORDS SUMMARY | 2024-06-15 14:22 | XMS_ITS | Encounter Summary ---
Author Organization [employer] Address [address] [place] [address] Care Team Providers Care Chemotherapist Name Role Phone Silvano Hinojosa MD Primary Care Prov ider Encounter Details Date Type Department Care Team ([facility] Contact Info) Description 06/13/2022 Orders Only [facility] [address] [place], [place] [phone] Silvano Hinojosa MD [address] [place], [place] [phone] Social History Tobacco Use Types Packs/Day Years [...] Upcoming Encounters Date Type Department Care Team ([facility] Contact Info) Description 07/18/2024 1:00 PM EDT Clinical Support [facility] [address] [place] [address] Marita Brink, RN [address] [place] [address] documented as of this encounter Goals Goal Patient Goal Type Associated Problems Recent Progress Patient-Stated? Author Patient will adhere to medication regimen General On track( 023 10:24 AM EDT) No Filemon Israel, Jules Hemoglobin A1c < 7 Result Component 6(03/22/2024 1:51 PM EST) No Filemon Israel, Jules documented as of this encounter Visit Diagnoses Not on filedocumented in this encounter Care Teams Chemotherapist Relationship Specialty Start Date End Date PalaciosSilvano Francisco MD [address] [place] [id number] PCP - General Internal Medicine 08/02/19 Heather Chen Crossband LayerConvenience Store Clerk 04/06/24 documented as of this encounter
--- OUTSIDE RECORDS SUMMARY | 2024-06-15 14:22 | XMS_ITS | Encounter Summary ---
Author Organization [employer] [facility] Address [address] [facility] [address] [place] [address] Care Team Providers Care Coating Mixer Name Role Phone Silvano Hinojosa MD Primary Care Prov ider Encounter Details Date Type Department Care Team (Latest Contact Info) Description 03/29/2021 Abstract [facility] CONVERSIONS Dental, Provider, DDS Social History [...] Care Team (Late st Contact Info) Description 07/18/2024 1:00 PM EDT Clinical Support [facility] [address] [place] [address] Marita Brink, RN [address] [place] [address] documented as of this encounter Visit Diagnoses Not on filedocumented in this encounter Care Teams Coating Mixer Relationship Specialty Start Date End Date Silvano Hinojosa MD [address] [place] [address] PCP - General Internal Medicine 08/02/19 Heather Chen Information Assurance SpecialistCirculation Sales Representative 04/06/24 documented as of this encounter
--- OUTSIDE RECORDS SUMMARY | 2024-06-15 14:22 | XMS_ITS | Encounter Summary ---
Author Organization [employer] Address [address] [place] [address] Care Team Providers Care Helper Animal Laboratory Name Role Phone Silvano Hinojosa MD Primary Care Prov ider Encounter Details Date Type Department Care Team (Late st Contact Info) Description 03/26/2023 Orders Only [facility] [address] [place] [address] Emelia Lincoln RN Uncomplicated opioid dependence (CMS/HCC) [...] Description 07/18/2024 1:00 PM EDT Clinical Support [facility] [address] [place] [address] Marita Brink, RN [address] [place] [address] Scheduled Orders Name Type Priority Associated Diagnoses [...] documented as of this encounter Care Teams Helper Animal Laboratory Relationship Specialty Start Date End Date Silvano Hinojosa MD [address] [place] [id number] PCP - General Internal Medicine 08/02/19 Heather Chen Data Warehouse ArchitectTrust Vault Clerk 04/06/24 documented as of this encounter
--- OUTSIDE RECORDS SUMMARY | 2024-06-15 14:22 | XMS_ITS | Encounter Summary ---
Author Organization [employer] Address [address] [place] [address] Care Team Providers Care Derrick Barge Operator Name Role Phone Silvano Hinojosa MD Primary Care Prov ider Encounter Details Date Type Department Care Team (Late st Contact Info) Description 12/25/2022 Orders Only [facility] [address] [place] [address] Emelia Lincoln, YAQUELIN Social History Tobacco Use [...] Description 07/18/2024 1:00 PM EDT Clinical Support [facility] [address] [place] [address] Marita Brink, YAQUELIN [address] [place] [address] documented as of this encounter Goals Goal [...] documented as of this encounter Care Teams Derrick Barge Operator Relationship Specialty Start Date End Date Silvano Hinojosa MD [address] [place] [id number] PCP - General Internal Medicine 08/02/19 Heather Chen Radio News WriterHot Pond Operator 04/06/24 documented as of this encounter
--- OUTSIDE RECORDS SUMMARY | 2024-06-15 14:22 | XMS_ITS | Clinical Summary ---
Author Organization [employer] Address [address] [facility] 7t [place] [address] Care Team Providers Care Radial Drill Press Set Up Operator Name Role Phone Silvano Hinojosa MD [...] by mouth with breakfast. Active nystatin (Mycostatin) 230907 UNIT/GM powder APPLY TO THE AFFECTED AREA(S) THREE TIMES DAILY 30 g 1 023 Active FREESTYLE LITE test stripIndications: Type 2 diabetes mellitus without complication, without long-term current use of insulin ([facility]) TEST BLOOD SUGAR THREE TIMES DAILY 100 strip 11 024 Active TRUEplus Lancets 33G miscIndications:T ype 2 diabetes mellitus without complication, without long-term current use of insulin ([facility]) TEST BLOOD SUGAR THREE TIMES DAILY 100 each 11 024 Active docusate sodium (Colace) 100 MG capsule TAKE ONE CAPSULE TWICE DAILY IN THE MORNING AND AT BEDTIME NEEDED FOR CONSTIPATION 60 capsule 3 024 Active atorvastatin (Lipitor) 20 MG tabletIndications :Mixed hyperlipidemia TAKE ONE TABLET EVERY EVENING 90 tablet 1 024 Active Blood Glucose Monitoring Suppl (FreeStyle Lisle Lite) w/Device kitIndications:Ty pe 2 diabetes mellitus without complication, without long-term current use of insulin ([facility]) TEST BLOOD SUGAR THREE TIMES DAILY 1 kit 025 Active levothyroxine (Synthroid, Levoxyl) 50 MCG tabletIndications :Acquired hypothyroidism Take 1.5 tablets (75 mcg) by mouth before breakfast. 90 tablet 1 025 Active buprenorphine-nal oxone (Suboxone) 4-1 MG per sublingual filmIndications:T ype 2 diabetes mellitus without complication, without long-term current use of insulin (CMS/HCC),Uncompl icated opioid dependence (CMS/HCC) Place 1 Film under the tongue Once per day. 28 Film 1 025 2024 Active metFORMIN (Glucophage) 1000 MG tabletIndications :Type 2 diabetes mellitus without complication, without long-term current use of insulin (CMS/HCC) TAKE ONE TABLET IN THE MORNING AND EVENING WITH MEALS 60 tablet 11 025 Active metFORMIN (Glucophage) 1000 MG tabletIndications :Type 2 diabetes mellitus without complication, without long-term current use of insulin (CMS/HCC) TAKE ONE TABLET BY MOUTH IN THE MORNING AND EVENING WITH MEALS 60 tablet 11 024 2024 Discontinued Active Problems Problem Noted Date Diagnosed Date [...] Encounters Date Type Department Care Team Description 06/01/2024 Refill [facility] [address] [place] [address] Silvano Hinojosa MD Type 2 diabetes mellitus without complication, without long-term current use of insulin (CMS/HCC) 05/23/2024 1:15 PM EDT Office Visit [facility] [address] [place] [address] Trace Singh MD Opioid dependence in remission (CMS/HCC) (Primary Dx) 05/23/2024 Travel 05/20/2024 Population [facility] Risk Score [facility] () Department [address] [phone] Provider, [facility] 05/16/2024 Refill [facility] [address] [place] [address] Emelia Lincoln RN Type 2 diabetes mellitus without complication, without long-term current use of insulin (CMS/HCC); Uncomplicated opioid dependence (CMS/HCC) 05/02/2024 Refill [facility] [address] [place] [address] Emelia Lincoln RN Type 2 diabetes mellitus without complication, without long-term current use of insulin (CMS/HCC); Uncomplicated opioid dependence (CMS/HCC) 05/02/2024 Telephone [facility] [address] [place] [address] Silvano Hinojosa MD Med Refill 04/15/2024 Orders Only [facility] [address] [place] [address] Silvano Hinojosa MD Acquired hypothyroidism 04/14/2024 Orders Only [facility] External Provider, [facility] 04/06/2024 Telephone [facility] [address] [place] [address] Silvano Hinojosa MD Care Coordination (CP care plan) 03/25/2024 10:00 AM EST Telemedicine [facility] [address] [place] [phone] Enko, Emelia, RN Uncomplicated opioid dependence (CMS/HCC) 03/25/2024 Refill [facility] [address] [place] [address] Silvano Hinojosa MD Type 2 diabetes mellitus without complication, without long-term current use of insulin (CMS/HCC) 03/25/2024 Travel 03/25/2024 Refill [facility] [address] [place], [place] [phone] Emelia Lincoln RN Type 2 diabetes mellitus without complication, without long-term current use of insulin ([facility]/HCC); Uncomplicated opioid dependence (CMS/HCC) 03/22/2024 1:30 PM EST Office Visit [facility] [address] [place] [address] Silvano Hinojosa MD Acquired hypothyroidism (Primary Dx); Type 2 diabetes mellitus without complication, without long-term current use of insulin ([facility]); Dietary counseling; Exercise counseling; Uncomplicated opioid dependence (CMS/HCC); Type 2 diabetes mellitus with other specified complication, without long-term current use of insulin ([facility]/HCC); Mixed hyperlipidemia 03/22/2024 Orders Only [facility] [address] [place] [address] Silvano Hinojosa MD 03/22/2024 Travel from Last 3 Months Immunizations Name Administration Dates Next Due Moderna Covid-19 Vaccine 12+ 09/13/2020,08/16/19 21 Tdap 07/09/2018 [...] Description 07/18/2024 1:00 PM EDT Clinical Support [facility] [address] [place] [address] Marita Brink, RN [address] [place] [address] Health Maintenance Due Date Last Done Comments Eye Exam 1991 Alcohol/Substance Use Screening 1993 Family Planning (PISQ) 1996 Hepatitis B Vaccines (1 of 3 - 19+ 3-dose series) 2000 Pneumococcal Vaccine: Pediatrics (0 to 5 Years) and At-Risk Patients (6 to 49) Years) (1 of 2 - PCV) 2000 Depression Screening 09/02/2023 09/01/2022, 09/02/19 23 COVID-19 Vaccine ( - season) 2023 09/13/2020, 08/15/2020 Influenza Vaccine (#1) 2023 Diabetes: Foot Exam 11/21/2023 11/20/2022, 11/20/2022, 11/20/2022, Additional history exists Diabetes: Hemoglobin A1C 09/19/2024 025, 10/16/2023, 06/15/2023, Additional history exists SDOH Screening 03/15/2025 03/15/2024 Diabetes: Urine Protein Screening 03/22/2025 03/22/2024, 11/20/2022 Lipid Panel 03/22/2025 03/22/2024, 08/0 11/2023, 11/20/2022, Additional history exists Tobacco Screening 05/23/2025 05/23/2024 DTaP/Tdap/Td Vaccines (2 - Td or Tdap) 07/09/2028 07/09/2018 Zoster Vaccines (1 of 2) 2031 RSV Patients and Patients Aged 60 years or older (1 - 1-dose 75+ series) 2056 HIV Screening Completed 05/25/2023, 0203/2022, 06/11/2021 Hepatitis C Screening Completed 05/25/2023 , [...] Name Priority Date/Time Associated Diagnosis Comments POCT PERFECTO-14 URINE DRUG SCREEN Routine 05/23/2024 1:24 PM EDT Opioid dependence in remission (CMS/HCC) US RENAL BI Routine 04/16/2024 9:13 AM EST POCT GLYCATED HEMOGLOBIN, TOTAL Routine 03/22/2024 1:51 PM EST Type 2 diabetes mellitus without complication, without long-term current use of insulin (CMS/HCC) POCT GLUCOSE Routine 03/22/2024 1:50 PM EST Type 2 diabetes mellitus without complication, without long-term current use of insulin (CMS/HCC) ALBUMIN, RANDOM URINE W/CREATININE Routine 03/22/2024 1:22 PM EST Type 2 diabetes mellitus without complication, without long-term current use of insulin (CMS/HCC) T4, FREE Routine 03/22/2024 1:19 PM EST [...] Relevant to Health Maintenance Results * POCT PERFECTO-14 Urine Drug Screen (05/23/2024 1:24 PM EDT) THC Negative Cocaine Screen, Urine Negative Opiate Screen, Urine Negative Methamphetamine Screen Urine Negative Amphetamine Screen, Urine Negative Benzodiazepines Screen, Urine Negative Barbiturate Screen, Urine Negative Methadone Screen, Urine Negative Buprenophine Screen, Urine Positive TCA, Urine Negative MDMA Urine Negative ng/mL Oxycodone Screen, Urine Negative Phencyclidine (PCP), Urine Negative Propoxyphene, Urine Negative Fentanyl, Urine Negative Urine Urine specimen obtained by clean catch procedure / Unknown 05/23/2024 1:24 PM EDT us Trace Singh MD POINT OF CARE TEST ENTER/EDIT OR DERABLES Final Result * US RENAL BI (04/16/2024 9:13 AM EST) Anatomical Region Laterality Modality Abdomen Ultrasound 04/16/2024 9:13 AM EST Narrative 04/16/2024 9:14 AM EST ? [facility] ?[address] ?[place] [address] ? Ultrasound Report ? Signed ? Patient: Gustavo,Yasmell ?MR#: [id number] ?? [id number] ? : 1980 ?Acct:[id number] ? Age/Sex: 44 / M ?ADM Date: 02/06/25 ? Loc: HO.US ? Attending Dr: Shelia JAUREGUI ? Ordering Physician: Shelia Moreau ?? Date of Service: 04/14/24 ?? Procedure(s): US renal BI ?? Accession Number(s): [id number] ? cc: Silvano Hinojosa MD; Shelia Moreau ? CLINICAL HISTORY: N20.0 - Calculus of kidney ? Exam: Ultrasound of the kidneys. ? Comparison: None. ? Findings: ? Right kidney measures 10.2 x 5.5 x 5.8 cm in size. Several echogenic foci ?? are seen within the right kidney measuring up to 5 mm in size. There are ?? associated areas of posterior acoustic shadowing. No hydronephrosis ?? identified. ?? Left kidney measures 11.2 x 6.6 x 5.3 cm in size. Shadowing echogenic foci ?? within the left kidney measure up to 4 mm in size. No hydronephrosis. ? Impression: ? Shadowing echogenic foci within both kidneys are likely related to ?? bilateral renal calculi without hydronephrosis. Patient reportedly has ?? prior CT imaging from December 28, 2023. Direct comparison with that study ?? is suggested. ? This document has been electronically signed by: Pablo Laura MD on ?? 04/16/2024 09:13:13 ? Dictated By: ?Pablo Laura MD ? Signed By: ?<Electronically signed by Pablo Laura MD in OV> ? 04/16/24 0914 ? DD/ 2 ? TD/TT: 04/16/24912 ? Engineer Station Mainline: ? Procedure Note Krystina, Zina - 04/16/2024 [place] [address] Ultrasound Report Signed Patient: Olya ChenMR#: [id number] : 1980Acct:[id number] Age/Sex: 44 / MADM Date: 04/14/24 Loc: HO.US Attending Dr: Shelia JAUREGUI Ordering Physician: Shelia Moreau Date of Service: 04/14/24 Procedure(s): US renal BI Accession Number(s): [id number] cc: Silvano Hinojosa MD; Shelia Moreau CLINICAL HISTORY: N20.0 - Calculus of kidney Exam: Ultrasound of the kidneys. Comparison: None. Findings: Right kidney measures 10.2 x 5.5 x 5.8 cm in size. Several echogenic foci are seen within the right kidney measuring up to 5 mm in size. There are associated areas of posterior acoustic shadowing. No hydronephrosis identified. Left kidney measures 11.2 x 6.6 x 5.3 cm in size. Shadowing echogenic foci within the left kidney measure up to 4 mm in size. No hydronephrosis. Impression: Shadowing echogenic foci within both kidneys are likely related to bilateral renal calculi without hydronephrosis. Patient reportedly has prior CT imaging from December 28, 2023. Direct comparison with that study is suggested. This document has been electronically signed by: Pablo Laura MD on 04/16/2024 09:13:13 Dictated By: Pablo Laura MD Signed By: <Electronically signed by Pablo Laura MD in OV> 04/16/24913 DD/ 2 TD/TT: 04/16/24912 Engineer Station Mainline: [facility] External Provider IMG US PROCEDURES Edited Result - Final * POCT HGB A1C (03/22/2024 1:51 PM EST) Hemoglobin A1C 6.0 4.0 - 6.0 % QC Media Lot # [id number] Lot# Expiration Date 8 Blood 03/22/2024 1:51 PM EST Result [facility] Silvano James MD POINT OF CARE TEST ENTER/EDIT ORDERABLES Final Result * POCT Glucose (03/22/2024 1:50 PM EST) Glucose Blood, POC 123 60 - 200 mg/dL QC Media Lot # [id number] Lot# Expiration Date ,290 Blood Capillary blood specimen / Unknown 03/22/2024 1:50 PM EST Silvano James MD POINT OF CARE TEST ENTER/EDIT ORDERABLES Final Result * Albumin, Random Urine W/Creatinine (03/22/2024 1:22 PM EST) Creatinine, Urine 111.50 mg/dL [facility] Microalbumin Urine 13.0 mg/L [facility] Microalbum Creatinine Ratio Ur 11.6 <30 ug/mg cr [facility] Comment:Albumin/Creatinine R atio Reference Ranges: Normal: < 30 ug/mg creatinine Microalbuminuria: 30 - 300 ug/mg creatinineClinical Albuminuria: > 300 ug/mg creatinine Urine (Urine, Random) 03/22/2024 1:22 PM EST 03/22/2024 1:55 PM EST Silvano James MD LAB URINE ORDERABL ES Final Result Performing Organization Address [facility] de Phone Number [facility] [address] [place] [phone] * (ABNORMAL) TSH W/Reflex to FT4 (03/22/2024 1:19 PM EST) TSH reflex Free T4 5.10(H) 0.32 - 4.0 uIU/mL [facility] Blood Venous blood specimen / Unknown 03/22/2024 1:19 PM EST 03/22/2024 1:57 PM EST Silvano James MD LAB BLOOD ORDERABL ES Final Result Performing Organization Address [facility] de Phone Number [facility] [address] [place] [phone] * T4, Free (03/22/2024 1:19 PM EST) Free T4 (Free Thyroxine) 0.91 0.71 - 1.85 ng/dL [facility] 03/22/2024 1:19 PM EST 03/22/2024 1:57 PM EST Silvano James MD LAB BLOOD ORDERABL ES Final Result Performing Organization Address [facility] de Phone Number [facility] [address] [place] [phone] * Lipid Panel, Standard (03/22/2024 1:19 PM EST) Triglycerides 108 <150 mg/dL [facility] Comment:Desirable Triglyceri de: less than 150 mg/dLBorderline High Triglyceride 150-199 mg/dLHigh Triglyceride: 200-499 mg/dLVery High Triglyceride: greater than or equal to 5OO mg/dL Cholesterol 147 <200 mg/dL [facility] Comment:Desirable Cholestero l: less than 200 mg/dLBorderline High Cholesterol: 200-239 mg/dLHigh Cholesterol: greater than 239 mg/dL LDL Cholesterol Calculated 77 <100 mg/dL [facility] Comment:Desirable LDL: less than 100 mg/dLNear Optimal/Above Optimal LDL: 110- 129 mg/dLBorderline High LDL: 130-159 mg/dLHigh LDL: 160-189 mg/dLVery High LDL: greater than or equal to 190 mg/dL HDL Cholesterol 49 >40 mg/dL [facility] Comment:Desirable HDL: great er than 40 mg/dL Note: This HDL assay may give artificially low results in patients with liver disease. Blood Venous blood specimen / Unknown 03/22/2024 1:19 PM EST 03/22/2024 1:57 PM EST us Silvano James MD LAB BLOOD ORDERABL ES Final Result [facility] [address] [place] [phone] * (ABNORMAL) Comprehensive Metabolic Panel (03/22/2024 1:19 PM EST) Sodium 141 135 - 145 mmol/L [facility] Potassium 4.3 3.3 - 5.1 mmol/L [facility] Chloride 110(H) 96 - 108 mmol/L [facility] Carbon Dioxide 30(H) 22 - 29 mmol/L [facility] Anion Gap 5(L) 12 - 20 [facility] Urea Nitrogen (BUN) 11 9 - 16 mg/dL [facility] Creatinine, Serum 0.95 0.5 - 1.4 mg/dL [facility] Estimated Glomerular Filt Rate >60 [facility] Comment:Chronic Kidney Disea se: Estimated GFR < 60 mL/min/1.87l8Pdkywd Kidney Disease: Estimated GFR < 15 mL/min/1.73m2 Glucose 106 60 - 115 mg/dL [facility] Calcium 8.8 8.4 - 10.2 mg/dL [facility] Bilirubin, Total 0.3 0.0 - 1.0 mg/dL [facility] Aspartate Amino Transferase 23 5 - 37 U/L [facility] Alanine Aminotransferase 17 0 - 40 U/L [facility] Total Protein 7.5 6.5 - 8.0 g/dL [facility] Albumin Level 4.2 3.5 - 5.0 g/dL [facility] Alkaline Phosphatase 81 39 - 117 U/L [facility] Blood Venous blood specimen / Unknown 03/22/2024 1:19 PM EST 03/22/2024 1:57 PM EST us Silvano James MD LAB BLOOD ORDERABL ES Final Result Performing Organization Address [facility] Co de Phone Number [facility] [address] [place] [phone] * Hepatitis C Antibody with Reflex to HCV, RNA, Quantitative, Real-Time PCR (05/25/2023 1:54 PM EDT) Hepatitis C Antibody Nonreactive Nonreactive [facility] Comment:Antibodies to HCV no t detected; does not exclude early acuteHCV infection. 05/25/2023 1:54 PM EDT 05/25/2023 4:05 PM EDT us Trace Singh MD LAB BLOOD ORDERABLES Final Resul t Performing Organization Address [facility]/ZIP Co de Phone Number [facility] [address] [place] [phone] * HIV-1/2 Antigen and Antibodies, Fourth Generation, with Reflexes (05/25/2023 1:54 PM EDT) HIV AB/AG Nonreactive Nonreactive [facility] Comment:HIV-1 p24 Ag and/or HIV-1/HIV-2 Ab not detected.A test result that is nonreactive does not exclude thepossibility of exposure to or infection with HIV-1 and/orHIV-2. Nonreactive results in this assay for individualswith prior exposure to HIV-1 and/or HIV-2 may be due toantigen and antibody levels that are below the limit ofdetection of this assay.The [employer] HIV Ag/Ab Combo assay result andsupplemental assay results should be interpreted inconjunction with the patient's clinical presentation,history and other laboratory results. If the results areinconsistent with clinical evidence, additional testing issuggested to confirm the result. 05/25/2023 1:5 4 PM EDT 05/25/2023 4:05 PM EDT us Trace Singh MD LAB BLOOD ORDERABLES Final Resul t [facility] [address] [place] [phone] from Last 3 Months or Most Recently Relevant to Health Maintenance Insurance [facility] STAND[facility] * Guarantor: Olya Chen Account Type Relation to Patient Date of Phone Billing Address Personal/Family Self [address] Rear Left 1 GAIL Villanueva Care Teams Radial Drill Press Set Up Operator Relationship Specialty Start Date End Date PalaciosSilavno Francisco MD [address] [place] [address] GAIL Villanueva PCP - General Internal Medicine 08/02/19 Heather Chen News[employer] VendorBenefits Consultant 04/06/24
== END 2024-06-15 13:15 | disposition home or self-care (01) ==
LOC: HO.HUSH 12:25
PROVIDERS: PCP Internal Medicine; Visit Provider Nurse Practitioner Family
DX: N20.0 Calculus of kidney (principal)
CPT/HCPCS: 99213

== ENCOUNTER → 2024-06-15 12:25 | Outpatient (BNVA) | payer MEDICAID, SELFPAY | PROVIDERS: PCP Internal Medicine; Visit Provider Nurse Practitioner Family ==

== ENCOUNTER 2024-12-13 12:50 | Outpatient (REF) | payer OTHER, SELFPAY ==
--- NOTE | ~2024-12-13 | US_ITS ---
EXAMINATION: US RETROPERITONEAL LIMITED (RENAL ONLY) CLINICAL INFORMATION: Calculus of kidney. COMPARISON: None available. TECHNIQUE: Real-time imaging of the kidneys. FINDINGS: RIGHT KIDNEY: 10.3 x 5.3 x 5.3 cm (SAG x AP x TRV). The kidney is normal in size, contour, and echogenicity. Renal cortical thickness is normal. No calculi or focal parenchymal lesions. No hydronephrosis. LEFT KIDNEY: 10.7 x 6.3 x 5.5 cm (SAG x AP x TRV). The kidney is normal in size, contour, and echogenicity. Renal cortical thickness is normal. No calculi or focal parenchymal lesions. No hydronephrosis. There is a simple cyst in the upper pole measuring 9 mm. US/US renal BI IMPRESSION: 1. Simple cyst in the left kidney upper pole measuring 9 mm. 2. Otherwise normal examination. Electronically signed by: Cayden Ellison MD 12/13/2024 01:33 PM EDT
--- OUTSIDE RECORDS SUMMARY | 2024-12-13 15:42 | XMS_ITS | Clinical Summary ---
Author Organization [facility] Address [address] [place] [address] Care Team Providers Care Sander Portable Machine Name Role Phone Levi Medellin MD Primary Care Provider Unavail able Social History Tobacco Use Types Packs/Day Years Used Date Smoking Tobacco: Never Assessed Sex Assigned at Date Recorded Not on file Plan of Treatment Health Maintenance Due Date Last Done Comments Covid-19 Vaccine (#1) 1980 TOBACCO CHECK/ADVISE 1999 DTAP/TDAP/TD (1 - Tdap) 2000 CHOLESTEROL SCREENING 2001 BASELINE HEALTH EXAM 40-64 2021 BMI CHECK/ADVISE 03/09/2024 INFLUENZA (#1) 2024 PNEUMOCOCCAL VACCINE FOR HIGH RISK PATIENTS (#1) 04/09 Care Teams Sander Portable Machine Relationship Specialty Start Date End Date Levi Medellin MD PCP - General Internal Medicine 04/25/14
--- OUTSIDE RECORDS SUMMARY | 2024-12-13 15:42 | XMS_ITS | Encounter Summary ---
Author Organization [employer] Address [address] [facility] [place] [address] Care Team Providers Care Service Engineer Name Role Phone Silvano Hinojosa MD Primary Care Prov ider Encounter Details Date Type Department Care Team (Late st Contact Info) Description 12/25/[address] [facility] [address] [place] [address] Emelia Lincoln, YAQUELIN Social History Tobacco Use [...] Care Team (Late st Contact Info) Description 02/27/2025 1:30 PM EST Clinical Support [address] [address] Emelia Lincoln RN documented as of this [...] documented as of this encounter Care Teams Service Engineer Relationship Specialty Start Date End Date Silvano Hinojosa MD [address] [place] [phone] PCP - General Internal Medicine 08/02/19 Heather Chen Service Tech/WelderMilitary Nurse 04/06/24 documented as of this encounter
--- OUTSIDE RECORDS SUMMARY | 2024-12-13 15:42 | XMS_ITS | Encounter Summary ---
Author Organization [facility] Address [address] [place] [address] Care Team Providers Care Activity Coordinator Name Role Phone Levi Medellin MD Primary Care Provider Unavail able Encounter Details Date Type Department Care Team Description 10/06/2014 Release of Information Medical Records [address] [place] [id number] Abstract, Provider Social History Tobacco Use Types Packs/Day Years Used Date Smoking Tobacco: Never Assessed Sex Assigned at Date Recorded Not on file documented as of this encounter Plan of Treatment Not on file documented as of this encounter Visit Diagnoses Not on filedocumented in this encounter Care Teams Activity Coordinator Relationship Specialty Start Date End Date Levi Medellin MD PCP - General Internal Medicine 04/25/14 documented as of this encounter
--- OUTSIDE RECORDS SUMMARY | 2024-12-13 15:42 | XMS_ITS | Encounter Summary ---
Author Organization [employer] Address [address] [facility] [address] [place] [address] Care Team Providers Care Satellite Installation Technician Name Role Phone Silvano Hinojosa MD Primary Care Prov ider Encounter Details Date Type Department Care Team (Late st Contact Info) Description 03/26/2023 Orders Only [facility] [address] [place] [address] Emelia Lincoln RN Uncomplicated opioid dependence (CMS/HCC) Social History Tobacco Use Types Packs/Day Years Used Date Smoking Tobacco: Former Cigarettes Smokeless Tobacco: Never Alcohol Use Standard Drinks/Week Comments Defer 0 (1 standard drink = 0.6 oz pur e alcohol) Depression Answer Date Recorded Patient Health Questionnaire-9 Score 0 09/01/2022 Housing Stability Answer Date Recorded What is your housing situation today? I have neha debbie 12/25/[address] you li [...] Description 02/27/2025 1:30 PM EST Clinical Support [address] [address] Emelia Lincoln RN Scheduled Orders Name Type [...] dependence (CMS/HCC) Expected: 03/26/2023 (Approximate), Expires: 03/26/2024 T-SPOT .TB Lab Routine Uncomplicated opioid dependence (CMS/HCC) Expected: 03/26/2023 (Approximate), Expires: 03/26/2024 documented as of this encounter Goals Goal Patient Goal Type Associated Problems Recent Progress Patient-Stated? Author Patient will adhere to medication regimen General On track( 023 10:24 AM EDT) No Filemon Israel, PharmD Hemoglobin A1c < 7 Result Component 6(03/22/2024 1:51 PM EST) Filemon Ortiz, PharmD documented as of this encounter Visit Diagnoses Diagnosis Uncomplicated opioid dependence (CMS/HCC) (HCC) documented in this encounter Additional Health Concerns Assessment Noted Time PHQ-9 Depression Total Score: 0 09/02/19 23 11:31 AM EDT documented as of this encounter Care Teams Satellite Installation Technician Relationship Specialty Start Date End Date Silvano Hinojosa MD [address] [place] [phone] PCP - General Internal Medicine 08/02/19 Heather Chen Digital Media BuyerScrap Charger 04/06/24 documented as of this encounter
--- OUTSIDE RECORDS SUMMARY | 2024-12-13 15:42 | XMS_ITS | Clinical Summary ---
Author Organization [employer] Address [address] [facility] 7t [place] [address] Care Team Providers Care Reheat Furnace Operator Name Role Phone Silvano Hinojosa MD [...] by mouth with breakfast. Active nystatin (Mycostatin) 397199 UNIT/GM powder APPLY TO THE AFFECTED AREA(S) THREE TIMES DAILY 30 g 1 023 Active Blood Glucose Monitoring Suppl (FreeStyle Ullin Lite) w/Device kitIndications:Ty pe 2 diabetes mellitus without complication, without long-term current use of insulin ([facility]) TEST BLOOD SUGAR THREE TIMES DAILY 1 kit 025 Active metFORMIN (Glucophage) 1000 MG tabletIndications :Type 2 diabetes mellitus without complication, without long-term current use of insulin ([facility]) TAKE ONE TABLET IN THE MORNING AND EVENING WITH MEALS 60 tablet 11 025 Active FREESTYLE LITE test stripIndications: Type 2 diabetes mellitus without complication, without long-term current use of insulin ([facility]) TEST BLOOD SUGAR THREE TIMES DAILY 100 strip 11 025 Active Easy Touch Lancets 33G/Twist miscIndications:T ype 2 diabetes mellitus without complication, without long-term current use of insulin ([facility]) TEST BLOOD SUGAR THREE TIMES DAILY 100 each 11 025 Active docusate sodium (Colace) 100 MG capsule TAKE ONE CAPSULE TWICE DAILY IN THE MORNING AND AT BEDTIME NEEDED FOR CONSTIPATION 60 capsule 3 025 Active levothyroxine (Synthroid, Levoxyl) 75 MCG tabletIndications :Acquired hypothyroidism TAKE ONE TABLET EVERY MORNING BEFORE BREAKFAST 90 tablet 1 Active atorvastatin (Lipitor) 20 MG tabletIndications :Mixed hyperlipidemia TAKE ONE TABLET EVERY EVENING 90 tablet 1 025 Active buprenorphine-nal oxone (Suboxone) 4-1 MG per sublingual filmIndications:T ype 2 diabetes mellitus without complication, without long-term current use of insulin (HCC),Uncomplicat ed opioid dependence (CMS/HCC) (HCC) Place 1 Film under the tongue Once per day. 28 Film 2 025 2024 Active buprenorphine-nal oxone (Suboxone) 4-1 MG per sublingual filmIndications:T ype 2 diabetes mellitus without complication, without long-term current use of insulin (HCC),Uncomplicat ed opioid dependence (CMS/HCC) (HCC) Place 1 Film under the tongue Once per day. 28 Film 2 025 2024 Discontinued(R eorder (will not trigger notification to Pharmacy)) Active Problems Problem Noted Date Diagnosed Date Kidney stone 08/17/2023 Mood disorder 05/19/2022 Opioid dependence in remission (CMS/HCC) 023 Chronic back pain greater than 3 months duration 05/19/2022 Type 2 diabetes mellitus wit h other specified complication, without long-term current use of insulin 04/15/2022 Assessment & Plan (07/14/2024 10:05 AM EDT): Controlled, A1c 6.0., no episode of hypoglycemia, continue low carb/no sugar diet, follow up in 3 months Assessment & Plan (03/22/2024 2:30 PM EST): [...] 1month Acquired hypothyroidism 04/15/2022 Assessment & Plan (07/14/2024 10:04 AM EDT): Patient has been taking 75mcg dose for over 2 months, new labs will be ordered, clinically euthyroid Assessment & Plan (03/22/2024 2:29 PM EST): [...] Encounters Date Type Department Care Team Description 12/13/2024 Orders Only [facility] External Provider, [facility] 12/05/2024 1:00 PM EDT Clinical Support [facility] [address] [place] [phone] Emelia Lincoln RN Uncomplicated opioid dependence (CMS/HCC) (Primary Dx) 12/05/2024 Travel 11/30/2024 Refill [facility] [address] [place] [phone] Emelia Lincoln RN Type 2 diabetes mellitus without complication, without long-term current use of insulin (CMS/HCC); Uncomplicated opioid dependence (CMS/HCC) 10/17/2024 Telephone [facility] [address] [place] [address] Silvano Hinojosa MD 10/17/2024 Travel 10/05/2024 Refill [facility] [address] [place] [address] Silvano Hinojosa MD Acquired hypothyroidism; Mixed hyperlipidemia 10/05/2024 Refill [facility] [address] [place] [address] Anny Lindo ANP Mixed hyperlipidemia 09/12/2024 1:00 PM EDT Clinical Support [facility] [address] [place] [phone] Emelia Lincoln, YAQUELIN Uncomplicated opioid dependence (CMS/HCC) (Primary Dx) 09/12/2024 Travel from Last 3 Months Immunizations Immunization Administration Dates Next Due Moderna Covid-19 Vaccine [...] 96 03/22/2024 1:45 PM EST Temperature 37.1 C (98.7 F) 03/22/2024 1:45 PM EST Respiratory Rate 20 03/22/2024 1:45 PM EST [...] Description 02/27/2025 1:30 PM EST Clinical Support [address] [address] Emelia Lincoln, RN Health Maintenance Due Date Last Done Comments Disability Screening 1980 Eye Exam 1991 Alcohol/Substance Use Screening 1993 Family Planning (PISQ) 1996 HPV Vaccines (1 - 3-dose series) 1996 Hepatitis B Vaccines (1 of 3 - 19+ 3-dose series) 2000 Pneumococcal Vaccine: Pediatrics (0 to 5 Years) and At-Risk Patients (6 to 49) Years (1 of 2 - PCV) 2000 Depression Screening 09/02/2023 09/01/2022, 09/02/19 23 Diabetes: Foot Exam 11/21/2023 11/20/2022, 11/20/2022, 11/20/2022, Additional history exists Diabetes: Hemoglobin A1C 09/19/2024 025, 10/16/2023, 06/15/2023, Additional history exists COVID-19 Vaccine ( season) 2024 09/13/2020, 08/15/2020 Influenza Vaccine (#1) 2024 SDOH Screening 03/15/2025 03/15/2024 Diabetes: Urine Protein Screening 03/22/2025 03/22/2024, 11/20/2022 Lipid Panel 03/22/2025 03/22/2024, 08/11/2023, 11/20/2022, Additional history exists Tobacco Screening 07/18/2025 07/18/2024 DTaP/Tdap/Td Vaccines (2 - Td or Tdap) [...] patient's age to complete this topic Meningococcal B Vaccine Aged Out No l onger eligible based on patient's age to complete [...] Procedure Name Priority Date/Time Associated Diagnosis Comments US RENAL COMPLETE Routine 12/13/2024 1:1 4 PM EDT POCT PERFECTO-14 URINE DRUG SCREEN Routine 12/05/2024 1:07 PM EDT Uncomplicated opioid dependence (CMS/HCC) POCT PERFECTO-14 URINE DRUG SCREEN Routine 09/12/2024 1:00 PM EDT Uncomplicated opioid dependence (CMS/HCC) POCT GLYCATED HEMOGLOBIN, TOTAL Routine 03/22/2024 1:51 [...] Recently Relevant to Health Maintenance Results * US Renal Complete (12/13/2024 1:14 PM EDT) Anatomical Region Laterality Modality Kidney Ultrasound 12/13/2024 1:14 PM EDT Narrative 12/13/2024 1:35 PM EDT [facility] [address] [place] [address] [place] [address] Ultrasound Report Signed Patient: Olya Chen MR#: [id number] : 1980 Acct:[id number] Age/Sex: 44 / M ADM Date: 12/13/24 Loc: HO.HMGCX Attending Dr: Shelia JAUREGUI Ordering Physician: Shelia Moreau Date of Service: 12/13/24 Procedure(s): US renal BI Accession Number(s): [id number] cc: Silvano Hinojosa MD; Shelia Moreau Reason for Exam: N20.0 - Calculus of kidney EXAMINATION: US RETROPERITONEAL LIMITED (RENAL ONLY) CLINICAL INFORMATION: Calculus of kidney. COMPARISON: None available. TECHNIQUE: Real-time imaging of the kidneys. FINDINGS: RIGHT KIDNEY: 10.3 x 5.3 x 5.3 cm (SAG x AP x TRV). The kidney is normal in size, contour, and echogenicity. Renal cortical thickness is normal. No calculi or focal parenchymal lesions. No hydronephrosis. LEFT KIDNEY: 10.7 x 6.3 x 5.5 cm (SAG x AP x TRV). The kidney is normal in size, contour, and echogenicity. Renal cortical thickness is normal. No calculi or focal parenchymal lesions. No hydronephrosis. There is a simple cyst in the upper pole measuring 9 mm. US/US renal BI IMPRESSION: 1. Simple cyst in the left kidney upper pole measuring 9 mm. 2. Otherwise normal examination. Electronically signed by: Cayden Ellison MD 12/13/2024 01:33 PM EDT RP Dictated By: Cayden Ellison MD Signed By: <Electronically signed by Cayden Ellison MD in OV> 12/13/24 1333 DD/ 1314 TD/TT: 12/13/24 1329 Yarn Twister: Procedure Note Donotuseinterpreter, Image - 12/13/2024 [facility] [place] [facility] [address] [place] [address] [place] [address] Ultrasound Report Signed Patient: Olya ChenMR#: [id number] : 1980Acct:[id number] Age/Sex: 44 / MADM Date: 12/13/24 Loc: HO.HMGCX Attending Dr: Shelia JAUREGUI Ordering Physician: Shelia Moreau Date of Service: 12/13/24 Procedure(s): US renal BI Accession Number(s): [id number] cc: Silvano Hinojosa MD; Shelia Moreau Reason for Exam: N20.0 - Calculus of kidney EXAMINATION: US RETROPERITONEAL LIMITED (RENAL ONLY) CLINICAL INFORMATION: Calculus of kidney. COMPARISON: None available. TECHNIQUE: Real-time imaging of the kidneys. FINDINGS: RIGHT KIDNEY: 10.3 x 5.3 x 5.3 cm (SAG x AP x TRV). The kidney is normal in size, contour, and echogenicity. Renal cortical thickness is normal. No calculi or focal parenchymal lesions. No hydronephrosis. LEFT KIDNEY: 10.7 x 6.3 x 5.5 cm (SAG x AP x TRV). The kidney is normal in size, contour, and echogenicity. Renal cortical thickness is normal. No calculi or focal parenchymal lesions. No hydronephrosis. There is a simple cyst in the upper pole measuring 9 mm. US/US renal BI IMPRESSION: 1. Simple cyst in the left kidney upper pole measuring 9 mm. 2. Otherwise normal examination. Electronically signed by: Cayden Ellison MD 12/13/2024 01:33 PM EDT RP Dictated By: Cayden Ellison MD Signed By: <Electronically signed by Cayden Ellison MD in OV> 12/13/24 1333 DD/ 1314 TD/TT: 12/13/24 1329 Yarn Twister: [facility] External Provider IMG US PROCEDURES Final Result * (ABNORMAL) POCT PERFECTO-14 Urine Drug Screen (12/05/2024 1:07 PM EDT) Only the most recent of2 resultswithin the time period is included. THC Negative Negative Cocaine Screen, Urine Negative Negative Opiate Screen, Urine Negative Negative Methamphetamine Screen Urine Negative Negative Amphetamine Screen, Urine Negative Negative Benzodiazepines Screen, Urine Negative Negative Barbiturate Screen, Urine Negative Negative Methadone Screen, Urine Negative Negative Buprenophine Screen, Urine Positive(A) Negative TCA, Urine Negative Negative MDMA Urine Negative Negative ng/mL Oxycodone Screen, Urine Negative Negative Phencyclidine (PCP), Urine Negative Negative Fentanyl, Urine Negative Negative Urine Urine specimen obtained by clean catch procedure / Unknown 12/05/2024 1:07 PM EDT Result [facility] Trace Singh MD POINT OF CARE TEST ENTER/EDIT OR DERABLES Final Result * POCT HGB A1C (03/22/2024 1:51 PM EST) Hemoglobin A1C 6.0 4.0 - 6.0 % QC Media Lot # [id number] Lot# Expiration Date [id number] Blood 03/22/2024 1:51 PM EST Silvano James MD POINT OF CARE TEST ENTER/EDIT ORDERABLES Final Result * Albumin, Random Urine W/Creatinine (03/22/2024 1:22 PM EST) Creatinine, Urine 111.50 mg/dL [facility] Microalbumin Urine 13.0 mg/L [facility] Microalbum Creatinine Ratio Ur 11.6 <30 ug/mg cr [facility] Comment:Albumin/Creatinine R atio Reference Ranges: Normal: < 30 ug/mg creatinine Microalbuminuria: 30 - 300 ug/mg creatinineClinical Albuminuria: > 300 ug/mg creatinine Urine (Urine, Random) 03/22/2024 1:22 PM EST 03/22/2024 1:55 PM EST us Silvano James MD LAB URINE ORDERABL ES Final Result [facility] [address] [place] [phone] * Lipid Panel, Standard (03/22/2024 1:19 PM EST) Triglycerides 108 <150 mg/dL [facility] Comment:Desirable Triglyceri de: less than 150 mg/dLBorderline High Triglyceride 150-199 mg/dLHigh Triglyceride: 200-499 mg/dLVery High Triglyceride: greater than or equal to 5OO mg/dL Cholesterol 147 <200 mg/dL [facility] Comment:Desirable Cholestero l: less than 200 mg/dLBorderline High Cholesterol: 200-239 mg/dLHigh Cholesterol: greater than 239 mg/dL LDL Cholesterol Calculated 77 <100 mg/dL [facility] Comment:Desirable LDL: less than 100 mg/dLNear Optimal/Above Optimal LDL: 110- 129 mg/dLBorderline High LDL: 130-159 mg/dLHigh LDL: 160-189 mg/dLVery High LDL: greater than or equal to 190 mg/dL HDL Cholesterol 49 >40 mg/dL [facility] Comment:Desirable HDL: great er than 40 mg/dL Note: This HDL assay may give artificially low results in patients with liver disease. Blood Venous blood specimen / Unknown 03/22/2024 1:19 PM EST 03/22/2024 1:57 PM EST us Silvano James MD LAB BLOOD ORDERABL ES Final Result Performing Organization Address [facility]/ZIP Co de Phone Number [facility] [address] [place] [phone] * Hepatitis C Antibody with Reflex to HCV, RNA, Quantitative, Real-Time PCR (05/25/2023 1:54 PM EDT) Hepatitis C Antibody Nonreactive Nonreactive [facility] Comment:Antibodies to HCV no t detected; does not exclude early acuteHCV infection. 05/25/2023 1:54 PM EDT 05/25/2023 4:05 PM EDT us Trace Singh MD LAB BLOOD ORDERABLES Final Resul t Performing Organization Address [facility] Co de Phone Number [facility] [address] [place] [phone] * HIV-1/2 Antigen and Antibodies, Fourth Generation, with Reflexes (05/25/2023 1:54 PM EDT) Pathologist [facility] HIV AB/AG Nonreactive Nonreactive [facility] Comment:HIV-1 p24 Ag and/or HIV-1/HIV-2 Ab not detected.A test result that is nonreactive does not exclude thepossibility of exposure to or infection with HIV-1 and/orHIV-2. Nonreactive results in this assay for individualswith prior exposure to HIV-1 and/or HIV-2 may be due toantigen and antibody levels that are below the limit ofdetection of this assay.[employer] HIV Ag/Ab Combo assay result andsupplemental assay results should be interpreted inconjunction with the patient's clinical presentation,history and other laboratory results. If the results areinconsistent with clinical evidence, additional testing issuggested to confirm the result. 05/25/2023 1:54 PM EDT 05/25/2023 4:05 PM EDT us Trace Singh MD LAB BLOOD ORDERABLES Final Resul t [facility] [address] [place] [phone] from Last 3 Months or Most Recently Relevant to Health Maintenance Insurance [facility] STANDARD [facility] < [address] Rear Left 1 GAIL Villanueva Care Teams Reheat Furnace Operator Relationship Specialty Start Date End Date Silvano Hinojosa MD [address] [place] [phone] PCP - General Internal Medicine 08/02/19 Heather Chen Seo ExpertAirborne Sensor Specialist 04/06/24
--- OUTSIDE RECORDS SUMMARY | 2024-12-13 15:42 | XMS_ITS | Encounter Summary ---
Author Organization [employer] Address [address] [facility] 7t [place] [address] Care Team Providers Care Dental Instructor Name Role Phone Silvano Hinojosa MD Primary Care Prov ider Encounter Details Date Type Department Care Team (Late Contact Info) Description 06/13/2022 Orders Only [facility] [address] [place], [place] [phone] Silvano Hinojosa MD [address] [place] [address] Social History Tobacco Use Types Packs/Day Years [...] Encounters Date Type Department Care Team (Late Contact Info) Description 02/27/2025 1:30 PM EST Clinical Support [facility] [address] [place], [place] [phone] Emelia Lincoln RN documented as of this encounter Goals Goal Patient Goal Type Associated Problems Recent Progress Patient-Stated? Author Patient will adhere to medication regimen General On track( 023 10:24 AM EDT) Ancelmo Ortizis, PharmD Hemoglobin A1c < 7 Result Component 6(03/22/2024 1:51 PM EST) No Filemon Israel, PharmD documented as of this encounter Visit Diagnoses Not on filedocumented in this encounter Care Teams Dental Instructor Relationship Specialty Start Date End Date Silvano Hinojosa MD [address] [place] [phone] PCP - General Internal Medicine 08/02/19 Heather Chen Folder Machine AdjusterTest Lead 04/06/24 documented as of this encounter
--- OUTSIDE RECORDS SUMMARY | 2024-12-13 15:42 | XMS_ITS | Encounter Summary ---
Author Organization [employer] Address [address] [facility] [address] [place] [address] Care Team Providers Care Database Reporting Consultant Name Role Phone Silvano Hinojosa MD Primary Care Prov ider Encounter Details Date Type Department Care Team (Late st Contact Info) Description 12/13/2024 Orders Only [facility] External Provider, [facility] Social History Tobacco Use Types Packs/Day Years [...] Description 02/27/2025 1:30 PM EST Clinical Support [address] [address] Emelia Lincoln RN documented as of this [...] COMPLETE Routine 12/13/2024 1:1 4 PM EDT documented in this encounter Results * US Renal Complete (12/13/2024 1:14 PM EDT) Anatomical Region Laterality Modality Kidney Ultrasound 12/13/2024 1:14 PM EDT Narrative 12/13/2024 1:35 PM EDT [facility] Primary [facility] [address] [place] [address] [place] [address] Ultrasound Report Signed Patient: Olya Chen MR#: [id number] : 1980 Acct:[id number] Age/Sex: 44 / M ADM Date: 12/13/24 Loc: HO.HMGCX Attending Dr: Shelia JAUREGUI Ordering Physician: Shelia Moreau Date of Service: 12/13/24 Procedure(s): US renal BI Accession Number(s): [id number] cc: Silvano Hinojosa MD; Shelia Moreau Reason [...] MD Signed By: <Electronically signed by Cayden Elilson MD in OV> 12/13/24 1333 DD/ 1314 TD/TT: 12/13/24 1329 Supervisor Shuttle Veneering: Procedure Note Donotuseinterpreter, Image - 12/13/2024 [facility] Adult Primary Care [address] [place] [address] [place] [address] Ultrasound Report Signed Patient: Olya Chen#: [id number] : 1980Acct:[id number] Age/Sex: 44 / MADM Date: 12/13/24 Loc: HO.HMGCX Attending Dr: Shelia JAUREGUI Ordering Physician: Shelia Moreau Date of Service: 12/13/24 Procedure(s): US renal BI Accession Number(s): [id number] cc: Silvano Hinojosa MD; Shelia Moreau Reason [...] Cayden Ellison MD 12/13/2024 01:33 PM EDT Dictated By: Cayden Ellison MD Signed By: <Electronically signed by Cayden Ellison MD in OV> 12/13/24 1333 DD/ 1314 TD/TT: 12/13/24 1329 Supervisor Shuttle Veneering: [facility] External Provider IMG US PROCEDURES Final Result documented in this encounter Visit Diagnoses Not on filedocumented in this encounter Additional Health Concerns Assessment Noted Time PHQ-9 Depression Total Score: 0 09/02/19 23 11:31 AM EDT documented as of this encounter Care Teams Database Reporting Consultant Relationship Specialty Start Date End Date Silvano Hinojosa MD [address] [place] [phone] PCP - General Internal Medicine 08/02/19 Heather Chen Movie Stunt PerformerFuneral Home Associate 04/06/24 documented as of this encounter
--- OUTSIDE RECORDS SUMMARY | 2024-12-13 15:42 | XMS_ITS | Encounter Summary ---
Author Organization [employer] Address [address] [facility] [address] [place] [address] Care Team Providers Care Educational Diagnostician Name Role Phone Silvano Hinojosa MD Primary Care Prov ider Encounter Details Date Type Department Care Team (Latest Contact Info) Description 03/29/2021 Abstract [facility] CONVERSIONS Dental, Provider, DDS Social History Tobacco [...] Description 02/27/2025 1:30 PM EST Clinical Support [address] [address] Emelia Lincoln, RN documented as of this encounter Visit Diagnoses Not on filedocumented in this encounter Care Teams Educational Diagnostician Relationship Specialty Start Date End Date Silvano Hinojosa MD [address] [place] [address] PCP - General Internal Medicine 08/02/19 Heather Chen Trampoline Team CoachTruck Driver 04/06/24 documented as of this encounter
== END 2024-12-13 12:51 | disposition home or self-care (01) ==
LOC: HO.HMGCX 12:50
PROVIDERS: PCP Internal Medicine; Visit Provider Nurse Practitioner Family
DX: N20.0 Calculus of kidney (principal)
CPT/HCPCS: 76775

== ENCOUNTER → 2024-12-13 12:58 | Outpatient (BNV) | payer OTHER, SELFPAY | PROVIDERS: PCP Internal Medicine; Visit Provider Radiology Diagnostic Radiology | DX: N28.1 Cyst of kidney, acquired (principal) | CPT/HCPCS: 76775 ==

== ENCOUNTER 2024-12-14 08:13 | Outpatient (AMB) | payer OTHER, SELFPAY ==
--- NOTE | 2024-12-14 08:22 | MHC.OFFVIS ---
Intake Visit Reasons: 6M US Intake Note: Patient is present for 6M/US Urology Medication:VITAMIN B6 Antibiotic Allergy:NONE Blood Thinner:NONE Machine Setter Required: No Allergies No Known Allergies Allergy (Verified 12/14/24 08:43) Medication List - Last Reconciled 12/14/24 by JUVENTINO Mayen acetaminophen (Tylenol Extra Strength) 500 mg PO Q6H PRN atorvastatin 20 mg PO QPM buprenorphine-naloxone 12-3 mg (Suboxone) 1 film buccal Q24H bupropion HCl XL 150 mg PO QAM levothyroxine 50 mcg PO QAM lurasidone 40 mg PO DAILY metformin 1,000 mg PO DAILY olanzapine 2.5 mg PO BEDTIME pyridoxine (vitamin B6) 100 mg PO DAILY 90 days HPI Comments Details: Olya is a very pleasant 44-year old male patient of Dr. Philip James. He has a past medical history of fatty liver, thyroid disease, diabetes, chronic pain syndrome, opioid dependence in remission, and mood disorder. In discussion with the patient today reports to be doing and feeling well. He reports since his last office visit here he has had no bothersome urinary issues or concerns. Recent renal imaging results reviewed with the patient today 12/31 bilateral kidneys with no calculi, lesions, or hydronephrosis. There is a simple cyst in the upper pole of the left kidney measuring 9 mm. Otherwise normal examination per radiology report. He currently denies any bothersome urinary issues or concerns. He reports to be drinking plenty of water daily. Patient with previous stone analysis noting 80% calcium oxalate monohydrate and 20% calcium oxalate dihydrate. Of note, patient underwent left-sided ESWL with Dr. Jacobsen on 02/11/23 for nephrolithiasis. He otherwise denies urinary urgency, urinary frequency, incontinence, nocturia, hematuria, dysuria, foul smelling urine, changes to urinary stream, fever, and or chills. He is happy with his current voiding parameters. He discusses having lost intentionally 30-35 lb over the last 6-10 months. He otherwise offers no other issues or concerns at this time. [facility] Medical History Fatty liver Thyroid disease Diabetes Chronic pain syndrome Sacroiliitis Spondylosis of lumbar spine Opioid dependence, in remission Chronic back pain Mood disorder Surgical History Hx of lithotripsy History of cystoscopy History of surgery History of neck surgery Family History Father HTN (hypertension) Mother Lung cancer Brother Heart disease Social History Household Members: Family Alcohol intake: never Patient Tobacco Use Status: Former Tobacco user Substance Use Type: Former Substance User Review of Systems Const All systems reviewed & are unremarkable except as noted in HPI and below Physical Exam Const General: cooperative, healthy appearing, comfortable, no acute distress, well developed, alert and awake Orientation/consciousness: patient oriented x3 Limitations: no limitations HEENT Head: Yes normal to inspection, Yes normocephalic and Yes atraumatic Ears: hearing grossly normal bilaterally Eyes General: appearance normal, both eyes and all related structures Neck Neck: Yes normal visual inspection and Yes trachea midline Chest Chest palpation & inspection: normal inspection of the chest Resp Effort & Inspection: normal respiratory effort and able to speak in complete sentences Cardio Rate: regular rate GI Inspection: Yes normal to inspection General: Yes no CVA tenderness Back/Spine/Pelvis Back: no CVA tenderness Skin General skin exam: no rashes or lesions noted Neuro General: patient oriented x3 Extrem General: Yes normal to inspection Psych Appearance: grossly normal and well kempt Mental Status: mental status grossly normal Speech and movement: Normal speech and movement present and Clear speech present Affect: normal affect Attitude: cooperative Thought process: Normal thought process present Thought content: Normal thought content present Insight: Fair insight present (Psych) Judgement: Fair judgement present (Psych) Results AMB Urinalysis, Automated UA Leukoctes 0 Janice/uL Last Edit by JOVAYN Orta on 12/14/24 08:39 UA Nitrite Negative Last Edit by JOVANY Orta on 12/14/24 08:39 UA Urobilinogen 0.2 mg/dL Last Edit by JOVANY Orta on 12/14/24 08:39 UA Protein 0 mg/dL Last Edit by JOVANY Orta on 12/14/24 08:39 UA pH 6.0 Last Edit by JOVANY Orta on 12/14/24 08:39 UA Blood 0 Te/uL Last Edit by JOVANY Otra on 12/14/24 08:39 UA Specific [place] 1.015 Last Edit by JOVANY Orta on 12/14/24 08:39 UA Ketone Negative Last Edit by JOVANY Orta on 12/14/24 08:39 UA Bilirubin 0 mg/dL Last Edit by JOVANY Orta on 12/14/24 08:39 UA Glucose 0 mg/dL Last Edit by JOVANY Orta on 12/14/24 08:39 Results Reviewed Results Reviewed: Date of Service: 12/13/24 Procedure(s): US renal BI FINDINGS: RIGHT KIDNEY: 10.3 x 5.3 x 5.3 cm (SAG x AP x TRV). The kidney is normal in size, contour, and echogenicity. Renal cortical thickness is normal. No calculi or focal parenchymal lesions. No hydronephrosis. LEFT KIDNEY: 10.7 x 6.3 x 5.5 cm (SAG x AP x TRV). The kidney is normal in size, contour, and echogenicity. Renal cortical thickness is normal. No calculi or focal parenchymal lesions. No hydronephrosis. There is a simple cyst in the upper pole measuring 9 mm. IMPRESSION: 1. Simple cyst in the left kidney upper pole measuring 9 mm. 2. Otherwise normal examination. Assessment & Plan Assessment & Plan (1) Nephrolithiasis: Code(s): N20.0 - Calculus of kidney Category: Medical (2) Renal cyst: Code(s): N28.1 - Cyst of kidney, acquired Category: Medical Plan Recent renal imaging results reviewed with the patient today; as noted above. Patient currently denies any bothersome urinary issues or concerns. He reports be happy with current voiding parameters. Continue with daily hydration as discussed We discussed adding 1 oz of lemon juice to water daily. Continue vitamin B6 as discussed and prescribed. We discussed metabolic workup to include 24 hour urine collection and labs. Will obtain renal ultrasound in 6 months. Follow-up in 6 months with imaging or sooner with any issues, concerns, and or questions. Orders: Orders AMB Urinalysis Automated Today Z13.9 - Encounter for screening, unspecified XR KUB 6 Months N20.0 - Calculus of kidney Patient Instructions: The patient had an opportunity to ask questions regarding the treatment plan. All questions were answered. Physical exam, labs, and imaging were discussed and reviewed in detail. As well as risks, benefits, and discussion of treatment choices. No major barriers to understanding were identified. The patient expressed understanding and agreement with the above treatment plan. The patient was made aware they should contact our office by phone for worsening of their current condition, the appearance of new symptoms, or with any questions or concerns. Compliance is encouraged with any medications and follow up testing that is ordered. It is a privilege to be allowed the opportunity to participate in? your urological care.? Again, if you have any questions or concerns If you have any questions or concerns please do not hesitate to contact me. The office is [phone]. This note is constructed using voice recognition software. While every effort has been made to ensure accuracy excavating machine operator errors may have been included. Yours sincerely, JUVENTINO Mayen Coding Level of Care Code Est Pt Level 3 (22136) Diagnoses Nephrolithiasis N20.0 Renal cyst N28.1
== END 2024-12-14 08:45 | disposition home or self-care (01) ==
LOC: HO.HUSH 08:13
PROVIDERS: PCP Internal Medicine; Visit Provider Nurse Practitioner Family
DX: N20.0 Calculus of kidney (principal); N28.1 Cyst of kidney, acquired; Z13.9 Encounter for screening, unspecified
CPT/HCPCS: 99213

== ENCOUNTER → 2024-12-14 08:13 | Outpatient (BNVA) | payer OTHER, SELFPAY | PROVIDERS: PCP Internal Medicine; Visit Provider Nurse Practitioner Family | DX: N20.0 Calculus of kidney (principal); N28.1 Cyst of kidney, acquired | CPT/HCPCS: 81003; 99212 ==

== ENCOUNTER 2024-12-21 11:31 | Outpatient (REF) | payer OTHER, SELFPAY ==
[2024-12-21 13:13] LABS: MANUAL DIFF FLAG NO
[2024-12-21 13:23] LABS: Hematocrit 43.3 % (42.0-52.0); Hemoglobin 13.8 g/dl (14.0-18.0); Imm Gran Abs Auto 0.03 X10*3/uL (0.00-0.03); Imm Gran Pct Auto 0.4 % (0.0-0.4); Lymphocytes Absolute Auto 2.1 X10*3/uL (1.2-4.9); Mean Corpuscular HGB Conc 31.9 g/dl (31.0-36.0); Mean Corpuscular Hemoglobin 28.8 pg (27.0-33.0); Mean Corpuscular Volume 90.4 fL (80.0-98.0); NRBC Abs Auto 0.000 X10*3/uL (0.0-0.012); NRBC Pct Auto 0.0 /100WBC (0.0-0.2); Platelet Count 177 X10*3/uL (160-400); Red Blood Count 4.79 X10*6/uL (4.60-5.80); White Blood Count 7.5 X10*3/uL (4.8-10.8)
[2024-12-21 14:04] LABS: Alanine Aminotransferase 41 U/L (0-40); Albumin Level 4.3 g/dL (3.5-5.0); Alkaline Phosphatase 80 U/L (39-117); Anion Gap 10 (12-20); Aspartate Amino Transferase 43 U/L (5-37); Blood Urea Nitrogen 10 mg/dL (9-16); Calcium 9.4 mg/dL (8.4-10.2); Carbon Dioxide 28 mmol/L (22-29); Chloride 108 mmol/L (96-108); Cholesterol 157 mg/dL (<200); Estimated Glomerular Filt Rate > 60; HDL Cholesterol 37 mg/dL (>40); Potassium 4.4 mmol/L (3.3-5.1); Sodium 142 mmol/L (135-145); Total Protein 7.3 g/dL (6.5-8.0); Triglycerides 182 mg/dL (<150)
[2024-12-21 14:25] LABS: Thyroid Stimulating Hormone 4.22 uIU/mL (0.32-4.0)
[2024-12-21 15:09] LABS: Free T4 (Free Thyroxine) 0.86 ng/dL (0.71-1.85)
== END 2024-12-21 11:32 | disposition home or self-care (01) ==
LOC: HO.HHCL 11:31
PROVIDERS: PCP Internal Medicine; Visit Provider Dietitian, Registered
DX: F33.3 Major depressive disorder, recurrent, severe with psychotic symptoms (principal); E03.9 Hypothyroidism, unspecified; Z13.1 Encounter for screening for diabetes mellitus
CPT/HCPCS: 36415; 80053; 80061; 83036; 84439; 84443; 85025